=== PATIENT | male | born 1985 | race Caucasian/White ===

== ENCOUNTER → 2020-05-11 16:28 | Outpatient (BNVA) | payer OTHER, SELFPAY | PROVIDERS: PCP Internal Medicine; Referring Provider Internal Medicine; Visit Provider Internal Medicine | DX: I34.8 Other nonrheumatic mitral valve disorders (principal); Z51.81 Encounter for therapeutic drug level monitoring; Z79.01 Long term (current) use of anticoagulants | CPT/HCPCS: 85610; 99211 ==

== ENCOUNTER → 2020-05-24 14:25 | Outpatient (BNVA) | payer OTHER, SELFPAY | PROVIDERS: Visit Provider Internal Medicine | DX: Z95.2 Presence of prosthetic heart valve (principal); Z51.81 Encounter for therapeutic drug level monitoring; Z79.01 Long term (current) use of anticoagulants | CPT/HCPCS: 85610 ==

== ENCOUNTER → 2020-06-08 14:05 | Outpatient (BNVA) | payer OTHER, SELFPAY | PROVIDERS: PCP Internal Medicine; Visit Provider Internal Medicine | DX: Z95.2 Presence of prosthetic heart valve (principal); Z51.81 Encounter for therapeutic drug level monitoring; Z79.01 Long term (current) use of anticoagulants | CPT/HCPCS: 85610 ==

== ENCOUNTER → 2020-06-26 14:23 | Outpatient (BNVA) | payer OTHER, SELFPAY | PROVIDERS: PCP Internal Medicine; Visit Provider Internal Medicine | DX: Z95.2 Presence of prosthetic heart valve (principal); Z51.81 Encounter for therapeutic drug level monitoring; Z79.01 Long term (current) use of anticoagulants | CPT/HCPCS: 85610; 99211 ==

== ENCOUNTER → 2020-07-10 14:12 | Outpatient (BNVA) | payer OTHER, SELFPAY | PROVIDERS: PCP Internal Medicine; Visit Provider Internal Medicine | DX: I34.8 Other nonrheumatic mitral valve disorders (principal); Z51.81 Encounter for therapeutic drug level monitoring; Z79.01 Long term (current) use of anticoagulants | CPT/HCPCS: 85610; 99211 ==

== ENCOUNTER → 2020-08-01 09:30 | Outpatient (BNVA) | payer OTHER, SELFPAY | PROVIDERS: PCP Internal Medicine; Visit Provider Internal Medicine | DX: I34.8 Other nonrheumatic mitral valve disorders (principal); Z51.81 Encounter for therapeutic drug level monitoring; Z79.01 Long term (current) use of anticoagulants | CPT/HCPCS: 85610; 99211 ==

== ENCOUNTER → 2020-08-15 09:39 | Outpatient (BNVA) | payer OTHER, SELFPAY | PROVIDERS: PCP Internal Medicine; Visit Provider Internal Medicine | DX: I34.8 Other nonrheumatic mitral valve disorders (principal); Z51.81 Encounter for therapeutic drug level monitoring; Z79.01 Long term (current) use of anticoagulants | CPT/HCPCS: 85610; 99211 ==

== ENCOUNTER → 2020-08-21 09:39 | Outpatient (BNVA) | payer OTHER, SELFPAY | PROVIDERS: PCP Internal Medicine; Visit Provider Internal Medicine | DX: I34.8 Other nonrheumatic mitral valve disorders (principal); Z79.01 Long term (current) use of anticoagulants; Z51.81 Encounter for therapeutic drug level monitoring | CPT/HCPCS: 85610; 99211 ==

== ENCOUNTER → 2020-08-31 13:08 | Outpatient (BNVA) | payer OTHER, SELFPAY | PROVIDERS: PCP Internal Medicine; Visit Provider Internal Medicine | DX: I34.8 Other nonrheumatic mitral valve disorders (principal); Z51.81 Encounter for therapeutic drug level monitoring; Z79.01 Long term (current) use of anticoagulants | CPT/HCPCS: 85610; 99211 ==

== ENCOUNTER → 2020-09-07 13:07 | Outpatient (BNVA) | payer OTHER, SELFPAY | PROVIDERS: PCP Internal Medicine; Visit Provider Internal Medicine ==

== ENCOUNTER → 2020-09-08 13:36 | Outpatient (BNVA) | payer OTHER, SELFPAY | PROVIDERS: PCP Internal Medicine; Visit Provider Internal Medicine | DX: I34.8 Other nonrheumatic mitral valve disorders (principal); Z51.81 Encounter for therapeutic drug level monitoring; Z79.01 Long term (current) use of anticoagulants | CPT/HCPCS: 85610; 99211 ==

== ENCOUNTER → 2020-09-11 10:01 | Outpatient (BNVA) | payer MEDICAID, SELFPAY | PROVIDERS: PCP Internal Medicine; Visit Provider Internal Medicine | DX: I34.8 Other nonrheumatic mitral valve disorders (principal); Z51.81 Encounter for therapeutic drug level monitoring; Z79.01 Long term (current) use of anticoagulants | CPT/HCPCS: 85610; 99211 ==

== ENCOUNTER → 2020-09-13 15:31 | Outpatient (BNVA) | payer MEDICAID, SELFPAY | PROVIDERS: PCP Internal Medicine; Visit Provider Internal Medicine | DX: I34.8 Other nonrheumatic mitral valve disorders (principal); Z51.81 Encounter for therapeutic drug level monitoring; Z79.01 Long term (current) use of anticoagulants | CPT/HCPCS: 85610; 99211 ==

== ENCOUNTER → 2020-09-15 14:24 | Outpatient (BNVA) | payer MEDICAID, SELFPAY | PROVIDERS: PCP Internal Medicine; Visit Provider Internal Medicine | DX: I34.8 Other nonrheumatic mitral valve disorders (principal); Z51.81 Encounter for therapeutic drug level monitoring; Z79.01 Long term (current) use of anticoagulants | CPT/HCPCS: 85610; 99211 ==

== ENCOUNTER → 2020-09-29 10:29 | Outpatient (BNVA) | payer MEDICAID, SELFPAY | PROVIDERS: PCP Internal Medicine; Visit Provider Internal Medicine | DX: I34.8 Other nonrheumatic mitral valve disorders (principal); Z51.81 Encounter for therapeutic drug level monitoring; Z79.01 Long term (current) use of anticoagulants | CPT/HCPCS: 85610; 99211 ==

== ENCOUNTER → 2020-10-13 11:16 | Outpatient (BNVA) | payer MEDICAID, SELFPAY | PROVIDERS: PCP Internal Medicine; Visit Provider Internal Medicine | DX: I34.8 Other nonrheumatic mitral valve disorders (principal); Z51.81 Encounter for therapeutic drug level monitoring; Z79.01 Long term (current) use of anticoagulants | CPT/HCPCS: 85610; 99211 ==

== ENCOUNTER → 2020-10-26 15:30 | Outpatient (BNVA) | payer MEDICAID, SELFPAY | PROVIDERS: PCP Internal Medicine; Visit Provider Internal Medicine | DX: I34.8 Other nonrheumatic mitral valve disorders (principal); Z51.81 Encounter for therapeutic drug level monitoring; Z79.01 Long term (current) use of anticoagulants | CPT/HCPCS: 85610; 99211 ==

== ENCOUNTER → 2020-11-02 14:07 | Outpatient (BNVA) | payer MEDICAID, SELFPAY | PROVIDERS: PCP Internal Medicine; Visit Provider Internal Medicine | DX: I34.8 Other nonrheumatic mitral valve disorders (principal); Z51.81 Encounter for therapeutic drug level monitoring; Z79.01 Long term (current) use of anticoagulants | CPT/HCPCS: 85610; 99211 ==

== ENCOUNTER → 2020-11-10 08:49 | Outpatient (BNVA) | payer MEDICAID, SELFPAY | PROVIDERS: PCP Internal Medicine; Visit Provider Internal Medicine | DX: I34.8 Other nonrheumatic mitral valve disorders (principal); Z51.81 Encounter for therapeutic drug level monitoring; Z79.01 Long term (current) use of anticoagulants | CPT/HCPCS: 85610; 99211 ==

== ENCOUNTER → 2020-11-24 13:53 | Outpatient (BNVA) | payer MEDICAID, SELFPAY | PROVIDERS: PCP Internal Medicine; Visit Provider Internal Medicine | DX: I34.8 Other nonrheumatic mitral valve disorders (principal); Z79.01 Long term (current) use of anticoagulants; Z51.81 Encounter for therapeutic drug level monitoring | CPT/HCPCS: 85610; 99211 ==

== ENCOUNTER → 2020-12-18 09:49 | Outpatient (BNVA) | payer MEDICAID, SELFPAY | PROVIDERS: PCP Internal Medicine; Visit Provider Internal Medicine | DX: Z95.2 Presence of prosthetic heart valve (principal); Z79.01 Long term (current) use of anticoagulants; Z51.81 Encounter for therapeutic drug level monitoring | CPT/HCPCS: 85610; 99211 ==

== ENCOUNTER → 2021-01-10 13:21 | Outpatient (BNVA) | payer MEDICAID, SELFPAY | PROVIDERS: PCP Internal Medicine; Visit Provider Internal Medicine | DX: Z95.2 Presence of prosthetic heart valve (principal); Z51.81 Encounter for therapeutic drug level monitoring; Z79.01 Long term (current) use of anticoagulants | CPT/HCPCS: 85610; 99211 ==

== ENCOUNTER → 2021-01-12 13:26 | Outpatient (BNVA) | payer MEDICAID, SELFPAY | PROVIDERS: PCP Internal Medicine; Visit Provider Internal Medicine | DX: Z95.2 Presence of prosthetic heart valve (principal); Z51.81 Encounter for therapeutic drug level monitoring; Z79.01 Long term (current) use of anticoagulants | CPT/HCPCS: 85610; 99211 ==

== ENCOUNTER → 2021-01-19 11:42 | Outpatient (BNVA) | payer MEDICAID, SELFPAY | PROVIDERS: PCP Internal Medicine; Visit Provider Internal Medicine | DX: Z95.2 Presence of prosthetic heart valve (principal); Z51.81 Encounter for therapeutic drug level monitoring; Z79.01 Long term (current) use of anticoagulants | CPT/HCPCS: 85610; 99211 ==

== ENCOUNTER → 2021-01-30 07:28 | Outpatient (REF) | payer MEDICAID, SELFPAY ==
--- NOTE | 2021-01-30 07:30 | CA_ITS ---
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 The visually estimated ejection fraction is between 60-65%. - A mechanical prosthetic mitral valve is present. Mean gradient across the mitral valve 12 mm Hg at 76/Min. This is elevated but similar to prior. - Moderately increased right ventricular cavity size. Findings Left Ventricle Normal left ventricular cavity size. There is normal left ventricular wall thickness. The left ventricular systolic function is normal. The visually estimated ejection fraction is between 60-65%. There is no evidence of regional wall motion abnormalities. Diastolic function is indeterminate on the basis of available data. Right Ventricle Moderately increased right ventricular cavity size. There is normal right ventricular systolic function. Atria The left atrium is moderately dilated. The right atrium is normal in size. Aortic Valve There is a normal trileaflet aortic valve. There is no aortic valve stenosis. There is no aortic valve regurgitation. Mitral Valve A mechanical prosthetic mitral valve is present. Mean gradient across the mitral valve 12 mm Hg at 76/Min. Based on spectral Doppler, no significant regurgitation noted. Pulmonic Valve The pulmonic valve was not well visualized. Tricuspid Valve Normal tricuspid valve structure. There is trace tricuspid valve regurgitation. Tricuspid regurgitation envelope is inadequate for calculation of right ventricular systolic pressure. Great Vessels The asc aorta and aortic arch are normal in size. Venous The inferior vena cava is normal in size and collapses greater than 50% with inspiration. Pericardium/Pleural There is no evidence of pericardial effusion. Prior Study Comparison No significant change compared to prior study dated: 03/17/2019. Measurements 2D Linear Measurements IVSd: 0.93 0.6-0.9/0.6-1.0 cm LVIDd: 4.75 3.9-5.3/4.2-5.9 cm LVIDs: 3.18 2.0-3.6 cm LVPWd: 0.93 0.7-1.1 cm Ao Root: 3.55 2.1-3.5 cm LV Mass: 188.54 67-162/88-224 g LVOT Diam: 2.15 3.0+(-)1.3 cm Mitral Valve MV VTI: 0.55 MV Pk Jai: 2.20 MV Mn Jai: 1.68 MV Pk Grad: 19.34 MV Mn Grad: 12.32 MV Pk E: 1.61 MV PK A: 1.67 MV Decel Time: 255.59 E/A: 0.96 E'Lateral: 0.14 E'Medial: 0.07 Decel Geary: 6.30 Aortic Valve AoV Pk Jai: 1.27 AoV Mn Jai: 0.94 AoV VTI: 0.28 AoV Pk Grad: 6.45 Aov Mn Grad: 3.91 LVOT LVOT Pk Jai: 1.09 LVOT Mn Jai: 0.67 LVOT VTI: 0.21 LVOT Pk Grad: 4.77 LVOT Mn Grad: 2.18 LVOT Diam: 2.15 LVOT Area: 3.65 Diastolic Function MV Pk E: 1.61 MV Pk A: 1.67 E/A: 0.96 E'Medial: 0.07 E' Laterial: 0.14 Great Vessels Aorta Ao Root-2D: 3.55 2.0-3.7 cm Ao Asc: 3.35 2.1-3.4 cm Ao Arch: 2.70 Updated in Other Vendor System with Status of Final Jose Williamson MD electronically signed on 01/30/2021 12:44:39 PM with status of Final
== END ==
LOC: HO.CARD 07:28
PROVIDERS: Visit Provider Internal Medicine
DX: Z95.2 Presence of prosthetic heart valve (principal)
CPT/HCPCS: 93306

== ENCOUNTER → 2021-02-26 10:02 | Outpatient (BNVA) | payer MEDICAID, SELFPAY | PROVIDERS: PCP Internal Medicine; Visit Provider Internal Medicine | DX: Z95.2 Presence of prosthetic heart valve (principal); Z51.81 Encounter for therapeutic drug level monitoring; Z79.01 Long term (current) use of anticoagulants | CPT/HCPCS: 85610; 99211 ==

== ENCOUNTER → 2021-03-01 09:20 | Outpatient (BNVA) | payer MEDICAID, SELFPAY | PROVIDERS: PCP Internal Medicine; Visit Provider Internal Medicine | DX: Z95.2 Presence of prosthetic heart valve (principal); Z51.81 Encounter for therapeutic drug level monitoring; Z79.01 Long term (current) use of anticoagulants | CPT/HCPCS: 85610; 99211 ==

== ENCOUNTER → 2021-03-08 14:50 | Outpatient (BNVA) | payer MEDICAID, SELFPAY | PROVIDERS: PCP Internal Medicine; Referring Provider Internal Medicine; Visit Provider Internal Medicine | DX: I44.0 Atrioventricular block, first degree (principal); F17.210 Nicotine dependence, cigarettes, uncomplicated; Z95.2 Presence of prosthetic heart valve; Z86.79 Personal history of other diseases of the circulatory system; Z79.899 Other long term (current) drug therapy | CPT/HCPCS: 93005; 99212 ==

== ENCOUNTER → 2021-03-15 10:03 | Outpatient (BNVA) | payer MEDICAID, SELFPAY | PROVIDERS: PCP Internal Medicine; Visit Provider Internal Medicine | DX: Z95.2 Presence of prosthetic heart valve (principal); Z51.81 Encounter for therapeutic drug level monitoring; Z79.01 Long term (current) use of anticoagulants | CPT/HCPCS: 85610; 99211 ==

== ENCOUNTER → 2021-03-29 11:00 | Outpatient (BNVA) | payer MEDICAID, SELFPAY | PROVIDERS: PCP Internal Medicine; Visit Provider Internal Medicine | DX: Z95.2 Presence of prosthetic heart valve (principal); Z51.81 Encounter for therapeutic drug level monitoring; Z79.01 Long term (current) use of anticoagulants | CPT/HCPCS: 85610; 99211 ==

== ENCOUNTER → 2021-04-05 09:52 | Outpatient (BNVA) | payer MEDICAID, SELFPAY | PROVIDERS: PCP Internal Medicine; Visit Provider Internal Medicine | DX: Z95.2 Presence of prosthetic heart valve (principal); Z51.81 Encounter for therapeutic drug level monitoring; Z79.01 Long term (current) use of anticoagulants | CPT/HCPCS: 85610; 99211 ==

== ENCOUNTER → 2021-04-26 08:24 | Outpatient (BNVA) | payer MEDICAID, SELFPAY | PROVIDERS: PCP Internal Medicine; Visit Provider Internal Medicine | DX: Z95.2 Presence of prosthetic heart valve (principal); Z51.81 Encounter for therapeutic drug level monitoring; Z79.01 Long term (current) use of anticoagulants | CPT/HCPCS: 85610; 99211 ==

== ENCOUNTER → 2021-05-24 08:03 | Outpatient (BNVA) | payer MEDICAID, SELFPAY | PROVIDERS: PCP Internal Medicine; Visit Provider Internal Medicine | DX: Z95.2 Presence of prosthetic heart valve (principal); Z51.81 Encounter for therapeutic drug level monitoring; Z79.01 Long term (current) use of anticoagulants | CPT/HCPCS: 85610; 99211 ==

== ENCOUNTER → 2021-05-28 08:28 | Outpatient (BNVA) | payer MEDICAID, SELFPAY | PROVIDERS: PCP Internal Medicine; Visit Provider Internal Medicine | DX: Z95.2 Presence of prosthetic heart valve (principal); Z51.81 Encounter for therapeutic drug level monitoring; Z79.01 Long term (current) use of anticoagulants | CPT/HCPCS: 85610; 99211 ==

== ENCOUNTER → 2021-06-15 08:24 | Outpatient (BNVA) | payer MEDICAID, SELFPAY | PROVIDERS: PCP Internal Medicine; Visit Provider Internal Medicine | DX: Z95.2 Presence of prosthetic heart valve (principal); Z51.81 Encounter for therapeutic drug level monitoring; Z79.01 Long term (current) use of anticoagulants | CPT/HCPCS: 85610; 99211 ==

== ENCOUNTER → 2021-07-02 08:28 | Outpatient (BNVA) | payer MEDICAID, SELFPAY | PROVIDERS: PCP Internal Medicine; Visit Provider Internal Medicine | DX: Z95.2 Presence of prosthetic heart valve (principal); Z51.81 Encounter for therapeutic drug level monitoring; Z79.01 Long term (current) use of anticoagulants | CPT/HCPCS: 85610; 99211 ==

== ENCOUNTER → 2021-07-16 13:04 | Outpatient (BNVA) | payer MEDICAID, SELFPAY | PROVIDERS: PCP Internal Medicine; Visit Provider Internal Medicine | DX: Z95.2 Presence of prosthetic heart valve (principal); Z51.81 Encounter for therapeutic drug level monitoring; Z79.01 Long term (current) use of anticoagulants | CPT/HCPCS: 85610; 99211 ==

== ENCOUNTER → 2021-07-23 13:59 | Outpatient (BNVA) | payer MEDICAID, SELFPAY | PROVIDERS: PCP Internal Medicine; Visit Provider Internal Medicine ==

== ENCOUNTER → 2021-07-27 15:51 | Outpatient (BNVA) | payer MEDICAID, SELFPAY | PROVIDERS: PCP Internal Medicine; Visit Provider Internal Medicine | DX: Z95.2 Presence of prosthetic heart valve (principal); Z51.81 Encounter for therapeutic drug level monitoring; Z79.01 Long term (current) use of anticoagulants | CPT/HCPCS: 85610; 99211 ==

== ENCOUNTER → 2021-09-13 14:22 | Outpatient (BNVA) | payer MEDICAID, SELFPAY | PROVIDERS: PCP Internal Medicine; Visit Provider Internal Medicine | DX: Z95.2 Presence of prosthetic heart valve (principal); Z51.81 Encounter for therapeutic drug level monitoring; Z79.01 Long term (current) use of anticoagulants | CPT/HCPCS: 85610; 99211 ==

== ENCOUNTER → 2021-10-12 14:58 | Outpatient (BNVA) | payer MEDICAID, SELFPAY | PROVIDERS: PCP Internal Medicine; Visit Provider Internal Medicine | DX: Z95.2 Presence of prosthetic heart valve (principal); Z51.81 Encounter for therapeutic drug level monitoring; Z79.01 Long term (current) use of anticoagulants | CPT/HCPCS: 85610; 99211 ==

== ENCOUNTER → 2021-10-15 15:52 | Outpatient (BNVA) | payer MEDICAID, SELFPAY | PROVIDERS: PCP Internal Medicine; Visit Provider Internal Medicine | DX: Z95.2 Presence of prosthetic heart valve (principal); Z51.81 Encounter for therapeutic drug level monitoring; Z79.01 Long term (current) use of anticoagulants | CPT/HCPCS: 85610; 99211 ==

== ENCOUNTER → 2021-10-18 15:58 | Outpatient (BNVA) | payer MEDICAID, SELFPAY | PROVIDERS: PCP Internal Medicine; Visit Provider Internal Medicine | DX: Z95.2 Presence of prosthetic heart valve (principal); Z51.81 Encounter for therapeutic drug level monitoring; Z79.01 Long term (current) use of anticoagulants | CPT/HCPCS: 85610; 99211 ==

== ENCOUNTER → 2021-11-01 15:45 | Outpatient (BNVA) | payer MEDICAID, SELFPAY | PROVIDERS: PCP Internal Medicine; Visit Provider Internal Medicine | DX: Z95.2 Presence of prosthetic heart valve (principal); Z51.81 Encounter for therapeutic drug level monitoring; Z79.01 Long term (current) use of anticoagulants | CPT/HCPCS: 85610; 99211 ==

== ENCOUNTER → 2021-11-05 14:49 | Outpatient (BNVA) | payer MEDICAID, SELFPAY | PROVIDERS: PCP Internal Medicine; Visit Provider Internal Medicine | DX: Z95.2 Presence of prosthetic heart valve (principal); Z51.81 Encounter for therapeutic drug level monitoring; Z79.01 Long term (current) use of anticoagulants | CPT/HCPCS: 85610; 99211 ==

== ENCOUNTER → 2021-11-12 15:47 | Outpatient (BNVA) | payer MEDICAID, SELFPAY | PROVIDERS: PCP Internal Medicine; Visit Provider Internal Medicine | DX: Z95.2 Presence of prosthetic heart valve (principal); Z51.81 Encounter for therapeutic drug level monitoring; Z79.01 Long term (current) use of anticoagulants | CPT/HCPCS: 85610 ==

== ENCOUNTER → 2021-11-15 15:37 | Outpatient (BNVA) | payer MEDICAID, SELFPAY | PROVIDERS: PCP Internal Medicine; Visit Provider Internal Medicine | DX: Z95.2 Presence of prosthetic heart valve (principal); Z51.81 Encounter for therapeutic drug level monitoring; Z79.01 Long term (current) use of anticoagulants | CPT/HCPCS: 85610; 99211 ==

== ENCOUNTER → 2021-11-21 15:17 | Outpatient (BNVA) | payer MEDICAID, SELFPAY | PROVIDERS: PCP Internal Medicine; Visit Provider Internal Medicine | DX: Z95.2 Presence of prosthetic heart valve (principal); Z79.01 Long term (current) use of anticoagulants; Z51.81 Encounter for therapeutic drug level monitoring | CPT/HCPCS: 85610; 99211 ==

== ENCOUNTER → 2021-11-28 15:44 | Outpatient (BNVA) | payer MEDICAID, SELFPAY | PROVIDERS: PCP Internal Medicine; Visit Provider Internal Medicine | DX: Z95.2 Presence of prosthetic heart valve (principal); Z79.01 Long term (current) use of anticoagulants; Z51.81 Encounter for therapeutic drug level monitoring | CPT/HCPCS: 85610; 99211 ==

== ENCOUNTER → 2022-01-01 15:54 | Outpatient (BNVA) | payer MEDICAID, SELFPAY | PROVIDERS: PCP Internal Medicine; Visit Provider Internal Medicine | DX: Z95.2 Presence of prosthetic heart valve (principal); Z79.01 Long term (current) use of anticoagulants; Z51.81 Encounter for therapeutic drug level monitoring | CPT/HCPCS: 85610; 99211 ==

== ENCOUNTER → 2022-01-15 15:44 | Outpatient (BNVA) | payer MEDICAID, SELFPAY | PROVIDERS: PCP Internal Medicine; Visit Provider Internal Medicine | DX: Z95.2 Presence of prosthetic heart valve (principal); Z79.01 Long term (current) use of anticoagulants; Z51.81 Encounter for therapeutic drug level monitoring | CPT/HCPCS: 85610; 99211 ==

== ENCOUNTER → 2022-01-25 14:59 | Outpatient (BNVA) | payer MEDICAID, SELFPAY | PROVIDERS: PCP Internal Medicine; Visit Provider Internal Medicine | DX: Z95.2 Presence of prosthetic heart valve (principal); Z79.01 Long term (current) use of anticoagulants; Z51.81 Encounter for therapeutic drug level monitoring | CPT/HCPCS: 85610; 99211 ==

== ENCOUNTER → 2022-02-01 14:57 | Outpatient (BNVA) | payer MEDICAID, SELFPAY | PROVIDERS: PCP Internal Medicine; Visit Provider Internal Medicine | DX: Z95.2 Presence of prosthetic heart valve (principal); Z79.01 Long term (current) use of anticoagulants; Z51.81 Encounter for therapeutic drug level monitoring | CPT/HCPCS: 85610; 99211 ==

== ENCOUNTER → 2022-02-22 08:32 | Outpatient (BNVA) | payer MEDICAID, SELFPAY | PROVIDERS: PCP Internal Medicine; Visit Provider Internal Medicine | DX: Z95.2 Presence of prosthetic heart valve (principal); Z79.01 Long term (current) use of anticoagulants; Z51.81 Encounter for therapeutic drug level monitoring | CPT/HCPCS: 85610; 99211 ==

== ENCOUNTER → 2022-03-08 08:08 | Outpatient (BNVA) | payer MEDICAID, SELFPAY | PROVIDERS: PCP Internal Medicine; Visit Provider Internal Medicine | DX: Z95.2 Presence of prosthetic heart valve (principal); Z79.01 Long term (current) use of anticoagulants; Z51.81 Encounter for therapeutic drug level monitoring | CPT/HCPCS: 85610; 99211 ==

== ENCOUNTER → 2022-03-15 08:30 | Outpatient (BNVA) | payer MEDICAID, SELFPAY | PROVIDERS: PCP Internal Medicine; Visit Provider Internal Medicine | DX: Z95.2 Presence of prosthetic heart valve (principal); Z79.01 Long term (current) use of anticoagulants; Z51.81 Encounter for therapeutic drug level monitoring | CPT/HCPCS: 85610; 99211 ==

== ENCOUNTER → 2022-04-08 08:05 | Outpatient (BNVA) | payer MEDICAID, SELFPAY | PROVIDERS: PCP Internal Medicine; Visit Provider Internal Medicine | DX: Z95.2 Presence of prosthetic heart valve (principal); Z79.01 Long term (current) use of anticoagulants; Z51.81 Encounter for therapeutic drug level monitoring | CPT/HCPCS: 85610; 99211 ==

== ENCOUNTER → 2022-04-17 08:38 | Outpatient (BNVA) | payer MEDICAID, SELFPAY | PROVIDERS: PCP Internal Medicine; Visit Provider Internal Medicine | DX: Z95.2 Presence of prosthetic heart valve (principal); Z79.01 Long term (current) use of anticoagulants; Z51.81 Encounter for therapeutic drug level monitoring | CPT/HCPCS: 85610; 99211 ==

== ENCOUNTER → 2022-05-02 15:29 | Outpatient (BNVA) | payer MEDICAID, SELFPAY | PROVIDERS: PCP Internal Medicine; Visit Provider Internal Medicine | DX: Z95.2 Presence of prosthetic heart valve (principal); Z79.01 Long term (current) use of anticoagulants; Z51.81 Encounter for therapeutic drug level monitoring | CPT/HCPCS: 85610; 99211 ==

== ENCOUNTER → 2022-05-09 15:31 | Outpatient (BNVA) | payer MEDICAID, SELFPAY | PROVIDERS: PCP Internal Medicine; Visit Provider Internal Medicine | DX: Z95.2 Presence of prosthetic heart valve (principal); Z51.81 Encounter for therapeutic drug level monitoring; Z79.01 Long term (current) use of anticoagulants | CPT/HCPCS: 85610; 99211 ==

== ENCOUNTER → 2022-05-16 15:24 | Outpatient (BNVA) | payer MEDICAID, SELFPAY | PROVIDERS: PCP Internal Medicine; Visit Provider Internal Medicine | DX: Z95.2 Presence of prosthetic heart valve (principal); Z79.01 Long term (current) use of anticoagulants; Z51.81 Encounter for therapeutic drug level monitoring | CPT/HCPCS: 85610; 99211 ==

== ENCOUNTER → 2022-05-24 14:56 | Outpatient (BNVA) | payer MEDICAID, SELFPAY | PROVIDERS: PCP Internal Medicine; Visit Provider Internal Medicine | DX: Z95.2 Presence of prosthetic heart valve (principal); Z79.01 Long term (current) use of anticoagulants; Z51.81 Encounter for therapeutic drug level monitoring | CPT/HCPCS: 85610; 99211 ==

== ENCOUNTER → 2022-05-31 15:12 | Outpatient (BNVA) | payer MEDICAID, SELFPAY | PROVIDERS: PCP Internal Medicine; Visit Provider Internal Medicine | DX: Z95.2 Presence of prosthetic heart valve (principal); Z79.01 Long term (current) use of anticoagulants; Z51.81 Encounter for therapeutic drug level monitoring | CPT/HCPCS: 85610; 99211 ==

== ENCOUNTER → 2022-06-10 08:47 | Outpatient (BNVA) | payer MEDICAID, SELFPAY | PROVIDERS: PCP Internal Medicine; Visit Provider Internal Medicine | DX: Z95.2 Presence of prosthetic heart valve (principal); Z79.01 Long term (current) use of anticoagulants; Z51.81 Encounter for therapeutic drug level monitoring | CPT/HCPCS: 85610; 99211 ==

== ENCOUNTER → 2022-06-25 09:06 | Outpatient (BNVA) | payer MEDICAID, SELFPAY | PROVIDERS: PCP Internal Medicine; Visit Provider Internal Medicine | DX: Z95.2 Presence of prosthetic heart valve (principal); Z79.01 Long term (current) use of anticoagulants; Z51.81 Encounter for therapeutic drug level monitoring | CPT/HCPCS: 85610; 99211 ==

== ENCOUNTER → 2022-07-09 08:22 | Outpatient (BNVA) | payer MEDICAID, SELFPAY | PROVIDERS: PCP Internal Medicine; Visit Provider Internal Medicine | DX: Z95.2 Presence of prosthetic heart valve (principal); Z79.01 Long term (current) use of anticoagulants; Z51.81 Encounter for therapeutic drug level monitoring | CPT/HCPCS: 85610; 99211 ==

== ENCOUNTER → 2022-07-25 14:58 | Outpatient (BNVA) | payer MEDICAID, SELFPAY | PROVIDERS: PCP Internal Medicine; Visit Provider Internal Medicine | DX: Z95.2 Presence of prosthetic heart valve (principal); Z79.01 Long term (current) use of anticoagulants; Z51.81 Encounter for therapeutic drug level monitoring | CPT/HCPCS: 85610; 99211 ==

== ENCOUNTER → 2022-08-01 15:06 | Outpatient (BNVA) | payer MEDICAID, SELFPAY | PROVIDERS: PCP Internal Medicine; Visit Provider Internal Medicine | DX: Z95.2 Presence of prosthetic heart valve (principal); Z79.01 Long term (current) use of anticoagulants; Z51.81 Encounter for therapeutic drug level monitoring | CPT/HCPCS: 85610; 99211 ==

== ENCOUNTER → 2022-08-13 15:32 | Outpatient (BNVA) | payer MEDICAID, SELFPAY | PROVIDERS: PCP Internal Medicine; Visit Provider Internal Medicine | DX: Z95.2 Presence of prosthetic heart valve (principal); Z79.01 Long term (current) use of anticoagulants; Z51.81 Encounter for therapeutic drug level monitoring | CPT/HCPCS: 85610; 99211 ==

== ENCOUNTER → 2022-08-27 15:38 | Outpatient (BNVA) | payer MEDICAID, SELFPAY | PROVIDERS: PCP Internal Medicine; Visit Provider Internal Medicine | DX: Z95.2 Presence of prosthetic heart valve (principal); Z79.01 Long term (current) use of anticoagulants; Z51.81 Encounter for therapeutic drug level monitoring | CPT/HCPCS: 85610; 99211 ==

== ENCOUNTER → 2022-09-10 15:25 | Outpatient (BNVA) | payer MEDICAID, SELFPAY | PROVIDERS: PCP Internal Medicine; Visit Provider Internal Medicine | DX: Z95.2 Presence of prosthetic heart valve (principal); Z51.81 Encounter for therapeutic drug level monitoring; Z79.01 Long term (current) use of anticoagulants | CPT/HCPCS: 85610; 99211 ==

== ENCOUNTER 2022-09-23 11:05 | Emergency (ER) | payer MEDICAID, SELFPAY ==
--- NOTE | ~2022-09-23 | XR_ITS ---
EXAMINATION: XR CHEST CLINICAL INFORMATION: Productive cough COMPARISON: Previous chest x-ray July 2019 TECHNIQUE: 2 views of the chest were obtained. FINDINGS: The cardiac silhouette is upper normal in size. There is a heart valve ring and median sternotomy wires. There are increased central bronchovascular markings. The lungs are otherwise clear. There is no pleural effusion or pneumothorax. Bony structures are otherwise unremarkable. XR/XR chest 2V IMPRESSION: Increased central bronchovascular markings. Differential would include pulmonary venous redistribution and airways disease. No evidence of pneumonia.
[2022-09-23 11:22] VITALS: BP 121/71; PULSE 77; RESP 20; TEMP 36.6; O2SAT 93; BMI 36.6
--- NOTE | 2022-09-23 11:23 | ED_ITS ---
HPI - SOB/Dyspnea General Chief Complaint: Upper Respiratory Symptoms Stated Complaint: sob back pain Time Seen by Provider: 09/23/22 12:11 Related Data Home Medications Medication Instructions Recorded Confirmed albuterol sulfate 90 mcg/actuation 2 puff PO Q4-6H PRN 08/21/20 09/24/22 aerosol inhaler cetirizine 10 mg tablet 10 mg PO DAILY 08/21/20 09/24/22 gabapentin 300 mg capsule mg PO 08/21/20 09/24/22 lamotrigine 200 mg tablet 0 mg PO 08/21/20 09/24/22 lithium carbonate 300 mg tablet 0 mg PO 08/21/20 09/24/22 fluticasone propionate 230 inhalation 08/31/20 09/24/22 mcg-salmeterol 21 mcg/actuation HFA inhaler buprenorphine 4 mg-naloxone 1 mg 5 mg sublingual BID 03/29/21 09/24/22 sublingual film (Suboxone) fluoxetine 20 mg capsule 20 mg PO QAM 03/29/21 09/24/22 fluticasone propionate 50 1 spray intranasal DAILY 03/29/21 09/24/22 mcg/actuation nasal spray,suspension hydrocortisone 2.5 % lotion topical DAILY 03/29/21 09/24/22 hydroxyzine pamoate 25 mg capsule 25 mg PO BEDTIME PRN 03/29/21 09/24/22 ketoconazole 2 % topical cream appl topical 03/29/21 09/24/22 nicotine (polacrilex) 2 mg gum 2 mg PO Q2H PRN 03/29/21 09/24/22 Previous Rx's Medication Instructions Recorded warfarin 7.5 mg tablet 7.5 mg PO DAILY MVR #90 tabs 07/24/20 azithromycin 250 mg tablet See Rx Instructions PO .COMPLEX #6 09/23/22 tabs prednisone 20 mg tablet 40 mg PO DAILY #10 tabs 09/23/22 Allergies Allergy/AdvReac Type Severity Reaction Status Date / Time No Known Allergies Allergy Verified 09/24/22 15:28 [No Known Allergies*] [facility] Past Medical History Medical History History of endocarditis Smoking Surgical History (Updated 03/08/21 @ 14:59 by MADELEINE Lucio) S/P MVR (mitral valve replacement) (~2014) Family History Family History (Updated 03/08/21 @ 15:09 by MADELEINE Lucio) Father No problems noted. Mother No problems noted. Social History Social History (Updated 03/08/21 @ 15:08 by MADELEINE Lucio) Alcohol intake: never Patient Tobacco Use Status: Current everyday Tobacco user Cigarettes Per Day: 15 Physical Exam Vital Signs: Vital Signs: Last Vital Signs Temp 97.3 F 09/23/22 12:41 Pulse 75 09/23/22 12:43 Resp 20 09/23/22 12:43 BP 118/76 09/23/22 12:41 Pulse Ox 97 09/23/22 12:41 O2 Del Method 09/23/22 12:41 BMI result Body Mass Index 36.6 Course Course Course Narrative: RME - 37 y/o male with substance abuse on Suboxone, history of endocarditiis s/p MV replacement on Coumadin presenting with SOB, productive cough, sore throat, body aches for the last 4-5 days. VSS in triage, speaking in complete sentences but diffusely wheezy with scattered rhonchi. Will get CXR, viral and strep swabs. Medications Administered Discontinued Medications Generic Name Dose Route Start Last Admin Trade Name Freq PRN Reason Stop Dose Admin Albuterol/Ipratropium 3 ml 09/23/22 12:16 09/23/22 12:42 Albuterol/Iprat 2.5/0.5mg 3 Ml Ampul.Neb INHALE 09/23/22 12:17 3 ml ONCE ONE Administration Medical Decision Making Lab Data Labs: Lab Results 09/23/22 09/23/22 09/23/22 Range/Units 11:42 11:42 11:42 COVID-19 ([facility]) Negative (Negative) COVID-19 Clin Com See Note Influenza Type A (ERIK) Negative (Negative) Influenza Type B (ERIK) Negative (Negative) Influenza A & B Note See Note S. pyogenes GrpA ERIK Negative (Negative) Discharge Plan Discharge Clinical Impression: Acute asthma exacerbation, Upper respiratory infection, Smoking Patient Disposition: Home, Self-Care Instructions: Asthma (ED) Additional Instructions: Take prednisone 40 mg daily for the next 5 days. Take azithromycin as directed Continue your inhalers as prescribed Prescriptions: New prednisone 20 mg tablet 40 mg PO DAILY Qty: 10 0RF azithromycin 250 mg tablet See Rx Instructions .ROUTE .COMPLEX Qty: 6 0RF Rx Instructions: For 250 mg dose pack: take 500 mg today (day 1), then 250 mg for 4 days (days 2-5) No Action warfarin 7.5 mg tablet 7.5 mg PO DAILY Qty: 90 0RF Protocol: Dose Management Condition: Friday (Week One) Dose/Route: 7.5 mg Instruction: 1 x 7.5 mg tablet Condition: Friday Dose/Route: 11.25 mg Instruction: 1.5 x 7.5 mg tablets Condition: Friday Dose/Route: 3.75 mg Instruction: 0.5 x 7.5 mg tablets Condition: Friday Dose/Route: 7.5 mg Instruction: 1 x 7.5 mg tablet Condition: Dose/Route: 7.5 mg Instruction: 1 x 7.5 mg tablet Condition: Friday Dose/Route: 7.5 mg Instruction: 1 x 7.5 mg tablet Condition: Friday Dose/Route: 7.5 mg Instruction: 1 x 7.5 mg tablet Condition: Friday (Week Two) Dose/Route: 7.5 mg Instruction: 1 x 7.5 mg tablet Condition: Friday Dose/Route: 7.5 mg Instruction: 1 x 7.5 mg tablet Condition: Friday Dose/Route: 7.5 mg Instruction: 1 x 7.5 mg tablet Condition: Friday Dose/Route: 7.5 mg Instruction: 1 x 7.5 mg tablet Condition: Dose/Route: 7.5 mg Instruction: 1 x 7.5 mg tablet Condition: Friday Dose/Route: 7.5 mg Instruction: 1 x 7.5 mg tablet Condition: Friday Dose/Route: 7.5 mg Instruction: 1 x 7.5 mg tablet Protocol Text: Adjustment Start Date: Friday09/24/22 INR Value: 3.9 INR Date: 09/24/22 Recheck Date: 10/01/22 Additional Instructions: INR is elevated, you are on 2 new medications that can raise the INR decrease dose tonight to 3.75mg have green salads while on antibiotic and prednisone decrease dose next Friday to 7.5mg instead of 11.25mg Rx Instructions: 11.25MG X6DAYS/ 7.5MG X 1DAY HAS BEEN HIS DOSE gabapentin 300 mg capsule PO cetirizine 10 mg tablet 10 mg PO DAILY lithium carbonate 300 mg tablet 0 mg PO lamotrigine 200 mg tablet 0 mg PO albuterol sulfate 90 mcg/actuation HFA aerosol inhaler 2 puff PO Q4-6H PRN Advair HFA 230-21 mcg/actuation HFA aerosol inhaler inhalation buprenorphine-naloxone [Suboxone] 4-1 mg film 5 mg sublingual BID fluticasone propionate 50 mcg/actuation spray,suspension 1 spray intranasal DAILY nicotine (polacrilex) 2 mg gum 2 mg PO Q2H PRN hydrocortisone 2.5 % lotion topical DAILY ketoconazole 2 % cream topical hydroxyzine pamoate 25 mg capsule 25 mg PO BEDTIME PRN fluoxetine 20 mg capsule 20 mg PO QAM Stand Alone Forms: Work/School Release Interventions: ED Discharge Assessment Last Done: 09/23/22 13:29 Discharge Date/Time: 09/23/22 13:29
[2022-09-23 12:09] LABS: COVID-19 Test Negative (Negative); IDNOW Serial# 16C4AD1C; IDNOW Serial# 9DB6401D; Influenza A Negative (Negative); Influenza B2 Negative (Negative)
[2022-09-23 12:19] LABS: IDNOW Serial# 6674DD1D; Strep A Nucleic Acid Negative (Negative)
--- NOTE | 2022-09-23 12:19 | ED_ITS ---
HPI - General Adult General Chief complaint: Upper Respiratory Symptoms Stated complaint: sob back pain Time Seen by Provider: 09/23/22 12:11 Source: patient, family, RN notes reviewed and old records reviewed Mode of arrival: ambulatory Limitations: no limitations History of Present Illness HPI narrative: 37-year-old male past medical history significant for asthma, first-degree heart block, tobacco dependence, history of endocarditis presents for evaluation of cough, congestion, sore throat Patient pursue his symptoms started about 5 days ago and seemed to worsen about 3 days ago. He has used his home inhalers with minimal relief. He reports his congestion insulin is keeping him up at night His dosages routes of breath. He denies any fevers or chills. 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 He reports his Overall discomfort as 7 in 10 Related Data Home Medications Medication Instructions Recorded Confirmed albuterol sulfate 90 mcg/actuation 2 puff PO Q4-6H PRN 08/21/20 09/10/22 aerosol inhaler cetirizine 10 mg tablet 10 mg PO DAILY 08/21/20 09/10/22 gabapentin 300 mg capsule mg PO 08/21/20 09/10/22 lamotrigine 200 mg tablet 0 mg PO 08/21/20 09/10/22 lithium carbonate 300 mg tablet 0 mg PO 08/21/20 09/10/22 fluticasone propionate 230 inhalation 08/31/20 09/10/22 mcg-salmeterol 21 mcg/actuation HFA inhaler buprenorphine 4 mg-naloxone 1 mg 5 mg sublingual BID 03/29/21 09/10/22 sublingual film (Suboxone) fluoxetine 20 mg capsule 20 mg PO QAM 03/29/21 09/10/22 fluticasone propionate 50 1 spray intranasal DAILY 03/29/21 09/10/22 mcg/actuation nasal spray,suspension hydrocortisone 2.5 % lotion topical DAILY 03/29/21 09/10/22 hydroxyzine pamoate 25 mg capsule 25 mg PO BEDTIME PRN 03/29/21 09/10/22 ketoconazole 2 % topical cream appl topical 03/29/21 09/10/22 nicotine (polacrilex) 2 mg gum 2 mg PO Q2H PRN 03/29/21 09/10/22 Previous Rx's Medication Instructions Recorded warfarin 7.5 mg tablet 7.5 mg PO DAILY MVR #90 tabs 07/24/20 azithromycin 250 mg tablet See Rx Instructions PO .COMPLEX #6 09/23/22 tabs prednisone 20 mg tablet 40 mg PO DAILY #10 tabs 09/23/22 Allergies Allergy/AdvReac Type Severity Reaction Status Date / Time No Known Allergies Allergy Verified 09/23/22 11:25 [No Known Allergies*] Review of Systems Constitutional: Constitutional: Reports as per HPI, Denies chills, Denies fatigue and Denies headache(s) ENT: Denies headache(s), Reports hoarseness and Reports sore throat Cardiovascular: Cardiovascular: Denies chest pain and Reports dyspnea Respiratory: Respiratory: Reports chest congestion, Reports cough, Denies hemoptysis and Reports dyspnea Gastrointestinal: Gastrointestinal: Denies abdominal pain, Denies constipation and Denies vomiting Genitourinary: Genitourinary: Denies difficulty urinating and Denies dysuria Neurologic: Denies headache(s) Endocrine: Endocrine: Denies fatigue PMFSH Past Medical History Medical History History of endocarditis Smoking Surgical History (Updated 03/08/21 @ 14:59 by MADELEINE Lucio) S/P MVR (mitral valve replacement) (~2014) Family History Family History (Updated 03/08/21 @ 15:09 by MADELEINE Lucio) Father No problems noted. Mother No problems noted. Social History Social History (Updated 03/08/21 @ 15:08 by MADELEINE Lucio) Patient Tobacco Use Status: Current everyday Tobacco user Cigarettes Per Day: 15 Advance Directives: No Advance Directives Information Provided: No Physical Exam ED Vital Signs: Vital Signs - 24 hr 09/23/22 11:22 09/23/22 12:41 09/23/22 12:43 Temperature 97.9 F 97.3 F Pulse Rate 77 75 75 Respiratory Rate 20 16 20 Blood Pressure 121/71 118/76 Pulse Oximetry 93 97 Oxygen Delivery Method Room Air Room Air BMI result Body Mass Index 36.6 Const General: healthy appearing, comfortable, no acute distress, alert and awake Nutritional Appearance: well nourished Orientation/consciousness: patient oriented x3 HENMT Throat: Yes posterior oropharynx normal, Yes tonsils normal and No peritonsillar mass Eyes Other: Left lateral nystagmus Eyelids: Yes eyelids normal Conjunctivae: conjunctivae normal Sclerae: sclerae normal Corneas: corneas normal Pupils: Equal, round and reactive pupils present EOM: EOMs intact bilaterally Resp Effort & Inspection: normal respiratory effort, able to speak in complete sentences, audible wheezes, no grunting, not labored and no stridor Auscultation: wheezes expiratory wheezes, inspiratory wheezes and throughout Skin General skin exam: no rashes or lesions noted and elasticity normal Lesions: no lesions Rashes: no rashes Neuro General: patient oriented x3 Cranial nerves: Yes Equal, round and reactive pupils present Extrem General: Yes full ROM Course Reevaluation(s) Reevaluation #1: Patient re-evaluated after DuoNeb administration. The patient does have some mild wheezes but improved from arrival. Chest x-ray without pneumonia, strep and viral panels negative Phalen discharge the patient with prednisone and azithromycin. Time: 13:05 Medications Administered Discontinued Medications Generic Name Dose Route Start Last Admin Trade Name Freq PRN Reason Stop Dose Admin Albuterol/Ipratropium 3 ml 09/23/22 12:16 09/23/22 12:42 Albuterol/Iprat 2.5/0.5mg 3 Ml Ampul.Neb INHALE 09/23/22 12:17 3 ml ONCE ONE Administration Medical Decision Making Medical Decision Making [facility] Narrative: This is a 37-year-old male past medical history significant for asthma, tobacco dependence Cora evaluation of shortness of breath, cough, congestion. Final signs are within normal limits, the patient is afebrile with no increased respiratory effort parents does have wheezing sounds and a DuoNeb to be administered. We will re-evaluate after the DuoNeb. Viral panel was negative, strep throat swab pending. Chest x-ray pending at the time. Differential Diagnosis Differential Diagnoses: The differential diagnosis associated with the presentation includes (Upper respiratory infection, acute asthma exacerbation, viral syndrome, strep throat, pneumonia) Acute asthma exacerbation Lab Data Labs: Lab Results 09/23/22 09/23/22 09/23/22 Range/Units 11:42 11:42 11:42 COVID-19 ([facility]) Negative (Negative) COVID-19 Clin Com See Note Influenza Type A ([facility]) Negative (Negative) Influenza Type B (ERIK) Negative (Negative) Influenza A & B Note See Note S. pyogenes GrpA ERIK Negative (Negative) Independent Interpretation I performed an independent interpretation of an: Plain X-Ray Interpretation: agree with no evidence of pneumonia Radiology Impression Discussion of test interpretation with radiology: I have reviewed the radiologist's reading. Discharge Plan Discharge Clinical Impression: Acute asthma exacerbation, Upper respiratory infection, Smoking Patient Disposition: Home, Self-Care Instructions: Asthma (ED) Additional Instructions: Take prednisone 40 mg daily for the next 5 days. Take azithromycin as directed Continue your inhalers as prescribed Prescriptions: New prednisone 20 mg tablet 40 mg PO DAILY Qty: 10 0RF azithromycin 250 mg tablet See Rx Instructions .ROUTE .COMPLEX Qty: 6 0RF Rx Instructions: For 250 mg dose pack: take 500 mg today (day 1), then 250 mg for 4 days (days 2-5) No Action warfarin 7.5 mg tablet 7.5 mg PO DAILY Qty: 90 0RF Protocol: Dose Management Condition: Friday (Week One) Dose/Route: 7.5 mg Instruction: 1 x 7.5 mg tablet Condition: Friday Dose/Route: 11.25 mg Instruction: 1.5 x 7.5 mg tablets Condition: Friday Dose/Route: 7.5 mg Instruction: 1 x 7.5 mg tablet Condition: Friday Dose/Route: 7.5 mg Instruction: 1 x 7.5 mg tablet Condition: Dose/Route: 7.5 mg Instruction: 1 x 7.5 mg tablet Condition: Friday Dose/Route: 7.5 mg Instruction: 1 x 7.5 mg tablet Condition: Friday Dose/Route: 7.5 mg Instruction: 1 x 7.5 mg tablet Condition: Friday (Week Two) Dose/Route: 7.5 mg Instruction: 1 x 7.5 mg tablet Condition: Friday Dose/Route: 11.25 mg Instruction: 1.5 x 7.5 mg tablets Condition: Friday Dose/Route: 7.5 mg Instruction: 1 x 7.5 mg tablet Condition: Friday Dose/Route: 7.5 mg Instruction: 1 x 7.5 mg tablet Condition: Dose/Route: 7.5 mg Instruction: 1 x 7.5 mg tablet Condition: Friday Dose/Route: 7.5 mg Instruction: 1 x 7.5 mg tablet Condition: Friday Dose/Route: 7.5 mg Instruction: 1 x 7.5 mg tablet Protocol Text: Adjustment Start Date: Friday09/10/22 INR Value: 2.6 INR Date: 09/10/22 Recheck Date: 09/24/22 Additional Instructions: INR is in range continue same dosing balance greens and reds in diet but no green today watch out for Milk chocolate!!! Rx Instructions: 11.25MG X6DAYS/ 7.5MG X 1DAY HAS BEEN HIS DOSE gabapentin 300 mg capsule PO cetirizine 10 mg tablet 10 mg PO DAILY lithium carbonate 300 mg tablet 0 mg PO lamotrigine 200 mg tablet 0 mg PO albuterol sulfate 90 mcg/actuation HFA aerosol inhaler 2 puff PO Q4-6H PRN Advair HFA 230-21 mcg/actuation HFA aerosol inhaler inhalation buprenorphine-naloxone [Suboxone] 4-1 mg film 5 mg sublingual BID fluticasone propionate 50 mcg/actuation spray,suspension 1 spray intranasal DAILY nicotine (polacrilex) 2 mg gum 2 mg PO Q2H PRN hydrocortisone 2.5 % lotion topical DAILY ketoconazole 2 % cream topical hydroxyzine pamoate 25 mg capsule 25 mg PO BEDTIME PRN fluoxetine 20 mg capsule 20 mg PO QAM Stand Alone Forms: Work/School Release
[2022-09-23 12:41] VITALS: BP 118/76; PULSE 75; RESP 16; TEMP 36.3; O2SAT 97
[2022-09-23] MEDS: Albuterol/Iprat 2.5/0.5MG 3 ML AMPUL.NEB INHALE (12:42)
[2022-09-23 12:43] VITALS: PULSE 75; RESP 20; O2SAT 96
== END 2022-09-23 13:29 | disposition home or self-care (01) ==
PROVIDERS: Physician Assistant; Emergency Provider Emergency Medicine; PCP Internal Medicine
DX: J45.901 Unspecified asthma with (acute) exacerbation (principal); J06.9 Acute upper respiratory infection, unspecified; F17.210 Nicotine dependence, cigarettes, uncomplicated; Z20.822 Contact with and (suspected) exposure to COVID-19; J02.9 Acute pharyngitis, unspecified
CPT/HCPCS: 71046; 87502; 87635; 87651; 94640; 99284

== ENCOUNTER → 2022-09-24 15:26 | Outpatient (BNVA) | payer MEDICAID, SELFPAY | PROVIDERS: PCP Internal Medicine; Visit Provider Internal Medicine | DX: Z95.2 Presence of prosthetic heart valve (principal); Z51.81 Encounter for therapeutic drug level monitoring; Z79.01 Long term (current) use of anticoagulants | CPT/HCPCS: 85610; 99211 ==

== ENCOUNTER → 2022-10-02 15:17 | Outpatient (BNVA) | payer MEDICAID, SELFPAY | PROVIDERS: PCP Internal Medicine; Visit Provider Internal Medicine | DX: Z95.2 Presence of prosthetic heart valve (principal); Z79.01 Long term (current) use of anticoagulants; Z51.81 Encounter for therapeutic drug level monitoring | CPT/HCPCS: 85610; 99211 ==

== ENCOUNTER → 2022-10-16 14:46 | Outpatient (BNVA) | payer MEDICAID, SELFPAY | PROVIDERS: PCP Internal Medicine; Visit Provider Internal Medicine | DX: Z95.2 Presence of prosthetic heart valve (principal); Z79.01 Long term (current) use of anticoagulants; Z51.81 Encounter for therapeutic drug level monitoring | CPT/HCPCS: 85610; 99211 ==

== ENCOUNTER → 2022-10-31 15:48 | Outpatient (BNVA) | payer MEDICAID, SELFPAY | PROVIDERS: PCP Internal Medicine; Visit Provider Internal Medicine | DX: Z95.2 Presence of prosthetic heart valve (principal); Z79.01 Long term (current) use of anticoagulants; Z51.81 Encounter for therapeutic drug level monitoring | CPT/HCPCS: 85610; 99211 ==

== ENCOUNTER → 2022-11-07 15:05 | Outpatient (BNVA) | payer MEDICAID, SELFPAY | PROVIDERS: PCP Internal Medicine; Visit Provider Internal Medicine | DX: Z95.2 Presence of prosthetic heart valve (principal); Z79.01 Long term (current) use of anticoagulants; Z51.81 Encounter for therapeutic drug level monitoring | CPT/HCPCS: 85610; 99211 ==

== ENCOUNTER 2022-11-10 07:58 | Emergency (ER) | payer MEDICAID, SELFPAY ==
--- NOTE | ~2022-11-10 | XR_ITS ---
EXAMINATION: XR CHEST CLINICAL INFORMATION: Chest pain COMPARISON: Chest x-ray September 23, 2022 TECHNIQUE: 2 views of the chest were obtained. FINDINGS: Cardiac silhouette is normal in size. Patient is status post valve replacement. Central pulmonary vasculature is less prominent on today's imaging. There is no lobar consolidation. No pleural effusion or pneumothorax. No acute osseous abnormality. XR/XR chest 2V IMPRESSION: No acute pulmonary pathology.
[2022-11-10 08:01] VITALS: BP 145/88; PULSE 74; RESP 18; TEMP 36.8; O2SAT 99; BMI 33.9
[2022-11-10 08:16] VITALS: BP 136/73; PULSE 66; RESP 20; TEMP 36.6; O2SAT 94
--- NOTE | 2022-11-10 08:16 | ECG_ITS ---
Test Reason : chest pain Blood Pressure : / mmHG Vent. Rate : 067 BPM Atrial Rate : 067 BPM P-R Int : 268 ms QRS Dur : 100 ms QT Int : 402 ms P-R-T Axes : 002 074 061 degrees QTc Int : 424 ms Sinus rhythm with 1st degree A-V block Otherwise normal ECG When compared with ECG of 18-JUL-2019 08:13, Vent. rate has decreased BY 47 BPM Referred By: Aruna Miller Electronically Signed By:Andrew Rust
--- NOTE | 2022-11-10 08:20 | ED_ITS ---
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 Patient states that he was yelling and felt the pain immediately in the right side of his back. He describes the pain as sharp, and waxes and wanes in severity with movement and with coughing. He states that since he has noticed the pain, the pain has worsened. He denies any fevers, chills, headaches, sore throat, rhinorrhea, ear pain, weakness, headaches, dizziness, abdominal pain, nausea, or vomiting. He denies any shortness of breath, palpitations, swelling in his lower extremities. He reports that he has not used IV substances in over 2 years. He reports that he has not missed any doses of warfarin. Denies any other complaints or concerns at this time. MD complaint: Right sided back pain Onset (ago): day(s) Location: back, right and upper extremity Radiation: non-radiation Severity: moderate Quality: sharp Pain Consistency: constant Relieving factors: none Exacerbating factors: movement Associated symptoms: denies other symptoms Treatments prior to arrival: none Related Data Home Medications Medication Instructions Recorded Confirmed albuterol sulfate 90 mcg/actuation 2 puff PO Q4-6H PRN 08/21/20 11/07/22 aerosol inhaler cetirizine 10 mg tablet 10 mg PO DAILY 08/21/20 11/07/22 gabapentin 300 mg capsule mg PO 08/21/20 11/07/22 lamotrigine 200 mg tablet 0 mg PO 08/21/20 11/07/22 lithium carbonate 300 mg tablet 0 mg PO 08/21/20 11/07/22 buprenorphine 4 mg-naloxone 1 mg 5 mg sublingual BID 03/29/21 11/07/22 sublingual film (Suboxone) fluoxetine 20 mg capsule 20 mg PO QAM 03/29/21 11/07/22 fluticasone propionate 50 1 spray intranasal DAILY 03/29/21 11/07/22 mcg/actuation nasal spray,suspension hydrocortisone 2.5 % lotion topical DAILY 03/29/21 11/07/22 hydroxyzine pamoate 25 mg capsule 25 mg PO BEDTIME PRN 03/29/21 11/07/22 ketoconazole 2 % topical cream appl topical 03/29/21 11/07/22 nicotine (polacrilex) 2 mg gum 2 mg PO Q2H PRN 03/29/21 11/07/22 Previous Rx's Medication Instructions Recorded warfarin 7.5 mg tablet 7.5 mg PO DAILY MVR #90 tabs 07/24/20 acetaminophen 325 mg tablet 650 mg PO Q6H #30 tabs 11/10/22 (Tylenol) cyclobenzaprine 5 mg tablet 10 mg PO Q12H PRN muscle spasm #20 11/10/22 tabs lidocaine 4 % topical patch 1 patch topical Q8-12H PRN pain 11/10/22 (Aspercreme (lidocaine)) #10 ea Allergies Allergy/AdvReac Type Severity Reaction Status Date / Time No Known Allergies Allergy Verified 11/07/22 15:06 [No Known Allergies*] Review of Systems Review of Systems: Yes all other systems are reviewed and are negative [facility] Past Medical History Medical History History of endocarditis Smoking Surgical History (Updated 03/08/21 @ 14:59 by MADELEINE Lucio) S/P MVR (mitral valve replacement) (~2014) Family History Family History (Updated 03/08/21 @ 15:09 by MADELEINE Lucio) Father No problems noted. Mother No problems noted. Social History Social History (Updated 03/08/21 @ 15:08 by MADLEEINE Lucio) Alcohol intake: never Patient Tobacco Use Status: Current everyday Tobacco user Cigarettes Per Day: 15 Advance Directives: No Advance Directives Information Provided: No Physical Exam ED Vital Signs: Vital Signs - 24 hr 11/10/22 08:01 11/10/22 08:16 Temperature 98.3 F 97.9 F Pulse Rate 74 66 Respiratory Rate 18 20 Blood Pressure 145/88 H 136/73 Pulse Oximetry 99 94 Oxygen Delivery Method Room Air Room Air BMI result Body Mass Index 33.9 Appearance: Alert. Oriented X3. No acute distress. Eyes: Pupils equal, round and reactive to light. EOMI - Left lateral nystagmus ENT: Pharynx normal. Oral pharynx is nonerythematous, nonedematous, uvula is midline. Neck: Normal inspection. Neck supple. Full ROM. CVS: Normal heart rate and rhythm. Pulses normal. S1S2 regular, prosthetic valve sound best heard over the right sternal border. Respiratory: No respiratory distress. Breath sounds normal. Lungs clear to auscultation bilaterally, no wheezes, rhonchi or rales. Abdomen: Soft and nontender. +BS x4 Skin: Skin warm and dry. Normal skin color. Normal skin turgor. No rashes. Extremities: Tenderness to palpation the right posterior back, just medial to the right scapula. Full range of motion of the right shoulder. Empty can test on the right illicits pain in this area. No lower extremity edema. No calf tenderness. Neuro: Oriented X 3. No motor deficit. No sensory deficit. CN II-XII intact. Medical Decision Making Medical Decision Making MDM Narrative: 37 yo M, with a past medical history of endocarditis with mitral valve rep lacement on warfarin, who presents to the emergency department with complaints of right sided back pain x 3 days after yelling. Patient reports that the pain has been constant, waxes and wanes in severity with coughing. No shortness of breath, palpitations, syncope. On exam, patient has TTP to the right posterior back, just medial to the right scapula, pain also illicited during movements on exam. Patient is normotensive, afebrile, HR 74, with no hypoxia. Due to patient's risk factors, will get cardiac work-up to rule out cardiac etiology, although seems MSK in nature. Patient has no missed warfarin doses, has not used IV drugs in 2 years, and INR levels have been therapeutic. Work-up today with a negative troponin, therapeutic INR level at 2.8, negative chest x-ray, and no leukocytosis. Given current presentation with no fevers, SOB, syncope, symptoms most consistent with MSK etiology. Will treat with tylenol, flexeril, and lidocaine patches. Given strict precautions of when to return if symptoms worsen. Advised to f/u with PCP. Patient understands and agrees with plan. Differential Diagnosis Differential Diagnoses: The differential diagnosis associated with the presentation includes ACS, Costochondritis, Rib Fracture, pneumothorax, endocardititis - unlikely, PE - unlikely Lab Data 11/10/22 08:38 11/10/22 08:38 Labs: Lab Results 11/10/22 11/10/22 11/10/22 Range/Units 08:38 08:38 08:38 WBC 8.0 (4.8-10.8) X10*3/uL RBC 4.28 L (4.60-5.80) X10*6/uL Hgb 13.3 L (14.0-18.0) g/dl Hct 40.9 L (42.0-52.0) % MCV 95.6 (80.0-98.0) fL MCH 31.1 (27.0-33.0) pg MCHC 32.5 (31.0-36.0) g/dl RDW 13.9 (11.0-16.0) % Plt Count 272 (160-400) X10*3/uL MPV 9.3 L (9.4-12.4) fL Immature Gran % (Auto) 0.1 (0.0-0.4) % Neut % (Auto) 71.0 (45-73) % Lymph % (Auto) 18.7 L (20-40) % Marion % (Auto) 5.7 (2-11) % Eos % (Auto) 4.0 (0-4) % Baso % (Auto) 0.5 (0-2) % Lymph # (Auto) 1.5 (1.2-4.9) X10*3/uL Marion # (Auto) 0.5 (0.1-1.2) X10*3/uL Eos # (Auto) 0.3 (0.0-0.4) X10*3/uL Baso # (Auto) 0.0 (0.0-0.2) X10*3/uL Abs Immat Gran (auto) 0.01 (0.00-0.03) X10*3/uL Absolute Neuts (auto) 5.7 (2.0-8.3) x10*3/uL Absolute Nucleated RBC 0.000 (0.0-0.012) X10*3/uL Nucleated RBC % (auto) 0.0 (0.0-0.2) /100WBC PT 33.0 H (10.0-13.1) SEC INR 2.8 H (0.9-1.1) APTT 50.9 H (26.0-36.4) SEC Sodium 140 (135-145) mmol/L Potassium 4.4 (3.3-5.1) mmol/L Chloride 105 (96-108) mmol/L Carbon Dioxide 28 (22-29) mmol/L Anion Gap 11 L (12-20) BUN 13 (9-16) mg/dL Creatinine 1.35 (0.5-1.4) mg/dL Estim Creat Clear Calc 95.5 Estimated GFR 59 Random Glucose 106 (60-115) mg/dL Calcium 8.9 (8.4-10.2) mg/dL Magnesium 2.1 (1.6-2.6) mg/dL Troponin I High Sens (<3.5-35.0) ng/L 11/10/22 Range/Units 08:38 WBC (4.8-10.8) X10*3/uL RBC (4.60-5.80) X10*6/uL Hgb (14.0-18.0) g/dl Hct (42.0-52.0) % MCV (80.0-98.0) fL MCH (27.0-33.0) pg MCHC (31.0-36.0) g/dl RDW (11.0-16.0) % Plt Count (160-400) X10*3/uL MPV (9.4-12.4) fL Immature Gran % (Auto) (0.0-0.4) % Neut % (Auto) (45-73) % Lymph % (Auto) (20-40) % Marion % (Auto) (2-11) % Eos % (Auto) (0-4) % Baso % (Auto) (0-2) % Lymph # (Auto) (1.2-4.9) X10*3/uL Marion # (Auto) (0.1-1.2) X10*3/uL Eos # (Auto) (0.0-0.4) X10*3/uL Baso # (Auto) (0.0-0.2) X10*3/uL Abs Immat Gran (auto) (0.00-0.03) X10*3/uL Absolute Neuts (auto) (2.0-8.3) x10*3/uL Absolute Nucleated RBC (0.0-0.012) X10*3/uL Nucleated RBC % (auto) (0.0-0.2) /100WBC PT (10.0-13.1) SEC INR (0.9-1.1) APTT (26.0-36.4) SEC Sodium (135-145) mmol/L Potassium (3.3-5.1) mmol/L Chloride (96-108) mmol/L Carbon Dioxide (22-29) mmol/L Anion Gap (12-20) BUN (9-16) mg/dL Creatinine (0.5-1.4) mg/dL Estim Creat Clear Calc Estimated GFR Random Glucose (60-115) mg/dL Calcium (8.4-10.2) mg/dL Magnesium (1.6-2.6) mg/dL Troponin I High Sens < 3.5 (<3.5-35.0) ng/L Independent Interpretation I performed an independent interpretation of an: EKG and Plain X-Ray Interpretation: EKG - sinus rhythm with 1st degree AV block with a ventricular rate of 67BPM, W[place] interval 268, QTC 424. No ST elevation or depression. No acute ischemic changes. Similar to previous EKG from 2019 Chest x-ray reviewed and I agree with the radiologist's report. Radiology Impression Discussion of test interpretation with radiology: I have reviewed the radiologist's reading. Radiologist Impression: EXAMINATION: XR CHEST CLINICAL INFORMATION: Chest pain COMPARISON: Chest x-ray September 23, 2022 TECHNIQUE: 2 views of the chest were obtained. FINDINGS: Cardiac silhouette is normal in size. Patient is status post valve replacement. Central pulmonary vasculature is less prominent on today's imaging. There is no lobar consolidation. No pleural effusion or pneumothorax. No acute osseous abnormality. XR/XR chest 2V IMPRESSION: No acute pulmonary pathology. ? Dictated By: Jesse Singer MD Discharge Plan Discharge Clinical Impression: Strain of thoracic back region Patient Disposition: Home, Self-Care Instructions: Muscle Strain (ED), Thoracic Back Strain (ED) Additional Instructions: Your INR was 2.8 today. Your chest x-ray was normal. You likely strained a muscle in your back which is causing your pain. Take prescribed medications as directed. Please be aware that Flexeril may cause drowsiness, do not drink or drive while taking this medication. Gentle stretching, heat/ice packs and massage may help with your pain. If you develop any new or worsening symptoms including but not limited to fevers, shortness of breath, chest pain, please return. Follow up with your primary care physician regarding this visit. Prescriptions: New acetaminophen [Tylenol] 325 mg tablet 650 mg PO Q6H Qty: 30 0RF cyclobenzaprine 5 mg tablet 10 mg PO Q12H PRN (Reason: muscle spasm) Qty: 20 0RF lidocaine [Aspercreme (lidocaine)] 4 % adhesive patch,medicated 1 patch topical Q8-12H PRN (Reason: pain) Qty: 10 0RF No Action warfarin 7.5 mg tablet 7.5 mg PO DAILY Qty: 90 0RF Protocol: Dose Management Condition: Friday (Week One) Dose/Route: 7.5 mg Instruction: 1 x 7.5 mg tablet Condition: Friday Dose/Route: 11.25 mg Instruction: 1.5 x 7.5 mg tablets Condition: Friday Dose/Route: 7.5 mg Instruction: 1 x 7.5 mg tablet Condition: Friday Dose/Route: 7.5 mg Instruction: 1 x 7.5 mg tablet Condition: Dose/Route: 7.5 mg Instruction: 1 x 7.5 mg tablet Condition: Friday Dose/Route: 7.5 mg Instruction: 1 x 7.5 mg tablet Condition: Friday Dose/Route: 7.5 mg Instruction: 1 x 7.5 mg tablet Condition: Friday (Week Two) Dose/Route: 7.5 mg Instruction: 1 x 7.5 mg tablet Condition: Friday Dose/Route: 11.25 mg Instruction: 1.5 x 7.5 mg tablets Condition: Friday Dose/Route: 7.5 mg Instruction: 1 x 7.5 mg tablet Condition: Friday Dose/Route: 7.5 mg Instruction: 1 x 7.5 mg tablet Condition: Dose/Route: 7.5 mg Instruction: 1 x 7.5 mg tablet Condition: Friday Dose/Route: 7.5 mg Instruction: 1 x 7.5 mg tablet Condition: Friday Dose/Route: 7.5 mg Instruction: 1 x 7.5 mg tablet Protocol Text: Adjustment Start Date: 11/07/22 INR Value: 3.2 INR Date: 11/07/22 Recheck Date: 11/17/22 Additional Instructions: INR is in range continue same dosing balance greens and reds in diet Rx Instructions: 11.25MG X6DAYS/ 7.5MG X 1DAY HAS BEEN HIS DOSE gabapentin 300 mg capsule PO cetirizine 10 mg tablet 10 mg PO DAILY lithium carbonate 300 mg tablet 0 mg PO lamotrigine 200 mg tablet 0 mg PO albuterol sulfate 90 mcg/actuation HFA aerosol inhaler 2 puff PO Q4-6H PRN buprenorphine-naloxone [Suboxone] 4-1 mg film 5 mg sublingual BID fluticasone propionate 50 mcg/actuation spray,suspension 1 spray intranasal DAILY nicotine (polacrilex) 2 mg gum 2 mg PO Q2H PRN hydrocortisone 2.5 % lotion topical DAILY ketoconazole 2 % cream topical hydroxyzine pamoate 25 mg capsule 25 mg PO BEDTIME PRN fluoxetine 20 mg capsule 20 mg PO QAM Interventions: ED Discharge Assessment Last Done: 11/10/22 09:54 Discharge Date/Time: 11/10/22 09:54
--- NOTE | 2022-11-10 08:41 | PC.NURSE ---
Alert and oriented, resp even and unlabored. IV established, labs drawn and sent. Vss, call gomez within reach.
[2022-11-10 08:42] LABS: MANUAL DIFF FLAG NO
[2022-11-10 08:44] LABS: Basophils Percent Auto 0.5 % (0-2); Eosinophils Absolute Auto 0.3 X10*3/uL (0.0-0.4); Hematocrit 40.9 % (42.0-52.0); Hemoglobin 13.3 g/dl (14.0-18.0); Imm Gran Abs Auto 0.01 X10*3/uL (0.00-0.03); Imm Gran Pct Auto 0.1 % (0.0-0.4); Lymphocytes Absolute Auto 1.5 X10*3/uL (1.2-4.9); Lymphocytes Percent Auto 18.7 % (20-40); Mean Corpuscular HGB Conc 32.5 g/dl (31.0-36.0); Mean Corpuscular Hemoglobin 31.1 pg (27.0-33.0); Mean Corpuscular Volume 95.6 fL (80.0-98.0); Mean Platelet Volume 9.3 fL (9.4-12.4); Monocytes Absolute Auto 0.5 X10*3/uL (0.1-1.2); Monocytes Percent Auto 5.7 % (2-11); Neutrophils Absolute Auto 5.7 x10*3/uL (2.0-8.3); Platelet Count 272 X10*3/uL (160-400); Red Blood Count 4.28 X10*6/uL (4.60-5.80); Red Cell Distribution Width 13.9 % (11.0-16.0)
[2022-11-10 08:48] LABS: INTERNATIONAL NORM RATIO 2.8 (0.9-1.1)
[2022-11-10 08:51] LABS: Partial Thromboplastin Time 50.9 SEC (26.0-36.4)
[2022-11-10 09:01] LABS: Anion Gap 11 (12-20); Blood Urea Nitrogen 13 mg/dL (9-16); Calcium 8.9 mg/dL (8.4-10.2); Carbon Dioxide 28 mmol/L (22-29); Chloride 105 mmol/L (96-108); Creatinine Clr Calc Pharmacy 95.5; Estimated Glomerular Filt Rate 59; Glucose Random 106 mg/dL (60-115); Magnesium 2.1 mg/dL (1.6-2.6); Potassium 4.4 mmol/L (3.3-5.1); Sodium 140 mmol/L (135-145)
[2022-11-10 09:07] LABS: Troponin-I High Sensitivity < 3.5 ng/L (<3.5-35.0)
== END 2022-11-10 09:54 | disposition home or self-care (01) ==
PROVIDERS: Physician Assistant Medical; Emergency Provider Emergency Medicine; PCP Internal Medicine
DX: R07.89 Other chest pain (principal); M54.50 Low back pain, unspecified; M54.6 Pain in thoracic spine; F17.210 Nicotine dependence, cigarettes, uncomplicated; Z71.6 Tobacco abuse counseling; Z79.899 Other long term (current) drug therapy
CPT/HCPCS: 36415; 71046; 80048; 83735; 84484; 85025; 85610; 85730; 93005; 99284; 99285

== ENCOUNTER → 2022-11-19 15:00 | Outpatient (BNVA) | payer MEDICAID, SELFPAY | PROVIDERS: PCP Internal Medicine; Visit Provider Internal Medicine | DX: Z95.2 Presence of prosthetic heart valve (principal); Z51.81 Encounter for therapeutic drug level monitoring; Z79.01 Long term (current) use of anticoagulants | CPT/HCPCS: 85610; 99211 ==

== ENCOUNTER → 2022-11-26 07:59 | Outpatient (BNVA) | payer MEDICAID, SELFPAY | PROVIDERS: PCP Internal Medicine; Visit Provider Internal Medicine | DX: Z95.2 Presence of prosthetic heart valve (principal); Z79.01 Long term (current) use of anticoagulants; Z51.81 Encounter for therapeutic drug level monitoring | CPT/HCPCS: 85610; 99211 ==

== ENCOUNTER → 2022-12-05 13:57 | Outpatient (BNVA) | payer MEDICAID, SELFPAY | PROVIDERS: PCP Internal Medicine; Visit Provider Internal Medicine | DX: Z95.2 Presence of prosthetic heart valve (principal); Z79.01 Long term (current) use of anticoagulants; Z51.81 Encounter for therapeutic drug level monitoring | CPT/HCPCS: 85610; 99211 ==

== ENCOUNTER 2022-12-06 16:45 | Emergency (ER) | payer MEDICAID, SELFPAY | END 2022-12-06 20:29 | disposition left against medical advice (07) | PROVIDERS: Emergency Provider Emergency Medicine; PCP Internal Medicine | DX: K06.8 Other specified disorders of gingiva and edentulous alveolar ridge (principal) ==

== ENCOUNTER 2022-12-07 07:39 | Emergency (ER) | payer MEDICAID, SELFPAY ==
[2022-12-07 07:41] VITALS: BP 150/83; PULSE 80; RESP 18; TEMP 36.6; O2SAT 97; BMI 37.3
--- NOTE | 2022-12-07 08:11 | ED.DENTAL ---
HPI - Dental/Oral General Chief complaint: Dental/Oral Stated complaint: dental pain Time Seen by Provider: 12/07/22 07:59 Source: patient and family Mode of arrival: ambulatory Limitations: no limitations History of Present Illness HPI Narrative: 37-year-old male came for evaluation of dental infection. Patient status post mitral valve replacement (mechanical valve) patient is on Coumadin, patient presented to the ED with dental bleeding yesterday found to have high INR of 6, but was instructed to hold his Coumadin yesterday and today by the [facility], currently patient is not bleeding from his tooth, but concern of dental infection. Related Data Home Medications Medication Instructions Recorded Confirmed albuterol sulfate 90 mcg/actuation 2 puff PO Q4-6H PRN 08/21/20 12/05/22 aerosol inhaler cetirizine 10 mg tablet 10 mg PO DAILY 08/21/20 12/05/22 gabapentin 300 mg capsule mg PO 08/21/20 12/05/22 lamotrigine 200 mg tablet 0 mg PO 08/21/20 12/05/22 lithium carbonate 300 mg tablet 0 mg PO 08/21/20 12/05/22 buprenorphine 4 mg-naloxone 1 mg 5 mg sublingual BID 03/29/21 12/05/22 sublingual film (Suboxone) fluoxetine 20 mg capsule 20 mg PO QAM 03/29/21 12/05/22 fluticasone propionate 50 1 spray intranasal DAILY 03/29/21 12/05/22 mcg/actuation nasal spray,suspension hydrocortisone 2.5 % lotion topical DAILY 03/29/21 12/05/22 hydroxyzine pamoate 25 mg capsule 25 mg PO BEDTIME PRN 03/29/21 12/05/22 ketoconazole 2 % topical cream appl topical 03/29/21 12/05/22 nicotine (polacrilex) 2 mg gum 2 mg PO Q2H PRN 03/29/21 12/05/22 Previous Rx's Medication Instructions Recorded warfarin 7.5 mg tablet 7.5 mg PO DAILY MVR #90 tabs 07/24/20 acetaminophen 325 mg tablet 650 mg PO Q6H #30 tabs 11/10/22 (Tylenol) amoxicillin 500 mg tablet 500 mg PO Q8H #20 tabs 12/07/22 Allergies Allergy/AdvReac Type Severity Reaction Status Date / Time No Known Allergies Allergy Verified 12/05/22 14:02 [No Known Allergies*] Review of Systems Review of Systems: All other systems are reviewed and are negative Constitutional: Reports as per HPI and Reports no additional constitutional complaints Eyes: Reports as per HPI and Reports no additional eye complaints Reports system reviewed and no additional complaints, except as documented Cardiovascular: Reports as per HPI and Reports no additional cardiovascular complaints Respiratory: Reports as per HPI and Reports no additional respiratory complaints Gastrointestinal: Reports as per HPI and Reports no additional gastrointestinal complaints Genitourinary: Reports no additional female genitourinary complaints Musculoskeletal: Reports no additional musculoskeletal complaints Skin/Breast: Reports system reviewed and no additional complaints, except as docu Psychiatric: Reports no additional psychiatric complaints Endocrine: Reports no additional endocrine complaints Hematologic/Lymphatic: Reports no additional hematologic/lymphatic complaints Allergic/Immunologic: Reports no additional allergic/immunologic complaints Reports system reviewed and no additional complaints, except as documented and Reports Abnormal speech present [facility] Past Medical History Medical History History of endocarditis Smoking Surgical History S/P MVR (mitral valve replacement) (~2014) Family History Family History Father No problems noted. Mother No problems noted. Social History Social History Alcohol intake: current Alcohol intake frequency: a few times a week Patient Tobacco Use Status: Current everyday Tobacco user Cigarettes Per Day: 15 Smoked in Last 30 Days: No Use of substances other than those prescribed or required for medical reasons: No Advance Directives: No Advance Directives Information Provided: No Physical Exam Vital Signs: Vital Signs: Last Vital Signs Temp 97.8 F 12/07/22 07:41 Pulse 80 12/07/22 07:41 Resp 18 12/07/22 07:41 BP 150/83 H 12/07/22 07:41 Pulse Ox 97 12/07/22 07:41 O2 Del Method Room Air 12/07/22 07:41 BMI result Body Mass Index 37.3 Vital signs have been reviewed as appeared to be correct. Blood pressure normal. Heart rate normal. Respiration rate normal. Temperature normal. Oxygen saturation normal. Appearance: Alert. Oriented X3. No acute distress. Head: Normal external exam. Normocephalic. Atraumatic. No King signs noted. No raccoon eyes noted. Dental exam: Widespread dental decay, no dental abscess or fluctuation, no sign of gingivitis. Eyes: PERRLA. EOMI. Conjunctiva and sclera normal. Eyelids normal. ENT: TM's Normal. Pharynx normal. Uvula midline. Moist mucous membranes. No trismus noted. No drooling noted. No muffled voice noted. Neck: Normal inspection. Neck supple. FROM. No adenopathy. Thyroid Normal. No meningeal signs. No neck mass noted. CVS: Normal heart rate and rhythm. Heart sound normal. No murmurs noted. Pulses normal throughout. Respiratory: No respiratory distress. Painless inspiration. Breath sounds normal. No wheezes/rales/rhonchi noted. Chest nontender. No accessory muscle usage noted or decreased air movement noted. Abdomen: Soft and nontender. Bowel sounds normal in all 4 quadrants. No distention noted. No organomegaly noted. No visible injury noted. Back: No CVA tenderness. Full range of motion noted. Skin: Skin warm and dry. Normal skin color. Normal skin turgor. No rashes/lesions/lacerations noted. Extremities: No lower extremity edema. Extremities exhibit normal range of motion. Extremities nontender. Neuro: Oriented X 3. Cranial nerve exam: II-XII are grossly intact No motor deficit. No sensory deficit. Reflexes normal. Course Course Course Narrative: 37-year-old male on Coumadin for mechanical valve replacement. INR was 6 patient was instructed to hold his Coumadin yesterday and today, no active bleeding, no sign of life-threatening bleeding at this point. Vital signs unremarkable except for slight elevation of blood pressure. Patient will be started on amoxicillin and urgent dental follow-up that he will arrange with [facility]. Repeat INR today is 2.4 which is therapeutic range for the patient with patient was instructed to resume his Coumadin today and check with his Coumadin Clinic in 2 days. Medications Administered Discontinued Medications Generic Name Dose Route Start Last Admin Trade Name Freq PRN Reason Stop Dose Admin Amoxicillin 500 mg 12/07/22 08:10 12/07/22 08:24 Amoxicillin 500 Mg Capsule PO 12/07/22 08:11 500 mg ONCE ONE Administration Medical Decision Making Differential Diagnosis Differential Diagnoses: The differential diagnosis associated with the presentation includes (Dental infection, dental abscess, abnormal bleeding, prolonged INR) Lab Data MDM Lab Attestation statement: I reviewed the patient's lab results. Labs: Lab Results 12/07/22 Range/Units 08:27 PT 28.0 H (10.0-13.1) SEC INR 2.4 H (0.9-1.1) Discharge Plan Discharge Clinical Impression: Dental caries Patient Disposition: Home, Self-Care Instructions: Warfarin (By mouth) Prescriptions: New amoxicillin 500 mg tablet 500 mg PO Q8H Qty: 20 0RF No Action warfarin 7.5 mg tablet 7.5 mg PO DAILY Qty: 90 0RF Protocol: Dose Management Condition: Friday (Week One) Dose/Route: 7.5 mg Instruction: 1 x 7.5 mg tablet Condition: Friday Dose/Route: 11.25 mg Instruction: 1.5 x 7.5 mg tablets Condition: Friday Dose/Route: 7.5 mg Instruction: 1 x 7.5 mg tablet Condition: Friday Dose/Route: 7.5 mg Instruction: 1 x 7.5 mg tablet Condition: Dose/Route: 0 mg Instruction: 0 tablets Condition: Friday Dose/Route: 3.75 mg Instruction: 0.5 x 7.5 mg tablets Condition: Friday Dose/Route: 7.5 mg Instruction: 1 x 7.5 mg tablet Condition: Friday (Week Two) Dose/Route: 7.5 mg Instruction: 1 x 7.5 mg tablet Condition: Friday Dose/Route: 11.25 mg Instruction: 1.5 x 7.5 mg tablets Condition: Friday Dose/Route: 7.5 mg Instruction: 1 x 7.5 mg tablet Condition: Friday Dose/Route: 7.5 mg Instruction: 1 x 7.5 mg tablet Condition: Dose/Route: 7.5 mg Instruction: 1 x 7.5 mg tablet Condition: Friday Dose/Route: 7.5 mg Instruction: 1 x 7.5 mg tablet Condition: Friday Dose/Route: 7.5 mg Instruction: 1 x 7.5 mg tablet Protocol Text: Adjustment Start Date: 12/05/22 INR Value: 6.0 INR Date: 12/05/22 Recheck Date: 12/09/22 Rx Instructions: 11.25MG XDAYS/ 7.5MG X 1DAY HAS BEEN HIS DOSE acetaminophen [Tylenol] 325 mg tablet 650 mg PO Q6H Qty: 30 0RF gabapentin 300 mg capsule PO cetirizine 10 mg tablet 10 mg PO DAILY lithium carbonate 300 mg tablet 0 mg PO lamotrigine 200 mg tablet 0 mg PO albuterol sulfate 90 mcg/actuation HFA aerosol inhaler 2 puff PO Q4-6H PRN buprenorphine-naloxone [Suboxone] 4-1 mg film 5 mg sublingual BID fluticasone propionate 50 mcg/actuation spray,suspension 1 spray intranasal DAILY nicotine (polacrilex) 2 mg gum 2 mg PO Q2H PRN hydrocortisone 2.5 % lotion topical DAILY ketoconazole 2 % cream topical hydroxyzine pamoate 25 mg capsule 25 mg PO BEDTIME PRN fluoxetine 20 mg capsule 20 mg PO QAM Referrals: Maryam Bloom MD [Primary Care Provider] - Interventions: ED Discharge Assessment Last Done: 12/07/22 09:02
[2022-12-07] MEDS: Amoxicillin 500 MG CAPSULE PO (08:24)
--- NOTE | 2022-12-07 08:24 | PC.NURSE ---
pt was seen by obie, medicated as charted, labs drawn
[2022-12-07 08:37] LABS: INTERNATIONAL NORM RATIO 2.4 (0.9-1.1)
== END 2022-12-07 09:07 | disposition home or self-care (01) ==
PROVIDERS: Emergency Provider Emergency Medicine; PCP Internal Medicine
DX: K02.9 Dental caries, unspecified (principal); K08.89 Other specified disorders of teeth and supporting structures; I44.0 Atrioventricular block, first degree; F17.200 Nicotine dependence, unspecified, uncomplicated; F11.20 Opioid dependence, uncomplicated; Z95.2 Presence of prosthetic heart valve; Z79.01 Long term (current) use of anticoagulants; Z79.899 Other long term (current) drug therapy
CPT/HCPCS: 36415; 85610; 99283

== ENCOUNTER → 2022-12-09 11:45 | Outpatient (BNVA) | payer MEDICAID, SELFPAY | PROVIDERS: PCP Internal Medicine; Visit Provider Internal Medicine | DX: Z95.2 Presence of prosthetic heart valve (principal); Z79.01 Long term (current) use of anticoagulants; Z51.81 Encounter for therapeutic drug level monitoring | CPT/HCPCS: 85610; 99211 ==

== ENCOUNTER → 2022-12-13 14:38 | Outpatient (BNVA) | payer MEDICAID, SELFPAY | PROVIDERS: PCP Internal Medicine; Visit Provider Internal Medicine | DX: Z95.2 Presence of prosthetic heart valve (principal); Z79.01 Long term (current) use of anticoagulants; Z51.81 Encounter for therapeutic drug level monitoring | CPT/HCPCS: 85610; 99211 ==

== ENCOUNTER → 2022-12-17 14:53 | Outpatient (BNVA) | payer MEDICAID, SELFPAY | PROVIDERS: PCP Internal Medicine; Visit Provider Internal Medicine | DX: Z95.2 Presence of prosthetic heart valve (principal); Z79.01 Long term (current) use of anticoagulants; Z51.81 Encounter for therapeutic drug level monitoring | CPT/HCPCS: 85610; 99211 ==

== ENCOUNTER → 2022-12-26 15:21 | Outpatient (BNVA) | payer MEDICAID, SELFPAY | PROVIDERS: PCP Internal Medicine; Visit Provider Internal Medicine | DX: Z95.2 Presence of prosthetic heart valve (principal); Z79.01 Long term (current) use of anticoagulants; Z51.81 Encounter for therapeutic drug level monitoring | CPT/HCPCS: 85610; 99211 ==

== ENCOUNTER → 2023-01-07 15:42 | Outpatient (BNVA) | payer MEDICAID, SELFPAY | PROVIDERS: PCP Internal Medicine; Visit Provider Internal Medicine | DX: Z95.2 Presence of prosthetic heart valve (principal); Z79.01 Long term (current) use of anticoagulants; Z51.81 Encounter for therapeutic drug level monitoring | CPT/HCPCS: 85610; 99211 ==

== ENCOUNTER → 2023-01-13 08:17 | Outpatient (BNVA) | payer MEDICAID, SELFPAY | PROVIDERS: PCP Internal Medicine; Visit Provider Internal Medicine | DX: Z95.2 Presence of prosthetic heart valve (principal); Z79.01 Long term (current) use of anticoagulants; Z51.81 Encounter for therapeutic drug level monitoring | CPT/HCPCS: 85610; 99211 ==

== ENCOUNTER → 2023-01-16 08:04 | Outpatient (BNVA) | payer MEDICAID, SELFPAY | PROVIDERS: PCP Internal Medicine; Visit Provider Internal Medicine | DX: Z95.2 Presence of prosthetic heart valve (principal); Z51.81 Encounter for therapeutic drug level monitoring; Z79.01 Long term (current) use of anticoagulants | CPT/HCPCS: 85610; 99211 ==

== ENCOUNTER → 2023-01-23 09:03 | Outpatient (BNVA) | payer MEDICAID, SELFPAY | PROVIDERS: PCP Internal Medicine; Visit Provider Internal Medicine | DX: Z95.2 Presence of prosthetic heart valve (principal); Z79.01 Long term (current) use of anticoagulants; Z51.81 Encounter for therapeutic drug level monitoring | CPT/HCPCS: 85610; 99211 ==

== ENCOUNTER → 2023-01-30 14:58 | Outpatient (BNVA) | payer MEDICAID, SELFPAY | PROVIDERS: PCP Internal Medicine; Visit Provider Internal Medicine | DX: Z95.2 Presence of prosthetic heart valve (principal); Z79.01 Long term (current) use of anticoagulants; Z51.81 Encounter for therapeutic drug level monitoring | CPT/HCPCS: 85610; 99211 ==

== ENCOUNTER → 2023-02-13 14:19 | Outpatient (BNVA) | payer MEDICAID, SELFPAY | PROVIDERS: PCP Internal Medicine; Visit Provider Internal Medicine | DX: Z95.2 Presence of prosthetic heart valve (principal); Z79.01 Long term (current) use of anticoagulants; Z51.81 Encounter for therapeutic drug level monitoring | CPT/HCPCS: 85610; 99211 ==

== ENCOUNTER 2023-02-25 15:02 | Outpatient (AMB) | payer MEDICAID, SELFPAY ==
--- NOTE | 2023-02-25 15:05 | MHC.OFFVISCO ---
Intake Intake Visit Reasons: Anticoagulation Allergies No Known Allergies [No Known Allergies*] Allergy (Verified 02/13/23 14:22) Nursing Note INR: 2.9- in therapeutic range Medications and supplements reviewed No changes in health, diet, medications, or supplements, Denies any signs and symptoms of bleeding or bruising or clotting. Bleeding, bruising, clotting discussed Nutritional guidance given Dose: 7.5mg x 6, 11.25mg x 1 F/U INR:2 weeks Patient verbalizes understanding of instructions given Anti-Coag Initial Assessment Social Hx Patient Tobacco Use Status: Current everyday Tobacco user alcohol intake: current Alcohol intake frequency: a few times a week Coding Level of Care Code Est Patient Level 1 Diagnoses Current use of anticoagulant therapy Z79.01 Results AMB INR Fingerstick AMB INR Fingerstick 2.9 Last Edit by Brittaney Medina RN on 02/25/23 15:07 Assessment & Plan Assessment & Plan (1) Current use of anticoagulant therapy: Code(s): Z79.01 - director long term care (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
[2023-02-25 15:07] LABS: ~PT, ~INR - Anti Coag Clinic 2.9 (0.9-1.1)
== END 2023-02-25 15:17 | disposition home or self-care (01) ==
LOC: HO.ACS 15:02
PROVIDERS: PCP Internal Medicine; Visit Provider Internal Medicine
DX: Z79.01 Long term (current) use of anticoagulants (principal)

== ENCOUNTER → 2023-02-25 15:02 | Outpatient (BNVA) | payer MEDICAID, SELFPAY | PROVIDERS: PCP Internal Medicine; Visit Provider Internal Medicine | DX: Z95.2 Presence of prosthetic heart valve (principal); Z79.01 Long term (current) use of anticoagulants; Z51.81 Encounter for therapeutic drug level monitoring | CPT/HCPCS: 85610; 99211 ==

== ENCOUNTER 2023-03-12 09:23 | Outpatient (AMB) | payer MEDICAID, SELFPAY ==
[2023-03-12 09:28] LABS: Prothrombin Time Whole Bld POC 31.9 sec (11.1-13.5); ~PT, ~INR - Anti Coag Clinic 2.7 (0.9-1.1)
--- NOTE | 2023-03-12 09:31 | MHC.OFFVISCO ---
Intake Intake Visit Reasons: Anticoagulation Allergies No Known Allergies [No Known Allergies*] Allergy (Verified 03/12/23 09:24) Medication List - Last Reconciled 03/12/23 by Melissa John RN acetaminophen (Tylenol) 650 mg (2 x 325 mg) PO Q6H albuterol sulfate 90 mcg/actuation 2 puffs PO Q4-6H PRN buprenorphine-naloxone 4-1 mg (Suboxone) 5 mg sublingual BID cetirizine 10 mg PO DAILY fluoxetine 20 mg PO QAM fluticasone propionate 50 mcg/actuation 1 spray intranasal DAILY gabapentin mg PO hydrocortisone 2.5% topical DAILY hydroxyzine pamoate 25 mg PO BEDTIME PRN ketoconazole 2% appl topical lamotrigine 0 mg PO lithium carbonate 0 mg PO nicotine (polacrilex) 2 mg PO Q2H PRN warfarin 7.5 mg See Protocol PO DAILY Nursing Note NO CP,SOB,DIET/MED CHANGES,FALLS OR SX OF BLEEDING. CONTINUE PRESENT DOSING AND FOLLOW-UP IN 2 WEEKS. 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
== END 2023-03-12 09:33 | disposition home or self-care (01) ==
LOC: HO.ACS 09:23
PROVIDERS: PCP Internal Medicine; Visit Provider Internal Medicine
DX: Z79.01 Long term (current) use of anticoagulants (principal)

== ENCOUNTER → 2023-03-12 09:23 | Outpatient (BNVA) | payer MEDICAID, SELFPAY | PROVIDERS: PCP Internal Medicine; Visit Provider Internal Medicine | DX: Z95.2 Presence of prosthetic heart valve (principal); Z79.01 Long term (current) use of anticoagulants; Z51.81 Encounter for therapeutic drug level monitoring | CPT/HCPCS: 85610; 99211 ==

== ENCOUNTER 2023-03-25 14:59 | Outpatient (AMB) | payer MEDICAID, SELFPAY ==
--- NOTE | 2023-03-25 15:05 | MHC.OFFVISCO ---
Intake Intake Visit Reasons: Anticoagulation Allergies No Known Allergies [No Known Allergies*] Allergy (Verified 03/25/23 15:00) Medication List - Last Reconciled 03/25/23 by Brittaney Medina RN acetaminophen (Tylenol) 650 mg (2 x 325 mg) PO Q6H albuterol sulfate 90 mcg/actuation 2 puffs PO Q4-6H PRN buprenorphine-naloxone 4-1 mg (Suboxone) 5 mg sublingual BID cetirizine 10 mg PO DAILY fluoxetine 20 mg PO QAM fluticasone propionate 50 mcg/actuation 1 spray intranasal DAILY gabapentin mg PO hydrocortisone 2.5% topical DAILY hydroxyzine pamoate 25 mg PO BEDTIME PRN ketoconazole 2% appl topical lamotrigine 0 mg PO lithium carbonate 0 mg PO nicotine (polacrilex) 2 mg PO Q2H PRN warfarin 7.5 mg See Protocol PO DAILY Nursing Note INR: 3.5- in therapeutic range Medications and supplements reviewed- no changes No changes in health, diet, medications, or supplements, Denies any signs and symptoms of bleeding or bruising or clotting. Bleeding, bruising, clotting discussed Nutritional guidance given Dose: 11.25mg x 1, 7.5mg x 6 F/U INR: pt req 10 days Patient verbalizes understanding of instructions given Anti-Coag Initial Assessment Social Hx Patient Tobacco Use Status: Current everyday Tobacco user alcohol intake: current Alcohol intake frequency: a few times a week Coding Level of Care Code Est Patient Level 1 Diagnoses Current use of anticoagulant therapy Z79.01 Results AMB INR Fingerstick AMB INR Fingerstick 3.5 Last Edit by Brittaney Medina RN on 03/25/23 15:07 Assessment & Plan Assessment & Plan (1) Current use of anticoagulant therapy: Code(s): Z79.01 - 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
[2023-03-25 15:07] LABS: Prothrombin Time Whole Bld POC 41.5 sec (11.1-13.5); ~PT, ~INR - Anti Coag Clinic 3.5 (0.9-1.1)
== END 2023-03-25 15:10 | disposition home or self-care (01) ==
LOC: HO.ACS 14:59
PROVIDERS: PCP Internal Medicine; Visit Provider Internal Medicine
DX: Z79.01 Long term (current) use of anticoagulants (principal)

== ENCOUNTER → 2023-03-25 14:59 | Outpatient (BNVA) | payer MEDICAID, SELFPAY | PROVIDERS: PCP Internal Medicine; Visit Provider Internal Medicine | DX: Z95.2 Presence of prosthetic heart valve (principal); Z79.01 Long term (current) use of anticoagulants; Z51.81 Encounter for therapeutic drug level monitoring | CPT/HCPCS: 85610; 99211 ==

== ENCOUNTER 2023-04-08 09:52 | Outpatient (AMB) | payer MEDICAID, SELFPAY ==
[2023-04-08 10:03] LABS: Prothrombin Time Whole Bld POC 41.4 sec (11.1-13.5); ~PT, ~INR - Anti Coag Clinic 3.5 (0.9-1.1)
--- NOTE | 2023-04-08 10:05 | MHC.OFFVISCO ---
Intake Intake Visit Reasons: Anticoagulation Allergies No Known Allergies [No Known Allergies*] Allergy (Verified 04/08/23 09:58) Medication List - Last Reconciled 04/08/23 by Sophie Ellison RN acetaminophen (Tylenol) 650 mg (2 x 325 mg) PO Q6H albuterol sulfate 90 mcg/actuation 2 puffs PO Q4-6H PRN buprenorphine-naloxone 4-1 mg (Suboxone) 5 mg sublingual BID cetirizine 10 mg PO DAILY fluoxetine 20 mg PO QAM fluticasone propion-salmeterol 230-21 mcg/actuation (Advair HFA) 2 puffs inhalation fluticasone propionate 50 mcg/actuation 1 spray intranasal DAILY gabapentin mg PO hydrocortisone 2.5% topical DAILY hydroxyzine pamoate 25 mg PO BEDTIME PRN ketoconazole 2% appl topical lamotrigine 0 mg PO lithium carbonate 0 mg PO nicotine (polacrilex) 2 mg PO Q2H PRN warfarin 7.5 mg See Protocol PO DAILY Nursing Note INR: 3.5 in therapeutic range Medications and supplements reviewed No changes in health, diet, medications, or supplements, Denies any signs and symptoms of bleeding or bruising or clotting. 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
== END 2023-04-08 10:10 | disposition home or self-care (01) ==
LOC: HO.ACS 09:52
PROVIDERS: PCP Internal Medicine; Visit Provider Internal Medicine
DX: Z79.01 Long term (current) use of anticoagulants (principal)

== ENCOUNTER → 2023-04-08 09:52 | Outpatient (BNVA) | payer MEDICAID, SELFPAY | PROVIDERS: PCP Internal Medicine; Visit Provider Internal Medicine | DX: Z95.2 Presence of prosthetic heart valve (principal); Z79.01 Long term (current) use of anticoagulants; Z51.81 Encounter for therapeutic drug level monitoring | CPT/HCPCS: 85610; 99211 ==

== ENCOUNTER 2023-04-24 14:58 | Outpatient (AMB) | payer MEDICAID, SELFPAY ==
[2023-04-24 15:06] LABS: Prothrombin Time Whole Bld POC 40.8 sec (11.1-13.5); ~PT, ~INR - Anti Coag Clinic 3.4 (0.9-1.1)
--- NOTE | 2023-04-24 15:11 | MHC.OFFVISCO ---
Intake Intake Visit Reasons: Anticoagulation Allergies No Known Allergies [No Known Allergies*] Allergy (Verified 04/24/23 15:00) Medication List - Last Reconciled 04/24/23 by Sophie Ellison RN acetaminophen (Tylenol) 650 mg (2 x 325 mg) PO Q6H albuterol sulfate 90 mcg/actuation 2 puffs PO Q4-6H PRN buprenorphine-naloxone 4-1 mg (Suboxone) 5 mg sublingual BID cetirizine 10 mg PO DAILY fluoxetine 20 mg PO QAM fluticasone propion-salmeterol 230-21 mcg/actuation (Advair HFA) 2 puffs inhalation fluticasone propionate 50 mcg/actuation 1 spray intranasal DAILY gabapentin mg PO hydrocortisone 2.5% topical DAILY hydroxyzine pamoate 25 mg PO BEDTIME PRN ketoconazole 2% appl topical lamotrigine 0 mg PO lithium carbonate 0 mg PO nicotine (polacrilex) 2 mg PO Q2H PRN warfarin 7.5 mg See Protocol PO DAILY Nursing Note INR: 3.4 in therapeutic range Medications and supplements reviewed No changes in health, diet, medications, or supplements, Denies any signs and symptoms of bleeding or bruising or clotting. 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
== END 2023-04-24 15:12 | disposition home or self-care (01) ==
LOC: HO.ACS 14:58
PROVIDERS: PCP Internal Medicine; Visit Provider Internal Medicine
DX: Z79.01 Long term (current) use of anticoagulants (principal)

== ENCOUNTER → 2023-04-24 14:58 | Outpatient (BNVA) | payer MEDICAID, SELFPAY | PROVIDERS: PCP Internal Medicine; Visit Provider Internal Medicine | DX: Z95.2 Presence of prosthetic heart valve (principal); Z79.01 Long term (current) use of anticoagulants; Z51.81 Encounter for therapeutic drug level monitoring | CPT/HCPCS: 85610; 99211 ==

== ENCOUNTER 2023-05-14 17:18 | Outpatient (AMB) | payer MEDICAID, SELFPAY ==
[2023-05-14 17:24] LABS: Prothrombin Time Whole Bld POC 33.4 sec (11.1-13.5); ~PT, ~INR - Anti Coag Clinic 2.8 (0.9-1.1)
--- NOTE | 2023-05-14 17:28 | MHC.OFFVISCO ---
Intake Intake Visit Reasons: Anticoagulation Allergies No Known Allergies [No Known Allergies*] Allergy (Verified 05/14/23 17:19) Medication List - Last Reconciled 05/14/23 by Sophie Ellison RN acetaminophen (Tylenol) 650 mg (2 x 325 mg) PO Q6H albuterol sulfate 90 mcg/actuation 2 puffs PO Q4-6H PRN buprenorphine-naloxone 4-1 mg (Suboxone) 5 mg sublingual BID cetirizine 10 mg PO DAILY fluoxetine 20 mg PO QAM fluticasone propion-salmeterol 230-21 mcg/actuation (Advair HFA) 2 puffs inhalation fluticasone propionate 50 mcg/actuation 1 spray intranasal DAILY gabapentin mg PO hydrocortisone 2.5% topical DAILY hydroxyzine pamoate 25 mg PO BEDTIME PRN ketoconazole 2% appl topical lamotrigine 0 mg PO lithium carbonate 0 mg PO nicotine (polacrilex) 2 mg PO Q2H PRN warfarin 7.5 mg See Protocol PO DAILY Nursing Note pt started new job 830-5pm [employer] will try to work with his schedule due to his eagerness to improve his quality of life for his family and himself INR: 2.8 in therapeutic range Medications and supplements reviewed No changes in health, diet, medications, or supplements, Denies any signs and symptoms of bleeding or bruising or clotting. Bleeding, bruising, clotting discussed Nutritional guidance given - wait a few days to eat greens but keep them in your diet Dose: keep same dose 11.25mg x 1 day/ 7.5mg x 6 days F/U INR: 1 week pt will try 2 weeks when INR is stable - waiting to see how he adjusts to his new job Patient verbalizes understanding of instructions given Anti-Coag Initial Assessment Social Hx Patient Tobacco Use Status: Current everyday Tobacco user alcohol intake: current Alcohol intake frequency: a few times a week Coding Level of Care Code Est Patient Level 1 Diagnoses Current use of anticoagulant therapy Z79.01 Results AMB INR Fingerstick AMB INR Fingerstick 2.8 Last Edit by Sophie Ellison RN on 05/14/23 17:24 MANUAL ENTRY DELAYED INTERFACING Assessment & Plan Assessment & Plan (1) Current use of anticoagulant therapy: Code(s): Z79.01 - 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
== END 2023-05-14 17:31 | disposition home or self-care (01) ==
LOC: HO.ACS 17:18
PROVIDERS: PCP Internal Medicine; Visit Provider Internal Medicine
DX: Z79.01 Long term (current) use of anticoagulants (principal)

== ENCOUNTER → 2023-05-14 17:18 | Outpatient (BNVA) | payer MEDICAID, SELFPAY | PROVIDERS: PCP Internal Medicine; Visit Provider Internal Medicine | DX: Z95.2 Presence of prosthetic heart valve (principal); Z51.81 Encounter for therapeutic drug level monitoring; Z79.01 Long term (current) use of anticoagulants | CPT/HCPCS: 85610; 99211 ==

== ENCOUNTER 2023-05-28 17:18 | Outpatient (AMB) | payer MEDICAID, SELFPAY ==
[2023-05-28 17:23] LABS: Prothrombin Time Whole Bld POC 34.1 sec (11.1-13.5); ~PT, ~INR - Anti Coag Clinic 2.8 (0.9-1.1)
--- NOTE | 2023-05-28 17:32 | MHC.OFFVISCO ---
Intake Intake Visit Reasons: Anticoagulation Allergies No Known Allergies [No Known Allergies*] Allergy (Verified 05/28/23 17:19) Medication List - Last Reconciled 05/28/23 by Sophie Ellison RN acetaminophen (Tylenol) 650 mg (2 x 325 mg) PO Q6H albuterol sulfate 90 mcg/actuation 2 puffs PO Q4-6H PRN buprenorphine-naloxone 4-1 mg (Suboxone) 5 mg sublingual BID cetirizine 10 mg PO DAILY fluoxetine 20 mg PO QAM fluticasone propion-salmeterol 230-21 mcg/actuation (Advair HFA) 2 puffs inhalation fluticasone propionate 50 mcg/actuation 1 spray intranasal DAILY gabapentin mg PO hydrocortisone 2.5% topical DAILY hydroxyzine pamoate 25 mg PO BEDTIME PRN ketoconazole 2% appl topical lamotrigine 0 mg PO lithium carbonate 0 mg PO nicotine (polacrilex) 2 mg PO Q2H PRN warfarin 7.5 mg See Protocol PO DAILY Nursing Note INR: 2.8 in therapeutic range Medications and supplements reviewed No changes in health, diet, medications, or supplements, NEW JOB GOING [employer] 8-5 PM AT HOME FOR [employer] Denies any signs and symptoms of bleeding or bruising or clotting. Bleeding, bruising, clotting discussed Nutritional guidance given Dose: KEEP SAME DOSE 11.25MG X 1 DAY/ 7.5MG X 6 DYAS F/U INR: 2 WEEKS Patient verbalizes understanding of instructions given Anti-Coag Initial Assessment Social Hx Patient Tobacco Use Status: Current everyday Tobacco user alcohol intake: current Alcohol intake frequency: a few times a week Coding Level of Care Code Est Patient Level 1 Diagnoses Current use of anticoagulant therapy Z79.01 Assessment & Plan Assessment & Plan (1) Current use of anticoagulant therapy: Code(s): Z79.01 - FPC (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
== END 2023-05-28 17:33 | disposition home or self-care (01) ==
LOC: HO.ACS 17:18
PROVIDERS: PCP Internal Medicine; Visit Provider Internal Medicine
DX: Z79.01 Long term (current) use of anticoagulants (principal)

== ENCOUNTER → 2023-05-28 17:18 | Outpatient (BNVA) | payer MEDICAID, SELFPAY | PROVIDERS: PCP Internal Medicine; Visit Provider Internal Medicine | DX: Z95.2 Presence of prosthetic heart valve (principal); Z79.01 Long term (current) use of anticoagulants; Z51.81 Encounter for therapeutic drug level monitoring | CPT/HCPCS: 85610; 99211 ==

== ENCOUNTER 2023-06-09 08:59 | Emergency (ER) | payer MEDICAID, SELFPAY ==
--- NOTE | ~2023-06-09 | XR_ITS ---
EXAMINATION: XR RIBS, LEFT CLINICAL INFORMATION: Fall COMPARISON: Chest 11/10/2022 TECHNIQUE: 3 views of the left ribs were obtained. FINDINGS: Lungs are clear. No consolidation, pneumothorax, or pleural effusion. The cardiomediastinal silhouette and pulmonary vasculature are normal. The patient is status post median sternotomy. There is a break in the bladder and sternal cerclage wire. The patient is status post valve replacement. A radiopaque skin marker is placed lateral to the 11th rib corresponding to the area of pain indicated by the patient. The overlying soft tissues of the upper abdomen obscure the bony detail of the left lower ribs including the area of pain indicated by the patient. Osseous structures are unremarkable. Ribs are intact. No fractures are identified. XR/XR ribs LT min 3V w CXR1V IMPRESSION: No displaced left rib fracture demonstrated.
[2023-06-09 09:23] VITALS: BP 148/87; PULSE 75; RESP 20; TEMP 37.1; O2SAT 94; BMI 37.9
--- NOTE | 2023-06-09 10:27 | ED_ITS ---
HPI - General Adult General Chief complaint: Fall Stated complaint: Fall/Back pain on thinners Time Seen by Provider: 06/09/23 09:51 Source: patient Mode of arrival: ambulatory Limitations: no limitations History of Present Illness HPI narrative: 37 yold male presents to the ED for left lower rib pain since friday night. patient states while sleeping friday night he rolled off the bed and fell unto his night stand made of bark. patient states his chest ( left lower rib) hit the nightstand only. patient denies hitting head or loss of concsciousness. Patient states since hitting left lower rib area on the nightstand patient denied coughing up blood, vomiting blood, rectal bleeding, bloody urine, or any bluish black discoloration of abdomen flank or chest. Patient denies any headache, nausea, or vomitting. Related Data Home Medications Medication Instructions Recorded Confirmed albuterol sulfate 90 mcg/actuation 2 puff PO Q4-6H PRN 08/21/20 05/28/23 aerosol inhaler cetirizine 10 mg tablet 10 mg PO DAILY 08/21/20 05/28/23 gabapentin 300 mg capsule mg PO 08/21/20 05/28/23 lamotrigine 200 mg tablet 0 mg PO 08/21/20 05/28/23 lithium carbonate 300 mg tablet 0 mg PO 08/21/20 05/28/23 buprenorphine 4 mg-naloxone 1 mg 5 mg sublingual BID 03/29/21 05/28/23 sublingual film (Suboxone) fluoxetine 20 mg capsule 20 mg PO QAM 03/29/21 05/28/23 fluticasone propionate 50 1 spray intranasal DAILY 03/29/21 05/28/23 mcg/actuation nasal spray,suspension hydrocortisone 2.5 % lotion topical DAILY 03/29/21 05/28/23 hydroxyzine pamoate 25 mg capsule 25 mg PO BEDTIME PRN 03/29/21 05/28/23 ketoconazole 2 % topical cream appl topical 03/29/21 05/28/23 nicotine (polacrilex) 2 mg gum 2 mg PO Q2H PRN 03/29/21 05/28/23 fluticasone propionate 230 2 puff inhalation 04/08/23 05/28/23 mcg-salmeterol 21 mcg/actuation HFA inhaler (Advair HFA) Previous Rx's Medication Instructions Recorded warfarin 7.5 mg tablet 7.5 mg PO DAILY MVR #90 tabs 07/24/20 acetaminophen 325 mg tablet 650 mg (2 x 325 mg) PO Q6H #30 tabs 11/10/22 (Tylenol) Allergies Allergy/AdvReac Type Severity Reaction Status Date / Time No Known Allergies Allergy Verified 06/09/23 09:26 [No Known Allergies*] Review of Systems 2 Review of Systems: left lower rib pain after falling unto night stand bark Yes all other systems are reviewed and are negative [facility] Past Medical History Medical History History of endocarditis Smoking Surgical History S/P MVR (mitral valve replacement) (~2014) Family History Family History Father No problems noted. Mother No problems noted. Social History Social History Alcohol intake: current Alcohol intake frequency: a few times a week Patient Tobacco Use Status: Current everyday Tobacco user Cigarettes Per Day: 15 Advance Directives: No Physical Exam ED Vital Signs: Vital Signs - 24 hr 06/09/23 09:23 Temperature 98.7 F Pulse Rate 75 Respiratory Rate 20 Blood Pressure 148/87 H Pulse Oximetry 94 Oxygen Delivery Method Room Air BMI result Body Mass Index 37.9 Const General: cooperative, healthy appearing, comfortable, no acute distress, well developed, alert, awake and Physically active Orientation/consciousness: oriented to person, oriented to place, oriented to time and patient oriented x3 HENMT Head: Yes normal to inspection, Yes No palpable skull fracture present, Yes normocephalic, Yes atraumatic and No abrasion Ears: hearing grossly normal bilaterally, external ears normal, TM's normal bilaterally, TM normal on the right, TM normal on the left, EAC's normal, mastoids normal and no periauricular adenopathy Throat: Yes posterior oropharynx normal, Yes tonsils normal and Yes uvula midline Eyes General: appearance normal, both eyes and all related structures Neck Neck: Yes normal visual inspection, Yes full ROM, Yes no lymphadenopathy, Yes no meningeal signs, Yes trachea midline, Yes supple, No anterior neck swelling and No tender Chest Chest palpation & inspection: normal inspection of the chest and normal palpation of entire chest wall Chest/axillae images: 2 1. positive for tenderness on palpation. Negative for crepitus, ecchymosis, erythema, rash, or deformity. Resp Effort & Inspection: normal respiratory effort and able to speak in complete sentences Auscultation: clear to auscultation bilaterally Cardio Jugular venous distension: no JVD Heart sounds: S1 normal heart sound present and S2 normal heart sound present GI Inspection: Yes normal to inspection Palpation (GI): Soft to palpation, not firm, nontender, no guarding and not rigid General: No CVA tenderness and Yes no CVA tenderness Back/Spine/Pelvis Back: no CVA tenderness, No CVA tenderness and No back tenderness Skin General skin exam: no rashes or lesions noted, elasticity normal and turgor normal Neuro General: oriented to person, oriented to place, oriented to time, patient oriented x3, gait normal, tone normal, moves all extremities, Normal light touch and pain sensation, no meningeal signs, no focal motor deficits, CN's II-XI intact bilaterally and normal sensation to monofilament Extrem Other: Bilateral lower extremity negative for swelling, pitting edema, or calf tenderness General: Yes normal to inspection and Yes full ROM Medical Decision Making Medical Decision Making MDM Narrative: 37-year-old male presents to ED for left lower rib pain after falling onto nightstand made of bark Friday. Patient states since that fall has had pain in the area. Patient denies hitting head or loss of consciousness during incident. Patient states since hitting left lower rib on night stand he has denied any coughing up blood, vomiting blood, rectal bleeding, headchae. bloody urine, or any bruising on the body or extremities. Patient states no fever or chills. Patient on blood thinners. Whole-body evaluated and negative for signs of any ecchymosis or petechiae. Not suspecting any brain bleed, skull fracture, or any thoracic or abdominal pelvic organ injury or bleeding. Presently no indication for any CAT scan. Not suspecting pulmonary embolus. Not suspecting myocardial infarction. No need for EKG or labs. Patient has left lower rib tenderness due to trauma. Contusion diagnosis Differential Diagnosis Differential Diagnoses: The differential diagnosis associated with the presentation includes ( rib fracture, pneumonia, thoracic, pneumothorax) Independent Interpretation I performed an independent interpretation of an: Plain X-Ray Radiology Impression Discussion of test interpretation with radiology: I have reviewed the radiologist's reading. Independent Historian Clinical information obtained from an independent historian. History obtained from or confirmed by: Spouse External Record Review External record reviewed: Other ( prior ED visit) Prescription Management I considered prescription management with: Pain Medication Discharge Plan Discharge Clinical Impression: Contusion Patient Disposition: Home, Self-Care Instructions: Contusion in Adults (ED) Additional Instructions: please follow-up with the primary care provider. Return to ED immediately for any rectal bleeding, vomiting blood, coughing up blood, chest pain, shortness of breath, blood in urine, bluish/black dislcoration, swelling, headache, dizziness, bleeding from ears, fluid from ears, bleeding from nose, leg swelling, calf pain, chest pain inspiration, or any other concerning symptoms. due to you taking Coumadin you should only take Tylenol. Prescriptions: No Action warfarin 7.5 mg tablet 7.5 mg PO DAILY Qty: 90 0RF Protocol: Dose Management Condition: Friday (Week One) Dose/Route: 7.5 mg Instruction: 1 x 7.5 mg tablet Condition: Friday Dose/Route: 11.25 mg Instruction: 1.5 x 7.5 mg tablets Condition: Friday Dose/Route: 7.5 mg Instruction: 1 x 7.5 mg tablet Condition: Friday Dose/Route: 7.5 mg Instruction: 1 x 7.5 mg tablet Condition: Dose/Route: 7.5 mg Instruction: 1 x 7.5 mg tablet Condition: Friday Dose/Route: 7.5 mg Instruction: 1 x 7.5 mg tablet Condition: Friday Dose/Route: 7.5 mg Instruction: 1 x 7.5 mg tablet Condition: Friday (Week Two) Dose/Route: 7.5 mg Instruction: 1 x 7.5 mg tablet Condition: Friday Dose/Route: 11.25 mg Instruction: 1.5 x 7.5 mg tablets Condition: Friday Dose/Route: 7.5 mg Instruction: 1 x 7.5 mg tablet Condition: Friday Dose/Route: 7.5 mg Instruction: 1 x 7.5 mg tablet Condition: Dose/Route: 7.5 mg Instruction: 1 x 7.5 mg tablet Condition: Friday Dose/Route: 7.5 mg Instruction: 1 x 7.5 mg tablet Condition: Friday Dose/Route: 7.5 mg Instruction: 1 x 7.5 mg tablet Protocol Text: Adjustment Start Date: Friday05/28/23 INR Value: 2.8 INR Date: 05/28/23 Recheck Date: 06/11/23 Additional Instructions: EAT A MIX OF FRUITS AND VEGETABLES Rx Instructions: 11.25MG X6DAYS/ 7.5MG X 1DAY HAS BEEN HIS DOSE acetaminophen [Tylenol] 325 mg tablet 650 mg PO Q6H Qty: 30 0RF gabapentin 300 mg capsule PO cetirizine 10 mg tablet 10 mg PO DAILY lithium carbonate 300 mg tablet 0 mg PO lamotrigine 200 mg tablet 0 mg PO albuterol sulfate 90 mcg/actuation HFA aerosol inhaler 2 puff PO Q4-6H PRN buprenorphine-naloxone [Suboxone] 4-1 mg film 5 mg sublingual BID fluticasone propionate 50 mcg/actuation spray,suspension 1 spray intranasal DAILY nicotine (polacrilex) 2 mg gum 2 mg PO Q2H PRN hydrocortisone 2.5 % lotion topical DAILY ketoconazole 2 % cream topical hydroxyzine pamoate 25 mg capsule 25 mg PO BEDTIME PRN fluoxetine 20 mg capsule 20 mg PO QAM fluticasone propion-salmeterol [Advair HFA] 230-21 mcg/actuation HFA aerosol inhaler 2 puff inhalation Stand Alone Forms: Work/School Release Interventions: ED Discharge Assessment Last Done: 06/09/23 13:13 Discharge Date/Time: 06/09/23 13:13 Print Language: Sami
== END 2023-06-09 13:13 | disposition home or self-care (01) ==
PROVIDERS: Emergency Provider Student in an Organized Health Care Education/Training Program; PCP Internal Medicine
DX: R07.81 Pleurodynia (principal); F17.210 Nicotine dependence, cigarettes, uncomplicated; Z71.6 Tobacco abuse counseling; Z79.899 Other long term (current) drug therapy
CPT/HCPCS: 71101; 99282; 99283

== ENCOUNTER 2023-06-20 08:03 | Outpatient (AMB) | payer MEDICAID, SELFPAY ==
--- NOTE | 2023-06-20 08:16 | MHC.OFFVISCO ---
Intake Intake Visit Reasons: Anticoagulation Allergies No Known Allergies [No Known Allergies*] Allergy (Verified 06/09/23 09:26) Medication List - Last Reconciled 06/20/23 by Sophie Ellison RN acetaminophen (Tylenol) 650 mg (2 x 325 mg) PO Q6H albuterol sulfate 90 mcg/actuation 2 puffs PO Q4-6H PRN buprenorphine-naloxone 4-1 mg (Suboxone) 5 mg sublingual BID cetirizine 10 mg PO DAILY fluoxetine 20 mg PO QAM fluticasone propion-salmeterol 230-21 mcg/actuation (Advair HFA) 2 puffs inhalation fluticasone propionate 50 mcg/actuation 1 spray intranasal DAILY gabapentin mg PO hydrocortisone 2.5% topical DAILY hydroxyzine pamoate 25 mg PO BEDTIME PRN ketoconazole 2% appl topical lamotrigine 0 mg PO lithium carbonate 0 mg PO nicotine (polacrilex) 2 mg PO Q2H PRN warfarin 7.5 mg See Protocol PO DAILY Nursing Note INR: 3.5 in therapeutic range Medications and supplements reviewed No changes in health, diet, medications, or supplements, Denies any signs and symptoms of bleeding or bruising or clotting. Bleeding, bruising, clotting discussed Nutritional guidance given Dose: keep same11.25mg x 1 day/ 7.5mg x 6 days F/U INR: 07/10/23 Patient verbalizes understanding of instructions given Anti-Coag Initial Assessment Social Hx Patient Tobacco Use Status: Current everyday Tobacco user alcohol intake: current Alcohol intake frequency: a few times a week Coding Level of Care Code Est Patient Level 1 Diagnoses Current use of anticoagulant therapy Z79.01 Results AMB INR Fingerstick AMB INR Fingerstick 3.5 Last Edit by Sophie Ellison RN on 06/20/23 08:14 manual entry Assessment & Plan Assessment & Plan (1) Current use of anticoagulant therapy: Code(s): Z79.01 - long-term (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
[2023-06-20 09:36] LABS: Prothrombin Time Whole Bld POC 41.9 sec (11.1-13.5); ~PT, ~INR - Anti Coag Clinic 3.5 (0.9-1.1)
== END 2023-06-20 08:17 | disposition home or self-care (01) ==
LOC: HO.ACS 08:03
PROVIDERS: PCP Internal Medicine; Visit Provider Internal Medicine
DX: Z79.01 Long term (current) use of anticoagulants (principal)

== ENCOUNTER → 2023-06-20 08:03 | Outpatient (BNVA) | payer MEDICAID, SELFPAY | PROVIDERS: PCP Internal Medicine; Visit Provider Internal Medicine | DX: Z95.2 Presence of prosthetic heart valve (principal); Z79.01 Long term (current) use of anticoagulants; Z51.81 Encounter for therapeutic drug level monitoring | CPT/HCPCS: 85610; 99211 ==

== ENCOUNTER 2023-07-10 08:03 | Outpatient (AMB) | payer MEDICAID, SELFPAY ==
[2023-07-10 08:10] LABS: Prothrombin Time Whole Bld POC 37.3 sec (11.1-13.5); ~PT, ~INR - Anti Coag Clinic 3.1 (0.9-1.1)
--- NOTE | 2023-07-10 08:16 | MHC.OFFVISCO ---
Intake Intake Visit Reasons: Anticoagulation Allergies No Known Allergies [No Known Allergies*] Allergy (Verified 07/10/23 08:03) Medication List - Last Reconciled 07/10/23 by Melissa John RN acetaminophen (Tylenol) 650 mg (2 x 325 mg) PO Q6H albuterol sulfate 90 mcg/actuation 2 puffs PO Q4-6H PRN buprenorphine-naloxone 4-1 mg (Suboxone) 5 mg sublingual BID cetirizine 10 mg PO DAILY fluoxetine 20 mg PO QAM fluticasone propion-salmeterol 230-21 mcg/actuation (Advair HFA) 2 puffs inhalation fluticasone propionate 50 mcg/actuation 1 spray intranasal DAILY gabapentin mg PO hydrocortisone 2.5% topical DAILY hydroxyzine pamoate 25 mg PO BEDTIME PRN ketoconazole 2% appl topical lamotrigine 0 mg PO lithium carbonate 0 mg PO nicotine (polacrilex) 2 mg PO Q2H PRN warfarin 7.5 mg See Protocol PO DAILY Nursing Note NO CP,SOB,DIET/MED CHANGES,FALLS OR SX OF BLEEDING. CONTINUE SAAME DOSE AND FOLLOW-UP IN 4 WEEKS. GOOD UNDERSTANDING OF DOSAING INSTR. 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
== END 2023-07-10 08:17 | disposition home or self-care (01) ==
LOC: HO.ACS 08:03
PROVIDERS: PCP Internal Medicine; Visit Provider Internal Medicine
DX: Z79.01 Long term (current) use of anticoagulants (principal)

== ENCOUNTER → 2023-07-10 08:03 | Outpatient (BNVA) | payer MEDICAID, SELFPAY | PROVIDERS: PCP Internal Medicine; Visit Provider Internal Medicine | DX: Z95.2 Presence of prosthetic heart valve (principal); Z79.01 Long term (current) use of anticoagulants; Z51.81 Encounter for therapeutic drug level monitoring | CPT/HCPCS: 85610; 99211 ==

== ENCOUNTER 2023-08-12 08:20 | Outpatient (AMB) | payer MEDICAID, SELFPAY ==
[2023-08-12 08:33] LABS: Prothrombin Time Whole Bld POC 34.7 sec (11.1-13.5); ~PT, ~INR - Anti Coag Clinic 2.9 (0.9-1.1)
--- NOTE | 2023-08-12 08:37 | MHC.OFFVISCO ---
Intake Intake Visit Reasons: Anticoagulation Allergies No Known Allergies [No Known Allergies*] Allergy (Verified 08/12/23 08:27) Medication List - Last Reconciled 08/12/23 by Sophie Ellison RN acetaminophen (Tylenol) 650 mg (2 x 325 mg) PO Q6H albuterol sulfate 90 mcg/actuation 2 puffs PO Q4-6H PRN buprenorphine-naloxone 4-1 mg (Suboxone) 5 mg sublingual BID cetirizine 10 mg PO DAILY fluoxetine 20 mg PO QAM fluticasone propion-salmeterol 230-21 mcg/actuation (Advair HFA) 2 puffs inhalation fluticasone propionate 50 mcg/actuation 1 spray intranasal DAILY gabapentin mg PO hydrocortisone 2.5% topical DAILY hydroxyzine pamoate 25 mg PO BEDTIME PRN ketoconazole 2% appl topical lamotrigine 0 mg PO lithium carbonate 0 mg PO nicotine (polacrilex) 2 mg PO Q2H PRN warfarin 7.5 mg See Protocol PO DAILY Nursing Note INR: 2.9 in therapeutic range Medications and supplements reviewed No changes in health, diet, medications, or supplements, Denies any signs and symptoms of bleeding or bruising or clotting. Bleeding, bruising, clotting discussed Nutritional guidance given - CONT TO EAT A BALANCED DIET Dose: KEEP SAME 11.25MG X 1 DAY/ 7.5MG X 6 DAYS F/U INR:4 WEEKS - CALL WITH ANY HEALTH OR MED CHANGES, ANY S/SX BRUISING OR BLEEDING OR CONCERNS WITH INR TO HAVE INR CHECKED SOONER Patient verbalizes understanding of instructions given Anti-Coag Initial Assessment Social Hx Patient Tobacco Use Status: Current everyday Tobacco user alcohol intake: current Alcohol intake frequency: a few times a week Questionnaires HAS-BLED Does the patient had uncontrolled Hypertension?: No Does the patient have renal disease?: No Does the patient have liver disease?: No Does the patient have a history of stroke?: No Has the patient had major bleeding or predisposition to bleeding?: Yes (WITH DENTAL EXTRACTIONS) Does the patient have labile INRs?: No Is the patient over 65 years of age?: No Is the patient on medications that gives them a predisposition to bleeding?: Yes Does the patient use alcohol?: Yes (ALSO USES CBD ) HAS-BLED Score: 3 CHADSVASC Age: <65 Gender: Male Does the patient have a history of CHF?: No Does the patient have a history of Hypertension?: No Does the patient have a history of Stroke/TIA/Thromboembolism?: Yes Does the patient have a history of Vascular Disease (prior ND, PAD or aortic plaque)?: Yes (HX OF SMOKING AND R LEG DVT WITH EMBOLECTOMY ) Does the patient have a history of Diabetes?: No CHADS VACS Score: 3 [place] Prediction Score Rsk VTE Active Cancer: No Previous VTE, excluding superficial vein thrombosis: Yes Reduced mobility: No Already known Thrombophilic Condition: Yes With-in last month Trauma and/or Surgery: No Elderly 70 year or older: No Heart and/or Respiratory Failure: No Acute Myocardial infarction and/or Ischemic Stroke: No Acute Infection and/or Rheumatologic Disorder: No Obesity (BMI 30 or greater): Yes Ongoing Hormonal Treatment: No Score: 7 [place] Score less than 4; Low Risk of VTE [place] Score 4 or greater; High Risk of VTE Coding Level of Care Code Est Patient Level 1 Diagnoses Current use of anticoagulant therapy Z79.01 Assessment & Plan Assessment & Plan (1) Current use of anticoagulant therapy: Code(s): 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
== END 2023-08-12 08:45 | disposition home or self-care (01) ==
LOC: HO.ACS 08:20
PROVIDERS: PCP Internal Medicine; Visit Provider Internal Medicine
DX: Z79.01 Long term (current) use of anticoagulants (principal)

== ENCOUNTER → 2023-08-12 08:20 | Outpatient (BNVA) | payer MEDICAID, SELFPAY | PROVIDERS: PCP Internal Medicine; Visit Provider Internal Medicine | DX: Z95.2 Presence of prosthetic heart valve (principal); Z51.81 Encounter for therapeutic drug level monitoring; Z79.01 Long term (current) use of anticoagulants | CPT/HCPCS: 85610; 99211 ==

== ENCOUNTER 2023-09-09 08:01 | Outpatient (AMB) | payer MEDICAID, SELFPAY ==
[2023-09-09 08:18] LABS: Prothrombin Time Whole Bld POC 25.6 sec (11.1-13.5); ~PT, ~INR - Anti Coag Clinic 2.1 (0.9-1.1)
--- NOTE | 2023-09-09 08:19 | MHC.OFFVISCO ---
Intake Intake Visit Reasons: Anticoagulation Allergies No Known Allergies [No Known Allergies*] Allergy (Verified 09/09/23 08:05) Medication List - Last Reconciled 09/09/23 by Haritha Chicas RN acetaminophen (Tylenol) 650 mg (2 x 325 mg) PO Q6H albuterol sulfate 90 mcg/actuation 2 puffs PO Q4-6H PRN buprenorphine-naloxone 4-1 mg (Suboxone) 5 mg sublingual BID cetirizine 10 mg PO DAILY fluoxetine 20 mg PO QAM fluticasone propion-salmeterol 230-21 mcg/actuation (Advair HFA) 2 puffs inhalation fluticasone propionate 50 mcg/actuation 1 spray intranasal DAILY gabapentin mg PO hydrocortisone 2.5% topical DAILY hydroxyzine pamoate 25 mg PO BEDTIME PRN ketoconazole 2% appl topical lamotrigine 0 mg PO lithium carbonate 0 mg PO nicotine (polacrilex) 2 mg PO Q2H PRN warfarin 7.5 mg See Protocol PO DAILY Nursing Note INR 2.1?? out of therapeutic range Medications and supplements reviewed Patient status: pt states no changes in health Medications or supplements: no change Diet: states he has had more chocolate than typical for him Denies any signs and symptoms of bleeding or clotting or unusual bruising Bleeding, bruising, clotting discussed Nutritional guidance given: instructed to review food list, have some reds today and avoid greens today then to balance reds and greens Dose: 11.25mg x2 days this week then resume usual dosing F/U INR Date :2 wekks Patient verbalizing understanding of instructions given. 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
== END 2023-09-09 08:32 | disposition home or self-care (01) ==
LOC: HO.ACS 08:01
PROVIDERS: PCP Internal Medicine; Visit Provider Internal Medicine
DX: Z79.01 Long term (current) use of anticoagulants (principal)

== ENCOUNTER → 2023-09-09 08:01 | Outpatient (BNVA) | payer MEDICAID, SELFPAY | PROVIDERS: PCP Internal Medicine; Visit Provider Internal Medicine | DX: Z95.2 Presence of prosthetic heart valve (principal); Z79.01 Long term (current) use of anticoagulants; Z51.81 Encounter for therapeutic drug level monitoring | CPT/HCPCS: 85610; 99211 ==

== ENCOUNTER → 2023-09-24 08:02 | Outpatient (BNVA) | payer MEDICAID, SELFPAY | PROVIDERS: PCP Internal Medicine; Visit Provider Internal Medicine | DX: Z95.2 Presence of prosthetic heart valve (principal); Z79.01 Long term (current) use of anticoagulants; Z51.81 Encounter for therapeutic drug level monitoring | CPT/HCPCS: 85610; 99211 ==

== ENCOUNTER 2023-10-08 08:14 | Outpatient (AMB) | payer MEDICAID, SELFPAY ==
[2023-10-08 08:28] LABS: Prothrombin Time Whole Bld POC 40.4 sec (11.1-13.5); ~PT, ~INR - Anti Coag Clinic 3.4 (0.9-1.1)
--- NOTE | 2023-10-08 08:33 | MHC.OFFVISCO ---
Intake Intake Visit Reasons: Anticoagulation Allergies No Known Allergies [No Known Allergies*] Allergy (Verified 10/08/23 08:24) Medication List - Last Reconciled 10/08/23 by Haritha Chicas RN acetaminophen (Tylenol) 650 mg (2 x 325 mg) PO Q6H albuterol sulfate 90 mcg/actuation 2 puffs PO Q4-6H PRN buprenorphine-naloxone 4-1 mg (Suboxone) 5 mg sublingual BID cetirizine 10 mg PO DAILY fluoxetine 20 mg PO QAM fluticasone propion-salmeterol 230-21 mcg/actuation (Advair HFA) 2 puffs inhalation fluticasone propionate 50 mcg/actuation 1 spray intranasal DAILY gabapentin mg PO hydrocortisone 2.5% topical DAILY hydroxyzine pamoate 25 mg PO BEDTIME PRN ketoconazole 2% appl topical lamotrigine 0 mg PO lithium carbonate 0 mg PO nicotine (polacrilex) 2 mg PO Q2H PRN warfarin 7.5 mg See Protocol PO DAILY Nursing Note INR: 3.4 in therapeutic range of 2.5-3.5 Medications and supplements reviewed No changes in health, diet, medications, or supplements, Denies any signs and symptoms of bleeding or bruising or clotting. Bleeding, bruising, clotting discussed Nutritional guidance given: cont to balance greens and reds Dose: cont usual dose of 7.5mg X6 days and 11.25mg X1 day F/U INR: 2 weeks Patient verbalizes understanding of instructions given Anti-Coag Initial Assessment Social Hx Patient Tobacco Use Status: Current everyday Tobacco user alcohol intake: current Alcohol intake frequency: a few times a week Coding Level of Care Code Est Patient Level 1 Diagnoses Current use of anticoagulant therapy Z79.01 Assessment & Plan Assessment & Plan (1) Current use of anticoagulant therapy: Code(s): Z79.01 - [facility] (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
== END 2023-10-08 08:35 | disposition home or self-care (01) ==
LOC: HO.ACS 08:14
PROVIDERS: PCP Internal Medicine; Visit Provider Internal Medicine
DX: Z79.01 Long term (current) use of anticoagulants (principal)

== ENCOUNTER → 2023-10-08 08:14 | Outpatient (BNVA) | payer MEDICAID, SELFPAY | PROVIDERS: PCP Internal Medicine; Visit Provider Internal Medicine | DX: Z95.2 Presence of prosthetic heart valve (principal); Z79.01 Long term (current) use of anticoagulants; Z51.81 Encounter for therapeutic drug level monitoring | CPT/HCPCS: 85610; 99211 ==

== ENCOUNTER 2023-10-22 08:04 | Outpatient (AMB) | payer MEDICAID, SELFPAY ==
[2023-10-22 08:11] LABS: Prothrombin Time Whole Bld POC 28.7 sec (11.1-13.5); ~PT, ~INR - Anti Coag Clinic 2.4 (0.9-1.1)
--- NOTE | 2023-10-22 08:16 | MHC.OFFVISCO ---
Intake Intake Visit Reasons: Anticoagulation Allergies No Known Allergies [No Known Allergies*] Allergy (Verified 10/22/23 08:05) Medication List - Last Reconciled 10/22/23 by Sophie Ellison RN acetaminophen (Tylenol) 650 mg (2 x 325 mg) PO Q6H albuterol sulfate 90 mcg/actuation 2 puffs PO Q4-6H PRN buprenorphine-naloxone 4-1 mg (Suboxone) 5 mg sublingual BID cetirizine 10 mg PO DAILY fluoxetine 20 mg PO QAM fluticasone propion-salmeterol 230-21 mcg/actuation (Advair HFA) 2 puffs inhalation fluticasone propionate 50 mcg/actuation 1 spray intranasal DAILY gabapentin mg PO hydrocortisone 2.5% topical DAILY hydroxyzine pamoate 25 mg PO BEDTIME PRN ketoconazole 2% appl topical lamotrigine 0 mg PO lithium carbonate 0 mg PO nicotine (polacrilex) 2 mg PO Q2H PRN warfarin 7.5 mg See Protocol PO DAILY Nursing Note INR: 2.4 ALMOST in therapeutic range 2.5-3.5 Medications and supplements reviewed No changes in health, diet, medications, or supplements, Denies any signs and symptoms of bleeding or bruising or clotting. Bleeding, bruising, clotting discussed Nutritional guidance given -REVIEW FOOD LIST WEEKLY, AVOID GREENS X 3 DAYS, EAT FOODS TO HELP RAISE THE INR TODAY Dose: 11.25MG X 1 DAY/ 7.5MG X 6 DAYS F/U INR: 2 WEEKS Patient verbalizes understanding of instructions given Anti-Coag Initial Assessment Social Hx Patient Tobacco Use Status: Current everyday Tobacco user alcohol intake: current Alcohol intake frequency: a few times a week Coding Level of Care Code Est Patient Level 1 Diagnoses Current use of anticoagulant therapy Z79.01 Assessment & Plan Assessment & Plan (1) Current use of anticoagulant therapy: Code(s): Z79.01 - jail (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
== END 2023-10-22 08:17 | disposition home or self-care (01) ==
LOC: HO.ACS 08:04
PROVIDERS: PCP Internal Medicine; Visit Provider Internal Medicine
DX: Z79.01 Long term (current) use of anticoagulants (principal)

== ENCOUNTER → 2023-10-22 08:04 | Outpatient (BNVA) | payer MEDICAID, SELFPAY | PROVIDERS: PCP Internal Medicine; Visit Provider Internal Medicine | DX: Z95.2 Presence of prosthetic heart valve (principal); Z79.01 Long term (current) use of anticoagulants; Z51.81 Encounter for therapeutic drug level monitoring | CPT/HCPCS: 85610; 99211 ==

== ENCOUNTER 2023-11-06 08:01 | Outpatient (AMB) | payer MEDICAID, SELFPAY ==
--- NOTE | 2023-11-06 08:14 | MHC.OFFVISCO ---
Intake Intake Visit Reasons: Anticoagulation Allergies No Known Allergies [No Known Allergies*] Allergy (Verified 11/06/23 08:03) Medication List - Last Reconciled 11/06/23 by Sophie Ellison RN acetaminophen (Tylenol) 650 mg (2 x 325 mg) PO Q6H albuterol sulfate 90 mcg/actuation 2 puffs PO Q4-6H PRN buprenorphine-naloxone 4-1 mg (Suboxone) 5 mg sublingual BID cetirizine 10 mg PO DAILY fluoxetine 20 mg PO QAM fluticasone propion-salmeterol 230-21 mcg/actuation (Advair HFA) 2 puffs inhalation fluticasone propionate 50 mcg/actuation 1 spray intranasal DAILY gabapentin mg PO hydrocortisone 2.5% topical DAILY hydroxyzine pamoate 25 mg PO BEDTIME PRN ketoconazole 2% appl topical lamotrigine 0 mg PO lithium carbonate 0 mg PO nicotine (polacrilex) 2 mg PO Q2H PRN warfarin 7.5 mg See Protocol PO DAILY Nursing Note INR: 3.1 in therapeutic range- DID NOT HAVE MUCH CHOCOALTE Medications and supplements reviewed No changes in health, diet, medications, or supplements, Denies any signs and symptoms of bleeding or bruising or clotting. Bleeding, bruising, clotting discussed Nutritional guidance given Dose: 11.25MG X 1 DAY/ 7.5MG X 6 DAYS F/U INR: 2 WEEKS Patient verbalizes understanding of instructions given Anti-Coag Initial Assessment Social Hx Patient Tobacco Use Status: Current everyday Tobacco user alcohol intake: current Alcohol intake frequency: a few times a week Coding Level of Care Code Est Patient Level 1 Diagnoses Current use of anticoagulant therapy Z79.01 Results AMB INR Fingerstick AMB INR Fingerstick 3.1 Last Edit by Sophie Ellison RN on 11/06/23 08:11 MANUAL ENTRY DUE TO INTERFACE ONGOING FAILURE Assessment & Plan Assessment & Plan (1) Current use of anticoagulant therapy: Code(s): Z79.01 - penitentiary (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
[2023-11-06 08:19] LABS: Prothrombin Time Whole Bld POC 37.1 sec (11.1-13.5); ~PT, ~INR - Anti Coag Clinic 3.1 (0.9-1.1)
== END 2023-11-06 08:15 | disposition home or self-care (01) ==
LOC: HO.ACS 08:01
PROVIDERS: PCP Internal Medicine; Visit Provider Internal Medicine
DX: Z79.01 Long term (current) use of anticoagulants (principal)

== ENCOUNTER → 2023-11-06 08:01 | Outpatient (BNVA) | payer MEDICAID, SELFPAY | PROVIDERS: PCP Internal Medicine; Visit Provider Internal Medicine | DX: Z95.2 Presence of prosthetic heart valve (principal); Z79.01 Long term (current) use of anticoagulants; Z51.81 Encounter for therapeutic drug level monitoring | CPT/HCPCS: 85610; 99211 ==

== ENCOUNTER 2023-11-26 08:07 | Outpatient (AMB) | payer MEDICAID, SELFPAY ==
[2023-11-26 08:29] LABS: Prothrombin Time Whole Bld POC 36.1 sec (11.1-13.5)
--- NOTE | 2023-11-26 08:30 | MHC.OFFVISCO ---
Intake Intake Visit Reasons: Anticoagulation Allergies No Known Allergies [No Known Allergies*] Allergy (Verified 11/26/23 08:25) Medication List - Last Reconciled 11/26/23 by Melissa John RN acetaminophen (Tylenol) 650 mg (2 x 325 mg) PO Q6H albuterol sulfate 90 mcg/actuation 2 puffs PO Q4-6H PRN buprenorphine-naloxone 4-1 mg (Suboxone) 5 mg sublingual BID cetirizine 10 mg PO DAILY fluoxetine 20 mg PO QAM fluticasone propion-salmeterol 230-21 mcg/actuation (Advair HFA) 2 puffs inhalation fluticasone propionate 50 mcg/actuation 1 spray intranasal DAILY gabapentin mg PO hydrocortisone 2.5% topical DAILY hydroxyzine pamoate 25 mg PO BEDTIME PRN ketoconazole 2% appl topical lamotrigine 0 mg PO lithium carbonate 0 mg PO nicotine (polacrilex) 2 mg PO Q2H PRN warfarin 7.5 mg See Protocol PO DAILY Nursing Note NO CP,SOB,DIET/MED CHANGES,FALLS OR SX OF BLEEDING. CONTINUE XSAME DOSE AND FOLLOW-UP IN 3 WEEKS. 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
== END 2023-11-26 08:34 | disposition home or self-care (01) ==
LOC: HO.ACS 08:07
PROVIDERS: PCP Internal Medicine; Visit Provider Internal Medicine
DX: Z79.01 Long term (current) use of anticoagulants (principal)

== ENCOUNTER → 2023-11-26 08:07 | Outpatient (BNVA) | payer MEDICAID, SELFPAY | PROVIDERS: PCP Internal Medicine; Visit Provider Internal Medicine | DX: Z95.2 Presence of prosthetic heart valve (principal); Z79.01 Long term (current) use of anticoagulants; Z51.81 Encounter for therapeutic drug level monitoring | CPT/HCPCS: 85610; 99211 ==

== ENCOUNTER 2023-12-17 08:15 | Outpatient (AMB) | payer MEDICAID, SELFPAY ==
[2023-12-17 08:29] LABS: Prothrombin Time Whole Bld POC 35.4 sec (11.1-13.5)
--- NOTE | 2023-12-17 08:33 | MHC.OFFVISCO ---
Intake Intake Visit Reasons: Anticoagulation Allergies No Known Allergies [No Known Allergies*] Allergy (Verified 12/17/23 08:24) Medication List - Last Reconciled 12/17/23 by Melissa John RN acetaminophen (Tylenol) 650 mg (2 x 325 mg) PO Q6H albuterol sulfate 90 mcg/actuation 2 puffs PO Q4-6H PRN buprenorphine-naloxone 4-1 mg (Suboxone) 5 mg sublingual BID cetirizine 10 mg PO DAILY fluoxetine 20 mg PO QAM fluticasone propion-salmeterol 230-21 mcg/actuation (Advair HFA) 2 puffs inhalation fluticasone propionate 50 mcg/actuation 1 spray intranasal DAILY gabapentin mg PO hydrocortisone 2.5% topical DAILY hydroxyzine pamoate 25 mg PO BEDTIME PRN ketoconazole 2% appl topical lamotrigine 0 mg PO lithium carbonate 0 mg PO nicotine (polacrilex) 2 mg PO Q2H PRN warfarin 7.5 mg See Protocol PO DAILY Nursing Note NO CP,SOB,DIET/MED CHANGES,FALLS OR SX OF BLEEDING. CONTINUE PRESENT DOSE AND FOLLOW-UP IN 3 WEEKS.\ GOOD UNDERSTANDING OF DOSING INSTR. 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
== END 2023-12-17 08:35 | disposition home or self-care (01) ==
LOC: HO.ACS 08:15
PROVIDERS: PCP Internal Medicine; Visit Provider Internal Medicine
DX: Z79.01 Long term (current) use of anticoagulants (principal)

== ENCOUNTER → 2023-12-17 08:15 | Outpatient (BNVA) | payer MEDICAID, SELFPAY | PROVIDERS: PCP Internal Medicine; Visit Provider Internal Medicine | DX: Z95.2 Presence of prosthetic heart valve (principal); Z51.81 Encounter for therapeutic drug level monitoring; Z79.01 Long term (current) use of anticoagulants | CPT/HCPCS: 85610; 99211 ==

== ENCOUNTER 2024-01-09 08:04 | Outpatient (AMB) | payer MEDICAID, SELFPAY ==
[2024-01-09 08:11] LABS: Prothrombin Time Whole Bld POC 39.1 sec (11.1-13.5); ~PT, ~INR - Anti Coag Clinic 3.3 (0.9-1.1)
--- NOTE | 2024-01-09 08:14 | MHC.OFFVISCO ---
Intake Intake Visit Reasons: Anticoagulation Allergies No Known Allergies [No Known Allergies*] Allergy (Verified 01/09/24 08:06) Medication List - Last Reconciled 01/09/24 by Haritha Hankins RN acetaminophen (Tylenol) 650 mg (2 x 325 mg) PO Q6H albuterol sulfate 90 mcg/actuation 2 puffs PO Q4-6H PRN buprenorphine-naloxone 4-1 mg (Suboxone) 5 mg sublingual BID cetirizine 10 mg PO DAILY fluoxetine 20 mg PO QAM fluticasone propion-salmeterol 230-21 mcg/actuation (Advair HFA) 2 puffs inhalation fluticasone propionate 50 mcg/actuation 1 spray intranasal DAILY gabapentin mg PO hydrocortisone 2.5% topical DAILY hydroxyzine pamoate 25 mg PO BEDTIME PRN ketoconazole 2% appl topical lamotrigine 0 mg PO lithium carbonate 0 mg PO nicotine (polacrilex) 2 mg PO Q2H PRN warfarin 7.5 mg See Protocol PO DAILY Nursing Note Amb to [facility] feeling well no C/O Medications and supplements reviewed No changes in health, diet, medications, or supplements, Denies any signs and symptoms of bleeding, bruising, or clotting. INR 3.3 in therapeutic range (2.5-3.5) continue usual dosing 11.25mg x 1 day and 7.5mg x 6 days Nutritional guidance given, continue to balance greens and reds F/U INR: 3 weeks Patient verbalizes understanding of instructions given Anti-Coag Initial Assessment Social Hx Patient Tobacco Use Status: Current everyday Tobacco user alcohol intake: current Alcohol intake frequency: a few times a week Coding Level of Care Code Est Patient Level 1 Diagnoses Current use of anticoagulant therapy Z79.01 Time Spent (min) 15 Assessment & Plan Assessment & Plan (1) Current use of anticoagulant therapy: Code(s): Z79.01 - [facility] (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
== END 2024-01-09 08:19 | disposition home or self-care (01) ==
LOC: HO.ACS 08:04
PROVIDERS: PCP Internal Medicine; Visit Provider Internal Medicine
DX: Z79.01 Long term (current) use of anticoagulants (principal)

== ENCOUNTER → 2024-01-09 08:04 | Outpatient (BNVA) | payer MEDICAID, SELFPAY | PROVIDERS: PCP Internal Medicine; Visit Provider Internal Medicine | DX: Z95.2 Presence of prosthetic heart valve (principal); Z79.01 Long term (current) use of anticoagulants; Z51.81 Encounter for therapeutic drug level monitoring | CPT/HCPCS: 85610; 99211 ==

== ENCOUNTER 2024-02-04 07:58 | Outpatient (AMB) | payer MEDICAID, SELFPAY ==
[2024-02-04 08:09] LABS: Prothrombin Time Whole Bld POC 32.5 sec (11.1-13.5); ~PT, ~INR - Anti Coag Clinic 2.7 (0.9-1.1)
--- NOTE | 2024-02-04 08:14 | MHC.OFFVISCO ---
Intake Intake Visit Reasons: Anticoagulation Allergies No Known Allergies [No Known Allergies*] Allergy (Verified 02/04/24 08:03) Medication List - Last Reconciled 02/04/24 by Melissa John RN acetaminophen (Tylenol) 650 mg (2 x 325 mg) PO Q6H albuterol sulfate 90 mcg/actuation 2 puffs PO Q4-6H PRN buprenorphine-naloxone 4-1 mg (Suboxone) 5 mg sublingual BID cetirizine 10 mg PO DAILY fluoxetine 20 mg PO QAM fluticasone propion-salmeterol 230-21 mcg/actuation (Advair HFA) 2 puffs inhalation fluticasone propionate 50 mcg/actuation 1 spray intranasal DAILY gabapentin mg PO hydrocortisone 2.5% topical DAILY hydroxyzine pamoate 25 mg PO BEDTIME PRN ketoconazole 2% appl topical lamotrigine 0 mg PO lithium carbonate 0 mg PO nicotine (polacrilex) 2 mg PO Q2H PRN warfarin 7.5 mg See Protocol PO DAILY Nursing Note NO CP,SOB,DIET/MED CHANGES,FALLS OR SX OF BLEEDING. CONTINUE PRESENT DOSE AND FOLLOW-UP IN 4 WEEKS. 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 Anti-Coag Initial Assessment Social Hx Patient Tobacco Use Status: Current everyday Tobacco user alcohol intake: current Alcohol intake frequency: a few times a week Coding Level of Care Code Est Patient Level 1 Diagnoses Current use of anticoagulant therapy Z79.01 Assessment & Plan Assessment & Plan (1) Current use of anticoagulant therapy: Code(s): Z79.01 - intermediate (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
== END 2024-02-04 08:20 | disposition home or self-care (01) ==
LOC: HO.ACS 07:58
PROVIDERS: PCP Internal Medicine; Visit Provider Internal Medicine
DX: Z79.01 Long term (current) use of anticoagulants (principal)

== ENCOUNTER → 2024-02-04 07:58 | Outpatient (BNVA) | payer MEDICAID, SELFPAY | PROVIDERS: PCP Internal Medicine; Visit Provider Internal Medicine | DX: Z95.2 Presence of prosthetic heart valve (principal); Z79.01 Long term (current) use of anticoagulants; Z51.81 Encounter for therapeutic drug level monitoring | CPT/HCPCS: 85610; 99211 ==

== ENCOUNTER 2024-02-17 09:56 | Outpatient (REF) | payer MEDICAID, SELFPAY ==
[2024-02-17 11:53] LABS: Lithium 0.55 mmol/L (0.60-1.20)
[2024-02-17 13:24] LABS: Alanine Aminotransferase 19 U/L (0-40); Albumin Level 4.6 g/dL (3.5-5.0); Alkaline Phosphatase 102 U/L (39-117); Anion Gap 13 (12-20); Aspartate Amino Transferase 20 U/L (5-37); Bilirubin Total 0.3 mg/dL (0.0-1.0); Blood Urea Nitrogen 11 mg/dL (9-16); Calcium 9.7 mg/dL (8.4-10.2); Carbon Dioxide 26 mmol/L (22-29); Chloride 104 mmol/L (96-108); Estimated Glomerular Filt Rate > 60; Glucose Random 91 mg/dL (60-115); Potassium 4.1 mmol/L (3.3-5.1); Sodium 139 mmol/L (135-145); Total Protein 7.6 g/dL (6.5-8.0)
[2024-02-17 13:42] LABS: Thyroid Stimulating Hormone 2.39 uIU/mL (0.32-4.0)
== END 2024-02-17 09:57 | disposition home or self-care (01) ==
LOC: HO.HHCL 09:56
PROVIDERS: Nurse Practitioner Psychiatric/Mental Health; Visit Provider Internal Medicine
DX: F31.81 Bipolar II disorder (principal)
CPT/HCPCS: 36415; 80053; 80178; 84443

== ENCOUNTER 2024-03-18 08:16 | Outpatient (AMB) | payer MEDICAID, SELFPAY ==
[2024-03-18 08:30] LABS: Prothrombin Time Whole Bld POC 52.4 sec (11.1-13.5); ~PT, ~INR - Anti Coag Clinic 4.4 (0.9-1.1)
--- NOTE | 2024-03-18 08:40 | MHC.OFFVISCO ---
Intake Intake Visit Reasons: Anticoagulation Allergies No Known Allergies [No Known Allergies*] Allergy (Verified 03/18/24 08:24) Medication List - Last Reconciled 03/18/24 by Haritha Chicas RN acetaminophen (Tylenol) 650 mg (2 x 325 mg) PO Q6H albuterol sulfate 90 mcg/actuation 2 puffs PO Q4-6H PRN buprenorphine-naloxone 4-1 mg (Suboxone) 5 mg sublingual BID cetirizine 10 mg PO DAILY fluoxetine 20 mg PO QAM fluticasone propion-salmeterol 230-21 mcg/actuation (Advair HFA) 2 puffs inhalation fluticasone propionate 50 mcg/actuation 1 spray intranasal DAILY gabapentin mg PO hydrocortisone 2.5% topical DAILY hydroxyzine pamoate 25 mg PO BEDTIME PRN ketoconazole 2% appl topical lamotrigine 0 mg PO lithium carbonate 0 mg PO nicotine (polacrilex) 2 mg PO Q2H PRN warfarin 7.5 mg See Protocol PO DAILY Nursing Note INR 4.4?out of therapeutic range 2.5-3.5 Medications and supplements reviewed Pt is s/p Covid 2 weeks ago, said he took OTC meds but has not had anything in 5-6 days. Patient status: feels much better now Medications or supplements: no changes Diet: usual diet for pt Denies any signs and symptoms of bleeding or clotting or unusual bruising Bleeding, bruising, clotting discussed Nutritional guidance given: to have a serving of greens today Dose: 3.75mg today (7.5mg) then resume usual dose of 7.5mg X 6 days and 11.25mg F/U INR Date : 11 days?? Patient verbalizing understanding of instructions given. 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
== END 2024-03-18 08:45 | disposition home or self-care (01) ==
LOC: HO.ACS 08:16
PROVIDERS: PCP Internal Medicine; Visit Provider Internal Medicine
DX: Z79.01 Long term (current) use of anticoagulants (principal)

== ENCOUNTER → 2024-03-18 08:16 | Outpatient (BNVA) | payer MEDICAID, SELFPAY | PROVIDERS: PCP Internal Medicine; Visit Provider Internal Medicine | DX: Z95.2 Presence of prosthetic heart valve (principal); Z79.01 Long term (current) use of anticoagulants; Z51.81 Encounter for therapeutic drug level monitoring | CPT/HCPCS: 85610; 99211 ==

== ENCOUNTER 2024-03-31 09:59 | Outpatient (AMB) | payer MEDICAID, SELFPAY ==
[2024-03-31 10:26] LABS: Prothrombin Time Whole Bld POC 44.8 sec (11.1-13.5); ~PT, ~INR - Anti Coag Clinic 3.7 (0.9-1.1)
--- NOTE | 2024-03-31 10:29 | MHC.OFFVISCO ---
Intake Intake Visit Reasons: Anticoagulation Allergies No Known Allergies [No Known Allergies*] Allergy (Verified 03/31/24 10:21) Medication List - Last Reconciled 03/31/24 by Melissa John RN acetaminophen (Tylenol) 650 mg (2 x 325 mg) PO Q6H albuterol sulfate 90 mcg/actuation 2 puffs PO Q4-6H PRN buprenorphine-naloxone 4-1 mg (Suboxone) 5 mg sublingual BID cetirizine 10 mg PO DAILY fluoxetine 20 mg PO QAM fluticasone propion-salmeterol 230-21 mcg/actuation (Advair HFA) 2 puffs inhalation fluticasone propionate 50 mcg/actuation 1 spray intranasal DAILY gabapentin mg PO hydrocortisone 2.5% topical DAILY hydroxyzine pamoate 25 mg PO BEDTIME PRN ketoconazole 2% appl topical lamotrigine 0 mg PO lithium carbonate 0 mg PO nicotine (polacrilex) 2 mg PO Q2H PRN warfarin 7.5 mg See Protocol PO DAILY Nursing Note PT.STATES THAT HE IS FEELING MUCH BETTER POST COVID. DECREASE TODAY TO 3.75MGM THEN RESUME USUAL DOSE AND FOLLOW-UP IN 2 WEEKS. 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
== END 2024-03-31 10:31 | disposition home or self-care (01) ==
LOC: HO.ACS 09:59
PROVIDERS: PCP Internal Medicine; Visit Provider Internal Medicine
DX: Z79.01 Long term (current) use of anticoagulants (principal)

== ENCOUNTER → 2024-03-31 09:59 | Outpatient (BNVA) | payer MEDICAID, SELFPAY | PROVIDERS: PCP Internal Medicine; Visit Provider Internal Medicine | DX: Z95.2 Presence of prosthetic heart valve (principal); Z79.01 Long term (current) use of anticoagulants; Z51.81 Encounter for therapeutic drug level monitoring | CPT/HCPCS: 85610; 99211 ==

== ENCOUNTER 2024-04-14 09:28 | Outpatient (AMB) | payer MEDICAID, SELFPAY ==
--- NOTE | 2024-04-14 09:48 | MHC.OFFVISCO ---
Intake Intake Visit Reasons: Anticoagulation Allergies No Known Allergies [No Known Allergies*] Allergy (Verified 04/14/24 09:44) Medication List - Last Reconciled 04/14/24 by Brittaney Medina RN acetaminophen (Tylenol) 650 mg (2 x 325 mg) PO Q6H albuterol sulfate 90 mcg/actuation 2 puffs PO Q4-6H PRN buprenorphine-naloxone 4-1 mg (Suboxone) 5 mg sublingual BID cetirizine 10 mg PO DAILY fluoxetine 20 mg PO QAM fluticasone propion-salmeterol 230-21 mcg/actuation (Advair HFA) 2 puffs inhalation fluticasone propionate 50 mcg/actuation 1 spray intranasal DAILY gabapentin mg PO hydrocortisone 2.5% topical DAILY hydroxyzine pamoate 25 mg PO BEDTIME PRN ketoconazole 2% appl topical lamotrigine 0 mg PO lithium carbonate 0 mg PO nicotine (polacrilex) 2 mg PO Q2H PRN warfarin 7.5 mg See Protocol PO DAILY Nursing Note INR: 3.4- in therapeutic range 2.5-3.5 Medications and supplements reviewed- no changes No changes in health, diet, medications, or supplements, Denies any signs and symptoms of bleeding or bruising or clotting. Bleeding, bruising, clotting discussed Nutritional guidance given Dose: 7.5mg x 6, 11.25mg F/U INR: 2 weeks Patient verbalizes understanding of instructions given Anti-Coag Initial Assessment Social Hx Patient Tobacco Use Status: Current everyday Tobacco user alcohol intake: current Alcohol intake frequency: a few times a week Coding Level of Care Code Est Patient Level 1 Diagnoses Current use of anticoagulant therapy Z79.01 Results AMB INR Fingerstick AMB INR Fingerstick 3.4 Last Edit by Brittaney Medina RN on 04/14/24 09:49 interface delay Assessment & Plan Assessment & Plan (1) Current use of anticoagulant therapy: Code(s): 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
[2024-04-14 09:49] LABS: Prothrombin Time Whole Bld POC 40.7 sec (11.1-13.5); ~PT, ~INR - Anti Coag Clinic 3.4 (0.9-1.1)
== END 2024-04-14 09:52 | disposition home or self-care (01) ==
LOC: HO.ACS 09:28
PROVIDERS: PCP Internal Medicine; Visit Provider Internal Medicine
DX: Z79.01 Long term (current) use of anticoagulants (principal)

== ENCOUNTER → 2024-04-14 09:28 | Outpatient (BNVA) | payer MEDICAID, SELFPAY | PROVIDERS: PCP Internal Medicine; Visit Provider Internal Medicine | DX: Z95.2 Presence of prosthetic heart valve (principal); Z79.01 Long term (current) use of anticoagulants; Z51.81 Encounter for therapeutic drug level monitoring | CPT/HCPCS: 85610; 99211 ==

== ENCOUNTER 2024-05-04 09:10 | Outpatient (AMB) | payer MEDICAID, SELFPAY ==
[2024-05-04 09:36] LABS: Prothrombin Time Whole Bld POC 38.6 sec (11.1-13.5); ~PT, ~INR - Anti Coag Clinic 3.2 (0.9-1.1)
--- NOTE | 2024-05-04 09:38 | MHC.OFFVISCO ---
Intake Intake Visit Reasons: Anticoagulation Allergies No Known Allergies [No Known Allergies*] Allergy (Verified 05/04/24 09:31) Medication List - Last Reconciled 05/04/24 by Haritha Chicas RN acetaminophen (Tylenol) 650 mg (2 x 325 mg) PO Q6H albuterol sulfate 90 mcg/actuation 2 puffs PO Q4-6H PRN buprenorphine-naloxone 4-1 mg (Suboxone) 5 mg sublingual BID cetirizine 10 mg PO DAILY fluoxetine 20 mg PO QAM fluticasone propion-salmeterol 230-21 mcg/actuation (Advair HFA) 2 puffs inhalation fluticasone propionate 50 mcg/actuation 1 spray intranasal DAILY gabapentin mg PO hydrocortisone 2.5% topical DAILY hydroxyzine pamoate 25 mg PO BEDTIME PRN ketoconazole 2% appl topical lamotrigine 0 mg PO lithium carbonate 0 mg PO nicotine (polacrilex) 2 mg PO Q2H PRN warfarin 7.5 mg See Protocol PO DAILY Nursing Note INR: 3.2 in therapeutic range of 2.5-3.5 Medications and supplements reviewed No changes in health, diet, medications, or supplements, Denies any signs and symptoms of bleeding or bruising or clotting. 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
== END 2024-05-04 09:42 | disposition home or self-care (01) ==
LOC: HO.ACS 09:10
PROVIDERS: PCP Internal Medicine; Visit Provider Internal Medicine
DX: Z79.01 Long term (current) use of anticoagulants (principal)

== ENCOUNTER → 2024-05-04 09:10 | Outpatient (BNVA) | payer MEDICAID, SELFPAY | PROVIDERS: PCP Internal Medicine; Visit Provider Internal Medicine | DX: Z95.2 Presence of prosthetic heart valve (principal); Z79.01 Long term (current) use of anticoagulants; Z51.81 Encounter for therapeutic drug level monitoring | CPT/HCPCS: 85610; 99211 ==

== ENCOUNTER 2024-06-03 08:45 | Outpatient (AMB) | payer MEDICAID, SELFPAY ==
[2024-06-03 08:55] LABS: Prothrombin Time Whole Bld POC 35.8 sec (11.1-13.5)
--- NOTE | 2024-06-03 09:00 | MHC.OFFVISCO ---
Intake Intake Visit Reasons: Anticoagulation Allergies No Known Allergies [No Known Allergies*] Allergy (Verified 06/03/24 08:47) Medication List - Last Reconciled 06/03/24 by Sophie Ellison RN acetaminophen (Tylenol) 650 mg (2 x 325 mg) PO Q6H albuterol sulfate 90 mcg/actuation 2 puffs PO Q4-6H PRN buprenorphine-naloxone 4-1 mg (Suboxone) 5 mg sublingual BID cetirizine 10 mg PO DAILY chlorhexidine gluconate 0.12% PO fluoxetine 20 mg PO QAM fluticasone propion-salmeterol 230-21 mcg/actuation (Advair HFA) 2 puffs inhalation fluticasone propionate 50 mcg/actuation 1 spray intranasal DAILY gabapentin mg PO hydrocortisone 2.5% topical DAILY hydroxyzine pamoate 25 mg PO BEDTIME PRN ketoconazole 2% appl topical lamotrigine 0 mg PO lithium carbonate 0 mg PO nicotine (polacrilex) 2 mg PO Q2H PRN warfarin 7.5 mg See Protocol PO DAILY Nursing Note INR: 3.0 in therapeutic range Medications and supplements reviewed No changes in health, diet, medications, or supplements, Denies any signs and symptoms of bleeding or bruising or clotting. Bleeding, bruising, clotting discussed Nutritional guidance given Dose: 11.25MG X 1 DAY/ 7.5MG X 6 DAYS F/U INR: 3 WEEKS Patient verbalizes understanding of instructions given Anti-Coag Initial Assessment Social Hx Patient Tobacco Use Status: Current everyday Tobacco user alcohol intake: current Alcohol intake frequency: a few times a week Coding Level of Care Code Est Patient Level 1 Diagnoses Current use of anticoagulant therapy Z79.01 Results AMB INR Fingerstick AMB INR Fingerstick 3.0 Last Edit by Sophie Ellison RN on 06/03/24 08:55 MANUAL ENTRY Assessment & Plan Assessment & Plan (1) Current use of anticoagulant therapy: Code(s): Z79.01 - penitentiary (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
== END 2024-06-03 09:02 | disposition home or self-care (01) ==
LOC: HO.ACS 08:45
PROVIDERS: PCP Internal Medicine; Visit Provider Internal Medicine
DX: Z79.01 Long term (current) use of anticoagulants (principal)

== ENCOUNTER → 2024-06-03 08:45 | Outpatient (BNVA) | payer MEDICAID, SELFPAY | PROVIDERS: PCP Internal Medicine; Visit Provider Internal Medicine | DX: Z95.2 Presence of prosthetic heart valve (principal); Z79.01 Long term (current) use of anticoagulants; Z51.81 Encounter for therapeutic drug level monitoring | CPT/HCPCS: 85610; 99211 ==

== ENCOUNTER → 2024-06-20 19:30 | Outpatient (REF) | payer MEDICAID, SELFPAY | LOC: HO.SL 19:30 | PROVIDERS: PCP Internal Medicine; Visit Provider Internal Medicine | DX: R06.81 Apnea, not elsewhere classified (principal) | CPT/HCPCS: 95810 ==

== ENCOUNTER → 2024-06-20 19:30 | Outpatient (BNV) | payer MEDICAID, SELFPAY | PROVIDERS: PCP Internal Medicine; Visit Provider Psychiatry & Neurology Neurology | DX: R06.83 Snoring (principal); G47.36 Sleep related hypoventilation in conditions classified elsewhere | CPT/HCPCS: 95810 ==

== ENCOUNTER 2024-07-01 08:03 | Outpatient (AMB) | payer MEDICAID, SELFPAY ==
--- NOTE | 2024-07-01 08:42 | MHC.OFFVISCO ---
Intake Intake Visit Reasons: Anticoagulation Allergies No Known Allergies [No Known Allergies*] Allergy (Verified 07/01/24 08:34) Medication List - Last Reconciled 07/01/24 by Haritha Chicas RN acetaminophen (Tylenol) 650 mg (2 x 325 mg) PO Q6H albuterol sulfate 90 mcg/actuation 2 puffs PO Q4-6H PRN buprenorphine-naloxone 4-1 mg (Suboxone) 5 mg sublingual BID cetirizine 10 mg PO DAILY chlorhexidine gluconate 0.12% PO fluoxetine 20 mg PO QAM fluticasone propion-salmeterol 230-21 mcg/actuation (Advair HFA) 2 puffs inhalation fluticasone propionate 50 mcg/actuation 1 spray intranasal DAILY gabapentin mg PO hydrocortisone 2.5% topical DAILY hydroxyzine pamoate 25 mg PO BEDTIME PRN ketoconazole 2% appl topical lamotrigine 0 mg PO lithium carbonate 0 mg PO nicotine (polacrilex) 2 mg PO Q2H PRN warfarin 7.5 mg See Protocol PO DAILY Nursing Note INR: 3.3 in therapeutic range of 2.5-3.5 Medications and supplements reviewed No changes in health, diet, medications, or supplements, Denies any signs and symptoms of bleeding or bruising or clotting. Bleeding, bruising, clotting discussed Nutritional guidance given Dose: 7.5mg X 6 days and 11.25mg X 1 day F/U INR: 3 weeks Patient verbalizes understanding of instructions given Anti-Coag Initial Assessment Social Hx Patient Tobacco Use Status: Current everyday Tobacco user alcohol intake: current Alcohol intake frequency: a few times a week Coding Level of Care Code Est Patient Level 1 Diagnoses Current use of anticoagulant therapy Z79.01 Results AMB INR Fingerstick AMB INR Fingerstick 3.3 Last Edit by Haritha Chicas RN on 07/01/24 08:39 interface delay Assessment & Plan Assessment & Plan (1) Current use of anticoagulant therapy: Code(s): 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
[2024-07-01 08:47] LABS: Prothrombin Time Whole Bld POC 39.2 sec (11.1-13.5); ~PT, ~INR - Anti Coag Clinic 3.3 (0.9-1.1)
== END 2024-07-01 08:42 | disposition home or self-care (01) ==
LOC: HO.ACS 08:03
PROVIDERS: PCP Internal Medicine; Visit Provider Internal Medicine
DX: Z79.01 Long term (current) use of anticoagulants (principal)

== ENCOUNTER → 2024-07-01 08:03 | Outpatient (BNVA) | payer MEDICAID, SELFPAY | PROVIDERS: PCP Internal Medicine; Visit Provider Internal Medicine | DX: Z95.2 Presence of prosthetic heart valve (principal); Z79.01 Long term (current) use of anticoagulants; Z51.81 Encounter for therapeutic drug level monitoring | CPT/HCPCS: 85610; 99211 ==

== ENCOUNTER 2024-07-29 10:27 | Outpatient (AMB) | payer MEDICAID, SELFPAY ==
[2024-07-29 10:37] LABS: Prothrombin Time Whole Bld POC 23.9 sec (11.1-13.5)
--- NOTE | 2024-07-29 10:49 | MHC.OFFVISCO ---
Intake Intake Visit Reasons: Anticoagulation Allergies No Known Allergies [No Known Allergies*] Allergy (Verified 07/29/24 10:24) Medication List - Last Reconciled 07/29/24 by Haritha Hankins RN acetaminophen (Tylenol) 650 mg (2 x 325 mg) PO Q6H albuterol sulfate 90 mcg/actuation 2 puffs PO Q4-6H PRN buprenorphine-naloxone 4-1 mg (Suboxone) 5 mg sublingual BID cetirizine 10 mg PO DAILY chlorhexidine gluconate 0.12% PO fexofenadine 180 mg PO DAILY fluoxetine 20 mg PO QAM fluticasone propion-salmeterol 230-21 mcg/actuation (Advair HFA) 2 puffs inhalation fluticasone propionate 50 mcg/actuation 1 spray intranasal DAILY gabapentin mg PO hydrocortisone 2.5% topical DAILY hydroxyzine pamoate 25 mg PO BEDTIME PRN ketoconazole 2% appl topical lamotrigine 0 mg PO lithium carbonate 0 mg PO nicotine (polacrilex) 2 mg PO Q2H PRN warfarin 7.5 mg See Protocol PO DAILY Nursing Note Amb to [facility] accomp by girlfrienconchis Brandon pt last visit here was 07/01/24, NS 07/22 Medications and supplements reviewed started on additional allergy medicine Kaur (no warfarin interaction) No other changes in health, diet, medications, or supplements, Denies any signs and symptoms of bleeding, bruising, or clotting. Bleeding, bruising, clotting discussed INR 2.0 below therapeutic range 2.5-3.5 denies any missed dose sts he did take only 7.5mg on Friday and then took 11.25mg on Friday (switched days) pt is not a big green eater sts he does like chocolate milk chocolate Dose: increase dose today and tomorrow to 11.25mg vs 7.5mg then resume usual dosing- will call pt if Lovenox is ordered by PCP pt sts he has lovenox at home instructed no greens (or chocolate) until seen F/U INR:Thursday 08/02 Patient and girlfriend verbalizes understanding of instructions given and phone numbers verified for call back [facility] to [facility], critical care line, INR 2.o reported to Brandy ORDAZ with dosing plan and follow up, negative clot assessment, and question lovenox order, await call back after review by PCP Anti-Coag Initial Assessment Social Hx Patient Tobacco Use Status: Current everyday Tobacco user alcohol intake: current Alcohol intake frequency: a few times a week Coding Level of Care Code Est Patient Level 2 Diagnoses Current use of anticoagulant therapy Z79.01 Time Spent (min) 30 Assessment & Plan Assessment & Plan (1) Current use of anticoagulant therapy: Code(s): Z79.01 - penitentiary (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
== END 2024-07-29 11:09 | disposition home or self-care (01) ==
LOC: HO.ACS 10:27
PROVIDERS: PCP Internal Medicine; Visit Provider Internal Medicine
DX: Z79.01 Long term (current) use of anticoagulants (principal)

== ENCOUNTER → 2024-07-29 10:27 | Outpatient (BNVA) | payer MEDICAID, SELFPAY | PROVIDERS: PCP Internal Medicine; Visit Provider Internal Medicine | DX: Z95.2 Presence of prosthetic heart valve (principal); Z79.01 Long term (current) use of anticoagulants; Z51.81 Encounter for therapeutic drug level monitoring | CPT/HCPCS: 85610; 99212 ==

== ENCOUNTER 2024-08-02 10:28 | Outpatient (AMB) | payer MEDICAID, SELFPAY ==
[2024-08-02 10:49] LABS: Prothrombin Time Whole Bld POC 33.9 sec (11.1-13.5); ~PT, ~INR - Anti Coag Clinic 2.8 (0.9-1.1)
--- NOTE | 2024-08-02 10:49 | MHC.OFFVISCO ---
Intake Intake Visit Reasons: Anticoagulation Allergies No Known Allergies [No Known Allergies*] Allergy (Verified 08/02/24 10:37) Medication List - Last Reconciled 08/02/24 by Haritha Chicas RN acetaminophen (Tylenol) 650 mg (2 x 325 mg) PO Q6H albuterol sulfate 90 mcg/actuation 2 puffs PO Q4-6H PRN buprenorphine-naloxone 4-1 mg (Suboxone) 5 mg sublingual BID cetirizine 10 mg PO DAILY chlorhexidine gluconate 0.12% PO fexofenadine 180 mg PO DAILY fluoxetine 20 mg PO QAM fluticasone propion-salmeterol 230-21 mcg/actuation (Advair HFA) 2 puffs inhalation fluticasone propionate 50 mcg/actuation 1 spray intranasal DAILY gabapentin mg PO hydrocortisone 2.5% topical DAILY hydroxyzine pamoate 25 mg PO BEDTIME PRN ketoconazole 2% appl topical lamotrigine 0 mg PO lithium carbonate 0 mg PO nicotine (polacrilex) 2 mg PO Q2H PRN warfarin 7.5 mg See Protocol PO DAILY Nursing Note INR: 2.8 in therapeutic range of 2.5-3.5 Last INR was 2.0 and dose increased X 2 days Medications and supplements reviewed No changes in health, diet, medications, or supplements, Denies any signs and symptoms of bleeding or bruising or clotting. Bleeding, bruising, clotting discussed Nutritional guidance given Dose: resume usual dose of 7.5mg X 6 days and 11.25mg X 1 day (Mon) F/U INR: 2 weeks Patient verbalizes understanding of instructions given Anti-Coag Initial Assessment Social Hx Patient Tobacco Use Status: Current everyday Tobacco user alcohol intake: current Alcohol intake frequency: a few times a week Coding Level of Care Code Est Patient Level 1 Diagnoses Current use of anticoagulant therapy Z79.01 Results AMB INR Fingerstick AMB INR Fingerstick 2.8 Last Edit by Haritha Chicas RN on 08/02/24 10:44 interface delay Assessment & Plan Assessment & Plan (1) Current use of anticoagulant therapy: Code(s): Z79.01 - [facility] (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
== END 2024-08-02 11:14 | disposition home or self-care (01) ==
LOC: HO.ACS 10:28
PROVIDERS: PCP Internal Medicine; Visit Provider Internal Medicine
DX: Z79.01 Long term (current) use of anticoagulants (principal)

== ENCOUNTER → 2024-08-02 10:28 | Outpatient (BNVA) | payer MEDICAID, SELFPAY | PROVIDERS: PCP Internal Medicine; Visit Provider Internal Medicine | DX: Z95.2 Presence of prosthetic heart valve (principal); Z79.01 Long term (current) use of anticoagulants; Z51.81 Encounter for therapeutic drug level monitoring | CPT/HCPCS: 85610; 99211 ==

== ENCOUNTER 2024-08-03 10:33 | Outpatient (REF) | payer MEDICAID, SELFPAY ==
[2024-08-03 13:43] LABS: Alanine Aminotransferase 27 U/L (0-40); Albumin Level 4.4 g/dL (3.5-5.0); Alkaline Phosphatase 92 U/L (39-117); Anion Gap 11 (12-20); Aspartate Amino Transferase 30 U/L (5-37); Bilirubin Total 0.4 mg/dL (0.0-1.0); Blood Urea Nitrogen 15 mg/dL (9-16); Calcium 8.8 mg/dL (8.4-10.2); Carbon Dioxide 27 mmol/L (22-29); Chloride 107 mmol/L (96-108); Cholesterol 185 mg/dL (<200); Estimated Average Glucose 103 mg/dL; Estimated Glomerular Filt Rate 56; Glucose Random 110 mg/dL (60-115); HDL Cholesterol 45 mg/dL (>40); Hemoglobin A1C 123.1445 umol/L; Hemoglobin A1c % 5.2 % (<6.0); LDL Cholesterol Calculated 119 mg/dL (<100); Potassium 4.5 mmol/L (3.3-5.1); Sodium 140 mmol/L (135-145); Total Hemoglobin (HGBA1C) 3646.6335 umol/L; Total Protein 7.5 g/dL (6.5-8.0); Triglycerides 106 mg/dL (<150)
[2024-08-03 13:54] LABS: Reflex LDLD? No
[2024-08-03 14:24] LABS: TSH reflex Free T4 1.46 uIU/mL (0.32-4.0)
== END 2024-08-03 10:34 | disposition home or self-care (01) ==
LOC: HO.HHCL 10:33
PROVIDERS: Visit Provider Internal Medicine
DX: Z95.2 Presence of prosthetic heart valve (principal)
CPT/HCPCS: 36415; 80053; 80061; 83036; 84443

== ENCOUNTER 2024-08-18 08:59 | Outpatient (AMB) | payer MEDICAID, SELFPAY ==
[2024-08-18 09:13] LABS: Prothrombin Time Whole Bld POC 37.8 sec (11.1-13.5); ~PT, ~INR - Anti Coag Clinic 3.1 (0.9-1.1)
--- NOTE | 2024-08-18 09:19 | MHC.OFFVISCO ---
Intake Intake Visit Reasons: Anticoagulation Allergies No Known Allergies [No Known Allergies*] Allergy (Verified 08/18/24 09:08) Medication List - Last Reconciled 08/18/24 by Melissa John RN acetaminophen (Tylenol) 650 mg (2 x 325 mg) PO Q6H albuterol sulfate 90 mcg/actuation 2 puffs PO Q4-6H PRN buprenorphine-naloxone 4-1 mg (Suboxone) 5 mg sublingual BID cetirizine 10 mg PO DAILY chlorhexidine gluconate 0.12% PO enoxaparin 120 mg subcut Q12H fexofenadine 180 mg PO DAILY fluoxetine 20 mg PO QAM fluticasone propion-salmeterol 230-21 mcg/actuation (Advair HFA) 2 puffs inhalation fluticasone propionate 50 mcg/actuation 1 spray intranasal DAILY gabapentin mg PO hydrocortisone 2.5% topical DAILY hydroxyzine pamoate 25 mg PO BEDTIME PRN ketoconazole 2% appl topical lamotrigine 0 mg PO lithium carbonate 0 mg PO nicotine (polacrilex) 2 mg PO Q2H PRN warfarin 7.5 mg See Protocol PO DAILY Nursing Note PT.NOW HAS STANDING LOVENOX ORDER IF NEEDED. NO CP,SOB,DIET/MED CHANGES,FALLS OR SX OF BLEEDING. CONTINUE PRESENT DOSE AND FOLLOW-UP IN 2 WEEKS. 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
== END 2024-08-18 09:21 | disposition home or self-care (01) ==
LOC: HO.ACS 08:59
PROVIDERS: PCP Internal Medicine; Visit Provider Internal Medicine
DX: Z79.01 Long term (current) use of anticoagulants (principal)

== ENCOUNTER → 2024-08-18 08:59 | Outpatient (BNVA) | payer MEDICAID, SELFPAY | PROVIDERS: PCP Internal Medicine; Visit Provider Internal Medicine | DX: Z95.2 Presence of prosthetic heart valve (principal); Z79.01 Long term (current) use of anticoagulants; Z51.81 Encounter for therapeutic drug level monitoring | CPT/HCPCS: 85610; 99211 ==

== ENCOUNTER 2024-08-25 09:43 | Outpatient (AMB) | payer MEDICAID, SELFPAY ==
[2024-08-25 09:47] VITALS: BP 122/78; PULSE 82; O2SAT 96; BMI 37.8
--- NOTE | 2024-08-25 09:47 | A.OFFVIS_ITS ---
Vital Signs 08/25/24 09:47 Height 6 ft Weight 279 lb BMI 37.8 BP 122/78 Blood Pressure Location Rt brachial Position Sitting Pulse 82 Pulse Source Doppler Pulse Oximetry (%) 96 Oxygen Delivery Method Room Air Intake Visit Reasons: hypoxemia Allergies No Known Allergies [No Known Allergies*] Allergy (Verified 08/25/24 09:52) HPI HPI hypoxemia: Details: 39-year-old gentleman, active 10-15 pack-year smoker, with underlying history of mitral valve replacement with mechanical valve in 2014 for endocarditis, noted to have nocturnal hypoxemia, but no evidence of sleep apnea on his most recent sleep study and thus referred for pulmonary follow-up. Patient does complain of significant environmental allergies. He does have a cat as a pet. Patient also has family history of COPD and lung cancer in his parents. He has been using Advair to 13 albuterol MDI with suboptimal control of his asthma symptoms. In his to use his albuterol several times a day. Patient is also complain of a cough productive of yellowish sputum. [facility] Medical History History of endocarditis Smoking Surgical History S/P MVR (mitral valve replacement) (~2014) Family History Father No problems noted. Mother No problems noted. Social History (Updated 08/25/24 @ 09:54 by Cora Lynn Jennyfer) Alcohol intake: current Alcohol intake frequency: a few times a week Patient Tobacco Use Status: Current everyday Tobacco user Tobacco use type: Cigarette Cigarettes Per Day: 15 Years Smoked: started age 19, 12 cig a day, Review of Systems Const Denies daytime sleepiness, Denies excessive sweating, Denies fatigue, Denies fever(s), Denies lethargy, Denies malaise, Denies night sweats, Denies snoring and Denies weight loss Eyes Denies blurry vision and Denies itchy eyes ENT Denies nasal congestion, Denies post nasal drip, Denies sinus pain, Denies sinus pressure and Denies other ( Thrush) Card Denies chest pain, Denies pedal edema, Denies dyspnea, Denies orthopnea and Denies paroxysmal nocturnal dyspnea Resp Reports cough, Denies hemoptysis, Reports excessive phlegm production, Denies dyspnea, Denies snoring and Denies wheezing GI Denies abdominal pain and Denies heartburn Musc Denies myalgias, Denies arthralgias and Denies joint swelling Skin/Breast Denies rash Neuro Denies memory loss and Denies seizure-like activity Psych Denies abnormal sleep pattern, Denies anxiety and Denies memory loss Endo Denies excessive sweating, Denies fatigue and Denies heat intolerance Santosh/Lymph Denies easy bruising Aller/Immun Denies itchy eyes, Denies seasonal rhinorrhea and Denies wheezing Physical Exam Vital Signs: Last Vital Signs Pulse 82 08/25/24 09:47 BP 122/78 08/25/24 09:47 Pulse Ox 96 08/25/24 09:47 Oxygen Delivery Method Room Air 08/25/24 09:47 BMI result Body Mass Index 37.8 Const General: no acute distress and alert Nutritional Appearance: obese Orientation/consciousness: Other orientation findings ( oriented) HEENT Head: Yes atraumatic Eyes General: appearance normal, both eyes and all related structures Sclerae: sclerae normal EOM: EOMs intact bilaterally Neck Neck: Yes supple Lymphatic: no lymphadenopathy noted Resp Effort & Inspection: normal respiratory effort and no use of accessory muscles Auscultation: clear to auscultation bilaterally Cardio Rate: regular rate Rhythm: regular rhythm Heart sounds: no gallops, no murmurs and no rubs Skin General skin exam: other ( warm) Extrem General: No clubbing, No cyanosis and No edema Assessment & Plan Assessment & Plan (1) Asthma: Code(s): J45.909 - Unspecified asthma, uncomplicated Category: Medical Plan: Suboptimal control on Advair and albuterol MDI. Will obtain full PFT will await for immunologic therapy. (2) Nocturnal hypoxemia: Code(s): G47.34 - Idiopathic sleep related nonobstructive alveolar hypoventilation Category: Medical Plan: Will start on nocturnal supplemental oxygen at 2 L. (3) Environmental allergies: Code(s): Z91.09 - Other allergy status, other than to drugs and biological substances Category: Medical Plan: Will obtain IgE level, CBC with differential, and RAST panel for further evaluation. Orders: Orders Complete Blood Count Auto Diff Today Z91.09 - Other allergy status, other than to drugs and biological substances Resp Allergy Profile Region I Today Z91.09 - Other allergy status, other than to drugs and biological substances PFT pulmonary function test Today J45.909 - Unspecified asthma, uncomplicated Medications: New azithromycin For 250 mg dose pack: take 500 mg today (day 1), then 250 mg for 4 days (days 2-5) PO 6 tabs 0RF J45.909 - Unspecified asthma, uncomplicated Coding Level of Care Code New Pt Level 4 (22105) Diagnoses Asthma J45.909 Nocturnal hypoxemia G47.34 Environmental allergies Z91.09
== END 2024-08-25 10:09 | disposition home or self-care (01) ==
PROVIDERS: PCP Internal Medicine; Visit Provider Internal Medicine Pulmonary Disease
DX: J45.909 Unspecified asthma, uncomplicated (principal); G47.34 Idiopathic sleep related nonobstructive alveolar hypoventilation; Z91.09 Other allergy status, other than to drugs and biological substances
CPT/HCPCS: 99204

== ENCOUNTER 2024-08-25 09:43 | Outpatient (REF) | payer MEDICAID, SELFPAY ==
[2024-08-25 10:31] LABS: MANUAL DIFF FLAG NO
[2024-08-25 10:43] LABS: Basophils Percent Auto 0.5 % (0-2); Eosinophils Absolute Auto 0.6 X10*3/uL (0.0-0.4); Hematocrit 43.5 % (42.0-52.0); Hemoglobin 14.4 g/dl (14.0-18.0); Imm Gran Abs Auto 0.02 X10*3/uL (0.00-0.03); Imm Gran Pct Auto 0.2 % (0.0-0.4); Lymphocytes Absolute Auto 1.7 X10*3/uL (1.2-4.9); Lymphocytes Percent Auto 21.7 % (20-40); Mean Corpuscular HGB Conc 33.1 g/dl (31.0-36.0); Mean Corpuscular Hemoglobin 31.4 pg (27.0-33.0); Mean Platelet Volume 9.4 fL (9.4-12.4); Monocytes Absolute Auto 0.4 X10*3/uL (0.1-1.2); Monocytes Percent Auto 5.4 % (2-11); Neutrophils Absolute Auto 5.1 x10*3/uL (2.0-8.3); Neutrophils Percent Auto 64.2 % (45-73); Platelet Count 309 X10*3/uL (160-400); Red Blood Count 4.58 X10*6/uL (4.60-5.80); Red Cell Distribution Width 13.5 % (11.0-16.0)
[2024-08-26 22:18] LABS: Class Alternaria alternata 0; Class Aspergillus fumigatus 0; Class Bermuda Grass 0; Class Birch 3; Class Cat Dander 4; Class Cladosporium herbarum 0; Class Cockroach 0/1; Class Common Ragweed 2; Class Cottonwood 0; Class Derm. pterony 2; Class Dermatophagoides farinae 3; Class Dog Dander 3; Class Elm 0; Class Maple Box Elder 0; Class Mountain Cedar 0; Class Mouse Urine Protein 0/1; Class Mugwort 0; Class Oak 1; Class Penicillium crysogenum 0; Class Rough Pigweed 0; Class Sheep Sorrel 0; Class Sycamore 0; Class Timothy Grass 0/1; Class Walnut Tree 0; Class White Ash 0; Class White Mulberry 0; D001 IgE D pteronyssinus 3.41 kU/L; D002 - IgE D farinae 3.74 kU/L; E072-IgE Mouse Urine 0.23 kU/L; G002 IgE Bermuda Grass <0.10 kU/L; G006 - IgE Timothy Grass 0.33 kU/L; I006-IgE Cockroach, German 0.27 kU/L; Immunoglobulin E 100 kU/L (<OR=114); M001 IgE Penicillium chrysogen <0.10 kU/L; M002 - IgE Cladosporium herbar <0.10 kU/L; M003 - IgE Aspergillus fumigat <0.10 kU/L; M006 - IgE Alternaria alternat <0.10 kU/L; T001 IgE Maple/Box Elder <0.10 kU/L; T003 IgE Common Silver Birch 3.53 kU/L; T006 - IgE Cedar, Mountain <0.10 kU/L; T007 - IgE Oak, White 0.43 kU/L; T008 IgE Elm, American <0.10 kU/L; T010 - IgE Walnut <0.10 kU/L; T011 - IgE Maple Leaf Sycamore <0.10 kU/L; T014 - IgE Cottonwood <0.10 kU/L; T015 - IgE Ash, White <0.10 kU/L; T070 - IgE White Mulberry <0.10 kU/L; W006 - IgE Mugwort <0.10 kU/L; W014 IgE Pigweed, Common <0.10 kU/L; W018 IgE Sheep Sorrel <0.10 kU/L
== END 2024-08-25 09:44 | disposition home or self-care (01) ==
LOC: HO.LAB 09:43
PROVIDERS: PCP Internal Medicine; Visit Provider Internal Medicine Pulmonary Disease
DX: Z91.09 Other allergy status, other than to drugs and biological substances (principal)
CPT/HCPCS: 36415; 82785; 85025; 86003; 99202

== ENCOUNTER 2024-09-01 09:28 | Outpatient (AMB) | payer MEDICAID, SELFPAY ==
--- NOTE | 2024-09-01 09:29 | A.OFFVIS_ITS ---
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19)/ Merle/deniz mvr with Massage Therapy Instructor Required: No Accompanied by: Self / Same As Patient Allergies No Known Allergies [No Known Allergies*] Allergy (Verified 08/25/24 09:52) Medication List - Last Reconciled 09/01/24 by Jose Williamson MD acetaminophen (Tylenol) 650 mg (2 x 325 mg) PO Q6H albuterol sulfate 90 mcg/actuation 2 puffs PO Q4-6H PRN buprenorphine-naloxone 4-1 mg (Suboxone) 5 mg sublingual BID cetirizine 10 mg PO DAILY chlorhexidine gluconate 0.12% PO desloratadine (Clarinex) 5 mg PO DAILY fexofenadine 180 mg PO DAILY fluoxetine 20 mg PO QAM fluticasone propion-salmeterol 230-21 mcg/actuation (Advair HFA) 2 puffs inhalation fluticasone propionate 50 mcg/actuation 1 spray intranasal DAILY gabapentin 300 mg PO BID hydrocortisone 2.5% topical DAILY hydroxyzine pamoate 25 mg PO BEDTIME PRN ketoconazole 2% appl topical lamotrigine 200 mg PO lithium carbonate 0 mg PO warfarin 7.5 mg See Protocol PO DAILY HPI Comments Details: Samuel is here for follow-up regarding mitral valve replacement. Last seen in 2020 and has not been to the clinic since. He has a history of IV drugs many years ago. He developed infective endocarditis of the mitral valve in 2014. He also had embolic phenomenon into the right leg. This led to mitral valve replacement. Following this, he stopped using drugs. He still smokes but no drug use. For the most part he is doing fine. He does get shortness of breath/wheezing that could be related to asthma vs COPD. Also goes to Pulmonary Medicine. [facility] Medical History History of endocarditis Smoking Surgical History S/P MVR (mitral valve replacement) (~2014) Family History Father No problems noted. Mother No problems noted. Social History (Updated 09/01/24 @ 09:37 by Maribel Beckford CMA) Alcohol intake: former Patient Tobacco Use Status: Current everyday Tobacco user Tobacco use type: Cigarette Cigarettes Per Day: 15 Years Smoked: started age 19, 12 cig a day, Review of Systems Const Denies chills, Denies daytime sleepiness, Denies fatigue, Denies fever(s), Denies poor appetite, Denies snoring, Denies stops breathing during sleep, Denies weakness, Denies weight gain and Denies weight loss Eyes Denies loss of vision ENT Denies dizziness and Denies hearing loss Card Denies chest pain, Denies irregular heart rhythm, Denies claudication, Reports leg edema, Denies lightheadedness, Denies palpitations, Denies dyspnea on exertion and Denies orthopnea Resp Denies cough, Denies excessive phlegm production, Denies dyspnea on exertion, Denies snoring and Denies wheezing GI Denies abdominal pain, Denies hematochezia, Denies change in bowel habits, Denies nausea and Denies vomiting Denies dysuria and Denies urinary frequency Musc Denies arthralgias, Denies muscle weakness, Denies numbness and Denies other Skin/Breast Denies nail changes and Denies rash Neuro Denies Abnormal speech present, Denies dizziness, Denies loss of vision, Denies memory loss, Denies numbness and Denies weakness Psych Denies depression and Denies memory loss Endo Denies fatigue and Denies palpitations Santosh/Lymph Denies easy bruising Aller/Immun Denies wheezing Physical Exam Vital Signs: Last Vital Signs Pulse 80 09/01/24 09:30 BP 142/88 H 09/01/24 09:30 BMI result Body Mass Index 37.6 Const General: comfortable and no acute distress Orientation/consciousness: patient oriented x3 HEENT Other: Unremarkable Head: Yes normal to inspection Neck Neck: Yes normal visual inspection Chest Chest palpation & inspection: normal inspection of the chest Resp Auscultation: clear to auscultation bilaterally, wheezes and diminished lung sounds Cardio Other: Unable to clearly hear the prosthetic heart sounds. Palpation: normal PMI GI Palpation (GI): Soft to palpation Back/Spine/Pelvis Other: unremarkable Skin General skin exam: no rashes or lesions noted Neuro General: patient oriented x3 Speech: No Abnormal speech present Extrem General: Yes normal to inspection Psych Mental Status: mental status grossly normal Office Procedures EKG Details: EKG with underlying sinus rhythm at 80/Min; VT prolongation to 224 millisecond; rightward axis; [place]. [id number], Complete Assessment & Plan Assessment & Plan (1) S/P MVR (mitral valve replacement): Onset Date: ~2014 Comment: [facility] Code(s): Z95.2 - Presence of prosthetic heart valve Category: Surgical (2) History of endocarditis: Code(s): Z86.79 - Personal history of other diseases of the circulatory system Category: Medical (3) Smoking: Code(s): F17.200 - Nicotine dependence, unspecified, uncomplicated Category: Social Hx (4) First degree heart block: Code(s): I44.0 - Atrioventricular block, first degree Category: Medical Plan In the last echocardiogram from 2020, prosthetic mitral valve noted with mean gradient of 12 mm Hg at 76/Min. Based on Doppler, no significant regurgitation. Gradient is elevated but this has been seen before. He has also had a transesophageal echocardiogram in the past, that did not show any valvular dysfunction. Continue Coumadin without changes. In the past, he was on aspirin but seems not taking it anymore. Infective endocarditis prophylaxis per protocol. Otherwise, strongly advised to stop smoking. Prolonged VT can be monitored by EKGs. He wants to go for dental work and appropriate form was filled. If only cleaning, no need to interrupt anticoagulation but if he is undergoing extractions, then we need to bridge with Lovenox. Apparently he bled for several days during prior dental work. Prophylactic antibiotic sent. Total time in encounter including counselling, review of data, documentation - 34min. Orders: Orders CA echo transthoracic complete Today Z95.2 - Presence of prosthetic heart valve Medications: New amoxicillin Take 30-60 minutes before dental procedure. 2,000 mg (4 x 500 mg) PO ONCE 20 tabs 3RF 1 day Coding Level of Care Code Est Pt Level 4 (14169) Diagnoses S/P MVR (mitral valve replacement) Z95.2 History of endocarditis Z86.79 Smoking F17.200 First degree heart block I44.0 CPT Codes EKG - CPT: 50349-[id number], Complete ([id number])
[2024-09-01 09:30] VITALS: BP 142/88; PULSE 80; BMI 37.6
== END 2024-09-01 10:18 | disposition home or self-care (01) ==
PROVIDERS: PCP Internal Medicine; Visit Provider Internal Medicine
DX: Z95.2 Presence of prosthetic heart valve (principal); Z86.79 Personal history of other diseases of the circulatory system; F17.200 Nicotine dependence, unspecified, uncomplicated; I44.0 Atrioventricular block, first degree
CPT/HCPCS: 93010; 99214

== ENCOUNTER → 2024-09-01 09:28 | Outpatient (BNVA) | payer MEDICAID, SELFPAY | PROVIDERS: PCP Internal Medicine; Visit Provider Internal Medicine | DX: I44.0 Atrioventricular block, first degree (principal); F17.210 Nicotine dependence, cigarettes, uncomplicated; Z86.79 Personal history of other diseases of the circulatory system; Z95.2 Presence of prosthetic heart valve | CPT/HCPCS: 93005; 99212 ==

== ENCOUNTER 2024-09-22 09:20 | Outpatient (AMB) | payer MEDICAID, SELFPAY ==
--- NOTE | 2024-09-22 09:25 | MHC.OFFVISCO ---
Intake Intake Visit Reasons: Anticoagulation Allergies No Known Allergies [No Known Allergies*] Allergy (Verified 09/22/24 09:20) Medication List - Last Reconciled 09/22/24 by Brittaney Medina RN acetaminophen (Tylenol) 650 mg (2 x 325 mg) PO Q6H albuterol sulfate 90 mcg/actuation 2 puffs PO Q4-6H PRN amoxicillin 2,000 mg (4 x 500 mg) PO ONCE 1 day buprenorphine-naloxone 4-1 mg (Suboxone) 5 mg sublingual BID cetirizine 10 mg PO DAILY chlorhexidine gluconate 0.12% PO desloratadine (Clarinex) 5 mg PO DAILY fexofenadine 180 mg PO DAILY fluoxetine 20 mg PO QAM fluticasone propion-salmeterol 230-21 mcg/actuation (Advair HFA) 2 puffs inhalation fluticasone propionate 50 mcg/actuation 1 spray intranasal DAILY gabapentin 300 mg PO BID hydrocortisone 2.5% topical DAILY hydroxyzine pamoate 25 mg PO BEDTIME PRN ketoconazole 2% appl topical lamotrigine 200 mg PO lithium carbonate 0 mg PO warfarin 7.5 mg See Protocol PO DAILY Nursing Note INR: 3.2- in therapeutic range of 2.5-3.5 Medications and supplements reviewed- clarinex- no interaction with warfarin per micromedex No changes in health, diet, medications, or supplements, Denies any signs and symptoms of bleeding or bruising or clotting. Bleeding, bruising, clotting discussed Nutritional guidance given Dose: 11.25mg x 1. 7.5mg x 6 F/U INR: 2 weeks Patient verbalizes understanding of instructions given Anti-Coag Initial Assessment Social Hx Patient Tobacco Use Status: Current everyday Tobacco user Tobacco use type: Cigarette alcohol intake: former Coding Level of Care Code Est Patient Level 1 Diagnoses Current use of anticoagulant therapy Z79.01 Results AMB INR Fingerstick AMB INR Fingerstick 3.2 Last Edit by Brittaney Medina RN on 09/22/24 09:27 interface delay Assessment & Plan Assessment & Plan (1) Current use of anticoagulant therapy: Code(s): Z79.01 - shelter (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
[2024-09-22 09:26] LABS: Prothrombin Time Whole Bld POC 38.3 sec (11.1-13.5); ~PT, ~INR - Anti Coag Clinic 3.2 (0.9-1.1)
--- OUTSIDE RECORDS SUMMARY | 2024-09-22 10:27 | XMS_ITS | Clinical Summary ---
Author Organization [employer] Address [address] [facility] [address] [place] [address] Care Team Providers Care Manager Of Training Name Role Phone Maryam Bloom MD Primary Care Provider + Allergies No known active allergies Medications Peak Flow Meter-Inh Assist Dev kitIndications:M ild intermittent asthma, unspecified whether complicated Use daily 1 kit 3 Active amoxicillin (Amoxil) 500 MG capsule Take 4 capsules of amoxicillin 500 mg 1 hour prior dental procedure 12 capsule 3 Active Advair HFA 230-21 MCG/ACT inhaler TAKE 2 PUFFS BY MOUTH TWICE A DAY MORNING AND EVENING WITH SPACER 12 g 11 4 Active warfarin (Coumadin) 7.5 MG tabletIndication s:Hx of mitral valve replacement with mechanical valve TAKE 1 - 1 + 1/2 TABLETS BY MOUTH EVERY DAY DIRECTED 50 tablet 5 4 Active Ventolin HFA 108 (90 Base) MCG/ACT inhalerIndicatio ns:Mild intermittent asthma without complication TAKE 2 PUFFS BY MOUTH EVERY 4 TO 6 HOURS NEEDED 18 g 3 4 Active desloratadine (Clarinex) 5 MG tablet Take 1 tablet (5 mg) by mouth Once per day. 30 tablet 2 4 11/02/19 25 Active Active Problems Problem Noted Date Diagnosed Date Hypoxemia associated with sleep 08/03/2024 Assessment & Plan (08/03/2024 10:15 AM EST): Will refer to Pulmonology to rule out other ILD. He did not have the blood work today. Witnessed episode of apnea 06/03/2024 Assessment & Plan (06/03/2024 1:12 PM EDT): Will order sleep study. Class 2 obesity due to exces s calories without serious comorbidity with body mass index (BMI) of 35.0 to 35.9 in adult 06/03/2024 Assessment & Plan (06/03/2024 1:38 PM EDT): Discussed re weight reduction options including exercise, life style modifications, diet and referral to casework specialist. Recommended to decrease soda and sugary beverage consumption, increase protein intake with meals (at least 1 portion of protein with each meal) to assist with satiety, increase dietary fiber Recommended at least 150 min/week of moderate intensity exercise. High liver transaminase level 12/30/2022 Assessment & Plan (12/30/2022 1:25 PM EDT): repeat LFTs prior to next appointment Ingrowing toenail 11/15/2022 Assessment & Plan (06/03/2024 12:39 PM EDT): Refer to Podiatry. Low vision, both eyes 11/15/2022 Mild intermittent asthma 11/15/2022 Assessment & Plan (11/18/2022 3:57 PM EDT): Pt has acute asthma exacerbation/bronchospasm recommended use albuterol inhaler with aerochamber every 6 hours x2 days then PRN Continue Advair 230 BID Use Medrol pack with food and FU closely with coumadin clinic Counseled regarding abdominal pain, melena. Counseled to quit smoking He has nicotine gum at home. Sleep dysfunction with arousal disturbance 11/15 Weight loss 11/15/2022 Asthmatic bronchitis 09/16/2018 Lightheadedness 09/16/2018 Hx of mitral valve replacement with mechanical v alve 12/18/2016 Assessment & Plan (08/03/2024 10:06 AM EST): Pt has been stable with no CHF, [place] [facility] [place]. Keep INR between 2.5 and 3.5, will order Lovenox if INR is below 2.2. Assessment & Plan (06/03/2024 1:19 PM EDT): No evidence of CHF, refer to [facility]iology due for follow up. Assessment & Plan (12/30/2022 1:26 PM EDT): pt to continue coumadin goal 2.5-3.5. For upcoming dental procedure he will have INR checked within the week of the procedure and his INR to be 2.5-3, otherwise he will need to be bridged to Lovenox. amoxicillin 2 g 1 hour prior to dental procedure or any interventional procedure. Moderate persistent asthma 11/27/2016 Assessment & Plan (06/03/2024 1:15 PM EDT): Seems to be controlled, continue Albuterol 30 BID + prn. He agreed to have flu shot today, advised to have Covid booster at earliest convenience. Assessment & Plan (12/30/2022 1:27 PM EDT): doing well on Advair 250 continue Advair 250 BID and proair PRN only counseled to cut down smoking FU with me in 3 months televisit. Obesity (BMI 30-39.9) 11/27/2016 Opioid dependence on agonist therapy 11/27/2016 Assessment & Plan (06/03/2024 1:18 PM EDT): He is doing well on Suboxone. Allergic rhinitis 11/27/2016 Assessment & Plan (08/03/2024 10:23 AM EST): Pt still has symptoms on Kaur and Zyrtec. Will prescribe Desloratadine. Advised to stay away from the cat as much as he can. Assessment & Plan (06/03/2024 12:42 PM EDT): DC Cetirizine and start Kaur, follow up with me in 2 months. He has failed Desloratadine. Assessment & Plan (12/30/2022 1:25 PM EDT): use cetirizine PRN Encounters Date Type Department Care Team Description 09/22/2024 Orders Only GENERIC EXTERNAL DATA DEPARTMENT Provider, Generic External Data 09/10/[address] [address] Maryam Bloom MD Gina recall 09/03/2024 Orders Only GENERIC EXTERNAL DATA DEPARTMENT Provider, Generic External Data 08/25/2024 Orders Only GENERIC EXTERNAL DATA DEPARTMENT Provider, Generic External Data 08/18/2024 Orders Only GENERIC EXTERNAL DATA DEPARTMENT Provider, Generic External Data 08/03/2024 10:00 AM EST Office Visit [address] [address] Maryam Bloom MD Hypoxemia associated with sleep (Primary Dx); Hx of mitral valve replacement with mechanical valve; Allergic rhinitis due to animal hair and dander; Encounter for immunization 08/03/2024 Travel 08/02/[address] [address] Maryam Bloom MD Anticoagulation 08/02/2024 Orders Only GENERIC EXTERNAL DATA DEPARTMENT Provider, Generic External Data 07/30/[address] [address] Ninfa Mukherjee MA Chart prep 07/29/[address] [address] Maryam Bloom MD Anticoagulation 07/29/2024 Orders Only GENERIC EXTERNAL DATA DEPARTMENT Provider, Generic External Data 07/05/[address] [address] Maryam Bloom MD 07/01/2024 Orders Only GENERIC EXTERNAL DATA DEPARTMENT Provider, Generic External Data 06/30/[address] [address] Maryam Bloom MD from Last 3 Months Immunizations Name Administration Dates Next Due Influenza, seasonal, injectable, preservative fr ee 08/03/2024,06/03/2024 Pneumococcal Conjugate PCV 20 08/03/2024 Tdap 03/19/2018 Social History Tobacco Use Types Packs/Day Years Used Date Smoking Tobacco: Every Day Cigarettes Smokeless Tobacco: Never Tobacco Cessation:Ready to Q uit: Not Asked; Counseling Given: Not Answered Alcohol Use Standard Drinks/Week Comments Never 0 (1 standard drink = 0.6 oz pur e alcohol) Depression Answer Date Recorded Patient Health Questionnaire-9 Score 0 08/03/2024 Patient Health Questionnaire-9 Score 0 08/03/2024 Last PHQ-9: Questionnaire Data Not on file 1 10/04/2023 Housing Stability Answer Date Recorded What is your housing situation today? I have shane velazquez 06/03/[address] you li ve. Do you have problems with any of the following? None of the above 06/03/2024 Food Insecurity Answer Date Recorded Within the past 12 months, y ou worried that your food would run out before you got money to buy more: Never True 06/03/2024 Within the past 12 months,th e food you bought just didn't last and you didn't have enough money to get more: Never True Transportation Answer Date Recorded In the past 12 months, has l ack of transportation kept you from medical appts, meetings, work or from getting things needed for daily living? No 06/03/2024 Utilities Answer Date Recorded In the past 12 months, has t he electric, gas, oil or water company threatened to shut off services in your home? No 06/03/2024 Depression Answer Date Recorded Patient Health Questionnaire-2 Score 0 08/03/2024 Internet Access Answer Date Recorded Internet Access Q1 No 06/03/2024 Internet Access Q2 I do not want or need it 05/12 Sex and Gender Information Value Date Recorded Sex Assigned at Male 06/10/2022 10:18 AM EDT Legal Sex Male 10:18 AM EDT Gender Identity Male 06/10/2022 10:18 AM EDT Sexual Orientation Straight 06/10/2022 10 :18 AM EDT Last Filed Vital Signs Vital Sign Reading Time Taken Comments Blood Pressure 149/96 08/03/2024 9:52 AM EST Pulse 82 08/03/2024 9:52 AM EST Temperature 36.7 ??C (98.1 ??F) 08/03/2024 9:52 AM ES T Respiratory Rate 20 08/03/2024 9:52 AM EST Oxygen Saturation 96% 08/03/2024 9:52 AM EST Inhaled Oxygen Concentration - - Weight 127 kg (280 lb 3.2 oz) 08/03/2024 9:52 AM EST Height 185.4 cm (6' 1 ) 08/03/2024 9:52 AM EST Body Mass Index 36.97 08/03/2024 9:52 AM EST Plan of Treatment Upcoming Encounters Date Type Department Care Team (Late st Contact Info) Description 09/30/2024 9:45 AM EST Office Visit [facility] [address], [place] [phone] Marlin Rizvi, OD [address] [place] [address] 12/03/2024 10:30 AM EDT Office Visit [facility] [address] [place] [address] Maryam Bloom MD [address] [place] [address] Health Maintenance Due Date Last Done Comments Dental Oral Exam 1983 Dental Prophylaxis 1983 Dental X-Ray: Full Mouth 1983 Family Planning (PISQ) 1998 Hepatitis B Vaccines (1 of 3 - 19+ 3-dose series) 2002 Dental X-Ray: Bitewings 12/12/2023 12/10/2022 COVID-19 Vaccine (2023-2 5 season) 2024 07/07/2021, 11/13/2020, 10/23/2020 SDOH Screening 06/03/2025 06/03/2024 Alcohol/Substance Use Screening 08/03/2025 08/03/2024 Depression Screening 08/03/2025 08/03/2024, 08/03/2024 Tobacco Screening 08/03/2025 08/03/2024 DTaP/Tdap/Td Vaccines (2 - T d or Tdap) 03/19/2028 03/19/2018 Lipid Panel 08/03/2029 08/03/2024, 03/05/2021 Zoster Vaccines (1 of 2) 2033 RSV Patients and Patients Aged 60 years or older (1 - 1-dose 75+ series) 2058 HIV Screening Completed 03/05/2021, 10/01/2019 Hepatitis C Screening Completed 03/05/2021 , 10/01/2019 Influenza Vaccine Completed 08/03/2024, 06/03/2024 Pneumococcal Vaccine: Pediatrics (0 to 5 Years) and At-Risk Patients (6 to 49) Years) Completed 08/03/2024 HIB Vaccines Aged Out No longer eligi ble based on patient's age to complete this topic HPV Vaccines Aged Out No longer eligi ble based on patient's age to complete this topic Hepatitis A Vaccines Aged Out No long er eligible based on patient's age to complete this topic IPV Vaccines Aged Out No longer eligi ble based on patient's age to complete this topic Meningococcal Vaccine Aged Out No kendrick heather eligible based on patient's age to complete this topic RSV under 20 months Aged Out No longe r eligible based on patient's age to complete this topic Rotavirus Vaccines Aged Out No longer eligible based on patient's age to complete this topic Procedures Procedure Name Priority Date/Time Associated Diagnosis Comments PROTHROMBIN TIME WHOLE BLD POC Routine 09/22/2024 9:24 AM EST ~PT, ~INR - ANTI COAG CLINIC Routine 09/22/2024 9:24 AM EST PROTHROMBIN TIME WHOLE BLD POC Routine 09/03/2024 8:36 AM EST ~PT, ~INR - ANTI COAG CLINIC Routine 09/03/2024 8:36 AM EST RESPIRATORY ALLERGY PROFILE REGION I Routine 08/25/2024 10:30 AM EST CBC WITH AUTO DIFFERENTIAL Routine 08/25/2024 10:30 AM EST PROTHROMBIN TIME WHOLE BLD POC Routine 08/18/2024 9:10 AM EST ~PT, ~INR - ANTI COAG CLINIC Routine 08/18/2024 9:10 AM EST TSH W/REFLEX TO FT4 Routine 08/03/2024 1 0:36 AM EST Hx of mitral valve replacement with mechanical valve HEMOGLOBIN A1C Routine 08/03/2024 10:36 AM EST Hx of mitral valve replacement with mechanical valve LIPID PANEL WITH REFLEX TO DIRECT LDL Routine 08/03/2024 10:36 AM EST Hx of mitral valve replacement with mechanical valve COMPREHENSIVE METABOLIC PANEL Routine 08/03/2024 10:36 AM EST Hx of mitral valve replacement with mechanical valve PROTHROMBIN TIME WHOLE BLD POC Routine 08/02/2024 10:39 AM EST ~PT, ~INR - ANTI COAG CLINIC Routine 08/02/2024 10:39 AM EST PROTHROMBIN TIME WHOLE BLD POC Routine 07/29/2024 10:35 AM EST ~PT, ~INR - ANTI COAG CLINIC Routine 07/29/2024 10:35 AM EST PROTHROMBIN TIME WHOLE BLD POC Routine 07/01/2024 8:37 AM EST ~PT, ~INR - ANTI COAG CLINIC Routine 07/01/2024 8:37 AM EST BITEWING - SINGLE RADIOGRAPHIC IMAGE Routine 12/10/2022 11:30 AM EDT Dental caries Symptomatic irreversible pulpitis Dental abscess ZZZ HISTORICAL HEPATITIS C AB W/REFL TO HCV RNA, QN, PCR Routine 03/05/2021 9:50 AM EDT HIV 1/2 ANTIGEN/ANTIBODY, FOURTH GENERATION W/RFL Routine 03/05/2021 9:50 AM EDT from Last 3 Months or Most Recently Relevant to Health Maintenance Results * (ABNORMAL) PROTHROMBIN TIME WHOLE BLD POC (09/22/2024 9:24 AM EST) Only the most recent of6 resultswithin the time period is included. Pathologist [facility] Protime 38.3(H) 11.1 - 13.5 sec [facility] 09/22/2024 9:24 AM EST 09/22/2024 9:26 AM EST Generic External Data Provider LAB BLOOD ORDERAB LES Final Result Performing Organization Address [facility] Co de Phone Number [facility] [address] [place] [phone] * (ABNORMAL) ~PT, ~INR - ANTI COAG CLINIC (09/22/2024 9:24 AM EST) Only the most recent of6 resultswithin the time period is included. Pathologist [facility] Prothrombin Time INR 3.2(H) 0.9 - 1.1 [facility] Comment:METER #: [id number] TERNATIONAL NORMALIZED RATIO (INR) REFERENCE RANGES Reference RangeFor patients not on anticoagulant therapy: 0.9 - 1.1INR ranges for oral anticoagulanttherapy:For prevention and treatment of venous thrombosis and pulmonary embolism: 2.0 - 3.0For acute myocardial infarction with aspirin therapy: 2.0 - 3.0For acute myocardial infarction without aspirin therapy: 3.0 - 4.0For patients with mechanical prosthetic heart valves: 2.5 - 3.5 09/22/2024 9:24 AM EST 09/22/2024 9:26 AM EST us Generic External Data Provider LAB BLOOD ORDERAB LES Final Result Performing Organization Address [facility] Co de Phone Number [facility] [address] [place] [phone] * (ABNORMAL) Respiratory Allergy Profile Region I (08/25/2024 10:30 AM EST) Pathologist [facility] Immunoglobulin E 100 <MX=582 kU/L [facility] Mouse Urine Proteins (E72) IgE 0.23(A) kU/L [facility] Class 0/1 [facility] Cockroach (I6) IgE 0.27(A) kU/L H [facility] Class 0/1 [facility] Dermatophagoides farinae (D2) IgE 3.74(A) kU/L [facility] Class 3 [facility] Cat Dander (E1) IgE 19.00(A) kU/L [facility] Class 4 [facility] Comment:THIS TEST WAS PERFOR MED AT:[employer] [address] [phone] SALEH MD Dog Dander (E5) IgE 3.70(A) kU/L [facility] Class 3 [facility] Comment:THIS TEST WAS PERFOR MED AT:[employer] [address] [phone] SALEH MD Nickolas Grass (G6) IgE 0.33(A) kU/L [facility] Class 0/1 [facility] Cladosporium herbarum (M2) IgE <0.10 kU/L [facility] Class 0 [facility] Aspergillus Fumigatis (M3) IgE <0.10 kU/L [facility] Class 0 [facility] Alternaria alternata (M6) IgE <0.10 kU/L [facility] Class 0 [facility] Comment:THIS TEST WAS PERFOR MED AT:[employer] [address] [phone] SALEH MD [place] (t6) IgE <0.10 kU/L [facility] Class 0 [facility] [place] (T7) IgE 0.43(A) kU/L [facility] Class 1 [facility] Mont[place]in Tree (T10) IgE <0.10 kU/L [facility] Class 0 [facility] [place] (T11) IgE <0.10 kU/L [facility] Class 0 [facility] Forest (T14) IgE <0.10 kU/L [facility] Class 0 [facility] White Eleuterio (t15) IgE <0.10 kU/L [facility] Class 0 [facility] [place] (T70) IgE <0.10 kU/L [facility] Class 0 [facility] Common Ragweed (Short) (W1) IgE 1.40(A) kU/L [facility] Class 2 [facility] Mugwort (w6) IgE <0.10 kU/L [facility] Class 0 [facility] Dermatophagoides pteronyssinus (D1) IgE 3.41(A) kU/L [facility] Class 2 [facility] [place] Grass (g2) IgE <0.10 kU/L [facility] Class 0 [facility] Penicillium Notatum (M1) IgE <0.10 kU/L [facility] Class 0 [facility] Birch (T3) IgE 3.53(A) kU/L [facility] Class 3 [facility] Elm (t8) IgE <0.10 kU/L [facility] Class 0 [facility] Maple ([place]) (T1) IgE <0.10 kU/L [facility] Class 0 [facility] Rough Pigweed (W14) IgE <0.10 kU/L [facility] Class 0 [facility] Sheep [place] (W18) IgE <0.10 kU/L [facility] Class 0 [facility] Allergen Comment See Below [facility] Comment: Specific ?Level of AllergenIGE Class ?kU/L ? Specific IGE Antibody ----- ? --------- ?0 ?<0.10 ? Absent/Undetectable ??0/1 ?0.10-0.34 ? Very Low Level ??1 ?0.35-0.69 ? Low Level ??2 ?0.70-3.49 ? Moderate Level ??3 ?3.50-17.4 ? High Level ??4 ?17.5-49.9 ? Very High Level ??5 ?50-100 ?Very High Level ??6 ?>100 ?Very High LevelThe clinical relevance of allergen results of0.10-0.34 kU/L are undetermined and intended forspecialist use.Allergens denoted with a include results usingone or more analyte specific reagents. In thosecases, the test was developed and its analyticalperformance characteristics have been determined by[employer]. It has not been cleared or approvedby the U.S. Food and Drug Administration. This assayhas been validated pursuant to the CLIA regulationsand is used for clinical purposes.THIS TEST WAS PERFORMED AT:[employer] [address] ??[phone] SALEH MD 08/25/2024 10:3 0 AM EST 08/25/2024 10:30 AM EST us Generic External Data Provider LAB BLOOD ORDERAB LES Final Result [facility] [address] [place] [phone] * (ABNORMAL) CBC auto differential (08/25/2024 10:30 AM EST) White Blood Count 8.0 4.8 - 10.8 X10*3/uL [facility] Red Blood Count 4.58(L) 4.60 - 5.80 X10*6/uL [facility] Hemoglobin 14.4 14.0 - 18.0 g/dl [facility] Hematocrit 43.5 42.0 - 52.0 % [facility] Mean Corpuscular Volume 95.0 80.0 - 98.0 fL [facility] Mean Corpuscular Hemoglobin 31.4 27.0 - 33.0 pg [facility] Mean Corpuscular HGB Conc 33.1 31.0 - 36.0 g/dl [facility] Red Cell Distribution Width 13.5 11.0 - 16.0 % [facility] Platelet Count 309 160 - 400 X10*3/uL [facility] Mean Platelet Volume 9.4 9.4 - 12.4 fL [facility] Neutrophils Percent Auto 64.2 45 - 73 % [facility] Imm Gran Pct Auto 0.2 0.0 - 0.4 % [facility] Lymphocytes Percent Auto 21.7 20 - 40 % [facility] Monocytes Percent Auto 5.4 2 - 11 % [facility] Eosinophils Percent Auto 8.0(H) 0 - 4 % [facility] Basophils Percent Auto 0.5 0 - 2 % [facility] NRBC Pct Auto 0.0 0.0 - 0.2 /100WBC [facility] Neutrophils Absolute Auto 5.1 2.0 - 8.3 x10*3/uL [facility] Imm Gran Abs Auto 0.02 0.00 - 0.03 X10*3/uL [facility] Lymphocytes Absolute Auto 1.7 1.2 - 4.9 X10*3/uL [facility] Monocytes Absolute Auto 0.4 0.1 - 1.2 X10*3/uL [facility] Eosinophils Absolute Auto 0.6(H) 0.0 - 0.4 X10*3/uL [facility] Basophils Absolute Auto 0.0 0.0 - 0.2 X10*3/uL [facility] NRBC Abs Auto 0.000 0.0 - 0.012 X10*3/uL [facility] 08/25/2024 10:3 0 AM EST 08/25/2024 10:30 AM EST us Generic External Data Provider LAB BLOOD ORDERAB LES Final Result Performing Organization Address City/[facility]/ZIP Co de Phone Number [facility] [address] [place] [phone] * TSH with Reflex to Free T4 (08/03/2024 10:36 AM EST) TSH reflex Free T4 1.46 0.32 - 4.0 uIU/mL [facility] Blood 08/03/2024 10:3 6 AM EST 08/03/2024 1:12 PM EST us Maryam Bloom MD LAB BLOOD ORDERABLES Fin al Result Performing Organization Address City/[facility]/ZIP Co de Phone Number [facility] [address] [place] [phone] * (ABNORMAL) Lipid Panel with Reflex to Direct LDL (08/03/2024 10:36 AM EST) Triglycerides 106 <150 mg/dL [facility] Comment:Desirable Triglyceri de: less than 150 mg/dLBorderline High Triglyceride 150-199 mg/dLHigh Triglyceride: 200-499 mg/dLVery High Triglyceride: greater than or equal to 5OO mg/dL Cholesterol 185 <200 mg/dL [facility] Comment:Desirable Cholestero l: less than 200 mg/dLBorderline High Cholesterol: 200-239 mg/dLHigh Cholesterol: greater than 239 mg/dL LDL Cholesterol Calculated 119(H) <100 mg/dL [facility] Comment:Desirable LDL: less than 100 mg/dLNear Optimal/Above Optimal LDL: 110- 129 mg/dLBorderline High LDL: 130-159 mg/dLHigh LDL: 160-189 mg/dLVery High LDL: greater than or equal to 190 mg/dL HDL Cholesterol 45 >40 mg/dL [facility] Comment:Desirable HDL: great er than 40 mg/dL Note: This HDL assay may give artificially low results in patients with liver disease. Blood 08/03/2024 10:3 6 AM EST 08/03/2024 1:12 PM EST Maryam Bloom MD LAB BLOOD ORDERABLES Fin al Result Performing Organization Address [facility] Co de Phone Number [facility] [address] [place] [phone] * Hemoglobin A1c (08/03/2024 10:36 AM EST) Hemoglobin A1c 5.2 <6.0 % [facility] Comment:Hemoglobin A1C Refer ence Range Adults: 4.8 - 6.0 % Non diabetic: < 6.0 % Goal: < 7.0 %Additional Action Suggested: > 8.0 %Note: Hemoglobin A1c results are invalid for patients with abnormal amounts of HbF. Blood transfusions may impact the HbA1c concentration in the patient sample. Estimated Average Glucose 103 mg/dL [facility] Comment:eAG = Estimated ave rage glucose which is %A1C expressed asaverage glucose, using the formula of the V6S-HrugdplPgeoreg Glucose study (ADAG), Diabetes Care, Vol.31,#8,Mar. 2007 Blood Venous blood specimen / Unknown 08/03/2024 10:36 AM EST 08/03/2024 1:12 PM EST Maryam Bloom MD LAB BLOOD ORDERABLES Fin al Result Performing Organization Address [facility] Co de Phone Number [facility] [address] [place] [phone] * (ABNORMAL) Comprehensive Metabolic Panel (08/03/2024 10:36 AM EST) Sodium 140 135 - 145 mmol/L [facility] Potassium 4.5 3.3 - 5.1 mmol/L [facility] Comment:Slight Hemolysis.Int erpret result with caution. Chloride 107 96 - 108 mmol/L [facility] Carbon Dioxide 27 22 - 29 mmol/L [facility] Anion Gap 11(L) 12 - 20 [facility] Urea Nitrogen (BUN) 15 9 - 16 mg/dL [facility] Creatinine, Serum 1.40 0.5 - 1.4 mg/dL [facility] Estimated Glomerular Filt Rate 56 [facility] Comment:Chronic Kidney Disea se: Estimated GFR < 60 mL/min/[id number] Kidney Disease: Estimated GFR < 15 mL/min/1.73m2 Glucose 110 60 - 115 mg/dL [facility] Calcium 8.8 8.4 - 10.2 mg/dL [facility] Bilirubin, Total 0.4 0.0 - 1.0 mg/dL [facility] Aspartate Amino Transferase 30 5 - 37 U/L [facility] Comment:Slight Hemolysis.Int erpret result with caution. Alanine Aminotransferase 27 0 - 40 U/L [facility] Total Protein 7.5 6.5 - 8.0 g/dL [facility] Albumin Level 4.4 3.5 - 5.0 g/dL [facility] Alkaline Phosphatase 92 39 - 117 U/L [facility] Blood Venous blood specimen / Unknown 08/03/2024 10:36 AM EST 08/03/2024 1:12 PM EST us Maryam Bloom MD LAB BLOOD ORDERABLES Fin al Result [facility] [address] [place] [address] [phone] * HEPATITIS C AB W/REFL TO HCV RNA, QN, PCR (03/05/2021 9:50 AM EDT) HEPATITIS C ANTIBODY NON-REACT ST[place]ISLAW NON-REACT STANISLAW [facility] INDEX 0.01 <1.00 [facility] Comment: ?? HCV antibody was non-reactive. There is no laboratory ?? evidence of HCV infection. ?? In most cases, no further action is required. However, if recent HCV exposure is suspected, a test for HCV RNA (test code 32624) is suggested. ?? For additional information please refer to http://[employer]/faq/BCA46f8 (This link is being provided for informational/ educational purposes only.) ?? 03/05/2021 9:50 AM EDT us Maryam Bloom MD HISTORICAL/NON ORDERABLE LABS Final Result Performing Organization Address [facility] Co de Phone Number [facility] [address] * HIV 1/2 ANTIGEN/ANTIBODY,FOURTH GENERATION W/RFL (03/05/2021 9:50 AM EDT) [facility] HIV-1/2 ANTIGEN AND ANTIBODIES, 4TH GENERATION W/ REFLEX NON-REACT STANISLAW NON-REACT STANISLAW [facility] Comment: HIV-1 antigen and HIV-1/HIV-2 antibodies were not detected. There is no laboratory evidence of HIV infection. ?? PLEASE NOTE: This information has been disclosed to you from records whose confidentiality may be protected by state law. ??If your state requires such protection, then the state law prohibits you from making any further disclosure of the information without the specific written consent of the person to whom it pertains, or as otherwise permitted by law. A general authorization for the release of medical or other information is NOT sufficient for this purpose. ? For additional information please refer to http://[employer]/faq/HYY083 (This link is being provided for informational/ educational purposes only.) ? The performance of this assay has not been clinically validated in patients less than 2 years old. ?? 03/05/2021 9:50 AM EDT us Maryam Bloom MD LAB BLOOD ORDERABLES Fin al Result Performing Organization Address [facility] Co de Phone Number [facility] [address] from Last 3 Months or Most Recently Relevant to Health Maintenance Insurance [place] [facility] STANDARD [place] [facility] MEDICAID STAND [place] Care Teams Manager Of Training Relationship Specialty Start Date End Date Maryam Bloom MD [address] [place] [address] PCP - General Family Medicine 05/12/19
--- OUTSIDE RECORDS SUMMARY | 2024-09-22 10:27 | XMS_ITS | Encounter Summary ---
Author Organization [employer] Address [address] [place] [address] Care Team Providers Care Gun Striper Name Role Phone Maryam Bloom MD Primary Care Provider + Reason for Visit * Reason Onset Date Comments November09/10/2024 Encounter Details Date Type Department Care Team (Late st Contact Info) Description 09/10/2024 Telephone [facility] MEDICINE [address] [place] [address] Maryam Bloom MD [address] [place], [place] [phone] November Social History Tobacco Use Types Packs/Day Years Used Date Smoking Tobacco: Every Day Cigarettes Smokeless Tobacco: Never Alcohol Use Standard Drinks/Week Comments Never 0 [...] Orientation Straight 06/10/2022 10 :18 AM EDT documented as of this encounter Miscellaneous Notes * Telephone Encounter - Ninfa Mukherjee [place] - 09/10/2024 11:02 AM EST Tc to pt to schedule fu asthma/labs recall appt. Appt has been scheduled for 12/03/24 at 10:30 am. documented in this encounter Plan of Treatment Upcoming Encounters Date Type Department Care Team (Late st Contact Info) Description 09/30/2024 9:45 AM EST Office Visit [facility] OPTOMETRY [address] [place] [address] Marlin Rizvi, OD [address] [place] [address] 12/03/2024 10:30 AM EDT Office Visit [facility] MEDICINE [address] [place] [address] Maryam Bloom MD [address] [place] [address] documented as of this encounter Visit Diagnoses Not on filedocumented in this encounter Additional Health Concerns Assessment Noted Time PHQ-9 Depression Total Score: 0 08/03/20 24 9:59 AM EST documented as of this encounter Care Teams Gun Striper Relationship Specialty Start Date End Date Maryam Bloom MD [address] [place] [phone] PCP - General Family Medicine 05/12/19 documented as of this encounter
--- OUTSIDE RECORDS SUMMARY | 2024-09-22 10:27 | XMS_ITS | Encounter Summary ---
Author Organization [employer] Address [address] [place] [address] Care Team Providers Care Document Control Specialist Name Role Phone Maryam Bloom MD Primary Care Provider + Reason for Visit * Reason Comments Med Refill Encounter Details Date Type Department Care Team (Late st Contact Info) Description 12/25/2023 Refill [facility] MEDICINE [address] [place], [place] [phone] Maryam Bloom MD [address] [place], [place] [phone] Allergic rhinitis, unspecified seasonality, unspecified trigger Social History Tobacco Use Types Packs/Day Years Used Date Smoking Tobacco: Every Day Cigarettes Smokeless Tobacco: Never Alcohol Use Standard Drinks/Week Comments Never 0 (1 standard drink = 0.6 oz pur e alcohol) PHQ-2 Answer Date Recorded Patient Health Questionnaire-2 Score 0 11/18/2022 Housing Stability Answer Date Recorded What is your housing situation today? I have shane velazquez 05/28/[address] you li ve. Do you have problems with any of the following? None of the above 05/28/2023 Food Insecurity Answer Date Recorded Within the past 12 months, y ou worried that your food would run out before you got money to buy more: Never True 05/28/2023 Within the past 12 months,th e food you bought just didn't last and you didn't have enough money to get more: Never True Transportation Answer Date Recorded In the past 12 months, has l ack of transportation kept you from medical appts, meetings, work or from getting things needed for daily living? No 05/28/2023 Utilities Answer Date Recorded In the past 12 months, has t he electric, gas, oil or water company threatened to shut off services in your home? No 05/28/2023 Depression Answer Date Recorded Patient Health Questionnaire-2 Score 0 11/18/2022 Sex and Gender Information Value Date Recorded Sex Assigned at Male 06/10/2022 10:18 AM EDT Legal Sex Male 10:18 AM EDT Gender Identity Male 06/10/2022 10:18 AM EDT Sexual Orientation Straight 06/10/2022 10 :18 AM EDT documented as of this encounter Plan of Treatment Upcoming Encounters Date Type Department Care Team (Late st Contact Info) Description 09/30/2024 9:45 AM EST Office Visit [facility] OPTOMETRY [address] [place] [address] TarkaMarlin, OD [address] [place] [address] 12/03/2024 10:30 AM EDT Office Visit [facility] MEDICINE [address] [place] [address] Maryam Bloom MD [address] [place] [phone] documented as of this encounter Visit Diagnoses Diagnosis Allergic rhinitis, unspecified seasonality, unspecified trigger documented in this encounter Care Teams Document Control Specialist Relationship Specialty Start Date End Date Maryam Bloom MD [address] [place] [phone] PCP - General Family Medicine 05/12/19 documented as of this encounter
--- OUTSIDE RECORDS SUMMARY | 2024-09-22 10:27 | XMS_ITS | Clinical Summary ---
Author Organization [address] [facility] Address [address] [place] [address] Phone Care Team Providers Care Forest Fire Fighter Name Role Phone Maryam Bloom MD Primary Care Provider Social History Tobacco Use Types Packs/Day Years Used Date Smoking Tobacco: Never Assessed Sex and Gender Information Value Date Recorded Sex Assigned at Not on file Legal Sex Male 2:05 PM EST Gender Identity Not on file Sexual Orientation Not on file Plan of Treatment Upcoming Encounters Date Type Department Care Team ([facility] Contact Info) Description 11/04/2024 9:15 AM EDT Consult Orthopedic Surgery - [place] [address] [phone] Lorenzo Weiner, DPM [address] [address] Health Maintenance Due Date Last Done Comments DTaP,Tdap,and Td Vaccines (1 - Tdap) 2002 Hepatitis B Vaccines (1 of 3 - 19+ 3-dose series) 2002 Cholesterol Screening (Lipid Panel) 07/10/2022 Depression Screening 07/10/2022 HIV Screening 07/10/2022 Hepatitis C Screening 07/10/2022 Social Influencers of Health Screening 07/10/2022 COVID-19 Vaccine ( - 2023-2 5 season) 2024 Influenza Vaccine (#1) 2024 HIB Vaccines Aged Out No longer eligi [...] on patient's age to complete this topic MMR Vaccines Aged Out No longer eligi ble based on patient's age to complete this topic Meningococcal ACWY Vaccine Aged Out N o longer eligible based on patient's age to complete this topic Meningococcal B Vacine Aged Out No lo nger eligible based on patient's age to complete this topic Pneumococcal Vaccine: Pediat rics (0 to 5 Years) and At-Risk Patients (6 to 64 Years) Aged Out No longer eligible b ased on patient's age to complete this topic RSV Immunization Patients Un uche 20 months Aged Out No longer eligible b ased on patient's age to complete this topic Varicella Vaccines Aged Out No longer eligible based on patient's age to complete this topic Insurance MEDICAID - [place] Care Teams Forest Fire Fighter Relationship Specialty Start Date End Date Maryam Bloom MD [address] [place] [phone] PCP - General Internal Medicine 07/14/24
--- OUTSIDE RECORDS SUMMARY | 2024-09-22 10:27 | XMS_ITS | Encounter Summary ---
Author Organization [employer] Address [address] 7[address] [place] [address] Care Team Providers Care Batterboard Setter Name Role Phone Maryam Bloom MD Primary Care Provider + Encounter Details Date Type Department Care Team (Late st Contact Info) Description 09/22/2024 Orders Only GENERIC EXTERNAL DATA DEPARTMENT Provider, Generic External Data Social History Tobacco Use Types Packs/Day Years [...] Description 09/30/2024 9:45 AM EST Office Visit [facility] OPTOMETRY [address] [place] [address] Marlin Rizvi, OD [address] [place] [address] 12/03/2024 10:30 AM EDT Office Visit [facility] MEDICINE [address] [place] [address] Maryam Bloom MD [address] [place] [address] documented as of this encounter Procedures Procedure Name Priority Date/Time Associated Diagnosis Comments PROTHROMBIN TIME WHOLE BLD POC Routine 09/22/2024 9:24 AM EST ~PT, ~INR - ANTI COAG CLINIC Routine 09/22/2024 9:24 AM EST documented in this encounter Results * (ABNORMAL) PROTHROMBIN TIME WHOLE BLD POC (09/22/2024 9:24 AM EST) Protime 38.3(H) 11.1 - 13.5 sec [facility] 09/22/2024 9:24 AM EST 09/22/2024 9:26 AM EST us Generic External Data Provider LAB BLOOD ORDERAB LES Final Result Performing Organization Address [facility] Co de Phone Number [facility] [address] [place] [address] [phone] * (ABNORMAL) ~PT, ~INR - ANTI COAG CLINIC (09/22/2024 9:24 AM EST) Prothrombin Time INR 3.2(H) 0.9 - 1.1 [facility] Comment:METER #: [id number] TERNATIONAL NORMALIZED RATIO (INR) REFERENCE RANGES Reference [...] 9:24 AM EST 09/22/2024 9:26 AM EST [employer] External Data Provider LAB BLOOD ORDERAB LES Final Result Performing Organization Address [facility] de Phone Number [facility] [address] [place] [phone] documented in this encounter Visit Diagnoses Not on filedocumented in this encounter Additional Health Concerns Assessment Noted Time PHQ-9 Depression Total Score: 0 08/03/20 9:59 AM EST documented as of this encounter Care Teams Batterboard Setter Relationship Specialty Start Date End Date Maryam Bloom MD [address] [place] [address] PCP - General Family Medicine 05/12/19 documented as of this encounter
--- OUTSIDE RECORDS SUMMARY | 2024-09-22 10:27 | XMS_ITS | Encounter Summary ---
Author Organization [employer] Address [address] 7[address] [place] [address] Care Team Providers Care Scourer Name Role Phone Maryam Bloom MD Primary Care Provider + Encounter Details Date Type Department Care Team (Late st Contact Info) Description 12/09/2022 Telephone [facility] MEDICINE [address] [place], [place] [phone] Maryam Bloom MD [address] [place] [address] Social History Tobacco Use Types Packs/Day Years Used Date Smoking Tobacco: Every Day Cigarettes Smokeless Tobacco: Never Alcohol Use Standard Drinks/Week Comments Never 0 (1 standard drink = 0.6 oz pur e alcohol) PHQ-2 Answer Date Recorded Patient Health Questionnaire-2 Score 0 11/18/2022 Depression Answer Date Recorded Patient Health Questionnaire-2 Score 0 11/18/2022 Sex and Gender Information Value Date Recorded Sex Assigned at Male 06/10/2022 10:18 AM EDT Legal Sex Male 10:18 AM EDT Gender Identity Male 06/10/2022 10:18 AM EDT Sexual Orientation Straight 06/10/2022 10 :18 AM EDT COVID-19 Exposure Response Date Recorded In the last 10 days, have yo u been in contact with someone who was confirmed or suspected to have Coronavirus/COVID-19? No / Unsure 12/10/2022 11:22 AM EDT documented as of this encounter Miscellaneous Notes * Telephone Encounter - Zeina Schmid RN - 12/09/2022 2:02 PM EDT [facility] * Telephone Encounter - Tri Roman LPN - 12/09/2022 1:35 PM EDT Critical Result line call received now. INR 1.9 Normal range ( 2.5-3.5 ) On 12/05/22 INR was 6.0 Was seen in ED last week for infected tooth with bleeding. INR 12/07/22 = 2.4 Warfarin dose normally 7.5 mg daily and 11.25 mg on Friday. On Amoxicillin at present till this Friday. Will see DDS tomorrow in [facility]. Advised to take Lovenox that he has at home by RN ,dose not known at time of call. Will recheck INR on Friday12/13/22. Please update PCP with above and follow with Brittaney ORDAZ if indicated. documented in this encounter Plan of Treatment Upcoming Encounters Date Type Department Care Team (Late st Contact Info) Description 09/30/2024 9:45 AM EST Office Visit [facility] OPTOMETRY [address] [place] [address] Belkys Marlin, OD [address] [place] [address] 12/03/2024 10:30 AM EDT Office Visit [facility] MEDICINE [address] [place] [address] Maryam Bloom MD [address] [place] [address] documented as of this encounter Visit Diagnoses Not on filedocumented in this encounter Care Teams Scourer Relationship Specialty Start Date End Date Maryam Bloom MD [address] [place] [address] PCP - General Family Medicine 10/2/19 documented as of this encounter
--- OUTSIDE RECORDS SUMMARY | 2024-09-22 10:27 | XMS_ITS | Encounter Summary ---
Author Organization [employer] Address [address] [facility] 7t [place] [address] Care Team Providers Care Hand Funnel Coater Name Role Phone Maryam Bloom MD Primary Care Provider + Encounter Details Date Type Department Care Team (Late st Contact Info) Description 09/12/2022 Orders Only [facility] [address] [place] [address] Cora Hamilton LPN Social History Tobacco Use Types Packs/Day Years [...] Description 09/30/2024 9:45 AM EST Office Visit [facility] OPTOMETRY [address] [place], [place] [phone] Marlin Rizvi, OD [address] [place] [address] 12/03/2024 10:30 AM EDT Office Visit [facility] MEDICINE [address] [place] [address] Maryam Bloom MD [address] [place], [place] [phone] documented as of this encounter Visit Diagnoses Not on filedocumented in this encounter Care Teams Hand Funnel Coater Relationship Specialty Start Date End Date Maryam Bloom MD [address] [place] [phone] PCP - General Family Medicine 05/12/19 documented as of this encounter
--- OUTSIDE RECORDS SUMMARY | 2024-09-22 10:27 | XMS_ITS | Encounter Summary ---
Author Organization [employer] Address [address] [place] [address] Care Team Providers Care Safety Council Director Name Role Phone Maryam Bloom MD Primary Care Provider + Encounter Details Date Type Department Care Team (Late st Contact Info) Description 09/03/2024 Orders Only GENERIC EXTERNAL DATA DEPARTMENT [...] 9:45 AM EST Office Visit [facility] OPTOMETRY [address] [place] [address] Marlin Rizvi, OD [address] [place] [address] 12/03/2024 10:30 AM EDT Office Visit [facility] MEDICINE [address] [place] [address] Maryam Bloom MD [address] [place] [address] documented as of this encounter Procedures Procedure Name Priority Date/Time Associated Diagnosis Comments PROTHROMBIN TIME WHOLE BLD POC Routine 09/03/2024 8:36 AM EST ~PT, ~INR - ANTI COAG CLINIC Routine 09/03/2024 8:36 AM EST documented in this encounter Results * (ABNORMAL) PROTHROMBIN TIME WHOLE BLD POC (09/03/2024 8:36 AM EST) Protime 29.6(H) 11.1 - 13.5 sec [facility] 09/03/2024 8:36 AM EST 09/03/2024 8:37 AM EST us Generic External Data Provider LAB BLOOD ORDERAB LES Final Result Performing Organization Address [facility] Co de Phone Number [facility] [address] [place] [address] [phone] * (ABNORMAL) ~PT, ~INR - ANTI COAG CLINIC (09/03/2024 8:36 AM EST) Prothrombin Time INR 2.5(H) 0.9 - 1.1 [facility] Comment:METER #: [id number] TERNATIONAL NORMALIZED RATIO (INR) REFERENCE RANGES Reference RangeFor patients not on anticoagulant therapy: 0.9 - 1.1INR ranges for oral anticoagulanttherapy:For prevention and treatment of venous thrombosis and pulmonary embolism: 2.0 - 3.0For acute myocardial infarction with aspirin therapy: 2.0 - 3.0For acute myocardial infarction without aspirin therapy: 3.0 - 4.0For patients with mechanical prosthetic heart valves: 2.5 - 3.5 09/03/2024 8:36 AM EST 09/03/2024 8:37 AM EST [employer] External Data Provider LAB BLOOD ORDERAB LES Final Result Performing Organization Address [facility] de Phone Number [facility] [address] [place] [address] [phone] documented in this encounter Visit Diagnoses Not on filedocumented in this encounter Additional Health Concerns Assessment Noted Time PHQ-9 Depression Total Score: 0 08/03/20 9:59 AM EST documented as of this encounter Care Teams Safety Council Director Relationship Specialty Start Date End Date Maryam Bloom MD [address] [place] [address] PCP - General Family Medicine 05/12/19 documented as of this encounter
--- OUTSIDE RECORDS SUMMARY | 2024-09-22 10:27 | XMS_ITS | Encounter Summary ---
Author Organization [employer] Address [address] 7t [place] [address] Care Team Providers Care Program Mgr Name Role Phone Maryam Bloom MD Primary Care Provider + Encounter Details Date Type Department Care Team (Late st Contact Info) Description 08/25/2024 Orders Only GENERIC EXTERNAL DATA DEPARTMENT [...] t he electric, gas, oil or water [employer] ([employer]) threatened to shut off services in your [...] Description 09/30/2024 9:45 AM EST Office Visit [facility] OPTOMETRY [address] [place] [address] Marlin Rizvi, OD [address] [place] [address] 12/03/2024 10:30 AM EDT Office Visit [facility] MEDICINE [address] [place] [address] Maryam Bloom MD [address] [place] [address] documented as of this encounter Procedures Procedure Name Priority Date/Time Associated Diagnosis Comments RESPIRATORY ALLERGY PROFILE REGION I Routine 08/25/2024 10:30 AM EST CBC WITH AUTO DIFFERENTIAL Routine 08/25/2024 10:30 AM EST documented in this encounter Results * (ABNORMAL) Respiratory Allergy Profile Region I (08/25/2024 10:30 AM EST) Immunoglobulin E 100 <NE=595 kU/L [facility] Mouse Urine Proteins (E72) IgE 0.23(A) kU/L [facility] Class 0/1 [facility] Cockroach (I6) IgE 0.27(A) kU/L [facility] Class 0/1 [facility] Dermatophagoides farinae (D2) IgE 3.74(A) kU/L [facility] Class 3 [facility] Cat Dander (E1) IgE 19.00(A) kU/L [facility] Class 4 [facility] Comment:THIS TEST WAS PERFOR MED AT:[facility]) [address] [id number] SALEH MD Dog Dander (E5) IgE 3.70(A) kU/L [facility] Class 3 [facility] Comment:THIS TEST WAS PERFOR MED AT:[facility]) [address] [phone] SALEH MD Nickolas Grass (G6) IgE 0.33(A) kU/L [facility] Class 0/1 [facility] Cladosporium herbarum (M2) IgE <0.10 kU/L [facility] Class 0 [facility] Aspergillus Fumigatis (M3) IgE <0.10 kU/L [facility] Class 0 [facility] Alternaria alternata (M6) IgE <0.10 kU/L [facility] Class 0 [facility] Comment:THIS TEST WAS PERFOR MED AT:[facility]) [address] [phone] SALEH MD [place] (t6) IgE <0.10 kU/L [facility] Class 0 [facility] [place] (T7) IgE 0.43(A) kU/L [facility] Class 1 [facility] [place] Tree (T10) IgE <0.10 kU/L [facility] Class 0 [facility] Aspen (T11) IgE <0.10 kU/L [facility] Class 0 [facility] Brule (T14) IgE <0.10 kU/L [facility] Class 0 [facility] White Eleuterio (t15) IgE <0.10 kU/L [facility] Class 0 [facility] White [place] (T70) IgE <0.10 kU/L [facility] Class 0 [facility] Common Ragweed (Short) (W1) IgE 1.40(A) kU/L [facility] Class 2 [facility] Mugwort (w6) IgE <0.10 kU/L [facility] Class 0 [facility] Dermatophagoides pteronyssinus (D1) IgE 3.41(A) kU/L [facility] Class 2 [facility] Bermuda Grass (g2) IgE <0.10 kU/L [facility] Class 0 [facility] Penicillium Notatum (M1) IgE <0.10 kU/L [facility] Class 0 [facility] Birch (T3) IgE 3.53(A) kU/L [facility] Class 3 [facility] Elm (t8) IgE <0.10 kU/L [facility] Class 0 [facility] Maple ([place]ac[place]) (T1) IgE <0.10 kU/L [facility] Class 0 [facility] Rough Pigweed (W14) IgE <0.10 kU/L [facility] Class 0 [facility] Sheep [place] (W18) IgE <0.10 kU/L [facility] Class 0 [facility] Allergen Comment See Below [facility] Comment: Specific ?Level of AllergenIGE [...] and its analyticalperformance characteristics have been determined by[employer]. It has not been cleared or approvedby the U.S. Food and Drug Administration. This assayhas been validated pursuant to the CLIA regulationsand is used for clinical purposes.THIS TEST WAS PERFORMED AT:[facility]) [address] ??[phone] SALEH MD 08/25/2024 10:3 0 AM EST 08/25/2024 10:30 AM EST us Generic External Data Provider LAB BLOOD ORDERAB LES Final Result [facility] [address] [place], [place] [phone] * (ABNORMAL) CBC auto differential (08/25/2024 10:30 AM EST) White Blood Count 8.0 4.8 - 10.8 X10*3/uL [facility] Red Blood Count 4.58(L) 4.60 - 5.80 X10*6/uL [facility] Hemoglobin 14.4 14.0 - 18.0 g/dl [facility] Hematocrit 43.5 42.0 - 52.0 % [facility] Mean Corpuscular Volume 95.0 80.0 - 98.0 fL [facility] Mean Corpuscular Hemoglobin 31.4 27.0 - 33.0 pg [facility] Mean Corpuscular HGB Conc 33.1 31.0 - 36.0 g/dl [facility] Red Cell Distribution Width 13.5 11.0 - 16.0 % [facility] Platelet Count 309 160 - 400 X10*3/uL [facility] Mean Platelet Volume 9.4 9.4 - 12.4 fL [facility] Neutrophils Percent Auto 64.2 45 - 73 % [facility] Imm Gran Pct Auto 0.2 0.0 - 0.4 % [facility] Lymphocytes Percent Auto 21.7 20 - 40 % [facility] Monocytes Percent Auto 5.4 2 - 11 % [facility] Eosinophils Percent Auto 8.0(H) 0 - 4 % [facility] Basophils Percent Auto 0.5 0 - 2 % [facility] NRBC Pct Auto 0.0 0.0 - 0.2 /100WBC [facility] Neutrophils Absolute Auto 5.1 2.0 - 8.3 x10*3/uL [facility] Imm Gran Abs Auto 0.02 0.00 - 0.03 X10*3/uL [facility] Lymphocytes Absolute Auto 1.7 1.2 - 4.9 X10*3/uL [facility] Monocytes Absolute Auto 0.4 0.1 - 1.2 X10*3/uL [facility] Eosinophils Absolute Auto 0.6(H) 0.0 - 0.4 X10*3/uL [facility] Basophils Absolute Auto 0.0 0.0 - 0.2 X10*3/uL [facility] NRBC Abs Auto 0.000 0.0 - 0.012 X10*3/uL [facility] 08/25/2024 10:3 0 AM EST 08/25/2024 10:30 AM EST us Generic External Data Provider LAB BLOOD ORDERAB LES Final Result [facility] [address] [place] [address] [phone] documented in this encounter Visit Diagnoses Not on filedocumented in this encounter Additional Health Concerns Assessment Noted Time PHQ-9 Depression Total Score: 0 08/03/20 24 9:59 AM EST documented as of this encounter Care Teams Program Mgr Relationship Specialty Start Date End Date Maryam Bloom MD [address] [place] [phone] PCP - General Family Medicine 05/12/19 documented as of this encounter
--- OUTSIDE RECORDS SUMMARY | 2024-09-22 10:27 | XMS_ITS | Encounter Summary ---
Author Organization [employer] Address [address] [facility] 7t [place] [address] Care Team Providers Care Cartridge Assembling Machine Adjuster Name Role Phone Maryam Bloom MD Primary Care Provider + Reason for Visit * Reason Onset Date Comments premed tx 01/08/2023 Encounter Details Date Type Department Care Team (Late st Contact Info) Description 01/08/2023 Telephone [facility] D[facility] [address] [place] [address] Xavi Melara, LIEN [address] [place] [address] premed tx Social History Tobacco Use Types Packs/Day Years [...] encounter Miscellaneous Notes * Telephone Encounter - Ladonna Keith - 01/08/2023 12:40 PM EDT Patient has a mechanical valve and 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 Can script be sent?DR documented in this encounter Plan of Treatment Upcoming Encounters Date Type Department Care Team (Late st Contact Info) Description 09/30/2024 9:45 AM EST Office Visit [facility] OPTOMETRY [address] [place] [address] Marlin Rizvi, OD [address] [place] [address] 12/03/2024 10:30 AM EDT Office Visit [facility] MEDIC[facility] [address] [place] [address] Maryam Bloom MD [address] [place] [address] documented as of this encounter Visit Diagnoses Not on filedocumented in this encounter Care Teams Cartridge Assembling Machine Adjuster Relationship Specialty Start Date End Date Maryam Bloom MD [address] [place] [address] PCP - General Family Medicine 05/12/19 documented as of this encounter
--- OUTSIDE RECORDS SUMMARY | 2024-09-22 10:27 | XMS_ITS | Encounter Summary ---
Author Organization [employer] Address [address] [facility] 7t [place] [address] Care Team Providers Care Hard Candy Batch Mixer Name Role Phone Maryam Bloom MD Primary Care Provider + Reason for Visit * Reason Onset Date Comments Coagulation Disorder 12/05/2022 Encounter Details Date Type Department Care Team (Late st Contact Info) Description 12/05/2022 Telephone [facility] MEDICINE [address] [place] [address] Maryam Bloom MD [address] [place], [place] [phone] Coagulation Disorder Social History Tobacco Use Types Packs/Day Years [...] suspected to have Coronavirus/COVID-19? No / Unsure 11/18/2022 2:46 PM EDT documented as of this encounter Miscellaneous Notes * Telephone Encounter - Alejandra Adler RN - 12/05/2022 2:58 PM EDT RN called pt [phone] in regards to below message however no answer, RN left VM requesting CB to red team nurses. TC returned to [phone] however no answer, RN left VM requesting CB to red team nurses. Pt to F/U PRN. * Telephone Encounter - Darlin Zavala - 12/05/2022 2:38 PM EDT Tc from pt Spouse requesting a call regarding message below. Please contact pt spouse at [phone] * Telephone Encounter - Tri Roman LPN - 12/05/2022 2:30 PM EDT Critical Result Line call received at this time. INR 6.0 Patient reports increase Tylenol, was on Prednisone last week. Now with Dental pain. Advised to contact DDS. PLAN: Hold Warfarin today. Warfarin 3.75 tomorrow and 7.5 mg on Friday and Friday. Recheck Friday. Please update PCP with findings. documented in this encounter Plan of Treatment Upcoming Encounters Date Type Department Care Team (Late st Contact Info) Description 09/30/2024 9:45 AM EST Office Visit [facility] OPTOMETRY [address] [place] [address] Marlin Rizvi, TIO [address] [place] [address] 12/03/2024 10:30 AM EDT Office Visit [facility] MEDICINE [address] [place] [address] Maryam Bloom MD [address] [place], [place] [phone] documented as of this encounter Visit Diagnoses Not on filedocumented in this encounter Care Teams Hard Candy Batch Mixer Relationship Specialty Start Date End Date Maryam Bloom MD [address] [place] [phone] PCP - General Family Medicine 05/12/19 documented as of this encounter
--- OUTSIDE RECORDS SUMMARY | 2024-09-22 10:27 | XMS_ITS | Encounter Summary ---
Author Organization [employer] Address [address] [facility] 7t [place] [address] Care Team Providers Care Nursing Informatics Clinical Analyst Name Role Phone Maryam Bloom MD Primary Care Provider + Reason for Visit * Reason Comments Med Refill Encounter Details Date Type Department Care Team (Late st Contact Info) Description 07/19/2023 Refill [facility] MED[facility]INE [address] [place] [address] Maryam Bloom MD [address] [place], [place] [phone] Mild intermittent asthma without complication Social History Tobacco Use Types Packs/Day Years Used Date Smoking Tobacco: Every Day Cigarettes Smokeless Tobacco: Never Alcohol Use Standard Drinks/Week Comments Never 0 (1 standard drink = 0.6 oz pur e alcohol) PHQ-2 Answer Date Recorded Patient Health Questionnaire-2 Score 0 11/18/2022 Housing Stability Answer Date Recorded What is your housing situation today? I have shanekavon velazquez 05/28/[address] you [...] Description 09/30/2024 9:45 AM EST Office Visit [facility] OPTOMETRY [address] [place] [address] TarMarlin maguire, OD [address] [place] [address] 12/03/2024 10:30 AM EDT Office Visit [facility] MEDICINE [address] [place] [address] Maryam Bloom MD [address] [place] [phone] documented as of this encounter Visit Diagnoses Diagnosis Mild intermittent asthma without complication documented in this encounter Care Teams Nursing Informatics Clinical Analyst Relationship Specialty Start Date End Date Maryam Bloom MD [address] [place] [phone] PCP - General Family Medicine 05/12/19 documented as of this encounter
== END 2024-09-22 09:31 | disposition home or self-care (01) ==
LOC: HO.ACS 09:20
PROVIDERS: PCP Internal Medicine; Visit Provider Internal Medicine
DX: Z79.01 Long term (current) use of anticoagulants (principal)

== ENCOUNTER → 2024-09-22 09:20 | Outpatient (BNVA) | payer MEDICAID, SELFPAY | PROVIDERS: PCP Internal Medicine; Visit Provider Internal Medicine | DX: Z95.2 Presence of prosthetic heart valve (principal); Z79.01 Long term (current) use of anticoagulants; Z51.81 Encounter for therapeutic drug level monitoring | CPT/HCPCS: 85610; 99211 ==

== ENCOUNTER 2024-09-24 07:59 | Outpatient (AMB) | payer MEDICAID, SELFPAY ==
--- OUTSIDE RECORDS SUMMARY | 2024-09-24 08:02 | XMS_ITS | Encounter Summary ---
Author Organization [employer] Address [address] [facility] [facility] [address] 7[address] [place] [address] Care Team Providers Care Chemic Mangler Name Role Phone Maryam Bloom MD Primary Care Provider + Reason for Visit * Reason Onset Date Comments November09/10/2024 Encounter Details Date Type Department Care Team (Late st Contact Info) Description 09/10/2024 Telephone [facility] MEDICINE [address] [place] [address] Maryam Bloom MD [address] [place], [place] [phone] November Social History Tobacco Use Types Packs/Day [...] Description 09/30/2024 9:45 AM EST Office Visit [facility] OPTOMETRY [address] [place] [address] Marlin Rizvi, OD [address] [place] [address] 12/03/2024 10:30 AM EDT Office Visit [facility] MEDICINE [address] [place] [address] Maryam Bloom MD [address] [place] [address] documented as of this encounter Visit Diagnoses Not on filedocumented in this encounter Additional Health Concerns Assessment Noted Time PHQ-9 Depression Total Score: 0 08/03/20 24 9:59 AM EST documented as of this encounter Care Teams Chemic Mangler Relationship Specialty Start Date End Date Maryam Bloom MD [address] [place] [phone] PCP - General Family Medicine 05/12/19 documented as of this encounter
--- OUTSIDE RECORDS SUMMARY | 2024-09-24 08:03 | XMS_ITS | Encounter Summary ---
Author Organization [employer] Address [address] [facility] [address] [place] [address] Care Team Providers Care Aging Box Hand Name Role Phone Maryam Bloom MD Primary [...] Description 09/30/2024 9:45 AM EST Office Visit [facility] OPTOMETRY [address] [place] [address] Marlin Rizvi, OD [address] [place] [address] 12/03/2024 10:30 AM EDT Office Visit [facility] MEDICINE [address] [place] [address] Maryam Bloom MD [address] [place] [address] documented as of this encounter Procedures Procedure Name Priority Date/Time Associated Diagnosis Comments PROTHROMBIN TIME WHOLE BLD POC Routine 09/22/2024 9:24 AM EST ~PT, ~INR - ANTI COAG CLINIC Routine 09/22/2024 9:24 AM EST documented in this encounter Results * (ABNORMAL) PROTHROMBIN TIME WHOLE BLD POC (09/22/2024 9:24 AM EST) Protime 38.3(H) 11.1 - 13.5 sec [facility] 09/22/2024 9:24 AM EST 09/22/2024 9:26 AM EST us Generic External Data Provider LAB BLOOD ORDERAB LES Final Result Performing Organization Address [facility] Co de Phone Number [facility] [address] [place] [address] [phone] * (ABNORMAL) ~PT, ~INR - ANTI COAG CLINIC (09/22/2024 9:24 AM EST) Prothrombin Time INR 3.2(H) 0.9 - 1.1 [facility] Comment:METER #: [id number] TERNATIONAL NORMALIZED RATIO (INR) REFERENCE RANGES Reference [...] 9:24 AM EST 09/22/2024 9:26 AM EST [employer] External Data Provider LAB BLOOD ORDERAB LES Final Result Performing Organization Address [facility] de Phone Number [facility] [address] [place] [phone] documented in this encounter Visit Diagnoses Not on filedocumented in this encounter Additional Health Concerns Assessment Noted Time PHQ-9 Depression Total Score: 0 08/03/20 9:59 AM EST documented as of this encounter Care Teams Aging Box Hand Relationship Specialty Start Date End Date Maryam Bloom MD [address] [place] [address] PCP - General Family Medicine 05/12/19 documented as of this encounter
--- OUTSIDE RECORDS SUMMARY | 2024-09-24 08:03 | XMS_ITS | Encounter Summary ---
Author Organization [employer] Address [address] [facility] 7t [place] [address] Care Team Providers Care Telephone Operator Name Role Phone Maryam Bloom MD Primary Care Provider + Reason for Visit * Reason Onset Date Comments premed tx 01/08/2023 Encounter Details Date Type Department Care Team (Late st Contact Info) Description 01/08/2023 Telephone [facility]ULT D[facility] [address] [place] [address] Xavi Melara, LIEN [address] [place] [address] premed tx Social History Tobacco Use Types [...] Description 09/30/2024 9:45 AM EST Office Visit [facility] OPTOMETRY [address] [place] [address] Marlin Rizvi, OD [address] [place] [address] 12/03/2024 10:30 AM EDT Office Visit [facility] [address] [place] [address] Maryam Bloom MD [address] [place] [address] documented as of this encounter Visit Diagnoses Not on filedocumented in this encounter Care Teams Telephone Operator Relationship Specialty Start Date End Date Maryam Bloom MD [address] [place] [address] PCP - General Family Medicine 05/12/19 documented as of this encounter
--- OUTSIDE RECORDS SUMMARY | 2024-09-24 08:03 | XMS_ITS | Encounter Summary ---
Author Organization [employer] Address [address] [facility] 7t [place] [address] Care Team Providers Care Head Of Global Strategic Partnerships Name Role Phone Maryam Bloom MD Primary Care Provider + Reason for Visit * Reason Comments Med Refill Encounter Details Date Type Department Care Team (Late st Contact Info) Description 07/19/2023 Refill [facility] MEDICINE [address] [place] [address] Maryam Bloom MD [address] [place], [place] [phone] Mild intermittent asthma without complication Social History [...] Description 09/30/2024 9:45 AM EST Office Visit [facility] OPTOMETRY [address] [place] [address] TarMarlin maguire, OD [address] [place] [address] 12/03/2024 10:30 AM EDT Office Visit [facility] MEDICINE [address] [place] [address] Maryam Bloom MD [address] [place] [phone] documented as of this encounter Visit Diagnoses Diagnosis Mild intermittent asthma without complication documented in this encounter Care Teams Head Of Global Strategic Partnerships Relationship Specialty Start Date End Date Maryam Bloom MD [address] [place] [phone] PCP - General Family Medicine 05/12/19 documented as of this encounter
--- OUTSIDE RECORDS SUMMARY | 2024-09-24 08:03 | XMS_ITS | Clinical Summary ---
Author Organization [employer] Address 75 [facility] 7t [place] [address] Care Team Providers Care Distributed Energy Systems Consultant Name Role Phone Maryam Bloom MD Primary [...] life style modifications, diet and referral to engineer specialist. Recommended to decrease soda and sugary [...] been stable with no CHF, followed by [facility] cardiology. Keep INR between 2.5 and 3.5, will order Lovenox if INR is below 2.2. Assessment & Plan (06/03/2024 1:19 PM EDT): No evidence of CHF, refer to [facility] Cardiology due for follow up. Assessment [...] DEPARTMENT Provider, Generic External Data 09/10/[address] [address] Maryam Bloom MD Gina recall 09/03/2024 Orders Only GENERIC EXTERNAL DATA DEPARTMENT Provider, Generic External Data 08/25/2024 Orders Only GENERIC EXTERNAL DATA DEPARTMENT Provider, Generic External Data 08/18/2024 Orders Only GENERIC EXTERNAL DATA DEPARTMENT Provider, Generic External Data 08/03/2024 10:00 AM EST Office Visit [address] [address] Maryam Bloom MD Hypoxemia associated with sleep (Primary Dx); Hx of mitral valve replacement with mechanical valve; Allergic rhinitis due to animal hair and dander; Encounter for immunization 08/03/2024 Travel 08/02/[address] [address] Maryam Bloom MD Anticoagulation 08/02/2024 Orders Only GENERIC EXTERNAL DATA DEPARTMENT Provider, Generic External Data 07/30/[address] [address] Ninfa Mukherjee MA Chart prep 07/29/[address] [address] Maryam Bloom MD Anticoagulation 07/29/2024 Orders Only GENERIC EXTERNAL DATA DEPARTMENT Provider, Generic External Data 07/05/[address] [address] Maryam Bloom MD 07/01/2024 Orders Only GENERIC EXTERNAL DATA DEPARTMENT Provider, Generic External Data 06/30/[address] [address] Maryam Bloom MD from Last 3 Months [...] Description 09/30/2024 9:45 AM EST Office Visit [facility] OPTOMETRY [address] [place], [place] [phone] Marlin Rizvi, OD [address] [place] [address] 12/03/2024 10:30 AM EDT Office Visit [facility] MEDICINE [address] [place] [address] Maryam Bloom MD [address] [place] [address] Health Maintenance Due Date Last Done Comments [...] resultswithin the time period is included. Pathologist [facility] Protime 38.3(H) 11.1 - 13.5 sec [facility] 09/22/2024 9:24 AM EST 09/22/2024 9:26 AM EST Generic External Data Provider LAB BLOOD ORDERAB LES Final Result Performing Organization Address [facility] Co de Phone Number [facility] [address] [place] [phone] * (ABNORMAL) ~PT, ~INR - ANTI COAG CLINIC (09/22/2024 9:24 AM EST) Only the most recent of6 resultswithin the time period is included. Pathologist [facility] Prothrombin Time INR 3.2(H) 0.9 - 1.1 [facility] Comment:METER #: [id number] TERNATIONAL NORMALIZED RATIO (INR) REFERENCE RANGES Reference [...] ORDERAB LES Final Result Performing Organization Address [facility] Co de Phone Number [facility] [address] [place] [phone] * (ABNORMAL) Respiratory Allergy Profile Region I (08/25/2024 10:30 AM EST) Pathologist [facility] Immunoglobulin E 100 <BB=779 kU/L [facility] Mouse Urine Proteins (E72) IgE 0.23(A) kU/L [facility] Class 0/1 [facility] Cockroach (I6) IgE 0.27(A) kU/L H [facility] Class 0/1 [facility] Dermatophagoides farinae (D2) IgE 3.74(A) kU/L [facility] Class 3 [facility] Cat Dander (E1) IgE 19.00(A) kU/L [facility] Class 4 [facility] Comment:THIS TEST WAS PERFOR MED AT:[email or web address] [address] [phone] SALEH MD Dog Dander (E5) IgE 3.70(A) kU/L [facility] Class 3 [facility] Comment:THIS TEST WAS PERFOR MED AT:[email or web address] [address] [phone] SALEH MD Nickolas Grass (G6) IgE 0.33(A) kU/L [facility] Class 0/1 [facility] Cladosporium herbarum (M2) IgE <0.10 kU/L [facility] Class 0 [facility] Aspergillus Fumigatis (M3) IgE <0.10 kU/L [facility] Class 0 [facility] Alternaria alternata (M6) IgE <0.10 kU/L [facility] Class 0 [facility] Comment:THIS TEST WAS PERFOR MED AT:[email or web address] [address] [phone] SALEH MD Mountain Yellow Pine (t6) IgE <0.10 kU/L [facility] Class 0 [facility] [place] (T7) IgE 0.43(A) kU/L [facility] Class 1 [facility] [place] Tree (T10) IgE <0.10 kU/L [facility] Class 0 [facility] Valier (T11) IgE <0.10 kU/L [facility] Class 0 [facility] Lea (T14) IgE <0.10 kU/L [facility] Class 0 [facility] White Eleuterio (t15) IgE <0.10 kU/L [facility] Class 0 [facility] [place] (T70) IgE <0.10 kU/L [facility] Class 0 [facility] Common Ragweed (Short) (W1) IgE 1.40(A) kU/L [facility] Class 2 [facility] Mugwort (w6) IgE <0.10 kU/L [facility] Class 0 [facility] Dermatophagoides pteronyssinus (D1) IgE 3.41(A) kU/L [facility] Class 2 [facility] Bermuda Grass (g2) IgE <0.10 kU/L [facility] Class 0 [facility] Penicillium Notatum (M1) IgE <0.10 kU/L [facility] Class 0 [facility] Birch (T3) IgE 3.53(A) kU/L [facility] Class 3 [facility] Elm (t8) IgE <0.10 kU/L [facility] Class 0 [facility] Maple (Frederick) (T1) IgE <0.10 kU/L [facility] Class 0 [facility] Rough Pigweed (W14) IgE <0.10 kU/L [facility] Class 0 [facility] Sheep [place] (W18) IgE <0.10 kU/L [facility] Class 0 [facility] Allergen Comment See Below [facility] Comment: Specific ?Level of AllergenIGE [...] and its analyticalperformance characteristics have been determined by[employer]. It has not been cleared or approvedby the U.S. Food and Drug Administration. This assayhas been validated pursuant to the CLIA regulationsand is used for clinical purposes.THIS TEST WAS PERFORMED AT:[email or web address] [address] ??[phone] SALEH MD 08/25/2024 10:3 0 AM EST 08/25/2024 10:30 AM EST us Generic External Data Provider LAB BLOOD ORDERAB LES Final Result [facility] [address] [place] [phone] * (ABNORMAL) CBC auto differential (08/25/2024 10:30 AM EST) White Blood Count 8.0 4.8 - 10.8 X10*3/uL [facility] Red Blood Count 4.58(L) 4.60 - 5.80 X10*6/uL [facility] Hemoglobin 14.4 14.0 - 18.0 g/dl [facility] Hematocrit 43.5 42.0 - 52.0 % [facility] Mean Corpuscular Volume 95.0 80.0 - 98.0 fL [facility] Mean Corpuscular Hemoglobin 31.4 27.0 - 33.0 pg [facility] Mean Corpuscular HGB Conc 33.1 31.0 - 36.0 g/dl [facility] Red Cell Distribution Width 13.5 11.0 - 16.0 % [facility] Platelet Count 309 160 - 400 X10*3/uL [facility] Mean Platelet Volume 9.4 9.4 - 12.4 fL [facility] Neutrophils Percent Auto 64.2 45 - 73 % [facility] Imm Gran Pct Auto 0.2 0.0 - 0.4 % [facility] Lymphocytes Percent Auto 21.7 20 - 40 % [facility] Monocytes Percent Auto 5.4 2 - 11 % [facility] Eosinophils Percent Auto 8.0(H) 0 - 4 % [facility] Basophils Percent Auto 0.5 0 - 2 % [facility] NRBC Pct Auto 0.0 0.0 - 0.2 /100WBC [facility] Neutrophils Absolute Auto 5.1 2.0 - 8.3 x10*3/uL [facility] Imm Gran Abs Auto 0.02 0.00 - 0.03 X10*3/uL [facility] Lymphocytes Absolute Auto 1.7 1.2 - 4.9 X10*3/uL [facility] Monocytes Absolute Auto 0.4 0.1 - 1.2 X10*3/uL [facility] Eosinophils Absolute Auto 0.6(H) 0.0 - 0.4 X10*3/uL [facility] Basophils Absolute Auto 0.0 0.0 - 0.2 X10*3/uL [facility] NRBC Abs Auto 0.000 0.0 - 0.012 X10*3/uL [facility] 08/25/2024 10:3 0 AM EST 08/25/2024 10:30 AM EST us Generic External Data Provider LAB BLOOD ORDERAB LES Final Result Performing Organization Address City/[facility]/ZIP Co de Phone Number [facility] [address] [place] [phone] * TSH with Reflex to Free T4 (08/03/2024 10:36 AM EST) TSH reflex Free T4 1.46 0.32 - 4.0 uIU/mL [facility] Blood 08/03/2024 10:3 6 AM EST 08/03/2024 1:12 PM EST us Maryam Bloom MD LAB BLOOD ORDERABLES Fin al Result Performing Organization Address City/[facility]/ZIP Co de Phone Number [facility] [address] [place] [phone] * (ABNORMAL) Lipid Panel with Reflex to Direct LDL (08/03/2024 10:36 AM EST) Triglycerides 106 <150 mg/dL [facility] Comment:Desirable Triglyceri de: less than 150 mg/dLBorderline High Triglyceride 150-199 mg/dLHigh Triglyceride: 200-499 mg/dLVery High Triglyceride: greater than or equal to 5OO mg/dL Cholesterol 185 <200 mg/dL [facility] Comment:Desirable Cholestero l: less than 200 mg/dLBorderline High Cholesterol: 200-239 mg/dLHigh Cholesterol: greater than 239 mg/dL LDL Cholesterol Calculated 119(H) <100 mg/dL [facility] Comment:Desirable LDL: less than 100 mg/dLNear Optimal/Above Optimal LDL: 110- 129 mg/dLBorderline High LDL: 130-159 mg/dLHigh LDL: 160-189 mg/dLVery High LDL: greater than or equal to 190 mg/dL HDL Cholesterol 45 >40 mg/dL [facility] Comment:Desirable HDL: great er than 40 mg/dL Note: This HDL assay may give artificially low results in patients with liver disease. Blood 08/03/2024 10:3 6 AM EST 08/03/2024 1:12 PM EST Maryam Bloom MD LAB BLOOD ORDERABLES Fin al Result Performing Organization Address [facility] Co de Phone Number [facility] [address] [place] [phone] * Hemoglobin A1c (08/03/2024 10:36 AM EST) Hemoglobin A1c 5.2 <6.0 % [facility] Comment:Hemoglobin A1C Refer ence Range Adults: 4.8 - 6.0 % Non diabetic: < 6.0 % Goal: < 7.0 %Additional Action Suggested: > 8.0 %Note: Hemoglobin A1c results are invalid for patients with abnormal amounts of HbF. Blood transfusions may impact the HbA1c concentration in the patient sample. Estimated Average Glucose 103 mg/dL [facility] Comment:eAG = Estimated ave rage glucose which is %A1C expressed asaverage glucose, using the formula of the U2C-NhwvqliViwxrfz Glucose study (ADAG), Diabetes Care, Vol.31,#8,Mar. 2007 Blood Venous blood specimen / Unknown 08/03/2024 10:36 AM EST 08/03/2024 1:12 PM EST Maryam Bloom MD LAB BLOOD ORDERABLES Fin al Result Performing Organization Address [facility] Co de Phone Number [facility] [address] [place] [phone] * (ABNORMAL) Comprehensive Metabolic Panel (08/03/2024 10:36 AM EST) Sodium 140 135 - 145 mmol/L [facility] Potassium 4.5 3.3 - 5.1 mmol/L [facility] Comment:Slight Hemolysis.Int erpret result with caution. Chloride 107 96 - 108 mmol/L [facility] Carbon Dioxide 27 22 - 29 mmol/L [facility] Anion Gap 11(L) 12 - 20 [facility] Urea Nitrogen (BUN) 15 9 - 16 mg/dL [facility] Creatinine, Serum 1.40 0.5 - 1.4 mg/dL [facility] Estimated Glomerular Filt Rate 56 [facility] Comment:Chronic Kidney Disea se: Estimated GFR < 60 mL/min/1.27z8Lodxvh Kidney Disease: Estimated GFR < 15 mL/min/1.73m2 Glucose 110 60 - 115 mg/dL [facility] Calcium 8.8 8.4 - 10.2 mg/dL [facility] Bilirubin, Total 0.4 0.0 - 1.0 mg/dL [facility] Aspartate Amino Transferase 30 5 - 37 U/L [facility] Comment:Slight Hemolysis.Int erpret result with caution. Alanine Aminotransferase 27 0 - 40 U/L [facility] Total Protein 7.5 6.5 - 8.0 g/dL [facility] Albumin Level 4.4 3.5 - 5.0 g/dL [facility] Alkaline Phosphatase 92 39 - 117 U/L [facility] Blood Venous blood specimen / Unknown 08/03/2024 10:36 AM EST 08/03/2024 1:12 PM EST us Maryam Bloom MD LAB BLOOD ORDERABLES Fin al Result [facility] [address] [place] [phone] * HEPATITIS C AB W/REFL TO [...] a test for HCV RNA (test code 07766) is suggested. ?? For additional information please refer to http://[employer]/faq/HMD79i7 (This link is being provided for informational/ educational purposes only.) ?? 03/05/2021 9:50 AM EDT us Maryam Bloom MD HISTORICAL/NON ORDERABLE LABS Final Result Performing Organization Address [facility] Co de Phone Number [facility] [address] * HIV 1/2 ANTIGEN/ANTIBODY,FOURTH GENERATION W/RFL (03/05/2021 9:50 AM EDT) [facility] HIV-1/2 ANTIGEN AND ANTIBODIES, 4TH GENERATION W/ [...] ? For additional information please refer to http://[employer]/faq/BOV275 (This link is being provided for informational/ educational purposes only.) ? The performance of this assay has not been clinically validated in patients less than 2 years old. ?? 03/05/2021 9:50 AM EDT us Maryam Bloom MD LAB BLOOD ORDERABLES Fin al Result Performing Organization Address [facility] Co de Phone Number [facility] [address] from Last 3 Months or Most Recently Relevant to Health Maintenance Insurance [place] [facility] STANDARD [place] [facility] MEDICAID STAND [place] Care Teams Distributed Energy Systems Consultant Relationship Specialty Start Date End Date Maryam Bloom MD [address] [place] [address] PCP - General Family Medicine 05/12/19
--- OUTSIDE RECORDS SUMMARY | 2024-09-24 08:03 | XMS_ITS | Encounter Summary ---
Author Organization [employer] Address [address] [facility] 7t [place] [address] Care Team Providers Care Biometrics Analyst Name Role Phone Maryam Bloom MD Primary Care Provider + Reason for Visit * Reason Onset Date Comments Coagulation Disorder 12/05/2022 Encounter Details Date Type Department Care Team (Late st Contact Info) Description 12/05/2022 Telephone [facility] MEDICINE [address] [place] [address] Maryam Bloom MD [address] [place], [place] [phone] Coagulation Disorder Social History Tobacco Use Types [...] 12/05/2022 2:58 PM EDT RN called pt [phone] in regards to below message however no answer, RN left VM requesting CB to red team nurses. TC returned to [phone] however no answer, RN left VM requesting CB to red team nurses. Pt to F/U PRN. * Telephone Encounter - Darlin Zavala - 12/05/2022 2:38 PM EDT Tc from pt Spouse requesting a call regarding message below. Please contact pt spouse at [phone] * Telephone Encounter - Tri Roman LPN [...] Description 09/30/2024 9:45 AM EST Office Visit [facility] OPTOMETRY [address] [place] [address] Marlin Rizvi, TIO [address] [place] [address] 12/03/2024 10:30 AM EDT Office Visit [facility] MEDICINE [address] [place] [address] Maryam Bloom MD [address] [place], [place] [phone] documented as of this encounter Visit Diagnoses Not on filedocumented in this encounter Care Teams Biometrics Analyst Relationship Specialty Start Date End Date Maryam Bloom MD [address] [place] [phone] PCP - General Family Medicine 05/12/19 documented as of this encounter
--- OUTSIDE RECORDS SUMMARY | 2024-09-24 08:03 | XMS_ITS | Clinical Summary ---
Author Organization [address] [facility] Address [address] [place] [phone] Phone Care Team Providers Care Ramp Lead Name Role Phone Maryam Bloom MD Primary Care Provider Social History Tobacco Use Types Packs/Day Years Used Date Smoking Tobacco: Never Assessed Sex and Gender Information Value Date Recorded Sex Assigned at Not on file Legal Sex Male 2:05 PM EST Gender Identity Not on file Sexual Orientation Not on file Plan of Treatment Upcoming Encounters Date Type Department Care Team ([facility] Contact Info) Description 11/04/2024 9:15 AM EDT Consult Orthopedic Surgery - [place] [address] [phone] Lorenzo Weiner, DPM [address] [address] Health Maintenance Due Date Last Done Comments [...] topic Insurance MEDICAID - [place] Care Teams Ramp Lead Relationship Specialty Start Date End Date Maryam Bloom MD [address] [place] [phone] PCP - General Internal Medicine 07/14/24
--- OUTSIDE RECORDS SUMMARY | 2024-09-24 08:03 | XMS_ITS | Encounter Summary ---
Author Organization [employer] Address [address] [facility] [address] [place] [address] Care Team Providers Care Classification Officer Name Role Phone Maryam Blomo MD Primary Care Provider + Encounter Details Date Type Department Care Team (Late st Contact Info) Description 12/09/[address] [facility] MEDICINE [address] [place], [place] [phone] Maryam Bloom MD [address] [place] [address] Social History Tobacco Use Types Packs/Day Years [...] this Friday. Will see DDS tomorrow in [facility]. Advised to take Lovenox that he has at home by RN ,dose not known at time of call. Will recheck INR on Friday12/13/22. Please update PCP with above and follow with Brittaney ORDAZ if indicated. documented in this encounter Plan of Treatment Upcoming Encounters Date Type Department Care Team (Late st Contact Info) Description 09/30/2024 9:45 AM EST Office Visit [facility] OPTOMETRY [address] [place] [address] Belkys Marlin, OD [address] [place] [address] 12/03/2024 10:30 AM EDT Office Visit [facility] MEDICINE [address] [place] [address] Maryam Bloom MD [address] [place] [address] documented as of this encounter Visit Diagnoses Not on filedocumented in this encounter Care Teams Classification Officer Relationship Specialty Start Date End Date Maryam Bloom MD [address] [place] [address] PCP - General Family Medicine 10/2/19 documented as of this encounter
--- OUTSIDE RECORDS SUMMARY | 2024-09-24 08:03 | XMS_ITS | Encounter Summary ---
Author Organization [employer] Address 75 [facility] 7t [place] [address] Care Team Providers Care Pmo Manager Name Role Phone Maryam Bloom MD Primary Care Provider + Encounter Details Date Type Department Care Team (Late st Contact Info) Description 09/12/2022 Orders Only [facility] [address] [place] [address] Cora Hamilton LPN Social History Tobacco Use [...] Description 09/30/2024 9:45 AM EST Office Visit [facility] OPTOMETRY [address] [place], [place] [phone] Marlin Rizvi, OD [address] [place] [address] 12/03/2024 10:30 AM EDT Office Visit [facility] MEDICINE [address] [place] [address] Maryam Bloom MD [address] [place], [place] [phone] documented as of this encounter Visit Diagnoses Not on filedocumented in this encounter Care Teams Pmo Manager Relationship Specialty Start Date End Date Maryam Bloom MD [address] [place] [phone] PCP - General Family Medicine 05/12/19 documented as of this encounter
--- OUTSIDE RECORDS SUMMARY | 2024-09-24 08:03 | XMS_ITS | Encounter Summary ---
Author Organization [employer] Address [address] [place] [address] Care Team Providers Care Payer Specialist Name Role Phone Maryam Bloom MD [...] t he electric, gas, oil or water [employer] threatened to shut off services in your [...] Description 09/30/2024 9:45 AM EST Office Visit [facility] OPTOMETRY [address] [place] [address] Marlin Rizvi, OD [address] [place] [address] 12/03/2024 10:30 AM EDT Office Visit [facility] MEDICINE [address] [place] [address] Maryam Bloom MD [address] [place] [address] documented as of this encounter Procedures Procedure Name Priority Date/Time Associated Diagnosis Comments RESPIRATORY ALLERGY PROFILE REGION I Routine 08/25/2024 10:30 AM EST CBC WITH AUTO DIFFERENTIAL Routine 08/25/2024 10:30 AM EST documented in this encounter Results * (ABNORMAL) Respiratory Allergy Profile Region I (08/25/2024 10:30 AM EST) Immunoglobulin E 100 <GX=575 kU/L [facility] Mouse Urine Proteins (E72) IgE 0.23(A) kU/L [facility] Class 0/1 [facility] Cockroach (I6) IgE 0.27(A) kU/L [facility] Class 0/1 [facility] Dermatophagoides farinae (D2) IgE 3.74(A) kU/L [facility] Class 3 [facility] Cat Dander (E1) IgE 19.00(A) kU/L [facility] Class 4 [facility] Comment:THIS TEST WAS PERFOR MED AT:[facility] [address] [phone] SALEH MD Dog Dander (E5) IgE 3.70(A) kU/L [facility] Class 3 [facility] Comment:THIS TEST WAS PERFOR MED AT:[facility] [address] [phone] SALEH MD Nickolas Grass (G6) IgE 0.33(A) kU/L [facility] Class 0/1 [facility] Cladosporium herbarum (M2) IgE <0.10 kU/L [facility] Class 0 [facility] Aspergillus Fumigatis (M3) IgE <0.10 kU/L [facility] Class 0 [facility] Alternaria alternata (M6) IgE <0.10 kU/L [facility] Class 0 [facility] Comment:THIS TEST WAS PERFOR MED AT:[facility] [address] [phone] SALEH MD Mountain Ceiba (t6) IgE <0.10 kU/L [facility] Class 0 [facility] Ros[place] (T7) IgE 0.43(A) kU/L [facility] Class 1 [facility] Cl[place] Tree (T10) IgE <0.10 kU/L [facility] Class 0 [facility] [place] (T11) IgE <0.10 kU/L [facility] Class 0 [facility] Navarre (T14) IgE <0.10 kU/L [facility] Class 0 [facility] White Eleuterio (t15) IgE <0.10 kU/L [facility] Class 0 [facility] White [place] (T70) IgE <0.10 kU/L [facility] Class 0 [facility] Common Ragweed (Short) (W1) IgE 1.40(A) kU/L [facility] Class 2 [facility] Mugwort (w6) IgE <0.10 kU/L [facility] Class 0 [facility] Dermatophagoides pteronyssinus (D1) IgE 3.41(A) kU/L [facility] Class 2 [facility] Bermuda Grass (g2) IgE <0.10 kU/L [facility] Class 0 [facility] Penicillium Notatum (M1) IgE <0.10 kU/L [facility] Class 0 [facility] Birch (T3) IgE 3.53(A) kU/L [facility] Class 3 [facility] Elm (t8) IgE <0.10 kU/L [facility] Class 0 [facility] Maple ([place]) (T1) IgE <0.10 kU/L [facility] Class 0 [facility] Rough Pigweed (W14) IgE <0.10 kU/L [facility] Class 0 [facility] Sheep [place] (W18) IgE <0.10 kU/L [facility] Class 0 [facility] Allergen Comment See Below [facility] Comment: Specific ?Level of AllergenIGE [...] and its analyticalperformance characteristics have been determined by[employer]. It has not been cleared or approvedby the U.S. Food and Drug Administration. This assayhas been validated pursuant to the CLIA regulationsand is used for clinical purposes.THIS TEST WAS PERFORMED AT:[facility] [address] ??[phone] SALEH MD 08/25/2024 10:3 0 AM EST 08/25/2024 10:30 AM EST us Generic External Data Provider LAB BLOOD ORDERAB LES Final Result [facility] [address] [place], [place] [phone] * (ABNORMAL) CBC auto differential (08/25/2024 10:30 AM EST) White Blood Count 8.0 4.8 - 10.8 X10*3/uL [facility] Red Blood Count 4.58(L) 4.60 - 5.80 X10*6/uL [facility] Hemoglobin 14.4 14.0 - 18.0 g/dl [facility] Hematocrit 43.5 42.0 - 52.0 % [facility] Mean Corpuscular Volume 95.0 80.0 - 98.0 fL [facility] Mean Corpuscular Hemoglobin 31.4 27.0 - 33.0 pg [facility] Mean Corpuscular HGB Conc 33.1 31.0 - 36.0 g/dl [facility] Red Cell Distribution Width 13.5 11.0 - 16.0 % [facility] Platelet Count 309 160 - 400 X10*3/uL [facility] Mean Platelet Volume 9.4 9.4 - 12.4 fL [facility] Neutrophils Percent Auto 64.2 45 - 73 % [facility] Imm Gran Pct Auto 0.2 0.0 - 0.4 % [facility] Lymphocytes Percent Auto 21.7 20 - 40 % [facility] Monocytes Percent Auto 5.4 2 - 11 % [facility] Eosinophils Percent Auto 8.0(H) 0 - 4 % [facility] Basophils Percent Auto 0.5 0 - 2 % [facility] NRBC Pct Auto 0.0 0.0 - 0.2 /100WBC [facility] Neutrophils Absolute Auto 5.1 2.0 - 8.3 x10*3/uL [facility] Imm Gran Abs Auto 0.02 0.00 - 0.03 X10*3/uL [facility] Lymphocytes Absolute Auto 1.7 1.2 - 4.9 X10*3/uL [facility] Monocytes Absolute Auto 0.4 0.1 - 1.2 X10*3/uL [facility] Eosinophils Absolute Auto 0.6(H) 0.0 - 0.4 X10*3/uL [facility] Basophils Absolute Auto 0.0 0.0 - 0.2 X10*3/uL [facility] NRBC Abs Auto 0.000 0.0 - 0.012 X10*3/uL [facility] 08/25/2024 10:3 0 AM EST 08/25/2024 10:30 AM EST us Generic External Data Provider LAB BLOOD ORDERAB LES Final Result [facility] [address] [place] [address] [phone] documented in this encounter Visit Diagnoses Not on filedocumented in this encounter Additional Health Concerns Assessment Noted Time PHQ-9 Depression Total Score: 0 08/03/20 24 9:59 AM EST documented as of this encounter Care Teams Payer Specialist Relationship Specialty Start Date End Date Maryam Bloom MD [address] [place] [phone] PCP - General Family Medicine 05/12/19 documented as of this encounter
--- OUTSIDE RECORDS SUMMARY | 2024-09-24 08:03 | XMS_ITS | Encounter Summary ---
Author Organization [employer] Address [address] [place] [address] Care Team Providers Care Spa Manager Name Role Phone Maryam Bloom MD Primary Care Provider + Reason for Visit * Reason Comments Med Refill Encounter Details Date Type Department Care Team (Late st Contact Info) Description 12/25/2023 Refill [facility] MEDICINE [address] [place], [place] [phone] Maryam Bloom MD [address] [place], [place] [phone] Allergic rhinitis, unspecified seasonality, unspecified trigger Social [...] Description 09/30/2024 9:45 AM EST Office Visit [facility] OPTOMETRY [address] [place] [address] TarkaMarlin, OD [address] [place] [address] 12/03/2024 10:30 AM EDT Office Visit [facility] MEDICINE [address] [place] [address] Maryam Bloom MD [address] [place] [address] documented as of this encounter Visit Diagnoses Diagnosis Allergic rhinitis, unspecified seasonality, unspecified trigger documented in this encounter Care Teams Spa Manager Relationship Specialty Start Date End Date Maryam Bloom MD [address] [place] [phone] PCP - General Family Medicine 05/12/19 documented as of this encounter
--- OUTSIDE RECORDS SUMMARY | 2024-09-24 08:03 | XMS_ITS | Encounter Summary ---
Author Organization [employer] Address [address] [place] [address] Care Team Providers Care Dispatch Specialist Name Role Phone Mrayam Bloom MD Primary Care Provider + Encounter [...] Office Visit [facility] OPTOMETRY [address] [place] [address] Marlin Rizvi, OD [address] [place] [address] 12/03/2024 10:30 AM EDT Office Visit [facility] MEDICINE [address] [place] [address] Maryam Bloom MD [address] [place] [address] documented as of this encounter Procedures Procedure Name Priority Date/Time Associated Diagnosis Comments PROTHROMBIN TIME WHOLE BLD POC Routine 09/03/2024 8:36 AM EST ~PT, ~INR - ANTI COAG CLINIC Routine 09/03/2024 8:36 AM EST documented in this encounter Results * (ABNORMAL) PROTHROMBIN TIME WHOLE BLD POC (09/03/2024 8:36 AM EST) Protime 29.6(H) 11.1 - 13.5 sec [facility] 09/03/2024 8:36 AM EST 09/03/2024 8:37 AM EST us Generic External Data Provider LAB BLOOD ORDERAB LES Final Result Performing Organization Address [facility] Co de Phone Number [facility] [address] [place] [address] [phone] * (ABNORMAL) ~PT, ~INR - ANTI COAG CLINIC (09/03/2024 8:36 AM EST) Prothrombin Time INR 2.5(H) 0.9 - 1.1 [facility] Comment:METER #: [id number] TERNATIONAL NORMALIZED RATIO (INR) REFERENCE RANGES Reference [...] 8:36 AM EST 09/03/2024 8:37 AM EST [employer] External Data Provider LAB BLOOD ORDERAB LES Final Result Performing Organization Address [facility] de Phone Number [facility] [address] [place] [address] [phone] documented in this encounter Visit Diagnoses Not on filedocumented in this encounter Additional Health Concerns Assessment Noted Time PHQ-9 Depression Total Score: 0 08/03/20 9:59 AM EST documented as of this encounter Care Teams Dispatch Specialist Relationship Specialty Start Date End Date Maryam Bloom MD [address] [place] [address] PCP - General Family Medicine 05/12/19 documented as of this encounter
[2024-09-24 08:43] VITALS: BP 142/87; PULSE 85; O2SAT 95; BMI 17.2
--- NOTE | 2024-09-24 08:43 | A.OFFVIS_ITS ---
Vital Signs 09/24/24 08:43 Height 6 ft Weight 127 lb BMI 17.2 BP 142/87 H Blood Pressure Location Rt brachial Position Sitting Pulse 85 Pulse Source Doppler Pulse Oximetry (%) 95 Oxygen Delivery Method Room Air Intake Visit Reasons: Asthma/Same Day PFT Allergies No Known Allergies [No Known Allergies*] Allergy (Verified 09/22/24 09:20) HPI HPI Asthma/Same Day PFT: Details: 39-year-old gentleman, active 10-15 pack-year smoker, with underlying history of mitral valve replacement with mechanical valve in 2014 for endocarditis, now followed for nocturnal hypoxemia, severe persistent asthma, and environmental allergies. After the last visit patient has been started on nocturnal oxygen continues to use it. He has completed his pulmonary function test that shows underlying moderate to severe obstructive ventilatory defect, and his immunologic studies showing significant allergic component to his symptoms. He was approved for Facile System, however he has not started that yet. [facility] Medical History History of endocarditis Smoking Surgical History S/P MVR (mitral valve replacement) (~2014) Family History Father No problems noted. Mother No problems noted. Social History (Updated 09/24/24 @ 08:47 by Cora Lynn Jennyfer) Alcohol intake: former Patient Tobacco Use Status: Current everyday Tobacco user Tobacco use type: Cigarette Cigarettes Per Day: 10 Years Smoked: started age 19, 12 cig a day, Review of Systems Const Denies daytime sleepiness, Denies excessive sweating, Denies fatigue, Denies fever(s), Denies lethargy, Denies malaise, Denies night sweats, Denies snoring and Denies weight loss Eyes Denies blurry vision and Denies itchy eyes ENT Denies nasal congestion, Denies post nasal drip, Denies sinus pain, Denies sinus pressure and Denies other ( Thrush) Card Denies chest pain, Denies pedal edema, Denies dyspnea, Denies orthopnea and Denies paroxysmal nocturnal dyspnea Resp Denies cough, Denies hemoptysis, Denies excessive phlegm production, Denies dyspnea, Denies snoring and Denies wheezing GI Denies abdominal pain and Denies heartburn Musc Denies myalgias, Denies arthralgias and Denies joint swelling Skin/Breast Denies rash Neuro Denies memory loss and Denies seizure-like activity Psych Denies abnormal sleep pattern, Denies anxiety and Denies memory loss Endo Denies excessive sweating, Denies fatigue and Denies heat intolerance Santosh/Lymph Denies easy bruising Aller/Immun Denies itchy eyes, Denies seasonal rhinorrhea and Denies wheezing Physical Exam Vital Signs: Last Vital Signs Pulse 85 09/24/24 08:43 BP 142/87 H 09/24/24 08:43 Pulse Ox 95 09/24/24 08:43 Oxygen Delivery Method Room Air 09/24/24 08:43 BMI result Body Mass Index 17.2 Const General: no acute distress and alert Nutritional Appearance: obese Orientation/consciousness: Other orientation findings ( oriented) HEENT Head: Yes atraumatic Eyes General: appearance normal, both eyes and all related structures Sclerae: sclerae normal EOM: EOMs intact bilaterally Neck Neck: Yes supple Lymphatic: no lymphadenopathy noted Resp Effort & Inspection: normal respiratory effort and no use of accessory muscles Auscultation: clear to auscultation bilaterally Cardio Rate: regular rate Rhythm: regular rhythm Heart sounds: no gallops, no murmurs and no rubs Skin General skin exam: other ( warm) Extrem General: No clubbing, No cyanosis and No edema Assessment & Plan Assessment & Plan (1) Nocturnal hypoxemia: Code(s): G47.34 - Idiopathic sleep related nonobstructive alveolar hypoventilation Category: Medical Plan: Continue nocturnal supplemental oxygen. (2) Severe persistent asthma: Code(s): J45.50 - Severe persistent asthma, uncomplicated Category: Medical Plan: Suboptimally controlled on Advair and albuterol MDI, expect to improve on Fasenra. Results of pulmonary function test reviewed. (3) Environmental allergies: Code(s): Z91.09 - Other allergy status, other than to drugs and biological substances Category: Medical Plan: Results of immunologic workup reviewed, significant allergic component to underlying symptoms. Expect to improve with Fasenra. Coding Level of Care Code Est Pt Level 4 (18787) Complex EM visit Add On G2211 Diagnoses Nocturnal hypoxemia G47.34 Severe persistent asthma J45.50 Environmental allergies Z91.09
== END 2024-09-24 09:04 | disposition home or self-care (01) ==
PROVIDERS: PCP Internal Medicine; Visit Provider Internal Medicine Pulmonary Disease
DX: G47.34 Idiopathic sleep related nonobstructive alveolar hypoventilation (principal); J45.50 Severe persistent asthma, uncomplicated; Z91.09 Other allergy status, other than to drugs and biological substances
CPT/HCPCS: 94060; 94727; 94729; 99214

== ENCOUNTER 2024-09-24 08:06 | Outpatient (REF) | payer MEDICAID, SELFPAY ==
--- NOTE | 2024-09-24 08:11 | PFT_ITS ---
Indication: Asthma Spirometry [FEV1 to FVC 61%; FEV1 2.6 L; FVC 4.26 L. There is a significant response to bronchodilators noted. Lung Volumes [Total lung capacity 85% predicted; residual volume 133% predicted] Diffusion Capacity [DLCO 103% predicted] Comparisons [none] Interpretation [The patient is an obstructive ventilatory defect consistent with moderate to severe COPD. In his case likely asthma COPD overlap syndrome. Significant response to bronchodilators noted. The patient has significant air trapping due to the COPD. Diffusing capacity is within normal limits.] MTDD
== END 2024-09-24 08:07 | disposition home or self-care (01) ==
LOC: HO.RESP 08:06
PROVIDERS: PCP Internal Medicine; Visit Provider Internal Medicine Pulmonary Disease
DX: J45.909 Unspecified asthma, uncomplicated (principal)
CPT/HCPCS: 94010; 94640; 94727; 94729; 99212

== ENCOUNTER 2024-10-06 09:43 | Outpatient (AMB) | payer MEDICAID, SELFPAY ==
[2024-10-06 09:56] LABS: Prothrombin Time Whole Bld POC 29.3 sec (11.1-13.5); ~PT, ~INR - Anti Coag Clinic 2.4 (0.9-1.1)
--- NOTE | 2024-10-06 10:03 | MHC.OFFVISCO ---
Intake Intake Visit Reasons: Anticoagulation Allergies No Known Allergies [No Known Allergies*] Allergy (Verified 10/06/24 09:52) Medication List - Last Reconciled 10/06/24 by Melissa John RN acetaminophen (Tylenol) 650 mg (2 x 325 mg) PO Q6H albuterol sulfate 90 mcg/actuation 2 puffs PO Q4-6H PRN amoxicillin 2,000 mg (4 x 500 mg) PO ONCE 1 day buprenorphine-naloxone 4-1 mg (Suboxone) 5 mg sublingual BID cetirizine 10 mg PO DAILY chlorhexidine gluconate 0.12% PO desloratadine (Clarinex) 5 mg PO DAILY fexofenadine 180 mg PO DAILY fluoxetine 20 mg PO QAM fluticasone propion-salmeterol 230-21 mcg/actuation (Advair HFA) 2 puffs inhalation fluticasone propionate 50 mcg/actuation 1 spray intranasal DAILY gabapentin 300 mg PO BID hydrocortisone 2.5% topical DAILY hydroxyzine pamoate 25 mg PO BEDTIME PRN ketoconazole 2% appl topical lamotrigine 200 mg PO lithium carbonate 0 mg PO warfarin 7.5 mg See Protocol PO DAILY Nursing Note NO CFP,SOB,DIET/MED CHANGES,FALLS OR SX OF BLEEDING. CONTINUE PRESENT DOSE AND FOLLOW UP IN 2 WEEKS. 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 Anti-Coag Initial Assessment Social Hx Patient Tobacco Use Status: Current everyday Tobacco user Tobacco use type: Cigarette alcohol intake: former Coding Level of Care Code Est Patient Level 1 Diagnoses Current use of anticoagulant therapy Z79.01 Assessment & Plan Assessment & Plan (1) Current use of anticoagulant therapy: Code(s): Z79.01 - MCC (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
--- OUTSIDE RECORDS SUMMARY | 2024-10-06 11:15 | XMS_ITS | Encounter Summary ---
Author Organization [employer] Address [address] [place] [address] Care Team Providers Care Tower Hoist Operator Name Role Phone Maryam Bloom MD [...] Care Team (Late st Contact Info) Description 12/03/2024 10:30 AM EDT Office Visit [facility] MEDICINE [address] [place] [address] Maryam Bloom MD [address] [place] [address] documented as of this encounter Procedures Procedure Name Priority Date/Time Associated Diagnosis Comments PROTHROMBIN TIME WHOLE BLD POC Routine 09/22/2024 9:24 AM EST ~PT, ~INR - ANTI COAG CLINIC Routine 09/22/2024 9:24 AM EST documented in this encounter Results * (ABNORMAL) PROTHROMBIN TIME WHOLE BLD POC (09/22/2024 9:24 AM EST) Protime 38.3(H) 11.1 - 13.5 sec [facility] 09/22/2024 9:24 AM EST 09/22/2024 9:26 AM EST us Generic External Data Provider LAB BLOOD ORDERAB LES Final Result [facility] [address] [place] [address] [phone] * (ABNORMAL) ~PT, ~INR - ANTI COAG CLINIC (09/22/2024 9:24 AM EST) Prothrombin Time INR 3.2(H) 0.9 - 1.1 [facility] Comment:METER #: [id number] TERNATIONAL NORMALIZED RATIO (INR) REFERENCE RANGES Reference [...] ORDERAB LES Final Result Performing Organization Address City/State/[facility] Co de Phone Number [facility] [address] [place] [phone] documented in this encounter Visit Diagnoses Not on filedocumented in this encounter Additional Health Concerns Assessment Noted Time PHQ-9 Depression Total Score: 0 08/03/20 24 9:59 AM EST documented as of this encounter Care Teams Tower Hoist Operator Relationship Specialty Start Date End Date Maryam Bloom MD [address] [place] [phone] PCP - General Family Medicine 05/12/19 documented as of this encounter
--- OUTSIDE RECORDS SUMMARY | 2024-10-06 11:15 | XMS_ITS | Encounter Summary ---
Author Organization [employer] Address [address] [place] [address] Care Team Providers Care Bank Teller Machine Mechanic Name Role Phone Maryam Bloom MD Primary Care Provider + Reason for Visit * Reason Onset Date Comments November09/10/2024 Encounter Details Date Type Department Care Team (Late st Contact Info) Description 09/10/2024 Telephone [facility] MEDICINE [address] [place] [address] Maryam Bloom MD [address] [place], [place] [phone] November Social History Tobacco Use Types Packs/Day [...] Description 12/03/2024 10:30 AM EDT Office Visit [facility] MEDICINE [address] [place] [address] Maryam Bloom MD [address] [place] [address] documented as of this encounter Visit Diagnoses Not on filedocumented in this encounter Additional Health Concerns Assessment Noted Time PHQ-9 Depression Total Score: 0 08/03/20 9:59 AM EST documented as of this encounter Care Teams Bank Teller Machine Mechanic Relationship Specialty Start Date End Date Maryam Bloom MD [address] [place] [address] PCP - General Family Medicine 05/12/19 documented as of this encounter
--- OUTSIDE RECORDS SUMMARY | 2024-10-06 11:16 | XMS_ITS | Encounter Summary ---
Author Organization [employer] Address [address] [place] [address] Care Team Providers Care Heel Wheeler Name Role Phone Maryam Bloom MD Primary Care Provider + Encounter Details Date Type Department Care Team (Late st Contact Info) Description 10/04/2024 Orders Only [facility] MEDICINE [address] [place], [place] [phone] Maryam Bloom MD [address] [place], [place] [phone] Social History Tobacco Use Types Packs/Day Years [...] AM EDT documented as of this encounter Progress Notes * Maryam Bloom MD - 10/04/2024 4:28 PM EST Re allergy, have him reach out to social service liaison to adjust meds as needed prn allergy testing or prescribe both if appropriate, it is not a standard practice and I don't see a recent social service liaison note with that POC. I can send either or, he can get OTC meds as well. documented in this encounter Plan of Treatment Upcoming Encounters Date Type Department Care Team (Late st Contact Info) Description 12/03/2024 10:30 AM EDT Office Visit [facility] MEDICINE [address] [place] [address] Maryam Bloom MD [address] [place] [address] documented as of this encounter Visit Diagnoses Not on filedocumented in this encounter Additional Health Concerns Assessment Noted Time PHQ-9 Depression Total Score: 0 08/03/20 9:59 AM EST documented as of this encounter Care Teams Heel Wheeler Relationship Specialty Start Date End Date Maryam Bloom MD [address] [place] [address] PCP - General Family Medicine 05/12/19 documented as of this encounter
--- OUTSIDE RECORDS SUMMARY | 2024-10-06 11:16 | XMS_ITS | Encounter Summary ---
Author Organization [employer] Address [address] [place] [address] Care Team Providers Care Forming Process Worker Name Role Phone Maryam Bloom MD Primary Care Provider + Reason for Visit * Reason Comments Med Refill Encounter Details Date Type Department Care Team (Late st Contact Info) Description 10/02/2024 Refill [facility] [address] [place] [address] Maryam Bloom MD [address] [place], [place] [phone] Allergic rhinitis, unspecified seasonality, unspecified trigger Social [...] Description 12/03/2024 10:30 AM EDT Office Visit [facility] [address] [place] [address] Maryam Bloom MD [address] [place] [address] documented as of this encounter Visit Diagnoses Diagnosis Allergic rhinitis, unspecified seasonality, unspecified trigger documented in this encounter Additional Health Concerns Assessment Noted Time PHQ-9 Depression Total Score: 0 08/03/20 24 9:59 AM EST documented as of this encounter Care Teams Forming Process Worker Relationship Specialty Start Date End Date Maryam Bloom MD [address] [place] [address] PCP - General Family Medicine 05/12/19 documented as of this encounter
--- OUTSIDE RECORDS SUMMARY | 2024-10-06 11:16 | XMS_ITS | Encounter Summary ---
Author Organization [employer] Address [address] [facility] 7t [place] [address] Care Team Providers Care Finished Carpet Inspector Name Role Phone Maryam Bloom MD Primary Care Provider + Reason for Visit * Reason Comments Med Refill Encounter Details Date Type Department Care Team (Late st Contact Info) Description 07/19/2023 Refill [facility] MEDICINE [address] [place] [address] Maryam Bloom MD [address] [place], [place] [phone] Mild intermittent asthma without complication Social History [...] Description 12/03/2024 10:30 AM EDT Office Visit [facility] MEDICINE [address] [place] [phone] Maryam Bloom MD [address] [place] [phone] documented as of this encounter Visit Diagnoses Diagnosis Mild intermittent asthma without complication documented in this encounter Care Teams Finished Carpet Inspector Relationship Specialty Start Date End Date Maryam Bloom MD [address] [place] [phone] PCP - General Family Medicine 05/12/19 documented as of this encounter
--- OUTSIDE RECORDS SUMMARY | 2024-10-06 11:16 | XMS_ITS | Clinical Summary ---
Author Organization 175 [facility] Address 175 [place] [address] Phone Care Team Providers Care Wired Music Operator Name Role Phone Maryam Bloom MD Primary Care Provider [phone] Social History Tobacco Use Types Packs/Day Years Used Date Smoking Tobacco: Never Assessed Sex and Gender Information Value Date Recorded Sex Assigned at Not on file Legal Sex Male 2:05 PM EST Gender Identity Not on file Sexual Orientation Not on file Plan of Treatment Upcoming Encounters Date Type Department Care Team ([facility] Contact Info) Description 11/04/2024 9:15 AM EDT Consult Orthopedic Surgery - [place] [address] [phone] Lorenzo Weiner, DPM [address] [address] Health Maintenance Due Date Last Done Comments [...] topic Insurance MEDICAID - [place] Care Teams Wired Music Operator Relationship Specialty Start Date End Date Maryam Bloom MD [address] [place] [phone] PCP - General Internal Medicine 07/14/24
--- OUTSIDE RECORDS SUMMARY | 2024-10-06 11:16 | XMS_ITS | Encounter Summary ---
Author Organization [employer] Address [address] 7[address] [place] [address] Care Team Providers Care Communications Administrator Name Role Phone Maryam Bloom MD Primary Care Provider + Encounter Details Date Type Department Care Team (Late st Contact Info) Description 09/30/2024 Telephone C OPTOMETRY [address] [place] [address] Marlin Rizvi, OD [address] [place] [address] Social History Tobacco Use Types Packs/Day Years [...] Description 12/03/2024 10:30 AM EDT Office Visit [facility] MEDICINE [address] [place] [address] Maryam Bloom MD [address] [place] [address] documented as of this encounter Visit Diagnoses Not on filedocumented in this encounter Additional Health Concerns Assessment Noted Time PHQ-9 Depression Total Score: 0 08/03/20 24 9:59 AM EST documented as of this encounter Care Teams Communications Administrator Relationship Specialty Start Date End Date Maryam Bloom MD [address] [place] [address] PCP - General Family Medicine 05/12/19 documented as of this encounter
--- OUTSIDE RECORDS SUMMARY | 2024-10-06 11:16 | XMS_ITS | Encounter Summary ---
Author Organization [employer] Address [address] 7t [place] [address] Care Team Providers Care Press Operator Heavy Duty Name Role Phone Maryam Bloom MD Primary Care Provider + Reason for Visit * Reason Comments Med Refill Encounter Details Date Type Department Care Team (Late st Contact Info) Description 12/25/2023 Refill [facility] MEDICINE [address] [place], [place] [phone] Maryam Bloom MD [address] [place], [place] [phone] Allergic rhinitis, unspecified seasonality, unspecified trigger Social [...] Description 12/03/2024 10:30 AM EDT Office Visit [facility] MEDICINE [address] [place] [phone] Maryam Bloom MD [address] [place] [phone] documented as of this encounter Visit Diagnoses Diagnosis Allergic rhinitis, unspecified seasonality, unspecified trigger documented in this encounter Care Teams Press Operator Heavy Duty Relationship Specialty Start Date End Date Maryam Bloom MD [address] [place] [phone] PCP - General Family Medicine 05/12/19 documented as of this encounter
--- OUTSIDE RECORDS SUMMARY | 2024-10-06 11:16 | XMS_ITS | Clinical Summary ---
Author Organization [employer] Address [address] 7[address] [place] [address] Care Team Providers Care Community Support Specialist Name Role Phone Maryam Bloom MD Primary Care Provider + Allergies No known active allergies Medications Peak Flow Meter-Inh Assist Dev kitIndications: Mild intermittent asthma, unspecified whether complicated Use daily 1 kit 11/19/19 23 Active amoxicillin (Amoxil) 500 MG capsule Take 4 capsules of amoxicillin 500 mg 1 hour prior dental procedure 12 capsule 01/09/20 23 Active Advair HFA 230-21 MCG/ACT inhaler TAKE 2 PUFFS BY MOUTH TWICE A DAY MORNING AND EVENING WITH SPACER 12 g 11 09/22/19 24 Active warfarin (Coumadin) 7.5 MG tabletIndicatio ns:Hx of mitral valve replacement with mechanical valve TAKE 1 - 1 + 1/2 TABLETS BY MOUTH EVERY DAY DIRECTED 50 tablet 5 02/11/20 24 Active Ventolin HFA 108 (90 Base) MCG/ACT inhalerIndicati ons:Mild intermittent asthma without complication TAKE 2 PUFFS BY MOUTH EVERY 4 TO 6 HOURS NEEDED 18 g 3 03/05/20 24 Active desloratadine (Clarinex) 5 MG tablet TAKE 1 TABLET (5 MG) BY MOUTH ONCE PER DAY. 90 tablet 1 10/04/19 25 025 Active desloratadine (Clarinex) 5 MG tablet Take 1 tablet (5 mg) by mouth Once per day. 30 tablet 2 08/03/20 24 025 Discontinued Active Problems Problem Noted Date Diagnosed Date [...] life style modifications, diet and referral to clinical trial specialist. Recommended to decrease soda and sugary [...] been stable with no CHF, followed by [facility] cardi[facility]. Keep INR between 2.5 and 3.5, will order Lovenox if INR is below 2.2. Assessment & Plan (06/03/2024 1:19 PM EDT): No evidence of CHF, refer to [facility] due for follow up. Assessment & [...] Encounters Date Type Department Care Team Description 10/06/2024 Orders Only GENERIC EXTERNAL DATA DEPARTMENT Provider, Generic External Data 10/04/2024 Orders Only [facility] MEDICINE [address] [place] [phone] Maryam Bloom MD 10/04/2024 Telephone [facility] MEDICINE [address] [place] [address] Maryam Bloom MD Med Refill; Call Back Request 10/02/2024 Refill [facility] [address] [place] [address] Maryam Bloom MD Allergic rhinitis, unspecified seasonality, unspecified trigger 09/30/2024 Telephone [facility] OPTOMETRY [address] [place] [address] Marlin Rizvi, OD 09/22/2024 Orders Only GENERIC EXTERNAL DATA DEPARTMENT Provider, Generic External Data 09/10/2024 Telephone [facility] [address] [place] [address] Maryam Bloom MD Gina recall 09/03/2024 Orders Only GENERIC EXTERNAL DATA DEPARTMENT Provider, Generic External Data 08/25/2024 Orders Only GENERIC EXTERNAL DATA DEPARTMENT Provider, Generic External Data 08/18/2024 Orders Only GENERIC EXTERNAL DATA DEPARTMENT Provider, Generic External Data 08/03/2024 10:00 AM EST Office Visit [address] [address] Maryam Bloom MD Hypoxemia associated with sleep (Primary Dx); Hx of mitral valve replacement with mechanical valve; Allergic rhinitis due to animal hair and dander; Encounter for immunization 08/03/2024 Travel 08/02/2024 Telephone [facility] MEDICINE [address] [place] [address] Maryam Bloom MD Anticoagulation 08/02/2024 Orders Only GENERIC EXTERNAL DATA DEPARTMENT Provider, Generic External Data 07/30/2024 Telephone [facility] MEDICINE [address] [place] [address] Ninfa Mukherjee MA Chart prep 07/29/2024 Telephone [facility] MEDICINE [address] [place] [address] Maryam Bloom MD Anticoagulation 07/29/2024 Orders Only GENERIC EXTERNAL DATA DEPARTMENT Provider, Generic External Data from Last 3 Months Immunizations Name Administration [...] housing situation today? I have shanekavon velazquez 06/03/[address] you [...] I do not want or need it 10/2 11/2023 Sex and Gender Information Value Date Recorded [...] 12/03/2024 10:30 AM EDT Office Visit [facility] MEDICINE [address] [place] [address] Maryam Bloom MD [address] [place] [address] Health Maintenance Due Date Last Done Comments [...] Comments PROTHROMBIN TIME WHOLE BLD POC Routine 10/06/2024 9:54 AM EST ~PT, ~INR - ANTI COAG CLINIC Routine 10/06/2024 9:54 AM EST PROTHROMBIN TIME WHOLE BLD POC Routine 09/22/2024 [...] COAG CLINIC Routine 07/29/2024 10:35 AM EST BITEWING - SINGLE RADIOGRAPHIC IMAGE [...] * (ABNORMAL) PROTHROMBIN TIME WHOLE BLD POC (10/06/2024 9:54 AM EST) Only the most recent of6 resultswithin the time period is included. Protime 29.3(H) 11.1 - 13.5 sec [facility] 10/06/2024 9:54 AM EST 10/06/2024 9:55 AM EST Generic External Data Provider LAB BLOOD ORDERAB LES Final Result Performing Organization Address City/[facility]/ZIP Co de Phone Number [facility] [address] [place] [phone] * (ABNORMAL) ~PT, ~INR - ANTI COAG CLINIC (10/06/2024 9:54 AM EST) Only the most recent of6 resultswithin the time period is included. Prothrombin Time INR 2.4(H) 0.9 - 1.1 [facility] Comment:METER #: [id number] TERNATIONAL NORMALIZED RATIO (INR) REFERENCE RANGES Reference RangeFor patients not on anticoagulant therapy: 0.9 - 1.1INR ranges for oral anticoagulanttherapy:For prevention and treatment of venous thrombosis and pulmonary embolism: 2.0 - 3.0For acute myocardial infarction with aspirin therapy: 2.0 - 3.0For acute myocardial infarction without aspirin therapy: 3.0 - 4.0For patients with mechanical prosthetic heart valves: 2.5 - 3.5 10/06/2024 9:54 AM EST 10/06/2024 9:55 AM EST [email or web address] External Data Provider LAB BLOOD ORDERAB LES Final Result Performing Organization Address City/[facility]/ZIP Co de Phone Number [facility] [address] [place] [phone] * (ABNORMAL) Respiratory Allergy Profile Region I (08/25/2024 10:30 AM EST) Immunoglobulin E 100 <PT=745 kU/L [facility] Mouse Urine Proteins (E72) IgE 0.23(A) kU/L [facility] Class 0/1 [facility] Cockroach (I6) IgE 0.27(A) kU/L [facility] Class 0/1 [facility] Dermatophagoides farinae (D2) IgE 3.74(A) kU/L [facility] Class 3 [facility] Cat Dander (E1) IgE 19.00(A) kU/L [facility] Class 4 [facility] Comment:THIS TEST WAS PERFOR MED AT:[employer] [address] [phone] SALEH MD Dog Dander (E5) IgE 3.70(A) kU/L [facility] Class 3 [facility] Comment:THIS TEST WAS PERFOR MED AT:[employer] [address] [phone] SALEH MD Nickolas Grass (G6) IgE 0.33(A) kU/L [facility] Class 0/1 [facility] Cladosporium herbarum (M2) IgE <0.10 kU/L [facility] Class 0 [facility] Aspergillus Fumigatis (M3) IgE <0.10 kU/L [facility] Class 0 [facility] Alternaria alternata (M6) IgE <0.10 kU/L [facility] Class 0 [facility] Comment:THIS TEST WAS PERFOR MED AT:[employer] [address] [phone] SALEH MD [place] (t6) IgE <0.10 kU/L [facility] Class 0 [facility] [place] (T7) IgE 0.43(A) kU/L [facility] Class 1 [facility] [place] (T10) IgE <0.10 kU/L [facility] Class 0 [facility] [place] (T11) IgE <0.10 kU/L [facility] Class 0 [facility] [place] (T14) IgE <0.10 kU/L [facility] Class 0 [facility] White Eleuterio (t15) IgE <0.10 kU/L [facility] Class 0 [facility] [place] (T70) IgE <0.10 kU/L [facility] Class 0 [facility] Common Ragweed (Short) (W1) IgE 1.40(A) kU/L [facility] Class 2 [facility] Mugwort (w6) IgE <0.10 kU/L [facility] Class 0 [facility] Dermatophagoides pteronyssinus (D1) IgE 3.41(A) kU/L [facility] Class 2 [facility] Berm[place] Grass (g2) IgE <0.10 kU/L [facility] Class 0 [facility] Penicillium Notatum (M1) IgE <0.10 kU/L [facility] Class 0 [facility] Birch (T3) IgE 3.53(A) kU/L [facility] Class 3 [facility] Elm (t8) IgE <0.10 kU/L [facility] Class 0 [facility] Maple (Lebo) (T1) IgE <0.10 kU/L [facility] Class 0 [facility] Rough Pigweed (W14) IgE <0.10 kU/L [facility] Class 0 [facility] Sheep [place] (W18) IgE <0.10 kU/L [facility] Class 0 [facility] Allergen Comment See Below [facility] Comment: Specific ?Level of AllergenIGE Class [...] and its analyticalperformance characteristics have been determined by[employer]. It has not been cleared or approvedby the U.S. Food and Drug Administration. This assayhas been validated pursuant to the CLIA regulationsand is used for clinical purposes.THIS TEST WAS PERFORMED AT:[employer] [address] ??[phone] SALEH MD 08/25/2024 10:3 0 AM EST 08/25/2024 10:30 AM EST us Generic External Data Provider LAB BLOOD ORDERAB LES Final Result [facility] [address] [place] [address] [phone] * (ABNORMAL) CBC auto differential (08/25/2024 10:30 AM EST) White Blood Count 8.0 4.8 - 10.8 X10*3/uL [facility] Red Blood Count 4.58(L) 4.60 - 5.80 X10*6/uL [facility] Hemoglobin 14.4 14.0 - 18.0 g/dl [facility] Hematocrit 43.5 42.0 - 52.0 % [facility] Mean Corpuscular Volume 95.0 80.0 - 98.0 fL [facility] Mean Corpuscular Hemoglobin 31.4 27.0 - 33.0 pg [facility] Mean Corpuscular HGB Conc 33.1 31.0 - 36.0 g/dl [facility] Red Cell Distribution Width 13.5 11.0 - 16.0 % [facility] Platelet Count 309 160 - 400 X10*3/uL [facility] Mean Platelet Volume 9.4 9.4 - 12.4 fL [facility] Neutrophils Percent Auto 64.2 45 - 73 % [facility] Imm Gran Pct Auto 0.2 0.0 - 0.4 % [facility] Lymphocytes Percent Auto 21.7 20 - 40 % [facility] Monocytes Percent Auto 5.4 2 - 11 % [facility] Eosinophils Percent Auto 8.0(H) 0 - 4 % [facility] Basophils Percent Auto 0.5 0 - 2 % [facility] NRBC Pct Auto 0.0 0.0 - 0.2 /100WBC [facility] Neutrophils Absolute Auto 5.1 2.0 - 8.3 x10*3/uL [facility] Imm Gran Abs Auto 0.02 0.00 - 0.03 X10*3/uL [facility] Lymphocytes Absolute Auto 1.7 1.2 - 4.9 X10*3/uL [facility] Monocytes Absolute Auto 0.4 0.1 - 1.2 X10*3/uL [facility] Eosinophils Absolute Auto 0.6(H) 0.0 - 0.4 X10*3/uL [facility] Basophils Absolute Auto 0.0 0.0 - 0.2 X10*3/uL [facility] NRBC Abs Auto 0.000 0.0 - 0.012 X10*3/uL [facility] 08/25/2024 10:3 0 AM EST 08/25/2024 10:30 AM EST us Generic External Data Provider LAB BLOOD ORDERAB LES Final Result Performing Organization Address [facility]/ZIP Co de Phone Number [facility] [address] [place] [phone] * TSH with Reflex to Free T4 (08/03/2024 10:36 AM EST) TSH reflex Free T4 1.46 0.32 - 4.0 uIU/mL [facility] Blood 08/03/2024 10:3 6 AM EST 08/03/2024 1:12 PM EST us Maryam Bloom MD LAB BLOOD ORDERABLES Fin al Result Performing Organization Address [facility] Co de Phone Number [facility] [address] [place] [phone] * (ABNORMAL) Lipid Panel with Reflex to Direct LDL (08/03/2024 10:36 AM EST) Triglycerides 106 <150 mg/dL [facility] Comment:Desirable Triglyceri de: less than 150 mg/dLBorderline High Triglyceride 150-199 mg/dLHigh Triglyceride: 200-499 mg/dLVery High Triglyceride: greater than or equal to 5OO mg/dL Cholesterol 185 <200 mg/dL [facility] Comment:Desirable Cholestero l: less than 200 mg/dLBorderline High Cholesterol: 200-239 mg/dLHigh Cholesterol: greater than 239 mg/dL LDL Cholesterol Calculated 119(H) <100 mg/dL [facility] Comment:Desirable LDL: less than 100 mg/dLNear Optimal/Above Optimal LDL: 110- 129 mg/dLBorderline High LDL: 130-159 mg/dLHigh LDL: 160-189 mg/dLVery High LDL: greater than or equal to 190 mg/dL HDL Cholesterol 45 >40 mg/dL [facility] Comment:Desirable HDL: great er than 40 mg/dL Note: This HDL assay may give artificially low results in patients with liver disease. Blood 08/03/2024 10:3 6 AM EST 08/03/2024 1:12 PM EST Maryam Bloom MD LAB BLOOD ORDERABLES Fin al Result Performing Organization Address [facility]/ZIP Co de Phone Number [facility] [address] [place] [phone] * Hemoglobin A1c (08/03/2024 10:36 AM EST) Hemoglobin A1c 5.2 <6.0 % [facility] Comment:Hemoglobin A1C Refer ence Range Adults: 4.8 - 6.0 % Non diabetic: < 6.0 % Goal: < 7.0 %Additional Action Suggested: > 8.0 %Note: Hemoglobin A1c results are invalid for patients with abnormal amounts of HbF. Blood transfusions may impact the HbA1c concentration in the patient sample. Estimated Average Glucose 103 mg/dL [facility] Comment:eAG = Estimated ave rage glucose which is %A1C expressed asaverage glucose, using the formula of the [id number] Glucose study (ADAG), Diabetes Care, Vol.31,#8,Mar. 2007 Blood Venous blood specimen / Unknown 08/03/2024 10:36 AM EST 08/03/2024 1:12 PM EST us Maryam Bloom MD LAB BLOOD ORDERABLES Fin al Result Performing Organization Address [facility]/ZIP Co de Phone Number [facility] [address] [place] [phone] * (ABNORMAL) Comprehensive Metabolic Panel (08/03/2024 10:36 AM EST) Sodium 140 135 - 145 mmol/L [facility] Potassium 4.5 3.3 - 5.1 mmol/L [facility] Comment:Slight Hemolysis.Int erpret result with caution. Chloride 107 96 - 108 mmol/L [facility] Carbon Dioxide 27 22 - 29 mmol/L [facility] Anion Gap 11(L) 12 - 20 [facility] Urea Nitrogen (BUN) 15 9 - 16 mg/dL [facility] Creatinine, Serum 1.40 0.5 - 1.4 mg/dL [facility] Estimated Glomerular Filt Rate 56 [facility] Comment:Chronic Kidney Disea se: Estimated GFR < 60 mL/min/1.73u2Wngayi Kidney Disease: Estimated GFR < 15 mL/min/1.73m2 Glucose 110 60 - 115 mg/dL [facility] Calcium 8.8 8.4 - 10.2 mg/dL [facility] Bilirubin, Total 0.4 0.0 - 1.0 mg/dL [facility] Aspartate Amino Transferase 30 5 - 37 U/L [facility] Comment:Slight Hemolysis.Int erpret result with caution. Alanine Aminotransferase 27 0 - 40 U/L [facility] Total Protein 7.5 6.5 - 8.0 g/dL [facility] Albumin Level 4.4 3.5 - 5.0 g/dL [facility] Alkaline Phosphatase 92 39 - 117 U/L [facility] Blood Venous blood specimen / Unknown 08/03/2024 10:36 AM EST 08/03/2024 1:12 PM EST us Maryam Bloom MD LAB BLOOD ORDERABLES Fin al Result [facility] [address] [place] [phone] * HEPATITIS C AB W/REFL TO HCV RNA, QN, PCR (03/05/2021 9:50 AM EDT) HEPATITIS C ANTIBODY NON-REACT STANISLAW NON-REACT STANISLAW [facility] INDEX 0.01 <1.00 [facility] Comment: ?? HCV antibody was non-reactive. There is no laboratory ?? evidence of HCV infection. ?? In most cases, no further action is required. However, if recent HCV exposure is suspected, a test for HCV RNA (test code 65549) is suggested. ?? For additional information please refer to http://[employer]/faq/UBI85i8 (This link is being provided for informational/ educational purposes only.) ?? 03/05/2021 9:50 AM EDT Maryam Bloom MD HISTORICAL/NON ORDERABLE LABS Final Result [facility] [address] * HIV 1/2 ANTIGEN/ANTIBODY,FOURTH GENERATION W/RFL (03/05/2021 9:50 AM EDT) HIV-1/2 ANTIGEN AND ANTIBODIES, 4TH GENERATION W/ REFLEX NON-REACT STANISLAW NON-REACT STANISLAW [facility] Comment: HIV-1 antigen and [...] ? For additional information please refer to http://[employer]/faq/RUG643 (This link is being provided for informational/ educational purposes only.) ? The performance of this assay has not been clinically validated in patients less than 2 years old. ?? 03/05/2021 9:50 AM EDT Maryam Bloom MD LAB BLOOD ORDERABLES Fin al Result [facility] [address] from Last 3 Months or Most Recently Relevant to Health Maintenance Insurance [facility] STANDARD DENTAL-[facility] MEDICAID STAND ADULT Care Teams Community Support Specialist Relationship Specialty Start Date End Date Maryam Bloom MD [address] [place] [phone] PCP - General Family Medicine 05/12/19
--- OUTSIDE RECORDS SUMMARY | 2024-10-06 11:16 | XMS_ITS | Encounter Summary ---
Author Organization [employer] Address [address] [place] [address] Care Team Providers Care Materials And Corrosion Engineer Name Role Phone Maryam Bloom MD Primary Care Provider + Encounter Details Date Type Department Care Team (Late st Contact Info) Description 12/09/2022 Telephone [facility] [address] [place], [place] [phone] Maryam Bloom MD [address] [place] [address] Social History Tobacco Use Types Packs/Day Years [...] this Friday. Will see DDS tomorrow in [facility]. Advised to take Lovenox that he has at home by RN ,dose not known at time of call. Will recheck INR on Friday12/13/22. Please update PCP with above and follow with Brittaney ORDAZ if indicated. documented in this encounter Plan of Treatment Upcoming Encounters Date Type Department Care Team (Late st Contact Info) Description 12/03/2024 10:30 AM EDT Office Visit [facility] [address] [place] [address] Maryam Bloom MD [address] [place] [address] documented as of this encounter Visit Diagnoses Not on filedocumented in this encounter Care Teams Materials And Corrosion Engineer Relationship Specialty Start Date End Date Maryam Bloom MD [address] [place] [address] PCP - General Family Medicine 05/12/19 documented as of this encounter
--- OUTSIDE RECORDS SUMMARY | 2024-10-06 11:16 | XMS_ITS | Encounter Summary ---
Author Organization [employer] Address 75 [facility] 7t [place] [address] Care Team Providers Care Weekend Receptionist Name Role Phone Maryam Bloom MD Primary Care Provider + Reason for Visit * Reason Onset Date Comments premed tx 01/08/2023 Encounter Details Date Type Department Care Team (Late st Contact Info) Description 01/08/2023 Telephone [facility] ADULT DENTAL [address] [place] [address] Xavi Melara, LIEN [address] [place] [address] premed tx Social History Tobacco Use Types [...] Miscellaneous Notes * Telephone Encounter - Ladonna Garcias - 01/08/2023 12:40 PM EDT Patient has a mechanical valve and 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 Can script be sent?DR documented in this encounter Plan of Treatment Upcoming Encounters Date Type Department Care Team (Late st Contact Info) Description 12/03/2024 10:30 AM EDT Office Visit [facility] MEDICINE [address], [place] [phone] Maryam Bloom MD [address] [place], [place] [phone] documented as of this encounter Visit Diagnoses Not on filedocumented in this encounter Care Teams Weekend Receptionist Relationship Specialty Start Date End Date Maryam Bloom MD [address] [place], [place] [phone] PCP - General Family Medicine 05/12/19 documented as of this encounter
--- OUTSIDE RECORDS SUMMARY | 2024-10-06 11:16 | XMS_ITS | Encounter Summary ---
Author Organization [employer] Address 75 [facility] 7t [place] [address] Care Team Providers Care Ticket Seller Name Role Phone Maryam Bloom MD Primary Care Provider + Reason for Visit * Reason Onset Date Comments Med Refill 10/04/2024 Call Back Request 10/04/2024 Encounter Details Date Type Department Care Team (Late st Contact Info) Description 10/04/2024 Telephone [facility] MEDICINE [address] [place] [address] Maryam Bloom MD [address] [place], [place] [phone] Med Refill; Call Back Request Social History Tobacco Use Types Packs/Day Years [...] Telephone Encounter - Alejandra Adler RN - 10/04/2024 4:47 PM EST Maryam Bloom MD at 10/04/2024 4:28 PM Status: Signed Re allergy, have him reach out to recharger to adjust meds as needed prn allergy testing or prescribe both if appropriate, it is not a standard practice and I don't see a recent recharger note with that POC. I can send either or, he can get OTC meds as well. TC placed to patient [phone] in regards to above message. Patient did not answer, RN left requesting CB to red team nurses. TC placed to significant other [phone] however patient was notpresent and he does not have anyone on his HIPAA. Significant other advised to return call to [facility] when patient is present for verbal permission. Significant other verbalized understanding. Patient tof/u PRN. * Telephone Encounter - Alejandra Adler RN - 10/04/2024 4:03 PM EST Patients significant other returned call to [facility], patient provided verbal consent for RN to speak Hola. Pamela informed of below message regarding patient reporting s/s continued with claritin and zyrtec and provider changed medication to Clarinex. Significant other reports at the last appointment she notified PCP that the patients streets and buildings decorator stated he should be on BOTH zyrtec AND clarinex at the same time. Significant other also reports the patient has started the allergy injections (Fasenra) and his first dose was 09/30/24 and his second dose will be on 10/28/24. Please review regarding patient being on Zyrtec AND clarinex at the same time. Thank you! * Telephone Encounter - Alejandra Adler RN - 10/04/2024 1:05 PM EST TC placed to patient [phone] in regards to below message. Patient did not answer, RN left VM requesting CB to red team nurses. TC placed to [phone] however also no answer, RN left requesting CB to red team nurses. Patient to f/u PRN. Per chart notes on 08/03/24: Allergic rhinitis Pt still has symptoms on Kaur and Zyrtec. Will prescribe Desloratadine. * Telephone Encounter - Kamila Travis - 10/04/2024 11:22 AM EST Tc from pt fiance requesting a call back regarding below. States wants to explain why pt needs medication. * Telephone Encounter - Kjaal Peck LPN - 10/04/2024 9:38 AM EST Medication requested was discontinued * Telephone Encounter - Don Norris - 10/04/2024 9:15 AM EST TC from pt requesting medication refill. Medications needing refill : cetirizine (ZyrTEC) 10 MG tablet To be sent to: [facility]/pharmacy #[id number] - [place], [place] - [address] [place] [address] documented in this encounter Plan of Treatment Upcoming Encounters Date Type Department Care Team ([facility] st Contact Info) Description 12/03/2024 10:30 AM EDT Office Visit [facility] MEDICINE [address] [place] [address] Maryam Bloom MD [address] [place] [phone] documented as of this encounter Visit Diagnoses Not on filedocumented in this encounter Additional Health Concerns Assessment Noted Time PHQ-9 Depression Total Score: 0 08/03/20 9:59 AM EST documented as of this encounter Care Teams Ticket Seller Relationship Specialty Start Date End Date Maryam Bloom MD [address] [place] [phone] PCP - General Family Medicine 05/12/19 documented as of this encounter
--- OUTSIDE RECORDS SUMMARY | 2024-10-06 11:16 | XMS_ITS | Encounter Summary ---
Author Organization [employer] Address 75 [facility] 7t [place] [address] Care Team Providers Care Network Support Technician Name Role Phone Maryam Bloom MD Primary Care Provider + Encounter Details Date Type Department Care Team (Late st Contact Info) Description 09/12/2022 Orders Only [facility] MED & PEDS [address] [place], [place] [phone] Cora Hamilton LPN Social History Tobacco Use [...] Description 12/03/2024 10:30 AM EDT Office Visit [facility] MEDICINE [address] [place] [address] Maryam Bloom MD [address] [place], [place] [phone] documented as of this encounter Visit Diagnoses Not on filedocumented in this encounter Care Teams Network Support Technician Relationship Specialty Start Date End Date Maryam Bloom MD [address] [place], [place] [phone] PCP - General Family Medicine 05/12/19 documented as of this encounter
--- OUTSIDE RECORDS SUMMARY | 2024-10-06 11:16 | XMS_ITS | Encounter Summary ---
Author Organization [employer] Address 75 [facility] 7t [place] [address] Care Team Providers Care Delivery Supervisor Name Role Phone Maryam Bloom MD Primary Care Provider + Reason for Visit * Reason Onset Date Comments Coagulation Disorder 12/05/2022 Encounter Details Date Type Department Care Team (Late st Contact Info) Description 12/05/2022 Telephone [facility] MEDICINE [address] [place] [address] Maryam Bloom MD [address] [place], [place] [phone] Coagulation Disorder Social History Tobacco Use Types [...] 12/05/2022 2:58 PM EDT RN called pt [phone] in regards to below message however no answer, RN left VM requesting CB to red team nurses. TC returned to [phone] however no answer, RN left VM requesting CB to red team nurses. Pt to F/U PRN. * Telephone Encounter - Darlin Zavala - 12/05/2022 2:38 PM EDT Tc from pt Spouse requesting a call regarding message below. Please contact pt spouse at [phone] * Telephone Encounter - Tri Roman LPN [...] Description 12/03/2024 10:30 AM EDT Office Visit [facility] MEDICINE [address] [place] [address] Maryam Bloom MD [address] [place] [address] documented as of this encounter Visit Diagnoses Not on filedocumented in this encounter Care Teams Delivery Supervisor Relationship Specialty Start Date End Date Maryam Bloom MD [address] [place] [address] PCP - General Family Medicine 05/12/19 documented as of this encounter
--- OUTSIDE RECORDS SUMMARY | 2024-10-06 11:16 | XMS_ITS | Encounter Summary ---
Author Organization [employer] Address [address] [facility] [address] 7t [place] [address] Care Team Providers Care Flat Sorter Processor Name Role Phone Maryam Bloom MD Primary Care Provider + Encounter Details Date Type Department Care Team (Late st Contact Info) Description 10/06/2024 Orders Only GENERIC EXTERNAL DATA [...] Description 12/03/2024 10:30 AM EDT Office Visit [facility] MEDICINE [address] [place] [address] Maryam Bloom MD [address] [place] [address] documented as of this encounter Procedures Procedure Name Priority Date/Time Associated Diagnosis Comments PROTHROMBIN TIME WHOLE BLD POC Routine 10/06/2024 9:54 AM EST ~PT, ~INR - ANTI COAG CLINIC Routine 10/06/2024 9:54 AM EST documented in this encounter Results * (ABNORMAL) PROTHROMBIN TIME WHOLE BLD POC (10/06/2024 9:54 AM EST) Protime 29.3(H) 11.1 - 13.5 sec [facility] 10/06/2024 9:54 AM EST 10/06/2024 9:55 AM EST us Generic External Data Provider LAB BLOOD ORDERAB LES Final Result [facility] [address] [place] [phone] * (ABNORMAL) ~PT, ~INR - ANTI COAG CLINIC (10/06/2024 9:54 AM EST) Prothrombin Time INR 2.4(H) 0.9 - 1.1 [facility] Comment:METER #: [id number] TERNATIONAL NORMALIZED RATIO (INR) REFERENCE RANGES Reference [...] 9:54 AM EST 10/06/2024 9:55 AM EST us Generic External Data Provider LAB BLOOD ORDERAB LES Final Result Performing Organization Address City/State/[facility] Co de Phone Number [facility] [address] [place] [phone] documented in this encounter Visit Diagnoses Not on filedocumented in this encounter Additional Health Concerns Assessment Noted Time PHQ-9 Depression Total Score: 0 08/03/20 24 9:59 AM EST documented as of this encounter Care Teams Flat Sorter Processor Relationship Specialty Start Date End Date Maryam Bloom MD [address] [place] [phone] PCP - General Family Medicine 05/12/19 documented as of this encounter
== END 2024-10-06 10:06 | disposition home or self-care (01) ==
LOC: HO.ACS 09:43
PROVIDERS: PCP Internal Medicine; Visit Provider Internal Medicine
DX: Z79.01 Long term (current) use of anticoagulants (principal)

== ENCOUNTER → 2024-10-06 09:43 | Outpatient (BNVA) | payer MEDICAID, SELFPAY | PROVIDERS: PCP Internal Medicine; Visit Provider Internal Medicine | DX: Z95.2 Presence of prosthetic heart valve (principal); Z79.01 Long term (current) use of anticoagulants; Z51.81 Encounter for therapeutic drug level monitoring | CPT/HCPCS: 85610; 99211 ==

== ENCOUNTER 2024-10-20 09:32 | Outpatient (AMB) | payer MEDICAID, SELFPAY ==
[2024-10-20 09:50] LABS: Prothrombin Time Whole Bld POC 26.2 sec (11.1-13.5); ~PT, ~INR - Anti Coag Clinic 2.2 (0.9-1.1)
--- NOTE | 2024-10-20 09:56 | MHC.OFFVISCO ---
Intake Intake Visit Reasons: Anticoagulation Allergies No Known Allergies [No Known Allergies*] Allergy (Verified 10/20/24 09:45) Medication List - Last Reconciled 10/20/24 by Melissa John RN acetaminophen (Tylenol) 650 mg (2 x 325 mg) PO Q6H albuterol sulfate 90 mcg/actuation 2 puffs PO Q4-6H PRN amoxicillin 2,000 mg (4 x 500 mg) PO ONCE 1 day buprenorphine-naloxone 4-1 mg (Suboxone) 5 mg sublingual BID cetirizine 10 mg PO DAILY chlorhexidine gluconate 0.12% PO desloratadine (Clarinex) 5 mg PO DAILY fexofenadine 180 mg PO DAILY fluoxetine 20 mg PO QAM fluticasone propion-salmeterol 230-21 mcg/actuation (Advair HFA) 2 puffs inhalation fluticasone propionate 50 mcg/actuation 1 spray intranasal DAILY gabapentin 300 mg PO BID hydrocortisone 2.5% topical DAILY hydroxyzine pamoate 25 mg PO BEDTIME PRN ketoconazole 2% appl topical lamotrigine 200 mg PO lithium carbonate 0 mg PO warfarin 7.5 mg See Protocol PO DAILY Nursing Note NO CP,SOB,DIET/MED CHANGES,FALLS OR SX OF BLEEDING. BOOST WARFARIN TODAY THEN INCREASE WEEKLY DOSE AND FOLLOW-UP IN 2 WEEKS. NO GREENS 2 DAYS WILL INCREASE REDS GOOD UNDERSTANDING OF DOSING INSTR. Anti-Coag Initial Assessment Social Hx Patient Tobacco Use Status: Current everyday Tobacco user Tobacco use type: Cigarette alcohol intake: former Coding Level of Care Code Est Patient Level 1 Diagnoses Current use of anticoagulant therapy Z79.01 Assessment & Plan Assessment & Plan (1) Current use of anticoagulant therapy: Code(s): Z79.01 - snf (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
--- OUTSIDE RECORDS SUMMARY | 2024-10-20 10:25 | XMS_ITS | Clinical Summary ---
Author Organization 175 [facility] Address [address] [place] [phone] Phone Care Team Providers Care Satellite Installation Technician Name Role Phone Maryam Bloom MD Primary Care Provider Social History Tobacco Use Types Packs/Day Years Used Date Smoking Tobacco: Never Assessed Sex and Gender Information Value Date Recorded Sex Assigned at Not on file Legal Sex Male 2:05 PM EST Gender Identity Not on file Sexual Orientation Not on file Plan of Treatment Upcoming Encounters Date Type Department Care Team ([facility] Contact Info) Description 11/04/2024 9:15 AM EDT Consult Orthopedic Surgery - [place] [address] [phone] Lorenzo Weiner, DPM [address] [address] Health Maintenance Due Date Last Done Comments [...] topic Insurance MEDICAID - [place] Care Teams Satellite Installation Technician Relationship Specialty Start Date End Date Maryam Bloom MD [address] [place] [phone] PCP - General Internal Medicine 07/14/24
--- OUTSIDE RECORDS SUMMARY | 2024-10-20 10:25 | XMS_ITS | Encounter Summary ---
Author Organization [employer] Address [address] [facility] [address] 7t [place] [address] Care Team Providers Care Engraver Copperplate Name Role Phone Maryam Bloom MD Primary Care Provider + Reason for Visit * Reason Comments Med Refill Encounter Details Date Type Department Care Team (Late st Contact Info) Description 12/25/2023 Refill [facility] MEDICINE [address] [place], [place] [phone] Maryam Bloom MD [address] [place], [place] [phone] Allergic rhinitis, unspecified seasonality, unspecified trigger Social [...] Description 12/03/2024 10:30 AM EDT Office Visit [facility] MEDICINE [address] [place] [phone] Maryam Bloom MD [address] [place] [address] documented as of this encounter Visit Diagnoses Diagnosis Allergic rhinitis, unspecified seasonality, unspecified trigger documented in this encounter Care Teams Engraver Copperplate Relationship Specialty Start Date End Date Maryam Bloom MD [address] [place] [phone] PCP - General Family Medicine 05/12/19 documented as of this encounter
--- OUTSIDE RECORDS SUMMARY | 2024-10-20 10:25 | XMS_ITS | Encounter Summary ---
Author Organization [employer] Address 75 [facility] 7t [place] [address] Care Team Providers Care Financial Coach Name Role Phone Maryam Bloom MD Primary Care Provider + Reason for Visit * Reason Onset Date Comments Med Refill 10/04/2024 Call Back Request 10/04/2024 Encounter Details Date Type Department Care Team (Late st Contact Info) Description 10/04/2024 Telephone [facility] MEDICINE [address] [place] [address] Maryam Bloom MD [address] [place], [place] [phone] Med Refill; Call Back Request Social History [...] Re allergy, have him reach out to stem maker to adjust meds as needed prn allergy testing or prescribe both if appropriate, it is not a standard practice and I don't see a recent stem maker note with that POC. I can send either or, he can get OTC meds as well. TC placed to patient [phone] in regards to above message. Patient did not answer, RN left requesting CB to red team nurses. TC placed to significant other [phone] however patient was notpresent and he does not have anyone on his HIPAA. Significant other advised to return call to [facility] when patient is present for verbal permission. Significant other verbalized understanding. Patient tof/u PRN. * Telephone Encounter - Alejandra Adler RN - 10/04/2024 4:03 PM EST Patients significant other returned call to [facility], patient provided verbal consent for RN to speak Hola. Pamela informed of below message regarding patient reporting s/s continued with claritin and zyrtec and provider changed medication to Clarinex. Significant other reports at the last appointment she notified PCP that the patients architecture technician stated he should be on BOTH zyrtec [...] 1:05 PM EST TC placed to patient [phone] in regards to below message. Patient did not answer, RN left VM requesting CB to red team nurses. TC placed to [phone] however also no answer, RN left requesting [...] pt needs medication. * Telephone Encounter - Kajal Peck LPN - 10/04/2024 9:38 AM EST Medication requested was discontinued * Telephone Encounter - Don Norris - 10/04/2024 9:15 AM EST TC from pt requesting medication refill. Medications needing refill : cetirizine (ZyrTEC) 10 MG tablet To be sent to: [facility]/pharmacy #[id number] - [place], [place] - [address] [place] [address] documented in this encounter Plan of Treatment Upcoming Encounters Date Type Department Care Team ([facility] st Contact Info) Description 12/03/2024 10:30 AM EDT Office Visit [facility] MEDICINE [address] [place] [address] Maryam Bloom MD [address] [place] [address] documented as of this encounter Visit Diagnoses Not on filedocumented in this encounter Additional Health Concerns Assessment Noted Time PHQ-9 Depression Total Score: 0 08/03/20 9:59 AM EST documented as of this encounter Care Teams Financial Coach Relationship Specialty Start Date End Date Maryam Bloom MD [address] [place] [address] PCP - General Family Medicine 05/12/19 documented as of this encounter
--- OUTSIDE RECORDS SUMMARY | 2024-10-20 10:25 | XMS_ITS | Encounter Summary ---
Author Organization [employer] Address [address] [facility] [address] 7t [place] [address] Care Team Providers Care Tanning Wheel Filler Name Role Phone Maryam Bloom MD Primary Care Provider + Reason for Visit * Reason Comments Med Refill Encounter Details Date Type Department Care Team (Late st Contact Info) Description 10/02/[address] [facility] MEDICINE [address] [place] [address] Maryam Bloom MD [address] [place], [place] [phone] Allergic rhinitis, unspecified seasonality, unspecified trigger Social [...] Description 12/03/2024 10:30 AM EDT Office Visit [facility] MEDICINE [address] [place] [address] Maryam Bloom MD [address] [place] [address] documented as of this encounter Visit Diagnoses Diagnosis Allergic rhinitis, unspecified seasonality, unspecified trigger documented in this encounter Additional Health Concerns Assessment Noted Time PHQ-9 Depression Total Score: 0 08/03/20 24 9:59 AM EST documented as of this encounter Care Teams Tanning Wheel Filler Relationship Specialty Start Date End Date Maryam Bloom MD [address] [place] [address] PCP - General Family Medicine 05/12/19 documented as of this encounter
--- OUTSIDE RECORDS SUMMARY | 2024-10-20 10:25 | XMS_ITS | Encounter Summary ---
Author Organization [employer] Address [address] [facility] [address] 7t [place] [address] Care Team Providers Care Oakes Machine Operator Name Role Phone Maryam Bloom MD [...] Description 12/03/2024 10:30 AM EDT Office Visit [facility] MEDICINE [address] [place] [address] Maryam Bloom MD [address] [place] [address] documented as of this encounter Procedures Procedure Name Priority Date/Time Associated Diagnosis Comments PROTHROMBIN TIME WHOLE BLD POC Routine 09/22/2024 9:24 AM EST ~PT, ~INR - ANTI COAG CLINIC Routine 09/22/2024 9:24 AM EST documented in this encounter Results * (ABNORMAL) PROTHROMBIN TIME WHOLE BLD POC (09/22/2024 9:24 AM EST) Protime 38.3(H) 11.1 - 13.5 sec [facility] 09/22/2024 9:24 AM EST 09/22/2024 9:26 AM EST us Generic External Data Provider LAB BLOOD ORDERAB LES Final Result [facility] [address] [place] [phone] * (ABNORMAL) ~PT, ~INR - ANTI COAG CLINIC (09/22/2024 9:24 AM EST) Prothrombin Time INR 3.2(H) 0.9 - 1.1 [facility] Comment:METER #: [id number] TERNATIONAL NORMALIZED RATIO (INR) REFERENCE RANGES Reference [...] ORDERAB LES Final Result Performing Organization Address City/State/[facility] Co de Phone Number [facility] [address] [place] [phone] documented in this encounter Visit Diagnoses Not on filedocumented in this encounter Additional Health Concerns Assessment Noted Time PHQ-9 Depression Total Score: 0 08/03/20 24 9:59 AM EST documented as of this encounter Care Teams Oakes Machine Operator Relationship Specialty Start Date End Date Maryam Bloom MD [address] [place] [address] PCP - General Family Medicine 05/12/19 documented as of this encounter
--- OUTSIDE RECORDS SUMMARY | 2024-10-20 10:25 | XMS_ITS | Encounter Summary ---
Author Organization [employer] Address 75 [facility] [address] 7t [place] [address] Care Team Providers Care Tool And Cutter Grinder Name Role Phone Maryam Bloom MD Primary Care Provider + Encounter Details Date Type Department Care Team (Late st Contact Info) Description 09/30/2024 Telephone [facility] [address] [place] [address] Marlin Rizvi, OD [address] [place] [address] Social History Tobacco Use Types Packs/Day Years [...] Office Visit [facility] MEDICINE [address] [place] [address] Maryam Bloom MD 230 [place] [address] documented as of this encounter Visit Diagnoses Not on filedocumented in this encounter Additional Health Concerns Assessment Noted Time PHQ-9 Depression Total Score: 0 08/03/20 24 9:59 AM EST documented as of this encounter Care Teams Tool And Cutter Grinder Relationship Specialty Start Date End Date Maryam Bloom MD 230 [place] [address] PCP - General Family Medicine 05/12/19 documented as of this encounter
--- OUTSIDE RECORDS SUMMARY | 2024-10-20 10:26 | XMS_ITS | Encounter Summary ---
Author Organization [employer] Address [address] [facility] [address] 7t [place] [address] Care Team Providers Care Game Tester Name Role Phone Maryam Bloom MD Primary Care Provider + Encounter Details Date Type Department Care Team (Late st Contact Info) Description 10/04/2024 Orders Only [facility] MEDICINE [address] [place], [place] [phone] Maryam Bloom MD [address] [place], [place] [phone] Social History Tobacco Use Types Packs/Day Years [...] Re allergy, have him reach out to litigation claim representative to adjust meds as needed prn allergy testing or prescribe both if appropriate, it is not a standard practice and I don't see a recent litigation claim representative note with that POC. I can send either or, he can get OTC meds as well. documented in this encounter Plan of Treatment Upcoming Encounters Date Type Department Care Team (Late st Contact Info) Description 12/03/2024 10:30 AM EDT Office Visit [facility] MEDICINE [address] [place] [address] Maryam Bloom MD [address] [place] [address] documented as of this encounter Visit Diagnoses Not on filedocumented in this encounter Additional Health Concerns Assessment Noted Time PHQ-9 Depression Total Score: 0 08/03/20 9:59 AM EST documented as of this encounter Care Teams Game Tester Relationship Specialty Start Date End Date Maryam Bloom MD [address] [place] [address] PCP - General Family Medicine 05/12/19 documented as of this encounter
--- OUTSIDE RECORDS SUMMARY | 2024-10-20 10:26 | XMS_ITS | Encounter Summary ---
Author Organization [employer] Address [address] [facility] [address] 7t [place] [address] Care Team Providers Care Health Underwriter Name Role Phone Maryam Bloom MD Primary Care Provider + Reason for Visit * Reason Onset Date Comments Coagulation Disorder 12/05/2022 Encounter Details Date Type Department Care Team (Late st Contact Info) Description 12/05/2022 Telephone [facility] [address] [place] [address] Maryam Bloom MD [address] [place], [place] [phone] Coagulation Disorder Social History Tobacco Use Types [...] 12/05/2022 2:58 PM EDT RN called pt [phone] in regards to below message however no answer, RN left VM requesting CB to red team nurses. TC returned to [phone] however no answer, RN left VM requesting CB to red team nurses. Pt to F/U PRN. * Telephone Encounter - Darlin Zavala - 12/05/2022 2:38 PM EDT Tc from pt Spouse requesting a call regarding message below. Please contact pt spouse at [phone] * Telephone Encounter - Tri Roman LPN [...] Description 12/03/2024 10:30 AM EDT Office Visit [facility] [address] [place] [address] Maryam Bloom MD [address] [place] [address] documented as of this encounter Visit Diagnoses Not on filedocumented in this encounter Care Teams Health Underwriter Relationship Specialty Start Date End Date Maryam Bloom MD [address] [place] [phone] PCP - General Family Medicine 05/12/19 documented as of this encounter
--- OUTSIDE RECORDS SUMMARY | 2024-10-20 10:26 | XMS_ITS | Encounter Summary ---
Author Organization [employer] Address [address] [facility] [address] [place] [address] Care Team Providers Care Knifeman Name Role Phone Maryam Bloom MD Primary Care Provider + Encounter Details Date Type Department Care Team (Late st Contact Info) Description 10/20/2024 Orders Only GENERIC EXTERNAL DATA DEPARTMENT Provider, [...] Description 12/03/2024 10:30 AM EDT Office Visit [facility] [address] [place] [address] Maryam Bloom MD [address] [place], [place] [phone] documented as of this encounter Procedures Procedure Name Priority Date/Time Associated Diagnosis Comments PROTHROMBIN TIME WHOLE BLD POC Routine 10/20/2024 9:47 AM EDT ~PT, ~INR - ANTI COAG CLINIC Routine 10/20/2024 9:47 AM EDT documented in this encounter Results * (ABNORMAL) PROTHROMBIN TIME WHOLE BLD POC (10/20/2024 9:47 AM EDT) Protime 26.2(H) 11.1 - 13.5 sec [facility] 10/20/2024 9:47 AM EDT 10/20/2024 9:50 AM EDT us Generic External Data Provider LAB BLOOD ORDERAB LES Final Result [facility] [address] [place] [address] [phone] * (ABNORMAL) ~PT, ~INR - ANTI COAG CLINIC (10/20/2024 9:47 AM EDT) Prothrombin Time INR 2.2(H) 0.9 - 1.1 [facility] Comment:METER #: [id number] TERNATIONAL NORMALIZED RATIO (INR) REFERENCE RANGES Reference RangeFor patients not on anticoagulant therapy: 0.9 - 1.1INR ranges for oral anticoagulanttherapy:For prevention and treatment of venous thrombosis and pulmonary embolism: 2.0 - 3.0For acute myocardial infarction with aspirin therapy: 2.0 - 3.0For acute myocardial infarction without aspirin therapy: 3.0 - 4.0For patients with mechanical prosthetic heart valves: 2.5 - 3.5 10/20/2024 9:47 AM EDT 10/20/2024 9:50 AM EDT us Generic External Data Provider LAB BLOOD ORDERAB LES Final Result Performing Organization Address City/State/[facility] Co de Phone Number [facility] [address] [place] [phone] documented in this encounter Visit Diagnoses Not on filedocumented in this encounter Additional Health Concerns Assessment Noted Time PHQ-9 Depression Total Score: 0 08/03/20 24 9:59 AM EST documented as of this encounter Care Teams Knifeman Relationship Specialty Start Date End Date Maryam Bloom MD [address] [place] [phone] PCP - General Family Medicine 05/12/19 documented as of this encounter
--- OUTSIDE RECORDS SUMMARY | 2024-10-20 10:26 | XMS_ITS | Encounter Summary ---
Author Organization [employer] Address [address] [facility] [address] [address] 7[address] [place] [address] Care Team Providers Care Supply Chain Coordinator Name Role Phone Maryam Bloom MD Primary [...] Description 12/03/2024 10:30 AM EDT Office Visit [facility]INE [address] [place] [address] Maryam Bloom MD [address] [place] [address] documented as of this encounter Procedures Procedure [...] [facility] [address] [place] [address] [phone] * (ABNORMAL) ~PT, ~INR - ANTI COAG CLINIC (10/06/2024 9:54 AM EST) Prothrombin Time INR 2.4(H) 0.9 - 1.1 [facility] Comment:METER #: [id number] TERNATIONAL NORMALIZED RATIO (INR) REFERENCE RANGES Reference [...] ORDERAB LES Final Result Performing Organization Address City/State/[facility] Co de Phone Number [facility] [address] [place] [phone] documented in this encounter Visit Diagnoses Not on filedocumented in this encounter Additional Health Concerns Assessment Noted Time PHQ-9 Depression Total Score: 0 08/03/20 24 9:59 AM EST documented as of this encounter Care Teams Supply Chain Coordinator Relationship Specialty Start Date End Date Maryam Bloom MD [address] [place] [phone] PCP - General Family Medicine 05/12/19 documented as of this encounter
--- OUTSIDE RECORDS SUMMARY | 2024-10-20 10:26 | XMS_ITS | Encounter Summary ---
Author Organization [employer] Address [address] [facility] [address] [facility] [address] 7t [place] [address] Care Team Providers Care Aircraft Maintenance Supervisor Name Role Phone Maryam Bloom MD Primary Care Provider + Encounter Details Date Type Department Care Team (Late st Contact Info) Description 12/09/[address] [facility] [address] [place], [place] [phone] Maryam Bloom MD [address] [place] [address] Social History Tobacco Use Types Packs/Day Years [...] this Friday. Will see DDS tomorrow in [facility]. Advised to take Lovenox that he has at home by RN ,dose not known at time of call. Will recheck INR on Friday12/13/22. Please update PCP with above and follow with Brittaney ORDAZ if indicated. documented in this encounter Plan of Treatment Upcoming Encounters Date Type Department Care Team (Late st Contact Info) Description 12/03/2024 10:30 AM EDT Office Visit [facility] [address] [place] [address] Maryam Bloom MD [address] [place] [address] documented as of this encounter Visit Diagnoses Not on filedocumented in this encounter Care Teams Aircraft Maintenance Supervisor Relationship Specialty Start Date End Date Maryam Bloom MD [address] [place] [address] PCP - General Family Medicine 05/12/19 documented as of this encounter
--- OUTSIDE RECORDS SUMMARY | 2024-10-20 10:26 | XMS_ITS | Clinical Summary ---
Author Organization [employer] Address [address] [facility] [address] 7t [place] [address] Care Team Providers Care Web Press Operator Apprentice Name Role Phone Maryam Bloom MD Primary [...] life style modifications, diet and referral to authorization specialist. Recommended to decrease soda and sugary [...] been stable with no CHF, followed by [facility] cardiology. Keep INR between 2.5 and 3.5, will order Lovenox if INR is below 2.2. Assessment & Plan (06/03/2024 1:19 PM EDT): No evidence of CHF, refer to [facility] Cardiology due for follow up. Assessment [...] Encounters Date Type Department Care Team Description 10/20/2024 Orders Only GENERIC EXTERNAL DATA DEPARTMENT Provider, Generic External Data 10/06/2024 Orders Only GENERIC EXTERNAL DATA DEPARTMENT Provider, Generic External Data 10/04/2024 Orders Only [facility] [address] [place] [address] Maryam Bloom MD 10/04/2024 Telephone [facility] [address] [place] [address] Maryam Bloom MD Med Refill; Call Back Request 10/02/2024 Refill [facility] [address] [place] [address] Maryam Bloom MD Allergic rhinitis, unspecified seasonality, unspecified trigger 09/30/2024 Telephone [facility] [address] [place] [address] Marlin Rizvi, OD 09/22/2024 Orders Only GENERIC EXTERNAL DATA DEPARTMENT Provider, Generic External Data 09/10/2024 Telephone [facility] [address] [place] [address] Maryam Bloom MD Gina recall 09/03/2024 Orders Only GENERIC EXTERNAL DATA DEPARTMENT Provider, Generic External Data 08/25/2024 Orders Only GENERIC EXTERNAL DATA DEPARTMENT Provider, Generic External Data 08/18/2024 Orders Only GENERIC EXTERNAL DATA DEPARTMENT Provider, Generic External Data 08/03/2024 10:00 AM EST Office Visit [facility] [address] [place] [address] Maryam Bloom MD Hypoxemia associated with sleep (Primary Dx); Hx of mitral valve replacement with mechanical valve; Allergic rhinitis due to animal hair and dander; Encounter for immunization 08/03/2024 Travel 08/02/2024 Telephone [facility] [address] [place] [address] Maryam Bloom MD Anticoagulation 08/02/2024 Orders Only GENERIC EXTERNAL DATA DEPARTMENT Provider, Generic External Data 07/30/2024 Telephone [facility] [address] [place] [address] Ninfa Mukherjee MA Chart prep 07/29/2024 Telephone [facility] [address] [place] [address] Maryam Bloom MD Anticoagulation 07/29/2024 Orders Only [...] Description 12/03/2024 10:30 AM EDT Office Visit [facility] [address] [place], [place] [phone] Maryam Bloom MD [address] [place] [address] Health Maintenance Due Date Last Done Comments [...] COAG CLINIC Routine 10/20/2024 9:47 AM EDT PROTHROMBIN TIME WHOLE BLD POC Routine 10/06/2024 [...] WHOLE BLD POC (10/20/2024 9:47 AM EDT) Only the most recent of7 resultswithin the time period is included. Protime 26.2(H) 11.1 - 13.5 sec [facility] 10/20/2024 9:47 AM EDT 10/20/2024 9:50 AM EDT us Generic External Data Provider LAB BLOOD ORDERAB LES Final Result [facility] [address] [place] [address] [phone] * (ABNORMAL) ~PT, ~INR - ANTI COAG CLINIC (10/20/2024 9:47 AM EDT) Only the most recent of7 resultswithin the time period is included. Prothrombin Time INR 2.2(H) 0.9 - 1.1 [facility] Comment:METER #: [id number] TERNATIONAL NORMALIZED RATIO (INR) REFERENCE RANGES Reference [...] Provider LAB BLOOD ORDERAB LES Final Result [facility] [address] [place] [address] [phone] * (ABNORMAL) Respiratory Allergy Profile Region I (08/25/2024 10:30 AM EST) Immunoglobulin E 100 <QM=602 kU/L [facility] Mouse Urine Proteins (E72) IgE 0.23(A) kU/L [facility] Class 0/1 [facility] Cockroach (I6) IgE 0.27(A) kU/L [facility] Class 0/1 [facility] Dermatophagoides farinae (D2) IgE 3.74(A) kU/L [facility] Class 3 [facility] Cat Dander (E1) IgE 19.00(A) kU/L [facility] Class 4 [facility] Comment:THIS TEST WAS PERFOR MED AT:[facility] [address] [id number] SALEH MD Dog Dander (E5) IgE 3.70(A) kU/L [facility] Class 3 [facility] Comment:THIS TEST WAS PERFOR MED AT:[facility] [address] [phone] SALEH MD Nickolas Grass (G6) IgE 0.33(A) kU/L [facility] Class 0/1 [facility] Cladosporium herbarum (M2) IgE <0.10 kU/L [facility] Class 0 [facility] Aspergillus Fumigatis (M3) IgE <0.10 kU/L [facility] Class 0 [facility] Alternaria alternata (M6) IgE <0.10 kU/L [facility] Class 0 [facility] Comment:THIS TEST WAS PERFOR MED AT:[facility] [address] [phone] SALEH MD Mountain Hood (t6) IgE <0.10 kU/L [facility] Class 0 [facility] Kenvil (T7) IgE 0.43(A) kU/L [facility] Class 1 [facility] D[place] Tree (T10) IgE <0.10 kU/L [facility] Class 0 [facility] Walston (T11) IgE <0.10 kU/L [facility] Class 0 [facility] Many (T14) IgE <0.10 kU/L [facility] Class 0 [facility] White Eleuterio (t15) IgE <0.10 kU/L [facility] Class 0 [facility] White [place] (T70) IgE <0.10 kU/L [facility] Class 0 [facility] Common Ragweed (Short) (W1) IgE 1.40(A) kU/L [facility] Class 2 [facility] Mugwort (w6) IgE <0.10 kU/L [facility] Class 0 [facility] Dermatophagoides pteronyssinus (D1) IgE 3.41(A) kU/L [facility] Class 2 [facility] Bermuda Grass (g2) IgE <0.10 kU/L [facility] Class 0 [facility] Penicillium Notatum (M1) IgE <0.10 kU/L [facility] Class 0 [facility] Birch (T3) IgE 3.53(A) kU/L [facility] Class 3 [facility] Elm (t8) IgE <0.10 kU/L [facility] Class 0 [facility] Maple (Kleberg) (T1) IgE <0.10 kU/L [facility] Class 0 [facility] Rough Pigweed (W14) IgE <0.10 kU/L [facility] Class 0 [facility] Sheep Dooms (W18) IgE <0.10 kU/L [facility] Class 0 [facility] Allergen Comment See Below [facility] Comment: Specific ?Level of AllergenIGE [...] and its analyticalperformance characteristics have been determined by[employer]. It has not been cleared or approvedby the U.S. Food and Drug Administration. This assayhas been validated pursuant to the CLIA regulationsand is used for clinical purposes.THIS TEST WAS PERFORMED AT:[facility] [address] ??[phone] SALEH MD 08/25/2024 10:3 0 AM EST 08/25/2024 10:30 AM EST us Generic External Data Provider LAB BLOOD ORDERAB LES Final Result [facility] [address] [place] [address] [phone] * (ABNORMAL) CBC auto differential (08/25/2024 10:30 AM EST) White Blood Count 8.0 4.8 - 10.8 X10*3/uL [facility] Red Blood Count 4.58(L) 4.60 - 5.80 X10*6/uL [facility] Hemoglobin 14.4 14.0 - 18.0 g/dl [facility] Hematocrit 43.5 42.0 - 52.0 % [facility] Mean Corpuscular Volume 95.0 80.0 - 98.0 fL [facility] Mean Corpuscular Hemoglobin 31.4 27.0 - 33.0 pg [facility] Mean Corpuscular HGB Conc 33.1 31.0 - 36.0 g/dl [facility] Red Cell Distribution Width 13.5 11.0 - 16.0 % [facility] Platelet Count 309 160 - 400 X10*3/uL [facility] Mean Platelet Volume 9.4 9.4 - 12.4 fL [facility] Neutrophils Percent Auto 64.2 45 - 73 % [facility] Imm Gran Pct Auto 0.2 0.0 - 0.4 % [facility] Lymphocytes Percent Auto 21.7 20 - 40 % [facility] Monocytes Percent Auto 5.4 2 - 11 % [facility] Eosinophils Percent Auto 8.0(H) 0 - 4 % [facility] Basophils Percent Auto 0.5 0 - 2 % [facility] NRBC Pct Auto 0.0 0.0 - 0.2 /100WBC [facility] Neutrophils Absolute Auto 5.1 2.0 - 8.3 x10*3/uL [facility] Imm Gran Abs Auto 0.02 0.00 - 0.03 X10*3/uL [facility] Lymphocytes Absolute Auto 1.7 1.2 - 4.9 X10*3/uL [facility] Monocytes Absolute Auto 0.4 0.1 - 1.2 X10*3/uL [facility] Eosinophils Absolute Auto 0.6(H) 0.0 - 0.4 X10*3/uL [facility] Basophils Absolute Auto 0.0 0.0 - 0.2 X10*3/uL [facility] NRBC Abs Auto 0.000 0.0 - 0.012 X10*3/uL [facility] 08/25/2024 10:3 0 AM EST 08/25/2024 10:30 AM EST us Generic External Data Provider LAB BLOOD ORDERAB LES Final Result Performing Organization Address City/[facility]/ZIP Co de Phone Number [facility] [address] [place] [phone] * TSH with Reflex to Free T4 (08/03/2024 10:36 AM EST) TSH reflex Free T4 1.46 0.32 - 4.0 uIU/mL [facility] Blood 08/03/2024 10:3 6 AM EST 08/03/2024 1:12 PM EST us Maryam Bloom MD LAB BLOOD ORDERABLES Fin al Result Performing Organization Address City/[facility]/ZIP Co de Phone Number [facility] [address] [place] [phone] * (ABNORMAL) Lipid Panel with Reflex to Direct LDL (08/03/2024 10:36 AM EST) Triglycerides 106 <150 mg/dL [facility] Comment:Desirable Triglyceri de: less than 150 mg/dLBorderline High Triglyceride 150-199 mg/dLHigh Triglyceride: 200-499 mg/dLVery High Triglyceride: greater than or equal to 5OO mg/dL Cholesterol 185 <200 mg/dL [facility] Comment:Desirable Cholestero l: less than 200 mg/dLBorderline High Cholesterol: 200-239 mg/dLHigh Cholesterol: greater than 239 mg/dL LDL Cholesterol Calculated 119(H) <100 mg/dL [facility] Comment:Desirable LDL: less than 100 mg/dLNear Optimal/Above Optimal LDL: 110- 129 mg/dLBorderline High LDL: 130-159 mg/dLHigh LDL: 160-189 mg/dLVery High LDL: greater than or equal to 190 mg/dL HDL Cholesterol 45 >40 mg/dL [facility] Comment:Desirable HDL: great er than 40 mg/dL Note: This HDL assay may give artificially low results in patients with liver disease. Blood 08/03/2024 10:3 6 AM EST 08/03/2024 1:12 PM EST Maryam Bloom MD LAB BLOOD ORDERABLES Fin al Result [facility] [address] [place] [phone] * Hemoglobin A1c (08/03/2024 10:36 AM EST) Hemoglobin A1c 5.2 <6.0 % [facility] Comment:Hemoglobin A1C Refer ence Range Adults: 4.8 - 6.0 % Non diabetic: < 6.0 % Goal: < 7.0 %Additional Action Suggested: > 8.0 %Note: Hemoglobin A1c results are invalid for patients with abnormal amounts of HbF. Blood transfusions may impact the HbA1c concentration in the patient sample. Estimated Average Glucose 103 mg/dL [facility] Comment:eAG = Estimated ave rage glucose which is %A1C expressed asaverage glucose, using the formula of the H2C-ZbvpklsUvzprvv Glucose study (ADAG), Diabetes Care, Vol.31,#8,Mar. 2007 Blood Venous blood specimen / Unknown 08/03/2024 10:36 AM EST 08/03/2024 1:12 PM EST us Maryam Bloom MD LAB BLOOD ORDERABLES Fin al Result [facility] [address] [place] [address] [phone] * (ABNORMAL) Comprehensive Metabolic Panel (08/03/2024 10:36 AM EST) Sodium 140 135 - 145 mmol/L [facility] Potassium 4.5 3.3 - 5.1 mmol/L [facility] Comment:Slight Hemolysis.Int erpret result with caution. Chloride 107 96 - 108 mmol/L [facility] Carbon Dioxide 27 22 - 29 mmol/L [facility] Anion Gap 11(L) 12 - 20 [facility] Urea Nitrogen (BUN) 15 9 - 16 mg/dL [facility] Creatinine, Serum 1.40 0.5 - 1.4 mg/dL [facility] Estimated Glomerular Filt Rate 56 [facility] Comment:Chronic Kidney Disea se: Estimated GFR < 60 mL/min/1.47k0Wkocvi Kidney Disease: Estimated GFR < 15 mL/min/1.73m2 Glucose 110 60 - 115 mg/dL [facility] Calcium 8.8 8.4 - 10.2 mg/dL [facility] Bilirubin, Total 0.4 0.0 - 1.0 mg/dL [facility] Aspartate Amino Transferase 30 5 - 37 U/L [facility] Comment:Slight Hemolysis.Int erpret result with caution. Alanine Aminotransferase 27 0 - 40 U/L [facility] Total Protein 7.5 6.5 - 8.0 g/dL [facility] Albumin Level 4.4 3.5 - 5.0 g/dL [facility] Alkaline Phosphatase 92 39 - 117 U/L [facility] Blood Venous blood specimen / Unknown 08/03/2024 10:36 AM EST 08/03/2024 1:12 PM EST us Maryam Bloom MD LAB BLOOD ORDERABLES Fin al Result [facility] [address] [place] [phone] * HEPATITIS C AB W/REFL TO HCV RNA, QN, PCR (03/05/2021 9:50 AM EDT) HEPATITIS C ANTIBODY NON-REACT STANISLAW NON-REACT STANISLAW [facility] INDEX 0.01 <1.00 [facility] Comment: ?? HCV antibody was non-reactive. There is no laboratory ?? evidence of HCV infection. ?? In most cases, no further action is required. However, if recent HCV exposure is suspected, a test for HCV RNA (test code 88487) is suggested. ?? For additional information please refer to http://[employer].NotaryAct/faq/VQP71d2 (This link is being provided for informational/ educational purposes only.) ?? 03/05/2021 9:50 AM EDT Maryam Bloom MD HISTORICAL/NON ORDERABLE LABS Final Result Performing Organization Address City/[facility]/ZIP Co de Phone Number [facility] [address] * HIV 1/2 ANTIGEN/ANTIBODY,FOURTH GENERATION W/RFL (03/05/2021 9:50 AM EDT) HIV-1/2 ANTIGEN AND ANTIBODIES, 4TH GENERATION W/ REFLEX NON-REACT STANISLAW NON-REACT STANISLAW [facility] Comment: HIV-1 antigen and HIV-1/HIV-2 [...] ? For additional information please refer to http://[employer].NotaryAct/faq/ENS172 (This link is being provided for informational/ educational purposes only.) ? The performance of this assay has not been clinically validated in patients less than 2 years old. ?? 03/05/2021 9:50 AM EDT Maryam Bloom MD LAB BLOOD ORDERABLES Fin al Result [facility] [address] from Last 3 Months or Most Recently Relevant to Health Maintenance Insurance [facility] STANDARD DENTAL-[facility] MEDICAID STAND ADULT Care Teams Web Press Operator Apprentice Relationship Specialty Start Date End Date Maryam Bloom MD [address] [place] [phone] PCP - General Family Medicine 05/12/19
--- OUTSIDE RECORDS SUMMARY | 2024-10-20 10:26 | XMS_ITS | Encounter Summary ---
Author Organization [employer] Address [address] [facility] 7t [place] [address] Care Team Providers Care Digital Pre Press Operator Name Role Phone Maryam Bloom MD Primary Care Provider + Reason for Visit * Reason Comments Med Refill Encounter Details Date Type Department Care Team (Late st Contact Info) Description 07/19/2023 Refill [facility] [address] [place] [address] Maryam Bloom MD [address] [place], [place] [phone] Mild intermittent asthma without complication Social History [...] Description 12/03/2024 10:30 AM EDT Office Visit [facility] [address] [place] [phone] Maryam Bloom MD [address] [place] [phone] documented as of this encounter Visit Diagnoses Diagnosis Mild intermittent asthma without complication documented in this encounter Care Teams Digital Pre Press Operator Relationship Specialty Start Date End Date Maryam Bloom MD [address] [place] [phone] PCP - General Family Medicine 05/12/19 documented as of this encounter
--- OUTSIDE RECORDS SUMMARY | 2024-10-20 10:26 | XMS_ITS | Encounter Summary ---
Author Organization [employer] Address 75 [facility] 7t [place] [address] Care Team Providers Care Hybrid Tester Name Role Phone Maryam Bloom MD Primary Care Provider + Encounter Details Date Type Department Care Team (Late st Contact Info) Description 09/12/2022 Orders Only [facility] CH[facility] MED & PEDS [address] [place], [place] [phone] Cora Hamilton LPN Social History Tobacco Use [...] Description 12/03/2024 10:30 AM EDT Office Visit [facility] MEDICINE [address] [place] [address] Maryam Bloom MD [address] [place], [place] [phone] documented as of this encounter Visit Diagnoses Not on filedocumented in this encounter Care Teams Hybrid Tester Relationship Specialty Start Date End Date Maryam Bloom MD [address] [place], [place] [phone] PCP - General Family Medicine 05/12/19 documented as of this encounter
--- OUTSIDE RECORDS SUMMARY | 2024-10-20 10:26 | XMS_ITS | Encounter Summary ---
Author Organization [employer] Address 75 [facility] 7t [place] [address] Care Team Providers Care Mess Attendant Crew Name Role Phone Maryam Bloom MD Primary Care Provider + Reason for Visit * Reason Onset Date Comments premed tx 01/08/2023 Encounter Details Date Type Department Care Team (Late st Contact Info) Description 01/08/2023 Telephone [facility] [address] [place] [address] Xavi Melara, LIEN [address] [place] [address] premed tx Social History Tobacco Use Types [...] Description 12/03/2024 10:30 AM EDT Office Visit [facility] MEDICINE [address] [place], [place] [phone] Maryam Bloom MD [address] [place], [place] [phone] documented as of this encounter Visit Diagnoses Not on filedocumented in this encounter Care Teams Mess Attendant Crew Relationship Specialty Start Date End Date Maryam Bloom MD [address] [place], [place] [phone] PCP - General Family Medicine 05/12/19 documented as of this encounter
== END 2024-10-20 09:58 | disposition home or self-care (01) ==
LOC: HO.ACS 09:32
PROVIDERS: PCP Internal Medicine; Visit Provider Internal Medicine
DX: Z79.01 Long term (current) use of anticoagulants (principal)

== ENCOUNTER → 2024-10-20 09:32 | Outpatient (BNVA) | payer MEDICAID, SELFPAY | PROVIDERS: PCP Internal Medicine; Visit Provider Internal Medicine | DX: Z95.2 Presence of prosthetic heart valve (principal); Z79.01 Long term (current) use of anticoagulants; Z51.81 Encounter for therapeutic drug level monitoring | CPT/HCPCS: 85610; 99211 ==

== ENCOUNTER 2024-11-08 09:15 | Outpatient (AMB) | payer MEDICAID, SELFPAY ==
[2024-11-08 09:34] LABS: Prothrombin Time Whole Bld POC 35.1 sec (11.1-13.5); ~PT, ~INR - Anti Coag Clinic 2.9 (0.9-1.1)
--- NOTE | 2024-11-08 09:40 | MHC.OFFVISCO ---
Intake Intake Visit Reasons: Anticoagulation Allergies No Known Allergies [No Known Allergies*] Allergy (Verified 11/08/24 09:30) Medication List - Last Reconciled 11/08/24 by Haritha Chicas RN acetaminophen (Tylenol) 650 mg (2 x 325 mg) PO Q6H albuterol sulfate 90 mcg/actuation 2 puffs PO Q4-6H PRN amoxicillin 2,000 mg (4 x 500 mg) PO ONCE 1 day buprenorphine-naloxone 4-1 mg (Suboxone) 5 mg sublingual BID cetirizine 10 mg PO DAILY chlorhexidine gluconate 0.12% PO desloratadine (Clarinex) 5 mg PO DAILY fexofenadine 180 mg PO DAILY fluoxetine 20 mg PO QAM fluticasone propion-salmeterol 230-21 mcg/actuation (Advair HFA) 2 puffs inhalation fluticasone propionate 50 mcg/actuation 1 spray intranasal DAILY gabapentin 300 mg PO BID hydrocortisone 2.5% topical DAILY hydroxyzine pamoate 25 mg PO BEDTIME PRN ketoconazole 2% appl topical lamotrigine 200 mg PO lithium carbonate 0 mg PO warfarin 7.5 mg See Protocol PO DAILY Nursing Note INR: 2.9 in therapeutic range of 2.5-3.5 Medications and supplements reviewed No changes in health, diet, medications, or supplements, Denies any signs and symptoms of bleeding or bruising or clotting. Bleeding, bruising, clotting discussed Nutritional guidance given Dose: 7.5mg X 5 days and 11.25mg X 2 days (Mon & Thurs) F/U INR: 2 weeks Patient verbalizes understanding of instructions given Anti-Coag Initial Assessment Social Hx Patient Tobacco Use Status: Current everyday Tobacco user Tobacco use type: Cigarette alcohol intake: former Coding Level of Care Code Est Patient Level 1 Diagnoses Current use of anticoagulant therapy Z79.01 Assessment & Plan Assessment & Plan (1) Current use of anticoagulant therapy: Code(s): Z79.01 - [facility] (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
== END 2024-11-08 09:43 | disposition home or self-care (01) ==
LOC: HO.ACS 09:15
PROVIDERS: PCP Internal Medicine; Visit Provider Internal Medicine Medical Oncology
DX: Z79.01 Long term (current) use of anticoagulants (principal)

== ENCOUNTER → 2024-11-08 09:15 | Outpatient (BNVA) | payer MEDICAID, SELFPAY | PROVIDERS: PCP Internal Medicine; Visit Provider Internal Medicine Medical Oncology | DX: Z95.2 Presence of prosthetic heart valve (principal); Z79.01 Long term (current) use of anticoagulants; Z51.81 Encounter for therapeutic drug level monitoring | CPT/HCPCS: 85610; 99211 ==

== ENCOUNTER 2024-11-24 09:27 | Outpatient (AMB) | payer MEDICAID, SELFPAY ==
[2024-11-24 09:38] LABS: ~PT, ~INR - Anti Coag Clinic 2.7 (0.9-1.1)
--- NOTE | 2024-11-24 09:41 | MHC.OFFVISCO ---
Intake Intake Visit Reasons: Anticoagulation Allergies No Known Allergies [No Known Allergies*] Allergy (Verified 11/24/24 09:38) Medication List - Last Reconciled 11/24/24 by Melissa John RN acetaminophen (Tylenol) 650 mg (2 x 325 mg) PO Q6H albuterol sulfate 90 mcg/actuation 2 puffs PO Q4-6H PRN amoxicillin 2,000 mg (4 x 500 mg) PO ONCE 1 day buprenorphine-naloxone 4-1 mg (Suboxone) 5 mg sublingual BID cetirizine 10 mg PO DAILY chlorhexidine gluconate 0.12% PO desloratadine (Clarinex) 5 mg PO DAILY fexofenadine 180 mg PO DAILY fluoxetine 20 mg PO QAM fluticasone propion-salmeterol 230-21 mcg/actuation (Advair HFA) 2 puffs inhalation fluticasone propionate 50 mcg/actuation 1 spray intranasal DAILY gabapentin 300 mg PO BID hydrocortisone 2.5% topical DAILY hydroxyzine pamoate 25 mg PO BEDTIME PRN ketoconazole 2% appl topical lamotrigine 200 mg PO lithium carbonate 0 mg PO warfarin 7.5 mg See Protocol PO DAILY Nursing Note NO CP,SOB,DIET/MED CHANGES,FALLS OR SX OF BLEEDING. CONTINUE PRESENT DOSE AND FOLLOW-UP IN 3 WEEKS. 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 Anti-Coag Initial Assessment Social Hx Patient Tobacco Use Status: Current everyday Tobacco user Tobacco use type: Cigarette alcohol intake: former Coding Level of Care Code Est Patient Level 1 Diagnoses Current use of anticoagulant therapy Z79.01 Assessment & Plan Assessment & Plan (1) Current use of anticoagulant therapy: Code(s): Z79.01 - care home (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
--- OUTSIDE RECORDS SUMMARY | 2024-11-24 10:24 | XMS_ITS | Encounter Summary ---
Author Organization [employer] Address [address] [facility] [address] 7[address] [place] [address] Care Team Providers Care Log Chain Feeder Name Role Phone Maryam Bloom MD Primary Care Provider + Encounter Details Date Type Department Care Team (Late st Contact Info) Description 11/24/2024 Orders Only GENERIC EXTERNAL DATA DEPARTMENT Provider, [...] Description 12/03/2024 10:30 AM EDT Office Visit [facility] MEDICINE [address] [place] [address] Maryam Bloom MD [address] [place], [place] [phone] documented as of this encounter Procedures Procedure Name Priority Date/Time Associated Diagnosis Comments PROTHROMBIN TIME WHOLE BLD POC Routine 11/24/2024 9:36 AM EDT ~PT, ~INR - ANTI COAG CLINIC Routine 11/24/2024 9:36 AM EDT documented in this encounter Results * (ABNORMAL) PROTHROMBIN TIME WHOLE BLD POC (11/24/2024 9:36 AM EDT) Protime 33.0(H) 11.1 - 13.5 sec [facility] 11/24/2024 9:36 AM EDT 11/24/2024 9:37 AM EDT us Generic External Data Provider LAB BLOOD ORDERAB LES Final Result [facility] [address] [place] [phone] * (ABNORMAL) ~PT, ~INR - ANTI COAG CLINIC (11/24/2024 9:36 AM EDT) Prothrombin Time INR 2.7(H) 0.9 - 1.1 [facility] Comment:METER #: [id number] TERNATIONAL NORMALIZED RATIO (INR) REFERENCE RANGES Reference RangeFor patients not on anticoagulant therapy: 0.9 - 1.1INR ranges for oral anticoagulanttherapy:For prevention and treatment of venous thrombosis and pulmonary embolism: 2.0 - 3.0For acute myocardial infarction with aspirin therapy: 2.0 - 3.0For acute myocardial infarction without aspirin therapy: 3.0 - 4.0For patients with mechanical prosthetic heart valves: 2.5 - 3.5 11/24/2024 9:36 AM EDT 11/24/2024 9:37 AM EDT us Generic External Data Provider LAB BLOOD ORDERAB LES Final Result Performing Organization Address City/State/[facility] Co de Phone Number [facility] [address] [place] [phone] documented in this encounter Visit Diagnoses Not on filedocumented in this encounter Additional Health Concerns Assessment Noted Time PHQ-9 Depression Total Score: 0 08/03/20 24 9:59 AM EST documented as of this encounter Care Teams Log Chain Feeder Relationship Specialty Start Date End Date Maryam Bloom MD [address] [place] [phone] PCP - General Family Medicine 05/12/19 documented as of this encounter
--- OUTSIDE RECORDS SUMMARY | 2024-11-24 10:24 | XMS_ITS | Encounter Summary ---
Author Organization [employer] Address [address] [facility] [address] 7t [place] [address] Care Team Providers Care Assembler Billiard Table Name Role Phone Maryam Bloom MD Primary Care Provider + Reason for Visit * Reason Comments Med Refill Encounter Details Date Type Department Care Team (Late st Contact Info) Description 07/19/[address] [facility] MEDICINE [address] [place] [address] Maryam Bloom MD 230 [place], [place] [phone] Mild intermittent asthma without complication Social History [...] Description 12/03/2024 10:30 AM EDT Office Visit [facility] MEDICINE [address] [place] [phone] Maryam Bloom MD [address] [place] [phone] documented as of this encounter Visit Diagnoses Diagnosis Mild intermittent asthma without complication documented in this encounter Care Teams Assembler Billiard Table Relationship Specialty Start Date End Date Maryam Bloom MD [address] [place] [phone] PCP - General Family Medicine 05/12/19 documented as of this encounter
--- OUTSIDE RECORDS SUMMARY | 2024-11-24 10:24 | XMS_ITS | Encounter Summary ---
Author Organization [employer] Address 75 [facility] 7t [place] [address] Care Team Providers Care Customer Experience Associate Name Role Phone Maryam Bloom MD Primary Care Provider + Reason for Visit * Reason Onset Date Comments Coagulation Disorder 12/05/2022 Encounter Details Date Type Department Care Team (Late st Contact Info) Description 12/05/2022 Telephone [facility] MEDICINE [address] [place] [address] Maryam Bloom MD [address] [place], [place] [phone] Coagulation Disorder Social History Tobacco Use Types [...] 12/05/2022 2:58 PM EDT RN called pt [phone] in regards to below message however no answer, RN left VM requesting CB to red team nurses. TC returned to [phone] however no answer, RN left VM requesting CB to red team nurses. Pt to F/U PRN. * Telephone Encounter - Darlin Zavala - 12/05/2022 2:38 PM EDT Tc from pt Spouse requesting a call regarding message below. Please contact pt spouse at [phone] * Telephone Encounter - Tri Roman LPN [...] Description 12/03/2024 10:30 AM EDT Office Visit [facility] MEDICINE [address] [place] [address] Maryam Bloom MD [address] [place] [address] documented as of this encounter Visit Diagnoses Not on filedocumented in this encounter Care Teams Customer Experience Associate Relationship Specialty Start Date End Date Maryam Bloom MD [address] [place] [address] PCP - General Family Medicine 05/12/19 documented as of this encounter
--- OUTSIDE RECORDS SUMMARY | 2024-11-24 10:24 | XMS_ITS | Encounter Summary ---
Author Organization [employer] Address 75 [facility] 7t [place] [address] Care Team Providers Care Fire Fighter [employer] Name Role Phone Maryam Bloom MD Primary Care Provider + Reason for Visit * Reason Onset Date Comments premed tx 01/08/2023 Encounter Details Date Type Department Care Team (Late st Contact Info) Description 01/08/2023 Telephone [facility] ADULT DENTAL [address] [place] [address] Xavi Melara, LIEN [address] [place] [address] premed tx Social History Tobacco Use Types [...] Description 12/03/2024 10:30 AM EDT Office Visit [facility] MEDICINE [address] [place], [place] [phone] Maryam Bloom MD [address] [place], [place] [phone] documented as of this encounter Visit Diagnoses Not on filedocumented in this encounter Care Teams Fire Fighter [employer] Relationship Specialty Start Date End Date Maryam Bloom MD [address] [place], [place] [phone] PCP - General Family Medicine 05/12/19 documented as of this encounter
--- OUTSIDE RECORDS SUMMARY | 2024-11-24 10:24 | XMS_ITS | Clinical Summary ---
Author Organization [employer] Address 75 [facility] 7t [place] [address] Care Team Providers Care Packing Machine Feeder Name Role Phone Maryam Bloom MD Primary Care Provider + Allergies No known active allergies Medications Peak Flow Meter-Inh Assist Dev kitIndications: Mild intermittent asthma, unspecified whether complicated Use daily 1 kit 11/19/19 23 Active amoxicillin (Amoxil) 500 MG capsule Take 4 capsules of amoxicillin 500 mg 1 hour prior dental procedure 12 capsule 01/09/20 23 Active warfarin (Coumadin) 7.5 MG tabletIndicatio ns:Hx of mitral valve replacement with mechanical valve TAKE 1 - 1 + 1/2 TABLETS BY MOUTH EVERY DAY DIRECTED 50 tablet 5 02/11/20 24 Active desloratadine (Clarinex) 5 MG tablet TAKE 1 TABLET (5 MG) BY MOUTH ONCE PER DAY. 90 tablet 1 10/04/19 25 025 Active fluticasone-jennifer meterol (Advair HFA) 230-21 MCG/ACT inhaler TAKE 2 PUFFS BY MOUTH TWICE A DAY MORNING AND EVENING WITH SPACER 12 g 11 10/29/19 25 Active albuterol (Ventolin HFA) 108 (90 Base) MCG/ACT inhalerIndicati ons:Mild intermittent asthma without complication INHALE 2 PUFFS BY MOUTH EVERY 4 TO 6 HOURS NEEDED 18 g 3 10/29/19 25 Active Advair HFA 230-21 MCG/ACT inhaler TAKE 2 PUFFS BY MOUTH TWICE A DAY MORNING AND EVENING WITH SPACER 12 g 11 02/12/ 025 Discontinued Ventolin HFA 108 (90 Base) MCG/ACT inhalerIndicati ons:Mild intermittent asthma without complication TAKE 2 PUFFS BY MOUTH EVERY 4 TO 6 HOURS NEEDED 18 g 3 03/05/20 025 Discontinued Active Problems Problem Noted Date [...] life style modifications, diet and referral to retail asset protection specialist. Recommended to decrease soda and sugary [...] been stable with no CHF, followed by [facility] cardi[facility]. Keep INR between 2.5 and 3.5, will order Lovenox if INR is below 2.2. Assessment & Plan (06/03/2024 1:19 PM EDT): No evidence of CHF, refer to [facility]iology due for follow up. Assessment [...] Encounters Date Type Department Care Team Description 11/24/2024 Orders Only GENERIC EXTERNAL DATA DEPARTMENT Provider, Generic External Data 11/08/2024 Orders Only GENERIC EXTERNAL DATA DEPARTMENT Provider, Generic External Data 10/28/2024 Refill [facility] MEDICINE [address] [place] [address] Maryam Bloom MD Mild intermittent asthma without complication; Allergic rhinitis, unspecified seasonality, unspecified trigger 10/22/2024 Population Health Risk Score [facility] (C[facility] Department [address] [phone] Provider, Population Health Generic 10/20/2024 Orders Only GENERIC EXTERNAL DATA DEPARTMENT Provider, Generic External Data 10/06/2024 Orders Only GENERIC EXTERNAL DATA DEPARTMENT Provider, Generic External Data 10/04/2024 Orders Only [facility] MEDICINE [address] [place] [address] Maryam Bloom MD 10/04/2024 Telephone [facility] MEDICINE [address] [place] [address] Maryam Bloom MD Med Refill; Call Back Request 10/02/2024 Refill [facility] MEDICINE [address] [place] [address] Maryam Bloom MD Allergic rhinitis, unspecified seasonality, unspecified trigger 09/30/2024 Telephone [facility] OPTOMETRY [address] [place] [address] Marlin Rizvi, OD 09/22/2024 Orders Only GENERIC EXTERNAL DATA DEPARTMENT Provider, Generic External Data 09/10/2024 Telephone [facility] MEDICINE [address] [place] [address] Maryam Bloom MD November09/03/2024 Orders Only GENERIC EXTERNAL DATA DEPARTMENT Provider, [...] [facility] [address] [place], [place] [phone] Maryam Bloom MD [address] [place] [address] Health Maintenance Due Date Last Done Comments Dental Oral Exam 1983 Dental Prophylaxis 1983 Dental X-Ray: Full Mouth 1983 Family Planning (PISQ) 1998 Hepatitis B Vaccines (1 of 3 - 19+ 3-dose series) 2002 Dental X-Ray: Bitewings 12/12/2023 12/10/2022 COVID-19 Vaccine (4 - 2023-2 5 season) 2024 07/07/2021, 11/13/2020, 10/23/2020 SDOH [...] COAG CLINIC Routine 11/24/2024 9:36 AM EDT PROTHROMBIN TIME WHOLE BLD POC Routine 11/08/2024 9:33 AM EDT ~PT, ~INR - ANTI COAG CLINIC Routine 11/08/2024 9:33 AM EDT PROTHROMBIN TIME WHOLE BLD POC Routine 10/20/2024 [...] COAG CLINIC Routine 09/03/2024 8:36 AM EST LIPID PANEL WITH REFLEX TO DIRECT LDL Routine 08/03/2024 10:36 AM EST Hx of mitral valve replacement with mechanical valve BITEWING - SINGLE RADIOGRAPHIC IMAGE Routine 12/10/2022 [...] WHOLE BLD POC (11/24/2024 9:36 AM EDT) Only the most recent of6 resultswithin the time period is included. Protime 33.0(H) 11.1 - 13.5 sec [facility] 11/24/2024 9:36 AM EDT 11/24/2024 9:37 AM EDT us Generic External Data Provider LAB BLOOD ORDERAB LES Final Result [facility] [address] [place] [phone] * (ABNORMAL) ~PT, ~INR - ANTI COAG CLINIC (11/24/2024 9:36 AM EDT) Only the most recent of6 resultswithin the time period is included. Prothrombin Time INR 2.7(H) 0.9 - 1.1 [facility] Comment:METER #: [id number] TERNATIONAL NORMALIZED RATIO (INR) REFERENCE RANGES Reference [...] Provider LAB BLOOD ORDERAB LES Final Result [facility] [address] [place] [phone] * (ABNORMAL) Lipid Panel with Reflex to Direct LDL (08/03/2024 10:36 AM EST) Triglycerides 106 <150 mg/dL [facility] Comment:Desirable Triglyceri de: less than 150 mg/dLBorderline High Triglyceride 150-199 mg/dLHigh Triglyceride: 200-499 mg/dLVery High Triglyceride: greater than or equal to 5OO mg/dL Cholesterol 185 <200 mg/dL [facility] Comment:Desirable Cholestero l: less than 200 mg/dLBorderline High Cholesterol: 200-239 mg/dLHigh Cholesterol: greater than 239 mg/dL LDL Cholesterol Calculated 119(H) <100 mg/dL [facility] Comment:Desirable LDL: less than 100 mg/dLNear Optimal/Above Optimal LDL: 110- 129 mg/dLBorderline High LDL: 130-159 mg/dLHigh LDL: 160-189 mg/dLVery High LDL: greater than or equal to 190 mg/dL HDL Cholesterol 45 >40 mg/dL [facility] Comment:Desirable HDL: great er than 40 mg/dL Note: This HDL assay may give artificially low results in patients with liver disease. Blood 08/03/2024 10:3 6 AM EST 08/03/2024 1:12 PM EST Maryam Bloom MD LAB BLOOD ORDERABLES Fin al Result Performing Organization Address [facility] Co de Phone Number [facility] [address] [place] [address] [phone] * HEPATITIS C AB W/REFL TO HCV RNA, QN, PCR (03/05/2021 9:50 AM EDT) HEPATITIS C ANTIBODY NON-REACT [place] NON-REACT [place] [facility] INDEX 0.01 <1.00 [facility] Comment: ?? HCV antibody was non-reactive. There is no laboratory ?? evidence of HCV infection. ?? In most cases, no further action is required. However, if recent HCV exposure is suspected, a test for HCV RNA (test code 40314) is suggested. ?? For additional information please refer to http://education.[employer]/faq/XLT90y9 (This link is being provided for informational/ educational purposes only.) ?? 03/05/2021 9:50 AM EDT Maryam Bloom MD HISTORICAL/NON ORDERABLE LABS Final Result Performing Organization Address [facility] Co de Phone Number [facility] [address] * HIV 1/2 ANTIGEN/ANTIBODY,FOURTH GENERATION W/RFL (03/05/2021 9:50 AM EDT) HIV-1/2 ANTIGEN AND ANTIBODIES, 4TH GENERATION W/ REFLEX NON-REACT [place] NON-REACT [place] [facility] Comment: HIV-1 antigen and HIV-1/HIV-2 [...] ? For additional information please refer to http://education.[employer]/faq/CIJ755 (This link is being provided for informational/ educational purposes only.) ? The performance of this assay has not been clinically validated in patients less than 2 years old. ?? 03/05/2021 9:50 AM EDT Maryam Bloom MD LAB BLOOD ORDERABLES Fin al Result Performing Organization Address City/State/ZIP Co [place] Phone Number [facility] [address] from Last 3 Months or Most Recently Relevant to Health Maintenance Insurance [facility] STANDARD DENTAL-[facility] MEDICAID STAND ADULT Care Teams Packing Machine Feeder Relationship Specialty Start Date End Date Maryam Bloom MD [address] [place] [phone] PCP - General Family Medicine 05/12/19
--- OUTSIDE RECORDS SUMMARY | 2024-11-24 10:24 | XMS_ITS | Clinical Summary ---
Author Organization [address] [facility] Address [address] [place] [address] Phone Care Team Providers Care Luggage Repairer Name Role Phone Maryam Bloom MD Primary Care Provider Allergies No known active allergies Medications clotrimazole (LOTRIMIN) 1 % external solution Apply topically 2 (two) times a day. 30 mL 12/31/19 25 Active Encounters Date Type Department Care Team Description 11/04/2024 9:15 AM EDT Consult Orthopedic [facility] [address] [place] [phone] Lorenzo Weiner, DPM Dermatophytosis of nail (Primary Dx); Ingrowing nail from Last 3 Months Social History Tobacco Use Types Packs/Day Years Used Date Smoking Tobacco: Never Assessed Sex and Gender Information Value Date Recorded Sex Assigned at Not on file Legal Sex Male 2:05 PM EST Gender Identity Not on file Sexual Orientation Not on file Last Filed Vital Signs Vital Sign Reading Time Taken Comments Blood Pressure - - Pulse - - Temperature - - Respiratory Rate - - Oxygen Saturation - - Inhaled Oxygen Concentration - - Weight 127 kg (280 lb) 11/04/2024 9:59 AM EDT Height 182.9 cm (6') 11/04/2024 9:59 AM EDT Body Mass Index 37.97 11/04/2024 9:59 AM EDT Plan of Treatment Upcoming Encounters Date Type Department Care Team ([facility] st Contact Info) Description 01/06/2025 9:45 AM EDT Office Visit Orthopedic [facility] [address] [phone] Lorenzo Weiner, DPM [address] [address] Health Maintenance Due Date Last Done Comments Hepatitis B Vaccines (1 of 3 - 19+ 3-dose series) 2002 Cholesterol Screening (Lipid Panel) 07/10/2022 Hepatitis C Screening 07/10/2022 Social Influencers of Health Screening 07/10/2022 COVID-19 Vaccine (1 - 2023-2 5 season) 2024 Depression Screening 08/03/2025 08/03/2024 DTaP,Tdap,and Td Vaccines (2 - Td or Tdap) 03/19/2028 03/19/2018 HIV Screening Completed 03/05/2021 Influenza Vaccine Completed 08/03/2024, 06/03/2024 Pneumococcal Vaccine: Pediatrics (0 to 5 Years) and At-Risk Patients (6 to 64 Years) Completed 08/03/2024 HIB Vaccines Aged Out [...] age to complete this topic Meningococcal B Vaccine Aged Out No l onger eligible based on patient's age to complete this topic RSV Immunization Patients Under 20 months Aged Out No longer eligible b ased on patient's age to complete this topic Varicella Vaccines Aged Out No longer eligible based on patient's age to complete this topic Insurance [place] Care Teams Luggage Repairer Relationship Specialty Start Date End Date Maryam Bloom MD [address] [place] [phone] PCP - General Internal Medicine 07/14/24
--- OUTSIDE RECORDS SUMMARY | 2024-11-24 10:24 | XMS_ITS | Encounter Summary ---
Author Organization [employer] Address [address] 7t [place] [address] Care Team Providers Care Lead Software Engineer Name Role Phone Maryam Bloom MD Primary Care Provider + Encounter Details Date Type Department Care Team (Late st Contact Info) Description 12/09/2022 Telephone [facility] MEDICINE [address] [place], [place] [phone] Maryam Bloom MD [address] [place] [address] Social History Tobacco Use Types Packs/Day Years [...] this Friday. Will see DDS tomorrow in [facility]. Advised to take Lovenox that he has at home by RN ,dose not known at time of call. Will recheck INR on Friday12/13/22. Please update PCP with above and follow with Brittaney ORDAZ if indicated. documented in this encounter Plan of Treatment Upcoming Encounters Date Type Department Care Team (Late st Contact Info) Description 12/03/2024 10:30 AM EDT Office Visit [facility] MEDICINE [address] [place] [address] Maryam Bloom MD [address] [place] [address] documented as of this encounter Visit Diagnoses Not on filedocumented in this encounter Care Teams Lead Software Engineer Relationship Specialty Start Date End Date Maryam Bloom MD [address] [place] [address] PCP - General Family Medicine 05/12/19 documented as of this encounter
--- OUTSIDE RECORDS SUMMARY | 2024-11-24 10:24 | XMS_ITS | Encounter Summary ---
Author Organization [employer] Address [address] [facility] 7t [place] [address] Care Team Providers Care Marker Machine Attendant Name Role Phone Maryam Bloom MD Primary Care Provider + Encounter Details Date Type Department Care Team (Late st Contact Info) Description 09/12/2022 Orders Only [facility] CHC MED & PEDS [address] [place], [place] [phone] Cora Hamilton LPN Social History Tobacco Use [...] Description 12/03/2024 10:30 AM EDT Office Visit [facility] MEDICINE [address] [place] [address] Maryam Bloom MD [address] [place], [place] [phone] documented as of this encounter Visit Diagnoses Not on filedocumented in this encounter Care Teams Marker Machine Attendant Relationship Specialty Start Date End Date Maryam Bloom MD [address] [place], [place] [phone] PCP - General Family Medicine 05/12/19 documented as of this encounter
--- OUTSIDE RECORDS SUMMARY | 2024-11-24 10:24 | XMS_ITS | Encounter Summary ---
Author Organization [employer] Address [address] 7t [place] [address] Care Team Providers Care Bellhop Captain Name Role Phone Maryam Bloom MD Primary Care Provider + Reason for Visit * Reason Comments Med Refill Encounter Details Date Type Department Care Team (Late st Contact Info) Description 12/25/2023 Refill [facility] MEDICINE [address] [place], [place] [phone] Maryam Bloom MD 230 [place], [place] [phone] Allergic rhinitis, unspecified seasonality, unspecified trigger Social [...] Description 12/03/2024 10:30 AM EDT Office Visit [facility] MEDICINE [address] [place] [address] Maryam Bloom MD [address] [place] [phone] documented as of this encounter Visit Diagnoses Diagnosis Allergic rhinitis, unspecified seasonality, unspecified trigger documented in this encounter Care Teams Bellhop Captain Relationship Specialty Start Date End Date Maryam Bloom MD [address] [place] [phone] PCP - General Family Medicine 05/12/19 documented as of this encounter
== END 2024-11-24 09:43 | disposition home or self-care (01) ==
LOC: HO.ACS 09:27
PROVIDERS: PCP Internal Medicine; Visit Provider Internal Medicine Medical Oncology
DX: Z79.01 Long term (current) use of anticoagulants (principal)

== ENCOUNTER → 2024-11-24 09:27 | Outpatient (BNVA) | payer MEDICAID, SELFPAY | PROVIDERS: PCP Internal Medicine; Visit Provider Internal Medicine Medical Oncology | DX: Z95.2 Presence of prosthetic heart valve (principal); Z79.01 Long term (current) use of anticoagulants; Z51.81 Encounter for therapeutic drug level monitoring | CPT/HCPCS: 85610; 99211 ==

== ENCOUNTER 2024-12-03 11:14 | Outpatient (REF) | payer MEDICAID, SELFPAY ==
--- OUTSIDE RECORDS SUMMARY | 2024-12-03 12:11 | XMS_ITS | Clinical Summary ---
Author Organization [employer] Address [address] 7t [place] [address] Care Team Providers Care Production Engineer Track Name Role Phone Maryam Bloom MD Primary Care Provider + Allergies No known active allergies Medications Peak Flow Meter-Inh Assist Dev kitIndications:M ild intermittent asthma, unspecified whether complicated Use daily 1 kit 3 Active amoxicillin (Amoxil) 500 MG capsule Take 4 capsules of amoxicillin 500 mg 1 hour prior dental procedure 12 capsule 3 Active warfarin (Coumadin) 7.5 MG tabletIndication s:Hx of mitral valve replacement with mechanical valve TAKE 1 - 1 + 1/2 TABLETS BY MOUTH EVERY DAY DIRECTED 50 tablet 5 4 Active desloratadine (Clarinex) 5 MG tablet TAKE 1 TABLET (5 MG) BY MOUTH ONCE PER DAY. 90 tablet 1 5 04/02/20 25 Active fluticasone-salm eterol (Advair HFA) 230-21 MCG/ACT inhaler TAKE 2 PUFFS BY MOUTH TWICE A DAY MORNING AND EVENING WITH SPACER 12 g 11 5 Active albuterol (Ventolin HFA) 108 (90 Base) MCG/ACT inhalerIndicatio ns:Mild intermittent asthma without complication INHALE 2 PUFFS BY MOUTH EVERY 4 TO 6 HOURS NEEDED 18 g 3 5 Active nicotine polacrilex (Nicotine Mini) 4 MG lozenge Dissolve 1 lozenge (4 mg) in the mouth every 2 (two) hours if needed for smoking cessation. 100 lozenge 5 01/03/20 Active Blood Pressure Monitoring (Blood Pressure Cuff) misc Use daily as prescribed 1 each 5 Active Active Problems Problem Noted Date Diagnosed Date Elevated blood pressure reading 12/03/2024 Hypoxemia associated with sleep 08/03/2024 Assessment & Plan (08/03/2024 10:15 AM EST): Will refer to Pulmonology to rule out other ILD. He did not have the blood work today. Witnessed episode of apnea 06/03/2024 Assessment & Plan (06/03/2024 1:12 PM EDT): Will order sleep study. Ingrowing toenail 11/15/2022 Assessment & Plan (06/03/2024 12:39 PM EDT): Refer to Podiatry. Low vision, both eyes 11/15/2022 Sleep dysfunction with arousal disturbance 11/15 Lightheadedness 09/16/2018 Hx of mitral valve replacement with mechanical v alve 12/18/2016 Assessment & Plan (08/03/2024 10:06 AM EST): Pt has been stable with no CHF, followed by [facility] cardiology. Keep INR between 2.5 and 3.5, will order Lovenox if INR is below 2.2. Assessment & Plan (06/03/2024 1:19 PM EDT): No evidence of CHF, refer to [facility]iology due for follow up. [...] (12/30/2022 1:25 PM EDT): use cetirizine PRN Resolved Problems Problem Noted Date Diagnosed Date Resolved Date Class 2 obesity due to exces s calories without serious comorbidity with body mass index (BMI) of 35.0 to 35.9 in adult 06/03/2024 Assessment & Plan (06/03/2024 1:38 PM EDT): Discussed re weight reduction options including exercise, life style modifications, diet and referral to retail presentation specialist. Recommended to decrease soda and sugary beverage consumption, increase protein intake with meals (at least 1 portion of protein with each meal) to assist with satiety, increase dietary fiber Recommended at least 150 min/week of moderate intensity exercise. High liver transaminase level 12/30/2022 12/03/2024 Assessment & Plan (12/30/2022 1:25 PM EDT): repeat LFTs prior to next appointment Mild intermittent asthma 11/15/2022 Assessment & Plan (11/18/2022 3:57 PM EDT): Pt has acute asthma exacerbation/bronchospasm recommended use albuterol inhaler with aerochamber every 6 hours x2 days then PRN Continue Advair 230 BID Use Medrol pack with food and FU closely with coumadin clinic Counseled regarding abdominal pain, melena. Counseled to quit smoking He has nicotine gum at home. Weight loss 11/15/2022 12/03/2024 Asthmatic bronchitis 09/16/2018 025 Encounters Date Type Department Care Team Description 12/03/2024 10:30 AM EDT Office Visit [facility] MEDICINE [address] [place] [phone] Maryam Bloom MD Elevated blood pressure reading (Primary Dx); Moderate persistent asthma without complication; Opioid dependence on agonist therapy ([facility]); Exercise counseling; Dietary counseling; Obesity (BMI 30-39.9); Allergic rhinitis due to animal hair and dander 12/03/2024 Travel 11/30/2024 Telephone [facility] MEDICINE [address] [place] [address] Maryam Bloom MD Chart prep 11/24/2024 Patient Outreach [facility] MEDICINE [address] [place] [phone] Maryam Bloom MD Pre-visit Planning ((SDOH screening negative tobacco screening positive)) 11/24/2024 Orders Only [facility] DATA DEPARTMENT Provider, Generic External Data 11/08/2024 Orders Only GENERIC EXTERNAL DATA DEPARTMENT Provider, Generic External Data 10/28/2024 Refill [facility] MEDICINE [address] [place] [phone] Maryam Bloom MD Mild intermittent asthma without complication; Allergic rhinitis, unspecified seasonality, unspecified trigger 10/22/2024 Population Health Risk Score [facility] (C[facility]) Department [address] [place] [phone] Provider, Population Health Generic 10/20/2024 Orders Only GENERIC EXTERNAL DATA DEPARTMENT Provider, Generic External Data 10/06/2024 Orders Only GENERIC EXTERNAL DATA DEPARTMENT Provider, Generic External Data 10/04/2024 Orders Only [facility] MEDICINE [address] [place] [address] Maryam Bloom MD 10/04/2024 Telephone [facility] MEDICINE [address] [place] [address] Maryam Bloom MD Med Refill; Call Back Request 10/02/2024 Refill [facility] MEDICINE [address] [place] [address] Maryam Bloom MD Allergic rhinitis, unspecified seasonality, unspecified trigger 09/30/2024 Telephone [facility] OPTOMETRY [address] [place] [address] Jose Alfredoting Marlin, OD 09/22/2024 Orders Only GENERIC EXTERNAL DATA DEPARTMENT Provider, Generic External Data 09/10/2024 Telephone [facility] MEDICINE [address] [place] [address] Maryam Bloom MD November recall from Last 3 Months Immunizations Name Administration [...] Access Answer Date Recorded Internet Access Q1 Yes 11/24/2024 Internet Access Q2 I do not want or need it 11/09 Sex and Gender Information Value Date Recorded Sex Assigned at Male 06/10/2022 10:18 AM EDT Legal Sex Male 10:18 AM EDT Gender Identity Male 06/10/2022 10:18 AM EDT Sexual Orientation Straight 06/10/2022 10 :18 AM EDT Last Filed Vital Signs Vital Sign Reading Time Taken Comments Blood Pressure 140/85 12/03/2024 10:57 AM EDT Pulse 71 12/03/2024 10:36 AM EDT Temperature 36.1 ??C (96.9 ??F) 12/03/2024 10:36 AM E DT Respiratory Rate 20 12/03/2024 10:36 AM EDT Oxygen Saturation 99% 12/03/2024 10:36 AM EDT Inhaled Oxygen Concentration - - Weight 126 kg (277 lb 8 oz) 12/03/2024 10:36 AM EDT Height 185.4 cm (6' 1 ) 12/03/2024 10:36 AM EDT Body Mass Index 36.61 12/03/2024 10:36 AM EDT Plan of Treatment Health Maintenance Due Date Last Done Comments Dental Oral Exam 1983 Dental Prophylaxis 1983 Dental X-Ray: Full Mouth 1983 Family Planning (PISQ) 1998 Hepatitis B Vaccines (1 of 3 - 19+ 3-dose series) 2002 Dental X-Ray: Bitewings 12/12/2023 12/10/2022 COVID-19 Vaccine (2023-2 5 season) 2024 07/07/2021, 11/13/2020, 10/23/2020 Alcohol/Substance Use Screening 08/03/2025 08/03/2024 Depression Screening 08/03/2025 08/03/2024, 08/03/2024 SDOH Screening 11/24/2025 11/24/2024 Tobacco Screening 12/03/2025 12/03/2024 DTaP/Tdap/Td Vaccines (2 - T d or [...] [facility] Routine 09/22/2024 9:24 AM EST LIPID PANEL WITH REFLEX TO [...] 9:36 AM EDT) Only the most recent of5 resultswithin the time period is included. Protime 33.0(H) 11.1 - 13.5 sec [facility] 11/24/2024 9:36 AM EDT 11/24/2024 9:37 AM EDT us Generic External Data Provider LAB BLOOD ORDERAB LES Final Result Performing Organization Address [facility]/ZIP Co de Phone Number [facility] [address] [place] [phone] * (ABNORMAL) ~PT, ~INR - ANTI COAG CLINIC (11/24/2024 9:36 AM EDT) Only the most recent of5 resultswithin the time period is included. Prothrombin Time INR 2.7(H) 0.9 - 1.1 [facility] Comment:METER #: [id number] TERNATIONAL NORMALIZED RATIO (INR) REFERENCE RANGES Reference [...] 9:36 AM EDT 11/24/2024 9:37 AM EDT Generic External Data Provider LAB BLOOD ORDERAB LES Final Result Performing Organization Address [facility] Co de Phone Number [facility] [address] [place] [phone] * (ABNORMAL) Lipid Panel with Reflex to Direct LDL (08/03/2024 10:36 AM EST) Triglycerides 106 <150 mg/dL [facility] Comment:Desirable Triglyceri de: less than 150 mg/dLBorderline High Triglyceride 150-199 mg/dLHigh Triglyceride: 200-499 mg/dLVery High Triglyceride: greater than or equal to 5OO mg/dL Cholesterol 185 <200 mg/dL [facility] Comment:Desirable Cholestero l: less than 200 mg/dLBorderline High Cholesterol: 200-239 mg/dLHigh Cholesterol: greater than 239 mg/dL LDL Cholesterol Calculated 119(H) <100 mg/dL [facility] Comment:Desirable LDL: less than 100 mg/dLNear Optimal/Above Optimal LDL: 110- 129 mg/dLBorderline High LDL: 130-159 mg/dLHigh LDL: 160-189 mg/dLVery High LDL: greater than or equal to 190 mg/dL HDL Cholesterol 45 >40 mg/dL [facility] Comment:Desirable HDL: great er than 40 mg/dL Note: This HDL assay may give artificially low results in patients with liver disease. Blood 08/03/2024 10:3 6 AM EST 08/03/2024 1:12 PM EST Maryam Bloom MD LAB BLOOD ORDERABLES Fin al Result Performing Organization Address [facility] Co de Phone Number [facility] [address] [place] [phone] * HEPATITIS C AB W/REFL TO [...] a test for HCV RNA (test code 05425) is suggested. ?? For additional information please refer to http://education.Lucidworks/faq/ZPD16y5 (This link is being provided for informational/ educational purposes only.) ?? 03/05/2021 9:50 AM EDT us Maryam Bloom MD HISTORICAL/NON ORDERABLE LABS Final Result Performing Organization Address [facility] Co de Phone Number [facility] [address] * HIV 1/2 ANTIGEN/ANTIBODY,FOURTH GENERATION W/RFL [...] ? For additional information please refer to http://education.Lucidworks/faq/PJR653 (This link is being provided for informational/ educational purposes only.) ? The performance of this assay has not been clinically validated in patients less than 2 years old. ?? 03/05/2021 9:50 AM EDT Maryam Bloom MD LAB BLOOD ORDERABLES Fin al Result [facility] [address] from Last 3 Months or Most Recently Relevant to Health Maintenance Insurance [facility] STANDARD DENTAL-[facility] MEDICAID STAND ADULT Care Teams Production Engineer Track Relationship Specialty Start Date End Date Maryam Bloom MD [address] [place] [phone] PCP - General Family Medicine 05/12/19
--- OUTSIDE RECORDS SUMMARY | 2024-12-03 12:11 | XMS_ITS | Encounter Summary ---
Author Organization [employer] Address [address] [facility] 7t [place] [address] Care Team Providers Care Customer Resource Specialist Name Role Phone Maryam Bloom MD Primary Care Provider + Reason for Visit * Reason Onset Date Comments premed tx 01/08/2023 Encounter Details Date Type Department Care Team (Late st Contact Info) Description 01/08/2023 Telephone [facility] ADULT DENTAL [address] [place] [address] Xavi Melara, LIEN [address] [place] [address] premed tx Social History Tobacco Use Types [...] documented in this encounter Plan of Treatment Not on file documented as of this encounter Visit Diagnoses Not on filedocumented in this encounter Care Teams Customer Resource Specialist Relationship Specialty Start Date End Date Maryam Bloom MD [address] [place] [phone] PCP - General Family Medicine 05/12/19 documented as of this encounter
--- OUTSIDE RECORDS SUMMARY | 2024-12-03 12:11 | XMS_ITS | Encounter Summary ---
Author Organization [employer] Address [address] [facility] [address] 7t [place] [address] Care Team Providers Care Clinical Medical Transcriptionist Name Role Phone Maryam Bloom MD Primary Care Provider + Encounter Details Date Type Department Care Team (Latest Contact Info) Description 12/03/2024 Travel Social History Tobacco Use Types Packs/Day Years [...] as of this encounter Plan of Treatment Not on file documented as of this encounter Visit Diagnoses Not on filedocumented in this encounter Additional Health Concerns Assessment Noted Time PHQ-9 Depression Total Score: 0 08/03/20 9:59 AM EST documented as of this encounter Care Teams Clinical Medical Transcriptionist Relationship Specialty Start Date End Date Maryam Bloom MD [address] [place] [phone] PCP - General Family Medicine 05/12/19 documented as of this encounter
--- OUTSIDE RECORDS SUMMARY | 2024-12-03 12:11 | XMS_ITS | Clinical Summary ---
Author Organization [address] [facility] Address [address] [place] [address] Phone Care Team Providers Care A P Mechanic Name Role Phone Maryam Bloom MD Primary Care Provider [phone] Allergies No known active allergies Medications clotrimazole (LOTRIMIN) 1 % external solution Apply topically 2 (two) times a day. 30 mL 12/31/19 25 Active Encounters Date Type Department Care Team Description 11/04/2024 9:15 AM EDT Consult Orthopedic [facility] [address] [place] [phone] Lorenzo Weiner, DPM Dermatophytosis of nail (Primary [...] Upcoming Encounters Date Type Department Care Team ([facility] st Contact Info) Description 01/06/2025 9:45 AM EDT Office Visit Orthopedic Surgery [facility] [address] [phone] Lorenzo Weiner, DPM [address] [address] Health Maintenance Due Date Last Done Comments [...] to complete this topic Insurance [place]ICAID [place] Care Teams A P Mechanic Relationship Specialty Start Date End Date Maryam Bloom MD [address] [place] [phone] PCP - General Internal Medicine 07/14/24
--- OUTSIDE RECORDS SUMMARY | 2024-12-03 12:11 | XMS_ITS | Encounter Summary ---
Author Organization [employer] Address [address] 7t [place] [address] Care Team Providers Care Webfocus Developer Name Role Phone Maryam Bloom MD Primary Care Provider + Reason for Visit * Reason Comments Med Refill Encounter Details Date Type Department Care Team (Late st Contact Info) Description 12/25/2023 Refill [facility] MEDICINE [address] [place], [place] [phone] Maryam Bloom MD [address] [place], [place] [phone] Allergic rhinitis, unspecified seasonality, unspecified trigger Social [...] trigger documented in this encounter Care Teams Webfocus Developer Relationship Specialty Start Date End Date Maryam Bloom MD [address] [place] [phone] PCP - General Family Medicine 05/12/19 documented as of this encounter
--- OUTSIDE RECORDS SUMMARY | 2024-12-03 12:11 | XMS_ITS | Encounter Summary ---
Author Organization [employer] Address [address] 7[address] [place] [address] Care Team Providers Care Automatic Lathe Setter Name Role Phone Maryam Bloom MD Primary Care Provider + Encounter Details Date Type Department Care Team (Late st Contact Info) Description 12/09/2022 Telephone [facility] MEDICINE [address] [place], [place] [phone] Maryam Bloom MD [address] [place] [address] Social History Tobacco Use Types Packs/Day Years [...] this Friday. Will see DDS tomorrow in [facility]. Advised to take Lovenox that he has at home by RN ,dose not known at time of call. Will recheck INR on Friday12/13/22. Please update PCP with above and follow with Brittaney ORDAZ if indicated. documented in this encounter Plan of Treatment Not on file documented as of this encounter Visit Diagnoses Not on filedocumented in this encounter Care Teams Automatic Lathe Setter Relationship Specialty Start Date End Date Maryam Bloom MD [address] [place] [phone] PCP - General Family Medicine 05/12/19 documented as of this encounter
--- OUTSIDE RECORDS SUMMARY | 2024-12-03 12:11 | XMS_ITS | Encounter Summary ---
Author Organization [employer] Address [address] [facility] 7t [place] [address] Care Team Providers Care Install Technician Name Role Phone Maryam Bloom MD Primary Care Provider + Reason for Visit * Reason Comments Med Refill Encounter Details Date Type Department Care Team (Late st Contact Info) Description 07/19/2023 Refill [facility] MEDICINE [address] [place] [address] Maryam Bloom MD [address] [place], [place] [phone] Mild intermittent asthma without complication Social History [...] complication documented in this encounter Care Teams Install Technician Relationship Specialty Start Date End Date Maryam Bloom MD [address] [place] [phone] PCP - General Family Medicine 05/12/19 documented as of this encounter
--- OUTSIDE RECORDS SUMMARY | 2024-12-03 12:11 | XMS_ITS | Encounter Summary ---
Author Organization [employer] Address [address] [facility] [address] 7[address] [place] [address] Care Team Providers Care Tank Builder Name Role Phone Maryam Bloom MD Primary Care Provider + Encounter Details Date Type Department Care Team (Late st Contact Info) Description 09/12/2022 Orders Only [facility] [address] [place] [address] Cora Hamilton LPN Social History Tobacco Use [...] on filedocumented in this encounter Care Teams Tank Builder Relationship Specialty Start Date End Date Maryam Bloom MD [address] [place] [phone] PCP - General Family Medicine 05/12/19 documented as of this encounter
--- OUTSIDE RECORDS SUMMARY | 2024-12-03 12:11 | XMS_ITS | Encounter Summary ---
Author Organization [employer] Address [address] [facility] 7t [place] [address] Care Team Providers Care Ornamental Ironworking Supervisor Name Role Phone Maryam Bloom MD Primary Care Provider + Reason for Visit * Reason Onset Date Comments Coagulation Disorder 12/05/2022 Encounter Details Date Type Department Care Team (Late st Contact Info) Description 12/05/2022 Telephone [facility] MEDICINE [address] [place] [address] Maryam Bloom MD [address] [place], [place] [phone] Coagulation Disorder Social History Tobacco Use Types [...] 12/05/2022 2:58 PM EDT RN called pt [phone] in regards to below message however no answer, RN left VM requesting CB to red team nurses. TC returned to [phone] however no answer, RN left VM requesting CB to red team nurses. Pt to F/U PRN. * Telephone Encounter - Darlin Zavala - 12/05/2022 2:38 PM EDT Tc from pt Spouse requesting a call regarding message below. Please contact pt spouse at [phone] * Telephone Encounter - Tri Roman LPN [...] on filedocumented in this encounter Care Teams Ornamental Ironworking Supervisor Relationship Specialty Start Date End Date Maryam Bloom MD [address] [place] [phone] PCP - General Family Medicine 05/12/19 documented as of this encounter
--- OUTSIDE RECORDS SUMMARY | 2024-12-03 12:11 | XMS_ITS | Encounter Summary ---
Author Organization [employer] Address [address] [facility] [address] [facility] [address] [place] [address] Care Team Providers Care Electric Motor Repair Supervisor Name Role Phone Maryam Bloom MD Primary Care Provider + Reason for Visit * Reason Comments Asthma Encounter Details Date Type Department Care Team (Late st Contact Info) Description 12/03/2024 10:30 AM EDT Office Visit [facility] [address] [place] [address] Maryam Bloom MD [address] [place], [place] [phone] Elevated blood pressure reading (Primary Dx); Moderate persistent asthma without complication; Opioid dependence on agonist therapy ([facility]); Exercise counseling; Dietary counseling; Obesity (BMI 30-39.9); Allergic rhinitis due to animal hair and dander Social History Tobacco Use Types Packs/Day Years [...] AM EDT documented as of this encounter Last Filed Vital Signs Vital Sign Reading [...] Mass Index 36.61 12/03/2024 10:36 AM EDT documented in this encounter Plan of Treatment Not on file documented as of this encounter Visit Diagnoses Diagnosis Elevated blood pressure reading- Primary Elevated blood pressure reading without diagnosis of hypertension Moderate persistent asthma without complication Opioid dependence on agonist therapy ([facility]) Exercise counseling Dietary counseling Dietary surveillance and counseling Obesity (BMI 30-39.9) Allergic rhinitis due to animal hair and dander Allergic rhinitis due to animal (cat) (dog) hair and dander documented in this encounter Additional Health Concerns Assessment Noted Time PHQ-9 Depression Total Score: 0 08/03/20 24 9:59 AM EST documented as of this encounter Care Teams Electric Motor Repair Supervisor Relationship Specialty Start Date End Date Maryam Bloom MD [address] [place] [phone] PCP - General Family Medicine 05/12/19 documented as of this encounter
--- OUTSIDE RECORDS SUMMARY | 2024-12-03 12:11 | XMS_ITS | Encounter Summary ---
Author Organization [employer] Address [address] [facility] [address] 7[address] [place] [address] Care Team Providers Care Sewing Machine Repairer Helper Name Role Phone Maryam Bloom MD Primary Care Provider + Reason for Visit * Reason Onset Date Comments Chart prep 11/30/2024 Encounter Details Date Type Department Care Team (Late st Contact Info) Description 11/30/[address] [facility] [address] [place] [address] Maryam Bloom MD [address] [place], [place] [phone] Chart prep Social History Tobacco Use Types Packs/Day Years [...] Telephone Encounter - Ninfa Mukherjee [place] - 11/30/2024 10:41 AM EDT Chart Prep Labs: done Images: done Referrals: appointment pending Vaccines due: yes Screenings: not applicable Overdue care gaps: Not applicable documented in this encounter Plan of Treatment Not on file documented as of this encounter Visit Diagnoses Not on filedocumented in this encounter Additional Health Concerns Assessment Noted Time PHQ-9 Depression Total Score: 0 08/03/20 9:59 AM EST documented as of this encounter Care Teams Sewing Machine Repairer Helper Relationship Specialty Start Date End Date Maryam Bloom MD [address] [place] [address] PCP - General Family Medicine 05/12/19 documented as of this encounter
[2024-12-03 13:46] LABS: Alanine Aminotransferase 25 U/L (0-40); Albumin Level 4.1 g/dL (3.5-5.0); Alkaline Phosphatase 104 U/L (39-117); Anion Gap 8 (12-20); Aspartate Amino Transferase 27 U/L (5-37); Bilirubin Total 0.4 mg/dL (0.0-1.0); Blood Urea Nitrogen 15 mg/dL (9-16); Calcium 8.8 mg/dL (8.4-10.2); Carbon Dioxide 27 mmol/L (22-29); Chloride 108 mmol/L (96-108); Estimated Glomerular Filt Rate > 60; Glucose Random 102 mg/dL (60-115); Potassium 4.3 mmol/L (3.3-5.1); Sodium 139 mmol/L (135-145); Total Protein 6.7 g/dL (6.5-8.0)
[2024-12-03 14:13] LABS: Thyroid Stimulating Hormone 0.71 uIU/mL (0.32-4.0)
[2024-12-04 10:04] LABS: T3 Uptake 29 % (22-35)
== END 2024-12-03 11:15 | disposition home or self-care (01) ==
LOC: HO.HHCL 11:14
PROVIDERS: Visit Provider Nurse Practitioner Psychiatric/Mental Health
DX: F31.81 Bipolar II disorder (principal); Z79.899 Other long term (current) drug therapy
CPT/HCPCS: 36415; 80053; 80178; 84443; 84479

== ENCOUNTER 2024-12-16 09:17 | Outpatient (AMB) | payer MEDICAID, SELFPAY ==
--- NOTE | 2024-12-16 09:24 | MHC.OFFVISCO ---
Intake Intake Visit Reasons: Anticoagulation Allergies No Known Allergies [No Known Allergies*] Allergy (Verified 12/16/24 09:18) Medication List - Last Reconciled 12/16/24 by Haritha Chicas RN acetaminophen (Tylenol) 650 mg (2 x 325 mg) PO Q6H albuterol sulfate 90 mcg/actuation 2 puffs PO Q4-6H PRN amoxicillin 2,000 mg (4 x 500 mg) PO ONCE 1 day buprenorphine-naloxone 4-1 mg (Suboxone) 5 mg sublingual BID cetirizine 10 mg PO DAILY chlorhexidine gluconate 0.12% PO desloratadine (Clarinex) 5 mg PO DAILY fexofenadine 180 mg PO DAILY fluoxetine 20 mg PO QAM fluticasone propion-salmeterol 230-21 mcg/actuation (Advair HFA) 2 puffs inhalation fluticasone propionate 50 mcg/actuation 1 spray intranasal DAILY gabapentin 300 mg PO BID hydrocortisone 2.5% topical DAILY hydroxyzine pamoate 25 mg PO BEDTIME PRN ketoconazole 2% appl topical lamotrigine 200 mg PO lithium carbonate 0 mg PO warfarin 7.5 mg See Protocol PO DAILY Nursing Note INR: 3.4 in therapeutic range of 2.5-3.5 Medications and supplements reviewed No changes in health, diet, medications, or supplements, Denies any signs and symptoms of bleeding or bruising or clotting. Bleeding, bruising, clotting discussed Nutritional guidance given Dose: 7.5mg X 5 days and 11.25mg X 2 days F/U INR: 3 weeks Patient verbalizes understanding of instructions given Anti-Coag Initial Assessment Social Hx Patient Tobacco Use Status: Current everyday Tobacco user Tobacco use type: Cigarette alcohol intake: former Questionnaires HAS-BLED Does the patient had uncontrolled Hypertension?: No Does the patient have renal disease?: No Does the patient have liver disease?: No Does the patient have a history of stroke?: No Has the patient had major bleeding or predisposition to bleeding?: No Does the patient have labile INRs?: No Is the patient over 65 years of age?: No Is the patient on medications that gives them a predisposition to bleeding?: Yes Does the patient use alcohol?: No HAS-BLED Score: 1 CHADSVASC Age: <65 Gender: Male Does the patient have a history of CHF?: No Does the patient have a history of Hypertension?: No Does the patient have a history of Stroke/TIA/Thromboembolism?: Yes (DVT) Does the patient have a history of Vascular Disease (prior PR, PAD or aortic plaque)?: Yes (smoker) Does the patient have a history of Diabetes?: No CHADS VACS Score: 3 Akilah Prediction Score Rsk VTE Active Cancer: No Previous VTE, excluding superficial vein thrombosis: Yes Reduced mobility: No (DVT 2014) Already known Thrombophilic Condition: Yes With-in last month Trauma and/or Surgery: No Elderly 70 year or older: No Heart and/or Respiratory Failure: No Acute Myocardial infarction and/or Ischemic Stroke: No Acute Infection and/or Rheumatologic Disorder: No Obesity (BMI 30 or greater): Yes Ongoing Hormonal Treatment: No Score: 7 Akilah Score less than 4; Low Risk of VTE Akilah Score 4 or greater; High Risk of VTE Coding Level of Care Code Est Patient Level 1 Diagnoses Current use of anticoagulant therapy Z79.01 Results AMB INR Fingerstick AMB INR Fingerstick 3.4 Last Edit by Haritha Chicas RN on 12/16/24 09:31 interface delay Assessment & Plan Assessment & Plan (1) Current use of anticoagulant therapy: Code(s): Z79.01 - 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
[2024-12-16 09:30] LABS: Prothrombin Time Whole Bld POC 41.2 sec (11.1-13.5); ~PT, ~INR - Anti Coag Clinic 3.4 (0.9-1.1)
--- OUTSIDE RECORDS SUMMARY | 2024-12-16 09:51 | XMS_ITS | Encounter Summary ---
Author Organization [employer] Address [address] [facility] [address] 7[address] [place] [address] Care Team Providers Care Bowl Turner Name Role Phone Maryam Bloom MD Primary Care Provider + Reason for Visit * Reason Comments Med Refill Encounter Details Date Type Department Care Team ([facility] st Contact Info) Description 12/25/2023 Refill [facility] 230 [place] [address] Maryam Bloom MD 230 [place] [address] Allergic rhinitis, unspecified seasonality, unspecified trigger Social [...] trigger documented in this encounter Care Teams Bowl Turner Relationship Specialty Start Date End Date Maryam Bloom MD [address] [place] [phone] PCP - General Family Medicine 05/12/19 documented as of this encounter
--- OUTSIDE RECORDS SUMMARY | 2024-12-16 09:51 | XMS_ITS | Encounter Summary ---
Author Organization [employer] Address [address] 7[address] [place] [address] Care Team Providers Care Intelligence Chief Name Role Phone Maryam Bloom MD Primary Care Provider + Encounter Details Date Type Department Care Team (Late st Contact Info) Description 12/09/2022 Telephone [facility] [address] [place] [address] Maryam Bloom MD 230 [place] [address] Social History Tobacco Use Types Packs/Day Years [...] this Friday. Will see DDS tomorrow in [facility]. Advised to take Lovenox that he has at home by RN ,dose not known at time of call. Will recheck INR on Friday12/13/22. Please update PCP with above and follow with Brittaney ORDAZ if indicated. documented in this encounter Plan of Treatment Not on file documented as of this encounter Visit Diagnoses Not on filedocumented in this encounter Care Teams Intelligence Chief Relationship Specialty Start Date End Date Maryam Bloom MD [address] [place] [phone] PCP - General Family Medicine 05/12/19 documented as of this encounter
--- OUTSIDE RECORDS SUMMARY | 2024-12-16 09:51 | XMS_ITS | Clinical Summary ---
Author Organization [facility] Address 175 [place] [phone] Phone Care Team Providers Care Graphic Technician Name Role Phone Maryam Bloom MD Primary Care Provider Allergies No known active allergies Medications clotrimazole (LOTRIMIN) 1 % external solution Apply topically 2 (two) times a day. 30 mL 12/31/19 25 Active Encounters Date Type Department Care Team Description 11/04/2024 9:15 AM EDT Consult Orthopedic [facility] [address] [place] [phone] Lorenzo Weiner, DPM Dermatophytosis of nail (Primary [...] Upcoming Encounters Date Type Department Care Team ([facility] st Contact Info) Description 01/06/2025 9:45 AM EDT Office Visit Orthopedic Surgery [facility] [address] [phone] Lorenzo Weiner, DPM [address] [address] Health Maintenance Due Date Last Done Comments Hepatitis A Vaccines (1 of 2 - Risk 2-dose series) 2002 Hepatitis B Vaccines (1 of 3 [...] to complete this topic Insurance [place] Care Teams Graphic Technician Relationship Specialty Start Date End Date Maryam Bloom MD [address] [place] [phone] PCP - General Internal Medicine 07/14/24
--- OUTSIDE RECORDS SUMMARY | 2024-12-16 09:51 | XMS_ITS | Encounter Summary ---
Author Organization [employer] Address [address] 7[address] [place] [address] Care Team Providers Care Parachute Harness Rigger Name Role Phone Maryam Bloom MD Primary Care Provider + Encounter Details Date Type Department Care Team (Late st Contact Info) Description 12/16/2024 Orders Only GENERIC EXTERNAL DATA DEPARTMENT Provider, [...] on file documented as of this encounter Procedures Procedure Name Priority Date/Time Associated Diagnosis Comments PROTHROMBIN TIME WHOLE BLD POC Routine 12/16/2024 9:21 AM EDT ~PT, ~INR - ANTI COAG CLINIC Routine 12/16/2024 9:21 AM EDT documented in this encounter Results * (ABNORMAL) PROTHROMBIN TIME WHOLE BLD POC (12/16/2024 9:21 AM EDT) Protime 41.2(H) 11.1 - 13.5 sec [facility] 12/16/2024 9:21 AM EDT 12/16/2024 9:30 AM EDT us Generic External Data Provider LAB BLOOD ORDERAB LES Final Result [facility] [address] [place], [place] [phone] * (ABNORMAL) ~PT, ~INR - ANTI COAG CLINIC (12/16/2024 9:21 AM EDT) Prothrombin Time INR 3.4(H) 0.9 - 1.1 [facility] Comment:METER #: [id number] TERNATIONAL NORMALIZED RATIO (INR) REFERENCE RANGES Reference RangeFor patients not on anticoagulant therapy: 0.9 - 1.1INR ranges for oral anticoagulanttherapy:For prevention and treatment of venous thrombosis and pulmonary embolism: 2.0 - 3.0For acute myocardial infarction with aspirin therapy: 2.0 - 3.0For acute myocardial infarction without aspirin therapy: 3.0 - 4.0For patients with mechanical prosthetic heart valves: 2.5 - 3.5 12/16/2024 9:21 AM EDT 12/16/2024 9:30 AM EDT us Generic External Data Provider LAB BLOOD ORDERAB LES Final Result [facility] [address] [place] [address] [phone] documented in this encounter Visit Diagnoses Not on filedocumented in this encounter Additional Health Concerns Assessment Noted Time PHQ-9 Depression Total Score: 0 08/03/20 24 9:59 AM EST documented as of this encounter Care Teams Parachute Harness Rigger Relationship Specialty Start Date End Date Maryam Bloom MD [address] [place] [phone] PCP - General Family Medicine 05/12/19 documented as of this encounter
--- OUTSIDE RECORDS SUMMARY | 2024-12-16 09:51 | XMS_ITS | Clinical Summary ---
Author Organization [employer] Address [address] [facility] [address] [place] [address] Care Team Providers Care Pararescue Craftsman Name Role Phone Maryam Bloom MD Primary [...] for smoking cessation. 100 lozenge 5 01/03/20 25 Active Blood Pressure Monitoring (Blood Pressure Cuff) [facility] Use daily as prescribed 1 each 5 Active Active Problems Problem Noted Date Diagnosed Date Elevated blood pressure reading 12/03/2024 Assessment & Plan (12/03/2024 2:46 PM EDT): Unclear if related to smoking/? Chronic hypoxemia Counseled re low salt diet/increase moderate physical activity. Check home BP BIW and prn CP/PONCE/ORTIZ, follow-up with me in 3 months or earlier if BP is > 150/85 Counseled to quit smoking Hypoxemia associated with sleep 08/03/2024 Assessment & Plan (12/03/2024 2:45 PM EDT): Apparently with ILD, pulmonology notes not available we will follow-up. Reportedly put on overnight O2, follow-up with pulmonology Advised to quit smoking and vaping Assessment & Plan (08/03/2024 10:15 AM EST): [...] been stable with no CHF, followed by [facility] cardiology. Keep INR between 2.5 and 3.5, will order Lovenox if INR is below 2.2. Assessment & Plan (06/03/2024 1:19 PM EDT): No evidence of CHF, refer to [facility] due for follow up. Assessment [...] Moderate persistent asthma 11/27/2016 Assessment & Plan (12/03/2024 2:43 PM EDT): Controlled on Advair twice daily Continue allergy desensitization by aluminum boat inspector and use albuterol as needed Counseled to quit smoking and vaping Follow-up with foreign languages department chair Assessment & Plan (06/03/2024 1:15 PM EDT): [...] 3 months televisit. Obesity (BMI 30-39.9) 11/27/2016 Assessment & Plan (12/03/2024 2:47 PM EDT): Discussed re weight reduction options including exercise, life style modifications, diet. Recommended to decrease soda and sugary beverage consumption, increase protein intake with meals (at least 1 portion of protein with each meal) to assist with satiety, increase dietary fiber Recommended at least 150 min/week of moderate intensity exercise. Declined referral to dietitian today, follow-up in 3 months, may want to try GLP's or Topamax Opioid dependence on agonist therapy 11/27/2016 Assessment & Plan (12/03/2024 2:48 PM EDT): Doing well on Suboxone. Advised against using recreational substances or alcohol. Assessment & Plan (06/03/2024 1:18 PM EDT): He is doing well on Suboxone. Allergic rhinitis 11/27/2016 Assessment & Plan (12/03/2024 2:47 PM EDT): Improving on Clarinex and Flonase Follow-up with aluminum boat inspector for allergy desensitization Assessment & Plan (08/03/2024 10:23 AM EST): [...] life style modifications, diet and referral to online banking specialist. Recommended to decrease soda and sugary [...] Encounters Date Type Department Care Team Description 12/16/2024 Orders Only GENERIC EXTERNAL DATA DEPARTMENT Provider, Generic External Data 12/10/[address] [address] Zeina Schmid RN Paperwork/Forms 12/03/2024 10:30 AM EDT Office Visit [address] [address] Maryam Bloom MD Hypoxemia associated with sleep (Primary Dx); Elevated blood pressure reading; Moderate persistent asthma without complication; Opioid dependence on agonist therapy ([facility]); Allergic rhinitis due to animal hair and dander; Obesity (BMI 30-39.9); Exercise counseling; Dietary counseling 12/03/2024 Travel 11/30/[address] [address] Maryam Bloom MD Chart prep 11/24/2024 Patient Outreach [address] [address] Maryam Bloom MD Pre-visit Planning ((SDOH screening negative tobacco screening positive)) 11/24/2024 Orders Only GENERIC EXTERNAL DATA DEPARTMENT Provider, Generic External Data 11/08/2024 Orders Only GENERIC EXTERNAL DATA DEPARTMENT Provider, Generic External Data 10/28/[address] [address] Maryam Bloom MD Mild intermittent asthma without complication; Allergic rhinitis, unspecified seasonality, unspecified trigger 10/22/2024 Population Health Risk Score [facility] ([facility] Department [address] [phone] Provider, Population Health Generic 10/20/2024 Orders Only GENERIC EXTERNAL DATA DEPARTMENT Provider, Generic External Data 10/06/2024 Orders Only GENERIC EXTERNAL DATA DEPARTMENT Provider, Generic External Data 10/04/2024 Orders Only [facility] [address] [place] [address] Maryam Bloom MD 10/04/2024 Telephone [facility] [address] [place] [address] Maryam Bloom MD Med Refill; Call Back Request 10/02/2024 Refill [facility] [address] [place] [address] Maryam Bloom MD Allergic rhinitis, unspecified seasonality, unspecified trigger 09/30/2024 Telephone [facility] [address] [place], [place] [phone] Marlin Rizvi OD 09/22/2024 Orders Only GENERIC EXTERNAL DATA [...] COAG CLINIC Routine 12/16/2024 9:21 AM EDT PROTHROMBIN TIME WHOLE BLD POC Routine 11/24/2024 [...] WHOLE BLD POC (12/16/2024 9:21 AM EDT) Only the most recent of6 resultswithin the time period is included. Protime 41.2(H) 11.1 - 13.5 sec [facility] 12/16/2024 9:21 AM EDT 12/16/2024 9:30 AM EDT us Generic External Data Provider LAB BLOOD ORDERAB LES Final Result Performing Organization Address [facility]/ZIP Co de Phone Number [facility] [address] [place] [phone] * (ABNORMAL) ~PT, ~INR - ANTI COAG CLINIC (12/16/2024 9:21 AM EDT) Only the most recent of6 resultswithin the time period is included. Prothrombin Time INR 3.4(H) 0.9 - 1.1 [facility] Comment:METER #: [id number] TERNATIONAL NORMALIZED RATIO (INR) REFERENCE RANGES Reference [...] 9:21 AM EDT 12/16/2024 9:30 AM EDT Generic External Data Provider LAB BLOOD ORDERAB LES Final Result Performing Organization Address [facility] Co de Phone Number [facility] [address] [place] [phone] * (ABNORMAL) Lipid Panel with Reflex to Direct LDL (08/03/2024 10:36 AM EST) Triglycerides 106 <150 mg/dL [facility] Comment:Desirable Triglyceri de: less than 150 mg/dLBorderline High Triglyceride 150-199 mg/dLHigh Triglyceride: 200-499 mg/dLVery High Triglyceride: greater than or equal to 5OO mg/dL Cholesterol 185 <200 mg/dL [facility] Comment:Desirable Cholestero l: less than 200 mg/dLBorderline High Cholesterol: 200-239 mg/dLHigh Cholesterol: greater than 239 mg/dL LDL Cholesterol Calculated 119(H) <100 mg/dL [facility] Comment:Desirable LDL: less than 100 mg/dLNear Optimal/Above Optimal LDL: 110- 129 mg/dLBorderline High LDL: 130-159 mg/dLHigh LDL: 160-189 mg/dLVery High LDL: greater than or equal to 190 mg/dL HDL Cholesterol 45 >40 mg/dL [facility] Comment:Desirable HDL: great er than 40 mg/dL Note: This HDL assay may give artificially low results in patients with liver disease. Blood 08/03/2024 10:3 6 AM EST 08/03/2024 1:12 PM EST Maryam Bloom MD LAB BLOOD ORDERABLES Fin al Result Performing Organization Address [facility] Co de Phone Number [facility] [address] [place] [phone] * HEPATITIS C AB W/REFL TO HCV RNA, QN, PCR (03/05/2021 9:50 AM EDT) Pathologist [facility] HEPATITIS C ANTIBODY NON-REACT [place] NON-REACT [facility] INDEX 0.01 <1.00 [facility] Comment: ?? HCV antibody was non-reactive. There is no laboratory ?? evidence of HCV infection. ?? In most cases, no further action is required. However, if recent HCV exposure is suspected, a test for HCV RNA (test code 97808) is suggested. ?? For additional information please refer to http://education.BeckonCall/faq/RHR59r4 (This link is being provided for informational/ educational purposes only.) ?? 03/05/2021 9:50 AM EDT Maryam Bloom MD HISTORICAL/NON ORDERABLE LABS Final Result Performing Organization Address [facility] Co de Phone Number [facility] [address] * HIV 1/2 ANTIGEN/ANTIBODY,FOURTH GENERATION W/RFL (03/05/2021 9:50 AM EDT) HIV-1/2 ANTIGEN AND ANTIBODIES, 4TH GENERATION W/ REFLEX NON-REACT [place] NON-REACT [facility] Comment: HIV-1 antigen and HIV-1/HIV-2 [...] ? For additional information please refer to http://education.BeckonCall/faq/ZDO010 (This link is being provided for informational/ educational purposes only.) ? The performance of this assay has not been clinically validated in patients less than 2 years old. ?? 03/05/2021 9:50 AM EDT Maryam Bloom MD LAB BLOOD ORDERABLES Fin al Result [facility] [address] from Last 3 Months or Most Recently Relevant to Health Maintenance Insurance [facility] [place] Care Teams Pararescue Craftsman Relationship Specialty Start Date End Date Maryam Bloom MD [address] [place] [phone] PCP - General Family Medicine 05/12/19
--- OUTSIDE RECORDS SUMMARY | 2024-12-16 09:52 | XMS_ITS | Encounter Summary ---
Author Organization [employer] Address [address] [place] [address] Care Team Providers Care Wheel Grinder Name Role Phone Maryam Bloom MD Primary Care Provider + Encounter Details Date Type Department Care Team (Late st Contact Info) Description 09/12/2022 Orders Only [facility]S [address] [place] [address] Cora Hamilton LPN Social History Tobacco Use [...] on filedocumented in this encounter Care Teams Wheel Grinder Relationship Specialty Start Date End Date Maryam Bloom MD [address] [place] [phone] PCP - General Family Medicine 05/12/19 documented as of this encounter
--- OUTSIDE RECORDS SUMMARY | 2024-12-16 09:52 | XMS_ITS | Encounter Summary ---
Author Organization [employer] Address [address] [facility] [place] [address] Care Team Providers Care Gear Lapping Machine Operator Name Role Phone Maryam Bloom MD Primary Care Provider + Reason for Visit * Reason Comments Med Refill Encounter Details Date Type Department Care Team ([facility] st Contact Info) Description 07/19/2023 Refill [facility] [address] [place] [address] Maryam Bloom MD [address] [place] [address] Mild intermittent asthma without complication Social History [...] complication documented in this encounter Care Teams Gear Lapping Machine Operator Relationship Specialty Start Date End Date Maryam Bloom MD [address] [place] [phone] PCP - General Family Medicine 05/12/19 documented as of this encounter
--- OUTSIDE RECORDS SUMMARY | 2024-12-16 09:52 | XMS_ITS | Encounter Summary ---
Author Organization [employer] Address [address] [facility] 7t [place] [address] Care Team Providers Care Food Checker Name Role Phone Maryam Bloom MD Primary Care Provider + Reason for Visit * Reason Onset Date Comments Coagulation Disorder 12/05/2022 Encounter Details Date Type Department Care Team (Late st Contact Info) Description 12/05/2022 Telephone [facility] MEDICINE [address] [place] [address] Maryam Bloom MD [address] [place], [place] [phone] Coagulation Disorder Social History Tobacco Use Types [...] 12/05/2022 2:58 PM EDT RN called pt [phone] in regards to below message however no answer, RN left VM requesting CB to red team nurses. TC returned to [phone] however no answer, RN left VM requesting CB to red team nurses. Pt to F/U PRN. * Telephone Encounter - Darlin Zavala - 12/05/2022 2:38 PM EDT Tc from pt Spouse requesting a call regarding message below. Please contact pt spouse at [phone] * Telephone Encounter - Tri Roman LPN [...] on filedocumented in this encounter Care Teams Food Checker Relationship Specialty Start Date End Date Maryam lBoom MD [address] [place] [phone] PCP - General Family Medicine 05/12/19 documented as of this encounter
--- OUTSIDE RECORDS SUMMARY | 2024-12-16 09:52 | XMS_ITS | Encounter Summary ---
Author Organization [employer] Address 75 [facility] 7t [place] [address] Care Team Providers Care Mine Surveyor Name Role Phone Maryam Bloom MD Primary Care Provider + Reason for Visit * Reason Onset Date Comments premed tx 01/08/2023 Encounter Details Date Type Department Care Team (Late st Contact Info) Description 01/08/2023 Telephone [facility] ADULT DENTAL [address] [place] [address] Xavi Melara DDS 230 [place] [address] premed tx Social History Tobacco Use Types [...] Miscellaneous Notes * Telephone Encounter - Ladonna Rios - 01/08/2023 12:40 PM EDT Patient has a mechanical valve and 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 Can script be sent?DR documented in this encounter Plan of Treatment Not on file documented as of this encounter Visit Diagnoses Not on filedocumented in this encounter Care Teams Mine Surveyor Relationship Specialty Start Date End Date Maryam Bloom MD [address] [place] [phone] PCP - General Family Medicine 05/12/19 documented as of this encounter
== END 2024-12-16 09:39 | disposition home or self-care (01) ==
LOC: HO.ACS 09:17
PROVIDERS: PCP Internal Medicine; Visit Provider Internal Medicine Medical Oncology
DX: Z79.01 Long term (current) use of anticoagulants (principal)

== ENCOUNTER → 2024-12-16 09:17 | Outpatient (BNVA) | payer MEDICAID, SELFPAY | PROVIDERS: PCP Internal Medicine; Visit Provider Internal Medicine Medical Oncology | DX: Z95.2 Presence of prosthetic heart valve (principal); Z79.01 Long term (current) use of anticoagulants; Z51.81 Encounter for therapeutic drug level monitoring | CPT/HCPCS: 85610; 99211 ==

== ENCOUNTER → 2024-12-24 09:55 | Outpatient (REF) | payer MEDICAID, SELFPAY ==
--- NOTE | 2024-12-24 09:59 | CA_ITS ---
Transthoracic Echocardiogram Patient (Last, First, Middle): Samuel Seo, Gender: Male Date of : 1985 Age: 39 Procedure Date: 12/24/2024 Procedure Type: Transthoracic Echocardiogram Location: OP Height: 182. cm Weight: 127.01 kg BSA: 2.45 m2 Heart Rate: 83 bpm BP: 175 / 90 mmHg Tomato Grader: LILIANA Stovall MD: Jose Williamson MD Buck Swamper: Toro Adams MD Symptoms: Z95.2 - Presence of prosthetic heart valve Study Quality: Fair ECG Rhythm: Sinus Conclusions: - 1. Normal LV systolic function with LV EF of 60 65% 2. Mildly reduced RV systolic function 3. Mildly dilated left atrium 4. Increased gradient across mechanical mitral valve although stable and comparable to prior study 5. No gross pericardial effusion Findings Left Ventricle Normal left ventricular size, thickness, and systolic function. The visually estimated ejection fraction is between 60-65%. There is paradoxical septal motion consistent with post-operative status. Right Ventricle Mildly increased right ventricular cavity size. There is mildly decreased right ventricular systolic function. Atria The left atrium is mildly dilated. There is no evidence of interatrial shunt. The right atrium is likely dilated. Aortic Valve Normal aortic valve structure and function. There is no aortic valve stenosis. There is no aortic valve regurgitation. Mitral Valve A mechanical prosthetic mitral valve is present. The prosthetic mitral valve appears to be functioning normally. mean gradient across the mitral valve is 12 mm Hg, this is elevated although has been stable and comparable to the last study Pulmonic Valve The pulmonic valve was not well visualized. Tricuspid Valve Likely normal tricuspid valve structure and function. Tricuspid regurgitation envelope is inadequate for calculation of right ventricular systolic pressure. Great Vessels The pulmonary artery was not well visualized. There is no dilatation of the ascending aorta measuring 3.30 cm. There is no evidence of plaque in the aorta. Venous The inferior vena cava is normal in size and collapses greater than 50% with inspiration. Pericardium/Pleural There is no evidence of pericardial effusion. Prior Study Comparison No significant change compared to prior study dated: 01/30/2021. Measurements 2D Linear Measurements IVSd: 1.06 0.6-0.9/0.6-1.0 cm LVIDd: 4.63 3.9-5.3/4.2-5.9 cm LVIDd Index: 1.89 2.4-3.2/2.2-3.1 cm/m2 LVIDs: 3.07 2.0-3.6 cm LVPWd: 1.24 0.7-1.1 cm LA Diam: 3.80 2.7-3.8/3.0-4.0 cm LAIDs Index: 1.55 1.5-2.3 cm/m2 LV Mass: 242.90 67-162/88-224 g LV Mass Index: 99.14 43-95/49-115 g/m2 LVOT Diam: 2.00 3.0+(-)1.3 cm 2D Systolic Function EF 4C: 67.60 >55% EF 2C: 56.80 >55% EF BiP: 61.00 >55% Mitral Valve MV VTI: 0.53 MV Pk Jai: 2.43 MV Mn Jai: 1.67 MV Pk Grad: 24.00 MV Mn Grad: 13.00 MV Pk E: 1.71 MV PK A: 2.01 MV Decel Time: 346.00 E/A: 0.90 E'Lateral: 7.40 E'Medial: 5.66 E/E' Med: 30.20 E/E' Lat: 23.10 PHT: 101.00 MVA PHT: 2.18 MVA Continuity: 1.21 Decel [place]: 4.95 Aortic Valve AoV Pk Jai: 1.28 AoV Mn Jai: 0.90 AoV VTI: 0.25 AoV Pk Grad: 7.00 Aov Mn Grad: 4.00 TIFFANIE Cont.VTI: 2.63 LVOT LVOT Pk Jai: 1.07 LVOT Mn Jai: 0.75 LVOT VTI: 0.21 LVOT Pk Grad: 5.00 LVOT Mn Grad: 3.00 LVOT Diam: 2.00 LVOT Area: 3.14 Diastolic Function MV Pk E: 1.71 MV Pk A: 2.01 E/A: 0.90 E'Medial: 5.66 E/E' Med: 30.20 E' Laterial: 7.40 E/E' Lat: 23.10 Right Ventricle TAPSE (mm): 16.30 Tricuspid Valve RA Press: 3.00 Great Vessels Aorta Sinus of Valsalva: 3.90 2.0-3.5 cm Ao Asc: 3.30 2.1-3.4 cm Ao Arch: 2.90 Pulmonary Valve PV Pk Jai: 1.13 Peak PV Grad: 5.00 Updated in Other Vendor System with Status of Final Toro Adams MD electronically signed on 12/24/2024 4:40:49 PM with status of Final
--- OUTSIDE RECORDS SUMMARY | 2024-12-24 10:14 | XMS_ITS | Encounter Summary ---
Author Organization [employer] Address [address] [facility] [address] 7[address] [place] [address] Care Team Providers Care Floor Finisher Helper Name Role Phone Maryam Bloom MD Primary Care Provider + Reason for Visit * Reason Comments Med Refill Encounter Details Date Type Department Care Team ([facility] st Contact Info) Description 12/25/2023 Refill [facility] MEDICINE [address] [place] [address] Maryam Bloom MD 230 [place] [address] Allergic rhinitis, unspecified seasonality, unspecified trigger Social [...] trigger documented in this encounter Care Teams Floor Finisher Helper Relationship Specialty Start Date End Date Mrayam Bloom MD [address] [place] [phone] PCP - General Family Medicine 05/12/19 documented as of this encounter
--- OUTSIDE RECORDS SUMMARY | 2024-12-24 10:14 | XMS_ITS | Clinical Summary ---
Author Organization [address] [facility] Address [address] [place] [address] Phone Care Team Providers Care Carport Erector Name Role Phone Maryam Bloom MD Primary Care Provider [phone] Allergies No known active allergies Medications clotrimazole (LOTRIMIN) 1 % external solution Apply topically 2 (two) times a day. 30 mL 12/31/19 25 Active Encounters Date Type Department Care Team Description 11/04/2024 9:15 AM EDT Consult Orthopedic [facility] [address] [place] [phone] Lorenzo Weiner, DPM Dermatophytosis of nail (Primary [...] Upcoming Encounters Date Type Department Care Team ([facility] st Contact Info) Description 01/06/2025 9:45 AM EDT Office Visit Orthopedic Surgery [facility] [address] [phone] Lorenzo Weiner, DPM [address] [address] Health Maintenance Due Date Last Done Comments [...] to complete this topic Insurance MEDICAID - [place] Care Teams Carport Erector Relationship Specialty Start Date End Date Maryam Bloom MD [address] [place] [phone] PCP - General Internal Medicine 07/14/24
--- OUTSIDE RECORDS SUMMARY | 2024-12-24 10:15 | XMS_ITS | Encounter Summary ---
Author Organization [employer] Address 75 [facility] 7t [place] [address] Care Team Providers Care Loan Coordinator Name Role Phone Maryam Bloom MD Primary Care Provider + Reason for Visit * Reason Onset Date Comments Coagulation Disorder 12/05/2022 Encounter Details Date Type Department Care Team (Late st Contact Info) Description 12/05/2022 Telephone [facility] MEDICINE [address] [place] [address] Maryam Bloom MD 230 [place], [place] [phone] Coagulation Disorder Social History Tobacco Use Types [...] 12/05/2022 2:58 PM EDT RN called pt [phone] in regards to below message however no answer, RN left VM requesting CB to red team nurses. TC returned to [phone] however no answer, RN left VM requesting CB to red team nurses. Pt to F/U PRN. * Telephone Encounter - Darlin Zavala - 12/05/2022 2:38 PM EDT Tc from pt Spouse requesting a call regarding message below. Please contact pt spouse at [phone] * Telephone Encounter - Tri Roman LPN [...] on filedocumented in this encounter Care Teams Loan Coordinator Relationship Specialty Start Date End Date Maryam Bloom MD [address] [place] [phone] PCP - General Family Medicine 05/12/19 documented as of this encounter
--- OUTSIDE RECORDS SUMMARY | 2024-12-24 10:15 | XMS_ITS | Encounter Summary ---
Author Organization [employer] Address 75 [facility] 7t [place] [address] Care Team Providers Care Fruit Harvest Worker Name Role Phone Maryam Bloom MD Primary Care Provider + Reason for Visit * Reason Onset Date Comments premed tx 01/08/2023 Encounter Details Date Type Department Care Team (Late st Contact Info) Description 01/08/[address] [facility] ADULT DENTAL [address] [place] [address] Xavi Melara DDS [address] [place] [address] premed tx Social History Tobacco Use Types [...] on filedocumented in this encounter Care Teams Fruit Harvest Worker Relationship Specialty Start Date End Date Maryam Bloom MD [address] [place] [phone] PCP - General Family Medicine 05/12/19 documented as of this encounter
--- OUTSIDE RECORDS SUMMARY | 2024-12-24 10:15 | XMS_ITS | Encounter Summary ---
Author Organization [employer] Address [address] [facility] [address] 7t [place] [address] Care Team Providers Care Barrow Worker Helper Name Role Phone Maryam Bloom MD Primary Care Provider + Encounter Details Date Type Department Care Team (Late st Contact Info) Description 09/12/2022 Orders Only [facility] PEDS [address] [place] [address] Cora Hamilton LPN Social History Tobacco Use [...] on filedocumented in this encounter Care Teams Barrow Worker Helper Relationship Specialty Start Date End Date Maryam Bloom MD [address] [place] [phone] PCP - General Family Medicine 05/12/19 documented as of this encounter
--- OUTSIDE RECORDS SUMMARY | 2024-12-24 10:15 | XMS_ITS | Encounter Summary ---
Author Organization [employer] Address [address] [facility] [address] 7[address] [place] [address] Care Team Providers Care Income Tax Manager Name Role Phone Maryam Bloom MD Primary Care Provider + Encounter Details Date Type Department Care Team (Late st Contact Info) Description 12/09/2022 Telephone [facility] MEDICINE [address] [place] [address] Maryam Bloom MD [address] [place] [address] Social History Tobacco Use Types Packs/Day Years [...] Friday. Will see DDS tomorrow in [facility]. Advised to take Lovenox that he has at home by RN ,dose not known at time of call. Will recheck INR on Friday12/13/22. Please update PCP with above and follow with Brittaney ORDAZ if indicated. documented in this encounter Plan of Treatment Not on file documented as of this encounter Visit Diagnoses Not on filedocumented in this encounter Care Teams Income Tax Manager Relationship Specialty Start Date End Date Maryam Bloom MD [address] [place] [phone] PCP - General Family Medicine 05/12/19 documented as of this encounter
--- OUTSIDE RECORDS SUMMARY | 2024-12-24 10:15 | XMS_ITS | Encounter Summary ---
Author Organization [email or web address] Address [address] [facility] [address] [place] [address] Care Team Providers Care Automotive Service Advisor Name Role Phone Maryam Bloom MD Primary Care Provider + Reason for Visit * Reason Comments Med Refill Encounter Details Date Type Department Care Team ([facility] st Contact Info) Description 07/19/2023 Refill [facility] MEDICINE [address] [place] [address] Maryam Bloom MD 230 [place] [address] Mild intermittent asthma without complication Social History [...] complication documented in this encounter Care Teams Automotive Service Advisor Relationship Specialty Start Date End Date Maryam Bloom MD [address] [place] [phone] PCP - General Family Medicine 05/12/19 documented as of this encounter
== END ==
LOC: HO.CARD 09:55
PROVIDERS: PCP Internal Medicine; Visit Provider Internal Medicine
DX: Z95.2 Presence of prosthetic heart valve (principal)
CPT/HCPCS: 93306

== ENCOUNTER → 2024-12-24 09:59 | Outpatient (BNV) | payer MEDICAID, SELFPAY | PROVIDERS: PCP Internal Medicine; Visit Provider Internal Medicine Cardiovascular Disease | DX: Z95.2 Presence of prosthetic heart valve (principal) | CPT/HCPCS: 93306 ==

== ENCOUNTER 2025-01-10 09:14 | Outpatient (AMB) | payer MEDICAID, SELFPAY ==
[2025-01-10 09:26] LABS: Prothrombin Time Whole Bld POC 46.7 sec (11.1-13.5); ~PT, ~INR - Anti Coag Clinic 3.9 (0.9-1.1)
--- NOTE | 2025-01-10 09:38 | MHC.OFFVISCO ---
Intake Intake Visit Reasons: Anticoagulation Allergies No Known Allergies [No Known Allergies*] Allergy (Verified 01/10/25 09:15) Medication List - Last Reconciled 01/10/25 by Sophie Ellison RN acetaminophen (Tylenol) 650 mg (2 x 325 mg) PO Q6H albuterol sulfate 90 mcg/actuation 2 puffs PO Q4-6H PRN amoxicillin 2,000 mg (4 x 500 mg) PO ONCE 1 day buprenorphine-naloxone 2-0.5 mg (Suboxone) 1 film sublingual DAILY buprenorphine-naloxone 4-1 mg (Suboxone) 5 mg sublingual BID cetirizine 10 mg PO DAILY chlorhexidine gluconate 0.12% PO desloratadine (Clarinex) 5 mg PO DAILY fexofenadine 180 mg PO DAILY fluoxetine 20 mg PO QAM fluticasone propion-salmeterol 230-21 mcg/actuation (Advair HFA) 2 puffs inhalation fluticasone propionate 50 mcg/actuation 1 spray intranasal DAILY gabapentin 300 mg PO BID hydrocortisone 2.5% topical DAILY hydroxyzine pamoate 25 mg PO BEDTIME PRN ketoconazole 2% appl topical lamotrigine 200 mg PO lithium carbonate 0 mg PO nicotine (polacrilex) 4 mg PO Q2H PRN warfarin 7.5 mg See Protocol PO DAILY Nursing Note INR 3.9 out of therapeutic range Medications and supplements reviewed Patient status: busy with work, has had little to no greens or exercise- will resume both, smoking less may raise the INR also Medications or supplements: no changes Diet: good Denies any signs and symptoms of bleeding or clotting or unusual bruising Bleeding, bruising, clotting discussed Nutritional guidance given: resume weekly greens Dose: switch dose to 11.25mg Friday this week / 7.5mg x 5days and eat cooked greens today and weekly F/U INR Date: 2 weeks ?? Patient verbalizing understanding of instructions given. Anti-Coag Initial Assessment Social Hx Patient Tobacco Use Status: Current everyday Tobacco user Tobacco use type: Cigarette alcohol intake: former Coding Level of Care Code Est Patient Level 1 Diagnoses Current use of anticoagulant therapy Z79.01 Assessment & Plan Assessment & Plan (1) Current use of anticoagulant therapy: Code(s): Z79.01 - detention (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
--- OUTSIDE RECORDS SUMMARY | 2025-01-10 09:52 | XMS_ITS | Clinical Summary ---
Author Organization [facility] Address [address] [place] [address] Phone Care Team Providers Care Instructional Assistant Name Role Phone Maryam Bloom MD Primary Care Provider [phone] Allergies No known active allergies Medications clotrimazole (LOTRIMIN) 1 % external solution Apply topically 2 (two) times a day. 30 mL 12/31/19 25 Encounters Date Type Department Care Team Description 11/04/2024 9:15 AM EDT Consult Orthopedic Surgery [facility] [address] [phone] Lorenzo Weiner, DPM Dermatophytosis of nail (Primary [...] Upcoming Encounters Date Type Department Care Team ([facility] st Contact Info) Description 03/21/2025 9:45 AM EDT Office Visit Orthopedic Surgery [facility] [address] [phone] Lorenzo Weiner, DPM [address] [address] Health Maintenance Due Date Last Done Comments [...] to complete this topic Insurance MEDICAID - [place] Care Teams Instructional Assistant Relationship Specialty Start Date End Date Maryam Bloom MD [address] [place] [phone] PCP - General Internal Medicine 07/14/24
== END 2025-01-10 09:43 | disposition home or self-care (01) ==
LOC: HO.ACS 09:14
PROVIDERS: PCP Internal Medicine; Visit Provider Internal Medicine Medical Oncology
DX: Z79.01 Long term (current) use of anticoagulants (principal)

== ENCOUNTER → 2025-01-10 09:14 | Outpatient (BNVA) | payer MEDICAID, SELFPAY | PROVIDERS: PCP Internal Medicine; Visit Provider Internal Medicine Medical Oncology | DX: Z95.2 Presence of prosthetic heart valve (principal); Z51.81 Encounter for therapeutic drug level monitoring; Z79.01 Long term (current) use of anticoagulants | CPT/HCPCS: 85610; 99211 ==

== ENCOUNTER 2025-01-11 08:17 | Outpatient (AMB) | payer MEDICAID, SELFPAY ==
[2025-01-11 08:21] VITALS: BP 120/82; PULSE 83; BMI 37.3
--- NOTE | 2025-01-11 08:21 | A.OFFVIS_ITS ---
Vital Signs 01/11/25 08:21 Height 6 ft Weight 275 lb 2.19 oz BMI 37.3 BP 120/82 Blood Pressure Location Rt brachial Position Sitting Pulse 83 Pulse Source Monitor Intake Visit Reasons: r/s 12/30/24 4 mos followup echo Pattern Layout Worker Required: No Allergies No Known Allergies [No Known Allergies*] Allergy (Verified 01/11/25 08:23) Medication List - Last Reconciled 01/11/25 by PUMA Jennings acetaminophen (Tylenol) 650 mg (2 x 325 mg) PO Q6H albuterol sulfate 90 mcg/actuation 2 puffs PO Q4-6H PRN buprenorphine-naloxone 2-0.5 mg (Suboxone) 1 film sublingual DAILY buprenorphine-naloxone 4-1 mg (Suboxone) 5 mg sublingual BID cetirizine 10 mg PO DAILY chlorhexidine gluconate 0.12% PO desloratadine (Clarinex) 5 mg PO DAILY fluoxetine 20 mg PO QAM fluticasone propion-salmeterol 230-21 mcg/actuation (Advair HFA) 2 puffs inhalation fluticasone propionate 50 mcg/actuation 1 spray intranasal DAILY gabapentin 300 mg PO BID hydrocortisone 2.5% topical DAILY hydroxyzine pamoate 25 mg PO BEDTIME PRN ketoconazole 2% appl topical lamotrigine 200 mg PO lithium carbonate 0 mg PO nicotine (polacrilex) 4 mg PO Q2H PRN warfarin 7.5 mg See Protocol PO DAILY HPI HPI r/s 12/30/24 4 mos followup echo: Details: Samuel is a 39-year-old male presenting for cardiovascular follow-up after recent echocardiogram. 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 He reports newer mild intermittent bilateral leg edema, linked to dietary salt with inconsistency except for salt linkage. The patient has asthma, recently worsened by a cat allergy. Night time oxygen therapy has been intermittently skipped due to resulting dryness, with recommendations for humidification. Despite some high blood pressure readings, current diagnostics show normal values. The patient denies chest pain, palpitations, or lightheadedness during this evaluation. [facility]LY [facility] Medical History Smoking History of endocarditis Surgical History S/P MVR (mitral valve replacement) (~2014) Family History Father No problems noted. Mother No problems noted. Social History Alcohol intake: former Patient Tobacco Use Status: Current everyday Tobacco user Tobacco use type: Cigarette Cigarettes Per Day: 10 Years Smoked: started age 19, 12 cig a day, Review of Systems Const All systems reviewed & are unremarkable except as noted in HPI and below ENT Denies dizziness Card Denies chest pain, Denies chest pain at rest, Denies chest pain with activity, Denies rapid heart rate, Denies pedal edema, Denies edema, Denies leg edema, Denies lightheadedness, Denies palpitations, Denies dyspnea, Denies dyspnea on exertion and Denies orthopnea Resp Denies cough, Denies dyspnea and Denies dyspnea on exertion GI Denies hematochezia and Denies change in stool character Musc Denies abnormal gait, Denies limited range of motion, Denies muscle cramps, Denies muscle weakness, Denies numbness, Denies radiating pain into limb, Denies stiffness and Denies tingling Neuro Denies abnormal gait, Denies dizziness, Denies numbness and Denies tingling Endo Denies palpitations Physical Exam Vital Signs: Last Vital Signs Pulse 83 01/11/25 08:21 BP 120/82 01/11/25 08:21 BMI result Body Mass Index 37.3 Const General: cooperative, healthy appearing, comfortable and no acute distress Orientation/consciousness: patient oriented x3 Neck Neck: Yes normal visual inspection Resp Effort & Inspection: normal respiratory effort Auscultation: clear to auscultation bilaterally, no rales, no rhonchi and no wheezes Cardio Rate: regular rate Rhythm: regular rhythm Heart sounds: S1 normal heart sound present, S2 normal heart sound present, Clicking heart sound present (mechanical mitral valve), no gallops, no murmurs and no rubs Neuro General: patient oriented x3 Extrem General: Yes normal to inspection, No no pedal edema and No calf tenderness Psych Appearance: grossly normal Mental Status: mental status grossly normal Speech and movement: Normal speech and movement present Office Procedures EKG Details: Today, read by me, sinus rhythm with first-degree AV block, rate 83, QTC 455 milliseconds, NV interval 214 millisecond [id number], Complete Results Reviewed Results Reviewed: Echo 12/24/24 Conclusions: - 1. Normal LV systolic function with LV EF of 60 65% 2. Mildly reduced RV systolic function 3. Mildly dilated left atrium 4. Increased gradient across mechanical mitral valve although stable and comparable to prior study 5. No gross pericardial effusion Assessment & Plan Assessment & Plan (1) S/P MVR (mitral valve replacement): Onset Date: ~2014 Comment: [facility] Code(s): Z95.2 - Presence of prosthetic heart valve Category: Surgical Plan: Mechanical mitral valve replacement 2014. Echocardiogram 12/24/2024 shows EF 60- 65%, increased gradient across the mitral valve which is stable compared to prior study, mean gradient 12 mmHg. [place]aine mitral valve click noted on examination. He is on Coumadin for anticoagulation with INR goal 2.5-3.5. [place] [facility] [place] and denies any issues with bleeding. Endocarditis prophylaxis prior to dental work reviewed. Cardiology follow-up 1 year, sooner if needed. (2) History of endocarditis: Code(s): Z86.79 - Personal history of other diseases of the circulatory system Category: Medical Plan: History of infective endocarditis of mitral valve 2014. Also had embolic phenomena into the right leg at that time. He ultimately had mitral valve replacement. No longer using illicit drugs. (3) First degree heart block: Code(s): I44.0 - Atrioventricular block, first degree Category: Medical Plan: Chronic finding on EKG. No significant changes noted. EKG today showing sinus rhythm with first-degree AV block, NV interval 214 milliseconds, rate 83. (4) Current use of anticoagulant therapy: Code(s): Z79.01 - halfway (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 Plan: On Coumadin for mechanical mitral valve Plan The discussion covered the mitral valve replacement and anticoagulation management, ensuring stability of INR levels, and adherence to antibiotic prophylaxis prior to dental procedures. I emphasized the importance of maintaining consistent INR monitoring to prevent thromboembolic events on the valve. Addressed the patient?s asthma influenced by environmental allergies, recommending humidification tactics to aid oxygen therapy adherence. Discussions regarding the influence of dietary sodium on blood pressure were significant, reinforcing the need for home monitoring. Follow-up is suggested annually, or sooner, should cardiovascular symptoms emerge. Patient Instructions: - Continue regular INR monitoring every 2-3 weeks and adjust your Coumadin as needed. - Take antibiotics prior to any dental procedures due to your mechanical heart valve. - Use a humidifier when using oxygen therapy at night to help with dryness. - Monitor your blood pressure regularly at home and reduce dietary salt intake. - Report any new chest pains, palpitations, or symptoms to my office immediately. Patient was informed and verbally consented to the use of an ambient scribe for clinic note documentation during this visit. Visit time spent on chart review, interview, assessment, orders, documentation. Coding Level of Care Code Est Pt Level 4 (00804) Complex EM visit Add On G2211 Diagnoses S/P MVR (mitral valve replacement) Z95.2 History of endocarditis Z86.79 First degree heart block I44.0 Current use of anticoagulant therapy Z79.01 CPT Codes EKG - CPT: 16486-[id number], Complete ([id number]) Time Spent (min) 28
--- OUTSIDE RECORDS SUMMARY | 2025-01-11 08:25 | XMS_ITS | Clinical Summary ---
Author Organization 175 [facility] Address 175 [place] [address] Phone Care Team Providers Care Product Development Technician Name Role Phone Maryam Bloom MD Primary Care Provider Allergies No known active allergies Medications clotrimazole (LOTRIMIN) 1 % external solution Apply topically 2 (two) times a day. 30 mL 12/31/19 25 Encounters Date Type Department Care Team Description 11/04/2024 9:15 AM EDT Consult Orthopedic Surgery [facility] [address] [phone] Lorenzo Weiner, DPM Dermatophytosis of [...] Upcoming Encounters Date Type Department Care Team ([facility] st Contact Info) Description 03/21/2025 9:45 AM EDT Office Visit Orthopedic Surgery [facility] [address] [phone] Lorenzo Weiner, DPM [address] [address] Health Maintenance Due Date Last Done Comments [...] to complete this topic Insurance MEDICAID - [place] Care Teams Product Development Technician Relationship Specialty Start Date End Date Maryam Bloom MD [address] [place] [phone] PCP - General Internal Medicine 07/14/24
== END 2025-01-11 08:50 | disposition home or self-care (01) ==
PROVIDERS: PCP Internal Medicine; Visit Provider Nurse Practitioner Family
DX: Z95.2 Presence of prosthetic heart valve (principal); Z86.79 Personal history of other diseases of the circulatory system; I44.0 Atrioventricular block, first degree; Z79.01 Long term (current) use of anticoagulants
CPT/HCPCS: 93010; 99214

== ENCOUNTER → 2025-01-11 08:17 | Outpatient (BNVA) | payer MEDICAID, SELFPAY | PROVIDERS: PCP Internal Medicine; Visit Provider Nurse Practitioner Family | DX: I44.0 Atrioventricular block, first degree (principal); F17.210 Nicotine dependence, cigarettes, uncomplicated; Z95.2 Presence of prosthetic heart valve; Z86.79 Personal history of other diseases of the circulatory system; Z79.01 Long term (current) use of anticoagulants | CPT/HCPCS: 93005; 99212 ==

== ENCOUNTER 2025-01-28 10:00 | Outpatient (AMB) | payer MEDICAID, SELFPAY ==
[2025-01-28 10:13] LABS: ~PT, ~INR - Anti Coag Clinic 4.3 (0.9-1.1)
--- OUTSIDE RECORDS SUMMARY | 2025-01-28 10:16 | XMS_ITS | Clinical Summary ---
Author Organization [address] [facility] Address [address] [place] [address] Phone Care Team Providers Care Chief Strategy Officer Name Role Phone Maryam Bloom MD Primary Care Provider Allergies No known active allergies Medications clotrimazole (LOTRIMIN) 1 % external solution Apply topically 2 (two) times a day. 30 mL 12/31/19 25 Encounters Date Type Department Care Team Description 11/04/2024 9:15 AM EDT Consult Orthopedic Surgery [facility] [address] [phone] Lorenzo Weiner, DPM Dermatophytosis of [...] Upcoming Encounters Date Type Department Care Team ([facility] st Contact Info) Description 03/21/2025 9:45 AM EDT Office Visit Orthopedic Surgery [facility] [address] [phone] Lorenzo Weiner, DPM [address] [address] Health Maintenance Due Date Last Done Comments [...] to complete this topic Insurance MEDICAID - [place] Care Teams Chief Strategy Officer Relationship Specialty Start Date End Date Maryam Bloom MD [address] [place] [phone] PCP - General Internal Medicine 07/14/24
--- NOTE | 2025-01-28 10:20 | MHC.OFFVISCO ---
Intake Intake Visit Reasons: Anticoagulation Allergies No Known Allergies (No Known Allergies*) Allergy (Verified 01/28/25 10:08) Medication List - Last Reconciled 01/28/25 by Haritha Chicas RN acetaminophen (Tylenol) 650 mg (2 x 325 mg) PO Q6H albuterol sulfate 90 mcg/actuation 2 puffs PO Q4-6H PRN buprenorphine-naloxone 2-0.5 mg (Suboxone) 1 film sublingual DAILY buprenorphine-naloxone 4-1 mg (Suboxone) 5 mg sublingual BID cetirizine 10 mg PO DAILY chlorhexidine gluconate 0.12% PO desloratadine (Clarinex) 5 mg PO DAILY fluoxetine 20 mg PO QAM fluticasone propion-salmeterol 230-21 mcg/actuation (Advair HFA) 2 puffs inhalation fluticasone propionate 50 mcg/actuation 1 spray intranasal DAILY gabapentin 300 mg PO BID hydrocortisone 2.5% topical DAILY hydroxyzine pamoate 25 mg PO BEDTIME PRN ketoconazole 2% appl topical lamotrigine 200 mg PO lithium carbonate 0 mg PO nicotine (polacrilex) 4 mg PO Q2H PRN warfarin 7.5 mg See Protocol PO DAILY Nursing Note INR: 4.3 out of therapeutic range 2.5-3.5 Pt thinks he might have taken an extra 1/2 pill Medications and supplements reviewed Patient status: well Medications or supplements: no changes Diet: usual diet for pt Denies any signs and symptoms of bleeding or clotting or unusual bruising Bleeding, bruising, clotting discussed Nutritional guidance given: to have a serving of greens today. Pt states he will have spinach which is a powerful green so instructed to have 1/4-1/2 cup but not more than that as dose was also decreased. Dose: decrease today's dose to 3.75mg (7.5mg) then 7.5mg X 5 days and 11.25mg X 2 days (Mon & Thurs) F/U INR Date: 02/10/25?? Patient verbalizing understanding of instructions given. 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
== END 2025-01-28 10:41 | disposition home or self-care (01) ==
LOC: HO.ACS 10:00
PROVIDERS: PCP Internal Medicine; Visit Provider Internal Medicine Medical Oncology
DX: Z79.01 Long term (current) use of anticoagulants (principal)

== ENCOUNTER → 2025-01-28 10:00 | Outpatient (BNVA) | payer MEDICAID, SELFPAY | PROVIDERS: PCP Internal Medicine; Visit Provider Internal Medicine Medical Oncology | DX: Z95.2 Presence of prosthetic heart valve (principal); Z79.01 Long term (current) use of anticoagulants; Z51.81 Encounter for therapeutic drug level monitoring | CPT/HCPCS: 85610; 99211 ==

== ENCOUNTER 2025-02-10 10:15 | Outpatient (AMB) | payer MEDICAID, SELFPAY ==
--- NOTE | 2025-02-10 10:39 | MHC.OFFVISCO ---
Intake Intake Visit Reasons: Anticoagulation Allergies No Known Allergies (No Known Allergies*) Allergy (Verified 01/28/25 10:08) Nursing Note INR: 3.5 in therapeutic range Medications and supplements reviewed No changes in health, diet, medications, or supplements, Denies any signs and symptoms of bleeding or bruising or clotting. Bleeding, bruising, clotting discussed Nutritional guidance given Dose:11.25MG X 2 DAY/ 7.5MG X 5 DAYS F/U INR: 2 WEEKS Patient verbalizes understanding of instructions given Anti-Coag Initial Assessment Social Hx Patient Tobacco Use Status: Current everyday Tobacco user Tobacco use type: Cigarette alcohol intake: former Coding Level of Care Code Est Patient Level 1 Diagnoses Current use of anticoagulant therapy Z79.01 Results AMB INR Fingerstick AMB INR Fingerstick 3.5 Last Edit by Sophie Ellison RN on 02/10/25 10:32 manual entry Assessment & Plan Assessment & Plan (1) Current use of anticoagulant therapy: Code(s): 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
[2025-02-10 10:54] LABS: Prothrombin Time Whole Bld POC 42.4 sec (11.1-13.5); ~PT, ~INR - Anti Coag Clinic 3.5 (0.9-1.1)
== END 2025-02-10 10:41 | disposition home or self-care (01) ==
LOC: HO.ACS 10:15
PROVIDERS: PCP Internal Medicine; Visit Provider Internal Medicine Medical Oncology
DX: Z79.01 Long term (current) use of anticoagulants (principal)

== ENCOUNTER → 2025-02-10 10:15 | Outpatient (BNVA) | payer MEDICAID, SELFPAY | PROVIDERS: PCP Internal Medicine; Visit Provider Internal Medicine Medical Oncology | DX: Z79.01 Long term (current) use of anticoagulants (principal) | CPT/HCPCS: 85610; 99211 ==

== ENCOUNTER 2025-02-28 09:04 | Outpatient (AMB) | payer MEDICAID, SELFPAY ==
[2025-02-28 09:15] LABS: Prothrombin Time Whole Bld POC 29.2 sec (11.1-13.5); ~PT, ~INR - Anti Coag Clinic 2.4 (0.9-1.1)
--- NOTE | 2025-02-28 09:17 | MHC.OFFVISCO ---
Intake Intake Visit Reasons: Anticoagulation Allergies No Known Allergies (No Known Allergies*) Allergy (Verified 02/28/25 09:10) Medication List - Last Reconciled 02/28/25 by Sophie Ellison RN acetaminophen (Tylenol) 650 mg (2 x 325 mg) PO Q6H albuterol sulfate 90 mcg/actuation 2 puffs PO Q4-6H PRN buprenorphine-naloxone 2-0.5 mg (Suboxone) 1 film sublingual DAILY buprenorphine-naloxone 4-1 mg (Suboxone) 5 mg sublingual BID cetirizine 10 mg PO DAILY chlorhexidine gluconate 0.12% PO desloratadine (Clarinex) 5 mg PO DAILY fluoxetine 20 mg PO QAM fluticasone propion-salmeterol 230-21 mcg/actuation (Advair HFA) 2 puffs inhalation fluticasone propionate 50 mcg/actuation 1 spray intranasal DAILY gabapentin 300 mg PO BID hydrocortisone 2.5% topical DAILY hydroxyzine pamoate 25 mg PO BEDTIME PRN ketoconazole 2% appl topical lamotrigine 200 mg PO lithium carbonate 0 mg PO nicotine (polacrilex) 4 mg PO Q2H PRN warfarin 7.5 mg See Protocol PO DAILY Nursing Note INR: 2.4 almost therapeutic range Medications and supplements reviewed No changes in health, diet, medications, or supplements, Denies any signs and symptoms of bleeding or bruising or clotting. 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
--- OUTSIDE RECORDS SUMMARY | 2025-02-28 09:18 | XMS_ITS | Clinical Summary ---
Author Organization 175 [facility] Address [address] [place] [address] Phone Care Team Providers Care Coal Conveyor Operator Name Role Phone Maryam Bloom MD Primary Care Provider Allergies No known active allergies Social History Tobacco Use Types Packs/Day Years [...] Upcoming Encounters Date Type Department Care Team ([facility] Contact Info) Description 03/21/2025 9:45 AM EDT Office Visit Orthopedic Surgery [facility] [address] [phone] Lorenzo Weiner, DPM [address] [address] Health Maintenance Due Date Last Done Comments Hepatitis A Vaccines (1 of 2 - Risk 2-dose series) 2002 Hepatitis B Vaccines (1 of 3 - 19+ 3-dose series) 2002 Cholesterol Screening (Lipid Panel) 07/10/2022 Hepatitis C Screening 07/10/2022 Social Influencers of Health Screening 07/10/2022 COVID-19 Vaccine (1 - 2023-2 5 season) 2024 Depression Screening 08/11/2024 Influenza Vaccine (#1) 2025 , 06/03/2024 DTaP,Tdap,and Td Vaccines (2 - Td or Tdap) 03/19/2028 03/19/2018 HIV Screening Completed 03/05/2021 Pneumococcal Vaccine: Pediatrics (0 to 5 Years) and At-Risk Patients (6 to 49 Years) Completed 08/03/2024 HIB Vaccines Aged Out [...] topic Insurance MEDICAID - [place] Care Teams Coal Conveyor Operator Relationship Specialty Start Date End Date Maryam Bloom MD [address] [place] [phone] PCP - General Internal Medicine 07/14/24
--- OUTSIDE RECORDS SUMMARY | 2025-02-28 09:18 | XMS_ITS | Clinical Summary ---
Author Organization [facility] Address [address] [place] [phone] Phone Care Team Providers Care Packer And Carry Out Name Role Phone [place], [place] [facility] Primary Care Provider Unavailable Social History Tobacco Use Types Packs/Day Years Used Date Smoking Tobacco: Never Assessed Education Answer Date Recorded Are you interested in more education? Not on mulugeta e 12/07/2022 Are you concerned about learning? Not on file 12/07/2022 No 12/07/2022 No 12/07/2022 Digital Access Answer Date Recorded No 01/07/2023 No 01/07/2023 Reliable internet access at home? Not on file 01/07/2023 Device with a working camera? Not on file Sex and Gender Information Value Date Recorded Sex Assigned at Not on file Legal Sex Male 11:32 AM EST Gender Identity Not on file Sexual Orientation Not on file Plan of Treatment Health Maintenance Due Date Last Done Comments LIPID PANEL 1983 DEPRESSION SCREENING 1995 SMOKING Hx and SMOKELESS TOBACCO SCREENING 1996 HEPATITIS C SCREENING 2001 HIV ONE-TIME SCREENING (18-6 5 YEARS) 2001 COVID-19 VACCINE (2023-2 5 season) 2024 07/07/2021, 11/13/2020, 10/23/2020 Adult Td,Tdap Booster 03/19/2028 03/19/2018 HEPATITIS A VACCINES Aged Out No long er eligible based on patient's age to complete this topic HIB VACCINES Aged Out No longer eligi ble based on patient's age to complete this topic MENINGOCOCCAL VACCINES (ACWY) Aged Out No longer eligible based on patient's age to complete this topic MENINGOCOCCAL VACCINES (B) Aged Out N o longer eligible based on patient's age to complete this topic PNEUMOCOCCAL VACCINES (0-49 years) Aged Out No longer eligible b ased on patient's age to complete this topic Medical Devices Not on file Insurance C3 ACO [place] [address] [place] [address] C3 ACO [facility] C3 ACO [facility] C3 ACO Care Teams Packer And Carry Out Relationship Specialty Start Date End Date Jean Paul Lowery MD PCP - General 08/17/21 Additional Source Comments The information contained in this document represents components of the legal health record. It is not the complete legal health record.[facility]
--- OUTSIDE RECORDS SUMMARY | 2025-02-28 09:18 | XMS_ITS | Encounter Summary ---
Author Organization [employer] Address [address] [place] [address] Care Team Providers Care Materials Handling Coordinator Name Role Phone Maryam Bloom MD Primary Care Provider + Reason for Visit * Reason Comments Med Refill Encounter Details Date Type Department Care Team ([facility] st Contact Info) Description 12/25/2023 Refill [facility] [address] [place] [address] Maryam Bloom MD [address] [place] [address] Allergic rhinitis, unspecified seasonality, unspecified trigger Social [...] trigger documented in this encounter Care Teams Materials Handling Coordinator Relationship Specialty Start Date End Date Maryam Bloom MD [address] [place] [phone] PCP - General Family Medicine 05/12/19 documented as of this encounter
== END 2025-02-28 09:22 | disposition home or self-care (01) ==
LOC: HO.ACS 09:04
PROVIDERS: PCP Internal Medicine; Visit Provider Internal Medicine Medical Oncology
DX: Z79.01 Long term (current) use of anticoagulants (principal)

== ENCOUNTER → 2025-02-28 09:04 | Outpatient (BNVA) | payer MEDICAID, SELFPAY | PROVIDERS: PCP Internal Medicine; Visit Provider Internal Medicine Medical Oncology | DX: Z95.2 Presence of prosthetic heart valve (principal); Z79.01 Long term (current) use of anticoagulants; Z51.81 Encounter for therapeutic drug level monitoring | CPT/HCPCS: 85610; 99211 ==

== ENCOUNTER 2025-03-24 11:18 | Outpatient (AMB) | payer MEDICAID, SELFPAY ==
[2025-03-24 11:25] LABS: Prothrombin Time Whole Bld POC 35.6 sec (11.1-13.5); ~PT, ~INR - Anti Coag Clinic 3.0 (0.9-1.1)
--- NOTE | 2025-03-24 11:29 | MHC.OFFVISCO ---
Intake Intake Visit Reasons: Anticoagulation Allergies No Known Allergies (No Known Allergies*) Allergy (Verified 03/24/25 11:21) Medication List - Last Reconciled 03/24/25 by Haritha Chicas RN acetaminophen (Tylenol) 650 mg (2 x 325 mg) PO Q6H albuterol sulfate 90 mcg/actuation 2 puffs PO Q4-6H PRN buprenorphine-naloxone 2-0.5 mg (Suboxone) 1 film sublingual DAILY buprenorphine-naloxone 4-1 mg (Suboxone) 5 mg sublingual BID cetirizine 10 mg PO DAILY chlorhexidine gluconate 0.12% PO desloratadine (Clarinex) 5 mg PO DAILY fluoxetine 20 mg PO QAM fluticasone propion-salmeterol 230-21 mcg/actuation (Advair HFA) 2 puffs inhalation fluticasone propionate 50 mcg/actuation 1 spray intranasal DAILY gabapentin 300 mg PO BID hydrocortisone 2.5% topical DAILY hydroxyzine pamoate 25 mg PO BEDTIME PRN ketoconazole 2% appl topical lamotrigine 200 mg PO lithium carbonate 0 mg PO nicotine (polacrilex) 4 mg PO Q2H PRN warfarin 7.5 mg See Protocol PO DAILY Nursing Note INR: 3.0 in therapeutic range 2.5-3.5 Medications and supplements reviewed No changes in health, diet, medications, or supplements, Denies any signs and symptoms of bleeding or bruising or clotting. Bleeding, bruising, clotting discussed Nutritional guidance given Dose: 7.5mg X 5 days and 11.25mg X 2 days F/U INR: 2 weeks Patient verbalizes understanding of instructions given Anti-Coag Initial Assessment Social Hx Patient Tobacco Use Status: Current everyday Tobacco user Tobacco use type: Cigarette alcohol intake: former Coding Level of Care Code Est Patient Level 1 Diagnoses Current use of anticoagulant therapy Z79.01 Assessment & Plan Assessment & Plan (1) Current use of anticoagulant therapy: Code(s): Z79.01 - residential (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
--- OUTSIDE RECORDS SUMMARY | 2025-03-24 12:23 | XMS_ITS | Clinical Summary ---
Author Organization 175 [facility] Address [address] [place] [address] Phone Care Team Providers Care Foam Charger Name Role Phone Maryam Bloom MD Primary Care Provider Allergies No known active allergies Medications clotrimazole (LOTRIMIN) 1 % cream Apply topically 2 (two) times a day. 30 g 3 5 04/20/20 25 Active Encounters Date Type Department Care Team Description 03/21/2025 9:45 AM EDT Office Visit Orthopedic [facility] [address] [phone] Lorenzo Weiner, DPM Dermatophytosis of nail (Primary [...] Upcoming Encounters Date Type Department Care Team ([facility] st Contact Info) Description 06/22/2025 9:00 AM EST Office Visit Orthopedic [facility] [address] [phone] Lorenzo Weiner, DPM [address] [address] Health Maintenance Due Date Last Done Comments [...] topic Insurance MEDICA[place] - [place] Care Teams Foam Charger Relationship Specialty Start Date End Date Maryam Bloom MD [address] [place] [phone] PCP - General Internal Medicine 07/14/24
--- OUTSIDE RECORDS SUMMARY | 2025-03-24 12:23 | XMS_ITS | Encounter Summary ---
Author Organization [employer] Address [address] [place] [address] Care Team Providers Care Hall Clerk Name Role Phone Maryam Bloom MD Primary Care Provider + Reason for Visit * Reason Comments Med Refill Encounter Details Date Type Department Care Team ([facility] st Contact Info) Description 12/25/2023 Refill [facility] [address] [place] [address] Maryam Bloom MD [address] [place] [address] Allergic rhinitis, unspecified seasonality, unspecified trigger Social [...] trigger documented in this encounter Care Teams Hall Clerk Relationship Specialty Start Date End Date Maryam Bloom MD [address] [place] [phone] PCP - General Family Medicine 05/12/19 documented as of this encounter
--- OUTSIDE RECORDS SUMMARY | 2025-03-24 12:23 | XMS_ITS | Clinical Summary ---
Author Organization [facility] Address [address] [place] [phone] Phone Care Team Providers Care Analytics Manager Name Role Phone [place], [place] [facility] Primary Care Provider Unavailable Social History Tobacco [...] on file Insurance C3 ACO [place] [address] [place] [address] C3 ACO [facility] C3 ACO [facility] C3 ACO Care Teams Analytics Manager Relationship Specialty Start Date End Date Jean Paul Lowery MD PCP - General 08/17/21 Additional Source Comments The information contained in this document represents components of the legal health record. It is not the complete legal health record.[facility]
== END 2025-03-24 11:32 | disposition home or self-care (01) ==
LOC: HO.ACS 11:18
PROVIDERS: PCP Internal Medicine; Visit Provider Internal Medicine Medical Oncology
DX: Z79.01 Long term (current) use of anticoagulants (principal)

== ENCOUNTER → 2025-03-24 11:18 | Outpatient (BNVA) | payer MEDICAID, SELFPAY | PROVIDERS: PCP Internal Medicine; Visit Provider Internal Medicine Medical Oncology | DX: Z79.01 Long term (current) use of anticoagulants (principal) | CPT/HCPCS: 85610; 99211 ==

== ENCOUNTER 2025-04-18 09:18 | Outpatient (AMB) | payer MEDICAID, SELFPAY ==
[2025-04-18 09:24] LABS: Prothrombin Time Whole Bld POC 34.4 sec (11.1-13.5); ~PT, ~INR - Anti Coag Clinic 2.9 (0.9-1.1)
--- NOTE | 2025-04-18 09:25 | MHC.OFFVISCO ---
Intake Intake Visit Reasons: Anticoagulation Allergies No Known Allergies (No Known Allergies*) Allergy (Verified 04/18/25 09:20) Medication List - Last Reconciled 04/18/25 by Haritha Chicas RN acetaminophen (Tylenol) 650 mg (2 x 325 mg) PO Q6H albuterol sulfate 90 mcg/actuation 2 puffs PO Q4-6H PRN buprenorphine-naloxone 2-0.5 mg (Suboxone) 1 film sublingual DAILY buprenorphine-naloxone 4-1 mg (Suboxone) 5 mg sublingual BID cetirizine 10 mg PO DAILY chlorhexidine gluconate 0.12% PO desloratadine (Clarinex) 5 mg PO DAILY fluoxetine 20 mg PO QAM fluticasone propion-salmeterol 230-21 mcg/actuation (Advair HFA) 2 puffs inhalation fluticasone propionate 50 mcg/actuation 1 spray intranasal DAILY gabapentin 300 mg PO BID hydrocortisone 2.5% topical DAILY hydroxyzine pamoate 25 mg PO BEDTIME PRN ketoconazole 2% appl topical lamotrigine 200 mg PO lithium carbonate 0 mg PO nicotine (polacrilex) 4 mg PO Q2H PRN warfarin 7.5 mg See Protocol PO DAILY Nursing Note INR: 2.9 in therapeutic range of 2.5-3.5 Medications and supplements reviewed No changes in health, diet, medications, or supplements, Denies any signs and symptoms of bleeding or bruising or clotting. Bleeding, bruising, clotting discussed Nutritional guidance given Dose: 7.5mg X 5 days and 11.25mg X 2 days F/U INR: 2 weeks Patient verbalizes understanding of instructions given Anti-Coag Initial Assessment Social Hx Patient Tobacco Use Status: Current everyday Tobacco user Tobacco use type: Cigarette alcohol intake: former Coding Level of Care Code Est Patient Level 1 Diagnoses Current use of anticoagulant therapy Z79.01 Results AMB INR Fingerstick AMB INR Fingerstick 2.9 Last Edit by Haritha Chicas RN on 04/18/25 09:25 interface delay Assessment & Plan Assessment & Plan (1) Current use of anticoagulant therapy: Code(s): Z79.01 - longterm (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
--- OUTSIDE RECORDS SUMMARY | 2025-04-18 10:29 | XMS_ITS | Clinical Summary ---
Author Organization 175 [facility] Address 175 [place] [address] Phone Care Team Providers Care Straddle Truck Operator Name Role Phone Maryam Bloom MD Primary Care Provider [phone] Allergies No known active allergies Medications clotrimazole (LOTRIMIN) 1 % cream Apply topically 2 (two) times a day. 30 g 3 5 04/20/20 25 Active Encounters Date Type Department Care Team Description 03/21/2025 9:45 AM EDT Office Visit [facility] [address] [phone] Lorenzo Weiner, DPM Dermatophytosis of nail (Primary [...] Upcoming Encounters Date Type Department Care Team ([facility] st Contact Info) Description 06/22/2025 9:00 AM EST Office Visit [facility] [address] [phone] Lorenzo Weiner, DPM 175 [facility] [address] [place] [address] Health Maintenance Due Date Last Done Comments Hepatitis A Vaccines (1 of 2 - Risk 2-dose series) 2002 Hepatitis B Vaccines (1 of 3 - 19+ 3-dose series) 2002 Cholesterol Screening (Lipid Panel) 07/10/2022 Hepatitis C Screening 07/10/2022 Social Influencers of Health Screening 07/10/2022 Depression Screening 08/11/2024 COVID-19 Vaccine (1 - 2023-2 5 season) 2025 Influenza Vaccine (#1) 2025 , 06/03/2024 DTaP,Tdap,and [...] topic Insurance MEDICAID - [place] Care Teams Straddle Truck Operator Relationship Specialty Start Date End Date Maryam Bloom MD [address] [place] [phone] PCP - General Internal Medicine 07/14/24
--- OUTSIDE RECORDS SUMMARY | 2025-04-18 10:29 | XMS_ITS | Clinical Summary ---
Author Organization [facility] Address [address] [place] [phone] Phone Care Team Providers Care Gun Club Manager Name Role Phone [place], [facility] Primary Care Provider Unavailable Social History [...] HIV ONE-TIME SCREENING (18-6 5 YEARS) 2001 INFLUENZA VACCINE (#1) 2025 COVID-19 VACCINE (2024-2 6 season) 2025 07/07/2021, 11/13/2020, 10/23/2020 Adult Td,Tdap Booster 03/19/2028 [...] on file Insurance C3 ACO C3 ACO [facility] C3 ACO [facility] C3 ACO Care Teams Gun Club Manager Relationship Specialty Start Date End Date Jean Paul Lowery MD PCP - General 08/17/21 Additional Source Comments The information contained in this document represents components of the legal health record. It is not the complete legal health record.[facility]
== END 2025-04-18 09:29 | disposition home or self-care (01) ==
LOC: HO.ACS 09:18
PROVIDERS: PCP Internal Medicine; Visit Provider Internal Medicine Medical Oncology
DX: Z79.01 Long term (current) use of anticoagulants (principal)

== ENCOUNTER → 2025-04-18 09:18 | Outpatient (BNVA) | payer MEDICAID, SELFPAY | PROVIDERS: PCP Internal Medicine; Visit Provider Internal Medicine Medical Oncology | DX: Z95.2 Presence of prosthetic heart valve (principal); Z79.01 Long term (current) use of anticoagulants; Z51.81 Encounter for therapeutic drug level monitoring | CPT/HCPCS: 85610; 99211 ==

== ENCOUNTER 2025-05-02 09:16 | Outpatient (AMB) | payer MEDICAID, SELFPAY ==
[2025-05-02 09:23] LABS: Prothrombin Time Whole Bld POC 29.9 sec (11.1-13.5); ~PT, ~INR - Anti Coag Clinic 2.5 (0.9-1.1)
--- NOTE | 2025-05-02 09:24 | MHC.OFFVISCO ---
Intake Intake Visit Reasons: Anticoagulation Allergies No Known Allergies (No Known Allergies*) Allergy (Verified 05/02/25 09:18) Medication List - Last Reconciled 05/02/25 by Haritha Chicas RN acetaminophen (Tylenol) 650 mg (2 x 325 mg) PO Q6H albuterol sulfate 90 mcg/actuation 2 puffs PO Q4-6H PRN buprenorphine-naloxone 2-0.5 mg (Suboxone) 1 film sublingual DAILY buprenorphine-naloxone 4-1 mg (Suboxone) 5 mg sublingual BID cetirizine 10 mg PO DAILY chlorhexidine gluconate 0.12% PO desloratadine (Clarinex) 5 mg PO DAILY fluoxetine 20 mg PO QAM fluticasone propion-salmeterol 230-21 mcg/actuation (Advair HFA) 2 puffs inhalation fluticasone propionate 50 mcg/actuation 1 spray intranasal DAILY gabapentin 300 mg PO BID hydrocortisone 2.5% topical DAILY hydroxyzine pamoate 25 mg PO BEDTIME PRN ketoconazole 2% appl topical lamotrigine 200 mg PO lithium carbonate 0 mg PO nicotine (polacrilex) 4 mg PO Q2H PRN warfarin 7.5 mg See Protocol PO DAILY Nursing Note INR: 2.5 in therapeutic range of 2.5-3.5 Medications and supplements reviewed No changes in health, diet, medications, or supplements, Denies any signs and symptoms of bleeding or bruising or clotting. Bleeding, bruising, clotting discussed Nutritional guidance given Dose: 7.5mg X 5 days and 11.25mg X 2 days F/U INR: 2 weeks Patient verbalizes understanding of instructions given Anti-Coag Initial Assessment Social Hx Patient Tobacco Use Status: Current everyday Tobacco user Tobacco use type: Cigarette alcohol intake: former Coding Level of Care Code Est Patient Level 1 Diagnoses Current use of anticoagulant therapy Z79.01 Results AMB INR Fingerstick AMB INR Fingerstick 2.5 Last Edit by Haritha Chicas RN on 05/02/25 09:23 interface delay Assessment & Plan Assessment & Plan (1) Current use of anticoagulant therapy: Code(s): Z79.01 - FDC (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
--- OUTSIDE RECORDS SUMMARY | 2025-05-02 10:51 | XMS_ITS | Clinical Summary ---
Author Organization 175 [facility] Address 175 [place] [address] Phone Care Team Providers Care Screwdown Operator Name Role Phone Maryam Bloom MD Primary Care Provider Allergies No known active allergies Medications clotrimazole (LOTRIMIN) 1 % cream Apply topically 2 (two) times a day. 30 g 3 5 04/20/20 25 Encounters Date Type Department Care Team Description 03/21/2025 9:45 AM EDT Office Visit [facility] [address] [phone] Lorenzo Weiner, DPM Dermatophytosis of nail (Primary [...] Upcoming Encounters Date Type Department Care Team ([facility] st Contact Info) Description 06/22/2025 9:00 AM EST Office Visit [facility] [address] [phone] Lorenzo Weiner, DPM [address] [phone] Health Maintenance Due Date Last Done [...] topic Insurance MEDICA[place] - [place] Care Teams Screwdown Operator Relationship Specialty Start Date End Date Maryam Bloom MD [address] [place] [phone] PCP - General Internal Medicine 07/14/24
--- OUTSIDE RECORDS SUMMARY | 2025-05-02 10:51 | XMS_ITS | Encounter Summary ---
Author Organization [employer] Address [address] [place] [address] Care Team Providers Care Plaster Maker Name Role Phone Maryam Bloom MD Primary Care Provider + Encounter Details Date Type Department Care Team (Late st Contact Info) Description 09/12/[address] [facility] [address] [place] [address] Cora Hamilton LPN Social History Tobacco Use [...] on filedocumented in this encounter Care Teams Plaster Maker Relationship Specialty Start Date End Date Maryam Bloom MD [address] [place] [phone] PCP - General Family Medicine 05/12/19 documented as of this encounter
--- OUTSIDE RECORDS SUMMARY | 2025-05-02 10:51 | XMS_ITS | Encounter Summary ---
Author Organization [employer] Address [address] [place] [address] Care Team Providers Care Zinc Plater Name Role Phone Maryam Bloom MD Primary Care Provider + Reason for Visit * Reason Comments Med Refill Encounter Details Date Type Department Care Team ([facility] st Contact Info) Description 07/19/2023 Refill [facility] [address] [place] [address] Maryam Bloom MD 230 [place] [address] Mild intermittent asthma without complication Social History [...] complication documented in this encounter Care Teams Zinc Plater Relationship Specialty Start Date End Date Maryam Bloom MD [address] [place] [phone] PCP - General Family Medicine 05/12/19 documented as of this encounter
--- OUTSIDE RECORDS SUMMARY | 2025-05-02 10:51 | XMS_ITS | Clinical Summary ---
Author Organization [employer] Address [address] [facility] 7t [place] [address] Care Team Providers Care Elevator Examiner Name Role Phone Maryam Bloom MD Primary Care Provider + Allergies No known active allergies Medications Peak Flow Meter-Inh Assist Dev kitIndications:M ild intermittent asthma, unspecified whether complicated Use daily 1 kit 3 Active amoxicillin (Amoxil) 500 MG capsule Take 4 capsules of amoxicillin 500 mg 1 hour prior dental procedure 12 capsule 3 Active desloratadine (Clarinex) 5 MG tablet TAKE 1 TABLET (5 MG) BY MOUTH ONCE PER DAY. 90 tablet 1 5 Active fluticasone-salm eterol (Advair HFA) 230-21 MCG/ACT [...] needed for smoking cessation. 100 lozenge 5 Active Blood Pressure Monitoring (Blood Pressure Cuff) misc Use daily as prescribed 1 each 5 Active warfarin (Coumadin) 7.5 MG tabletIndication s:Hx of mitral valve replacement with mechanical valve TAKE 1 TO 1 AND 1/2 TABLETS BY MOUTH EVERY DAY DIRECTED 50 tablet 5 5 Active Active Problems Problem Noted Date [...] been stable with no CHF, followed by [facility] cardiology. Keep INR between 2.5 and 3.5, will order Lovenox if INR is below 2.2. Assessment & Plan (06/03/2024 1:19 PM EDT): No evidence of CHF, refer to [facility] due for follow up. Assessment [...] Advair twice daily Continue allergy desensitization by non destructive testing engineer and use albuterol as needed Counseled to quit smoking and vaping Follow-up with route salesman Assessment & Plan (06/03/2024 1:15 PM EDT): [...] Improving on Clarinex and Flonase Follow-up with non destructive testing engineer for allergy desensitization Assessment & Plan (08/03/2024 [...] life style modifications, diet and referral to aquarium specialist. Recommended to decrease soda and sugary [...] Encounters Date Type Department Care Team Description 05/02/2025 Orders Only GENERIC EXTERNAL DATA DEPARTMENT Provider, Generic External Data 04/18/2025 Orders Only GENERIC EXTERNAL DATA DEPARTMENT Provider, Generic External Data 03/24/2025 Orders Only GENERIC EXTERNAL DATA DEPARTMENT Provider, Generic External Data 02/28/2025 Orders Only GENERIC EXTERNAL DATA DEPARTMENT Provider, Generic External Data 02/24/2025 Refill [facility] [address] [place] [phone] Heaven Flower MD Hx of mitral valve replacement with mechanical valve 02/10/2025 Orders Only GENERIC EXTERNAL DATA DEPARTMENT Provider, Generic External Data from Last 3 Months Immunizations Immunization Administration Dates Next Due Influenza, seasonal, injectable, [...] 71 12/03/2024 10:36 AM EDT Temperature 36.1 C (96.9 F) 12/03/2024 10:36 AM EDT Respiratory Rate 20 12/03/2024 10:36 AM EDT [...] Prophylaxis 1983 Dental X-Ray: Full Mouth 1983 Disability Screening 1983 Family Planning (PISQ) 1998 HPV Vaccines (1 - Male 3-dos e series) 1998 Hepatitis B Vaccines (1 of 3 - 19+ 3-dose series) 2002 Dental X-Ray: Bitewings 12/12/2023 12/10/2022 COVID-19 Vaccine ( - 2024-2 6 season) 2025 07/07/2021, 11/13/2020, 10/23/2020 Influenza Vaccine (#1) 2025 , 06/03/2024 Alcohol/Substance Use Screening 08/03/2025 08/03/2024 Depression [...] Hepatitis C Screening Completed 03/05/2021 , 10/01/2019 Pneumococcal Vaccine: Pediatrics (0 to 5 Years) and At-Risk Patients (6 to 49) Years Completed 08/03/2024 HIB Vaccines Aged Out No [...] Comments PROTHROMBIN TIME WHOLE BLD POC Routine 05/02/2025 9:20 AM EDT ~PT, ~INR - ANTI COAG CLINIC Routine 05/02/2025 9:20 AM EDT PROTHROMBIN TIME WHOLE BLD POC Routine 04/18/2025 9:22 AM EDT ~PT, ~INR - ANTI COAG CLINIC Routine 04/18/2025 9:22 AM EDT PROTHROMBIN TIME WHOLE BLD POC Routine 03/24/2025 11:23 AM EDT ~PT, ~INR - ANTI COAG CLINIC Routine 03/24/2025 11:23 AM EDT AMB REFERRAL TO PODIATRY Routine 03/21/2025 Ingrowing toenail PROTHROMBIN TIME WHOLE BLD POC Routine 02/28/2025 9:14 AM EDT ~PT, ~INR - ANTI COAG CLINIC Routine 02/28/2025 9:14 AM EDT PROTHROMBIN TIME WHOLE BLD POC Routine 02/10/2025 10:30 AM EDT ~PT, ~INR - ANTI COAG CLINIC Routine 02/10/2025 10:30 AM EDT LIPID PANEL WITH REFLEX TO DIRECT LDL [...] * (ABNORMAL) PROTHROMBIN TIME WHOLE BLD POC (05/02/2025 9:20 AM EDT) Only the most recent of5 resultswithin the time period is included. Protime 29.9(H) 11.1 - 13.5 sec [facility] 05/02/2025 9:20 AM EDT 05/02/2025 9:22 AM EDT us Generic External Data Provider LAB BLOOD ORDERAB LES Final Result Performing Organization Address [facility] Co de Phone Number [facility] [address] [place] [phone] * (ABNORMAL) ~PT, ~INR - ANTI COAG CLINIC (05/02/2025 9:20 AM EDT) Only the most recent of5 resultswithin the time period is included. Prothrombin Time INR 2.5(H) 0.9 - 1.1 [facility] Comment:METER #: [id number] TERNATIONAL NORMALIZED RATIO (INR) REFERENCE RANGES Reference RangeFor patients not on anticoagulant therapy: 0.9 - 1.1INR ranges for oral anticoagulanttherapy:For prevention and treatment of venous thrombosis and pulmonary embolism: 2.0 - 3.0For acute myocardial infarction with aspirin therapy: 2.0 - 3.0For acute myocardial infarction without aspirin therapy: 3.0 - 4.0For patients with mechanical prosthetic heart valves: 2.5 - 3.5 05/02/2025 9:20 AM EDT 05/02/2025 9:22 AM EDT us Generic External Data Provider LAB BLOOD ORDERAB LES Final Result Performing Organization Address [facility] Co de Phone Number [facility] [address] [place] [phone] * Referral to Podiatry (03/21/2025) us Maryam Bloom MD OUTPATIENT REFERRAL ORDE VEDA Final Result * (ABNORMAL) Lipid Panel with Reflex to Direct LDL (08/03/2024 10:36 AM EST) Triglycerides 106 <150 mg/dL [facility] Comment:Desirable Triglyceri de: less than 150 mg/dLBorderline High Triglyceride 150-199 mg/dLHigh Triglyceride: 200-499 mg/dLVery High Triglyceride: greater than or equal to 5OO mg/dL Cholesterol 185 <200 mg/dL [facility] Comment:Desirable Cholestero l: less than 200 mg/dLBorderline High Cholesterol: 200-239 mg/dLHigh Cholesterol: greater than 239 mg/dL LDL Cholesterol Calculated 119(H) <100 mg/dL [facility] Comment:Desirable LDL: less than 100 mg/dLNear Optimal/Above Optimal LDL: 110- 129 mg/dLBorderline High LDL: 130-159 mg/dLHigh LDL: 160-189 mg/dLVery High LDL: greater than or equal to 190 mg/dL HDL Cholesterol 45 >40 mg/dL [facility] Comment:Desirable HDL: great er than 40 mg/dL Note: This HDL assay may give artificially low results in patients with liver disease. Blood 08/03/2024 10:3 6 AM EST 08/03/2024 1:12 PM EST Maryam Bloom MD LAB BLOOD ORDERABLES Fin al Result Performing Organization Address [facility] de Phone Number [facility] [address] [place] [phone] * HEPATITIS C AB W/REFL TO HCV RNA, QN, PCR (03/05/2021 9:50 AM EDT) HEPATITIS C ANTIBODY NON-REACT [facility]REACT [facility] INDEX 0.01 <1.00 [facility] Comment: HCV antibody was non-reactive. There is no laboratory evidence of HCV infection. In most cases, no further action is required. However, if recent HCV exposure is suspected, a test for HCV RNA (test code 29677) is suggested. For additional information please refer to http://education.DialMyApp.[employer]/faq/MFM33o1 (This link is being provided for informational/ educational purposes only.) 03/05/2021 9:50 AM EDT Maryam Bloom MD HISTORICAL/NON ORDERABLE LABS Final Result Performing Organization Address City/[facility] Co de Phone Number [facility] [address] * HIV 1/2 ANTIGEN/ANTIBODY,FOURTH GENERATION W/RFL (03/05/2021 9:50 AM EDT) HIV-1/2 ANTIGEN AND ANTIBODIES, 4TH GENERATION W/ REFLEX NON-REACT [facility] NON-REACT [facility] Comment: HIV-1 antigen and HIV-1/HIV-2 antibodies were not detected. There is no laboratory evidence of HIV infection. PLEASE NOTE: This information has been disclosed to you from records whose confidentiality may be protected by state law. If your state requires such protection, then the state law prohibits you from making any further disclosure of the information without the specific written consent of the person to whom it pertains, or as otherwise permitted by law. A general authorization for the release of medical or other information is NOT sufficient for this purpose. For additional information please refer to http://education.Thinkr/faq/YGL361 (This link is being provided for informational/ educational purposes only.) The performance of this assay has not been clinically validated in patients less than 2 years old. 03/05/2021 9:50 AM EDT Maryam Bloom MD LAB BLOOD ORDERABLES Fin al Result [facility] [address] from Last 3 Months or Most Recently Relevant to Health Maintenance Insurance [facility] [place] AD[place] Care Teams Elevator Examiner Relationship Specialty Start Date End Date Maryam Bloom MD [address] [place] [phone] PCP - General Family Medicine 05/12/19
--- OUTSIDE RECORDS SUMMARY | 2025-05-02 10:51 | XMS_ITS | Encounter Summary ---
Author Organization [employer] Address [address] [place] [address] Care Team Providers Care Box Machine Operator Name Role Phone Maryam Bloom MD Primary Care Provider + Encounter Details Date Type Department Care Team (Late st Contact Info) Description 05/02/2025 Orders Only GENERIC EXTERNAL DATA [...] COAG CLINIC Routine 05/02/2025 9:20 AM EDT documented in this encounter Results * (ABNORMAL) PROTHROMBIN TIME WHOLE BLD POC (05/02/2025 9:20 AM EDT) Protime 29.9(H) 11.1 - 13.5 sec [facility] 05/02/2025 9:20 AM EDT 05/02/2025 9:22 AM EDT us Generic External Data Provider LAB BLOOD ORDERAB LES Final Result [facility] [address] [place], [place] [phone] * (ABNORMAL) ~PT, ~INR - ANTI COAG CLINIC (05/02/2025 9:20 AM EDT) Prothrombin Time INR 2.5(H) 0.9 - 1.1 [facility] Comment:METER #: [id number] TERNATIONAL NORMALIZED RATIO (INR) REFERENCE RANGES Reference [...] Provider LAB BLOOD ORDERAB LES Final Result [facility] [address] [place] [phone] [phone] documented in this encounter Visit Diagnoses Not on filedocumented in this encounter Additional Health Concerns Assessment Noted Time PHQ-9 Depression Total Score: 0 08/03/20 9:59 AM EST documented as of this encounter Care Teams Box Machine Operator Relationship Specialty Start Date End Date Maryam Bloom MD [address] [place] [phone] PCP - General Family Medicine 05/12/19 documented as of this encounter
--- OUTSIDE RECORDS SUMMARY | 2025-05-02 10:51 | XMS_ITS | Encounter Summary ---
Author Organization [employer] Address [address] [place] [address] Care Team Providers Care General Handling Supervisor Name Role Phone Maryam Bloom MD Primary Care Provider + Reason for Visit * Reason Comments Med Refill Encounter Details Date Type Department Care Team ([facility] st Contact Info) Description 12/25/2023 Refill [facility] [address] [place] [address] Maryam Bloom MD [address] [place] [address] Allergic rhinitis, unspecified seasonality, unspecified trigger Social [...] trigger documented in this encounter Care Teams General Handling Supervisor Relationship Specialty Start Date End Date Maryam Bloom MD [address] [place] [phone] PCP - General Family Medicine 05/12/19 documented as of this encounter
--- OUTSIDE RECORDS SUMMARY | 2025-05-02 10:51 | XMS_ITS | Clinical Summary ---
Author Organization [facility] Address [address] [place] [phone] Phone Care Team Providers Care Social Sciences Chair Name Role Phone [place], [facility] Primary Care Provider Unavailable Social History Tobacco [...] on file Insurance C3 ACO C3 ACO [facility] C3 ACO [facility] C3 ACO Care Teams Social Sciences Chair Relationship Specialty Start Date End Date Jean Paul Lowery MD PCP - General 08/17/21 Additional Source Comments The information contained in this document represents components of the legal health record. It is not the complete legal health record.[facility]
--- OUTSIDE RECORDS SUMMARY | 2025-05-02 10:51 | XMS_ITS | Encounter Summary ---
Author Organization [employer] Address [address] [facility] 7 [place] [address] Care Team Providers Care Rail Layer Name Role Phone Maryam Bloom MD Primary Care Provider + Reason for Visit * Reason Onset Date Comments premed tx 01/08/2023 Encounter Details Date Type Department Care Team (Late st Contact Info) Description 01/08/2023 Telephone [facility] [address] [place] [address] Xavi Melara DDS [address] [place] [address] premed tx Social History Tobacco Use Types [...] on filedocumented in this encounter Care Teams Rail Layer Relationship Specialty Start Date End Date Maryam Bloom MD [address] [place] [phone] PCP - General Family Medicine 05/12/19 documented as of this encounter
== END 2025-05-02 09:27 | disposition home or self-care (01) ==
LOC: HO.ACS 09:16
PROVIDERS: PCP Internal Medicine; Visit Provider Internal Medicine Medical Oncology
DX: Z79.01 Long term (current) use of anticoagulants (principal)

== ENCOUNTER → 2025-05-02 09:16 | Outpatient (BNVA) | payer MEDICAID, SELFPAY | PROVIDERS: PCP Internal Medicine; Visit Provider Internal Medicine Medical Oncology | DX: Z95.2 Presence of prosthetic heart valve (principal); Z79.01 Long term (current) use of anticoagulants; Z51.81 Encounter for therapeutic drug level monitoring | CPT/HCPCS: 85610; 99211 ==

== ENCOUNTER 2025-05-18 08:57 | Outpatient (AMB) | payer MEDICAID, SELFPAY ==
[2025-05-18 09:09] VITALS: BP 132/86; PULSE 77; O2SAT 94; BMI 37.2
--- NOTE | 2025-05-18 09:09 | A.OFFVIS_ITS ---
Vital Signs 05/18/25 09:09 Height 6 ft Weight 274 lb BMI 37.2 BP 132/86 Blood Pressure Location Lt brachial Position Sitting Pulse 77 Pulse Source Pulse Oximeter Pulse Oximetry (%) 94 Oxygen Delivery Method Room Air Intake Visit Reasons: Asthma Allergies No Known Allergies (No Known Allergies*) Allergy (Verified 05/18/25 09:14) HPI HPI Asthma: Details: 39-year-old gentleman, active 10-15 pack-year smoker, with underlying history of mitral valve replacement with mechanical valve in 2014 for endocarditis, now followed for nocturnal hypoxemia, severe persistent asthma, and environmental allergies. After the last office visit he was started on Fasenra with significant improvement, but not complete control of his asthma symptoms, his allergy symptoms are now very well controlled. He continues to use nocturnal oxygen for nocturnal hypoxemia. He denies recent exacerbations. [facility] Medical History Smoking History of endocarditis Surgical History S/P MVR (mitral valve replacement) (~2014) Family History Father No problems noted. Mother No problems noted. Social History Alcohol intake: former Patient Tobacco Use Status: Current everyday Tobacco user Tobacco use type: Cigarette Cigarettes Per Day: 10 Years Smoked: started age 19, 12 cig a day, Review of Systems Const Denies daytime sleepiness, Denies excessive sweating, Denies fatigue, Denies fever(s), Denies lethargy, Denies malaise, Denies night sweats, Denies snoring and Denies weight loss Eyes Denies blurry vision and Denies itchy eyes ENT Denies nasal congestion, Denies post nasal drip, Denies sinus pain, Denies sinus pressure and Denies other ( Thrush) Card Denies chest pain, Denies pedal edema, Denies dyspnea, Denies orthopnea and Tano es paroxysmal nocturnal dyspnea Resp Denies cough, Denies hemoptysis, Denies excessive phlegm production, Denies dyspnea, Denies snoring and Denies wheezing GI Denies abdominal pain and Denies heartburn Musc Denies myalgias, Denies arthralgias and Denies joint swelling Skin/Breast Denies rash Neuro Denies memory loss and Denies seizure-like activity Psych Denies abnormal sleep pattern, Denies anxiety and Denies memory loss Endo Denies excessive sweating, Denies fatigue and Denies heat intolerance Santosh/Lymph Denies easy bruising Aller/Immun Denies itchy eyes, Denies seasonal rhinorrhea and Denies wheezing Physical Exam Vital Signs: Last Vital Signs Pulse 77 05/18/25 09:09 BP 132/86 05/18/25 09:09 Pulse Ox 94 05/18/25 09:09 Oxygen Delivery Method Room Air 05/18/25 09:09 BMI result Body Mass Index 37.2 Const General: no acute distress and alert Nutritional Appearance: obese Orientation/consciousness: Other orientation findings ( oriented) HEENT Head: Yes atraumatic Eyes General: appearance normal, both eyes and all related structures Sclerae: sclerae normal EOM: EOMs intact bilaterally Neck Neck: Yes supple Lymphatic: no lymphadenopathy noted Resp Effort & Inspection: normal respiratory effort and no use of accessory muscles Auscultation: clear to auscultation bilaterally Cardio Rate: regular rate Rhythm: regular rhythm Heart sounds: no gallops, no murmurs and no rubs Skin General skin exam: other ( warm) Extrem General: No clubbing, No cyanosis and No edema Assessment & Plan Assessment & Plan (1) Severe persistent asthma: Code(s): J45.50 - Severe persistent asthma, uncomplicated Category: Medical Plan: Significantly improved, but still suboptimal control on Fasenra, Advair, and albuterol MDI. Will add Spiriva. (2) Environmental allergies: Code(s): Z91.09 - Other allergy status, other than to drugs and biological substances Category: Medical Plan: Now with excellent control on Fasenra. Continue current regimen. (3) Nocturnal hypoxemia: Code(s): G47.34 - Idiopathic sleep related nonobstructive alveolar hypoventilation Category: Medical Plan: Well controlled on current oxygen therapy. Continue nocturnal supplemental oxygen. Medications: New tiotropium bromide 2.5 mcg/actuation (Spiriva Respimat) 2 puffs inhalation QAM 4 grams 6RF Coding Level of Care Code Est Pt Level 4 (64259) Complex EM visit Add On G2211 Diagnoses Severe persistent asthma J45.50 Environmental allergies Z91.09 Nocturnal hypoxemia G47.34
== END 2025-05-18 09:27 | disposition home or self-care (01) ==
PROVIDERS: PCP Internal Medicine; Visit Provider Internal Medicine Pulmonary Disease
DX: J45.50 Severe persistent asthma, uncomplicated (principal); Z91.09 Other allergy status, other than to drugs and biological substances; G47.34 Idiopathic sleep related nonobstructive alveolar hypoventilation
CPT/HCPCS: 99214

== ENCOUNTER → 2025-05-18 08:57 | Outpatient (BNVA) | payer MEDICAID, SELFPAY | PROVIDERS: PCP Internal Medicine; Visit Provider Internal Medicine Pulmonary Disease | DX: J45.50 Severe persistent asthma, uncomplicated (principal); G47.34 Idiopathic sleep related nonobstructive alveolar hypoventilation; Z91.09 Other allergy status, other than to drugs and biological substances | CPT/HCPCS: 99212 ==

== ENCOUNTER 2025-05-25 10:37 | Outpatient (AMB) | payer MEDICAID, SELFPAY ==
[2025-05-25 10:45] LABS: Prothrombin Time Whole Bld POC 39.9 sec (11.1-13.5); ~PT, ~INR - Anti Coag Clinic 3.3 (0.9-1.1)
--- NOTE | 2025-05-25 10:50 | MHC.OFFVISCO ---
Intake Intake Visit Reasons: Anticoagulation Allergies No Known Allergies (No Known Allergies*) Allergy (Verified 05/25/25 10:38) Medication List - Last Reconciled 05/25/25 by Melissa John RN acetaminophen (Tylenol) 650 mg (2 x 325 mg) PO Q6H albuterol sulfate 90 mcg/actuation 2 puffs PO Q4-6H PRN buprenorphine-naloxone 2-0.5 mg (Suboxone) 1 film sublingual DAILY buprenorphine-naloxone 4-1 mg (Suboxone) 5 mg sublingual BID cetirizine 10 mg PO DAILY chlorhexidine gluconate 0.12% PO desloratadine (Clarinex) 5 mg PO DAILY fluoxetine 20 mg PO QAM fluticasone propion-salmeterol 230-21 mcg/actuation (Advair HFA) 2 puffs inhalation fluticasone propionate 50 mcg/actuation 1 spray intranasal DAILY gabapentin 300 mg PO BID hydrocortisone 2.5% topical DAILY hydroxyzine pamoate 25 mg PO BEDTIME PRN ketoconazole 2% appl topical lamotrigine 200 mg PO lithium carbonate 0 mg PO nicotine (polacrilex) 4 mg PO Q2H PRN tiotropium bromide 2.5 mcg/actuation (Spiriva Respimat) 2 puffs inhalation QAM warfarin 7.5 mg See Protocol PO DAILY Nursing Note NO CP,SOB,DIET/MED CHANGES,FALLS OR SX OF BLEEDING. CONTINUE PRESENT DOSING AND FOLLOW UP IN 2 WEEKS GOOD UNDERSTANDING OF DOSING INSTR. Anti-Coag Initial Assessment Social Hx Patient Tobacco Use Status: Current everyday Tobacco user Tobacco use type: Cigarette alcohol intake: former Coding Level of Care Code Est Patient Level 1 Diagnoses Current use of anticoagulant therapy Z79.01 Assessment & Plan Assessment & Plan (1) Current use of anticoagulant therapy: Code(s): Z79.01 - manager long term care (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
--- OUTSIDE RECORDS SUMMARY | 2025-05-25 12:38 | XMS_ITS | Clinical Summary ---
Author Organization [facility] Address [address] [place] [address] Phone Care Team Providers Care Congressional District Aide Name Role Phone Maryam Bloom MD Primary Care Provider [phone] Allergies No known active allergies Encounters Date Type Department Care Team Description 03/21/2025 9:45 AM EDT Office Visit Orthopedic [facility] [address] [phone] Lorenzo Weiner DPM Dermatophytosis of nail (Primary Dx); Ingrowing [...] Care Team (Late st Contact Info) Description 06/22/2025 9:00 AM EST Office Visit Orthopedic [facility] [address] [phone] Lorenzo Weiner DPM [address] [phone] Health Maintenance Due Date Last Done Comments Hepatitis A Vaccines (1 of 2 - Risk 2-dose series) 2002 Hepatitis B Vaccines (1 of 3 - 19+ 3-dose series) 2002 HPV Vaccines (1 - 3-dose SCD M series) 2010 Cholesterol Screening (Lipid Panel) 07/10/2022 Hepatitis C Screening 07/10/2022 Social Influencers of Health Screening 07/10/2022 Depression Screening 08/11/2024 COVID-19 Vaccine (1 - 2023-2 5 season) 2025 Influenza Vaccine (#1) 2025 , 06/03/2024 DTaP,Tdap,and Td Vaccines (2 - Td or Tdap) 03/19/2028 03/19/2018 RSV Immunization Adult Patients (1 - 1-dose 75+ series) 2058 HIV Screening Completed 03/05/2021 Pneumococcal Vaccine: Pediatrics [...] topic Insurance MEDICAID - [place] Care Teams [place] Aide Relationship Specialty Start Date End Date Maryam Bloom MD [address] [place] [phone] PCP - General Internal Medicine 07/14/24
--- OUTSIDE RECORDS SUMMARY | 2025-05-25 12:38 | XMS_ITS | Encounter Summary ---
Author Organization [employer] Address [address] [facility] [address] 7[address] [place] [address] Care Team Providers Care Satellite Communications Engineer Name Role Phone Maryam Bloom MD Primary Care Provider + Reason for Visit * Reason Comments Med Refill Encounter Details Date Type Department Care Team ([facility] st Contact Info) Description 12/25/2023 Refill [facility] [address] [place] [address] Maryam Bloom MD [address] [place] [address] Allergic rhinitis, unspecified seasonality, unspecified trigger Social [...] trigger documented in this encounter Care Teams Satellite Communications Engineer Relationship Specialty Start Date End Date Maryam Bloom MD [address] [place] [phone] PCP - General Family Medicine 05/12/19 documented as of this encounter
--- OUTSIDE RECORDS SUMMARY | 2025-05-25 12:38 | XMS_ITS | Encounter Summary ---
Author Organization [employer] Address [address] [facility] [address] [place] [address] Care Team Providers Care Pump Attendant Name Role Phone Maryam Bloom MD Primary Care Provider + Encounter Details Date Type Department Care Team (Late st Contact Info) Description 09/12/2022 Orders Only [facility] [address] [place] [address] Cora Hamilton LPN Social History Tobacco Use [...] on filedocumented in this encounter Care Teams Pump Attendant Relationship Specialty Start Date End Date Maryam Bloom MD [address] [place] [address] PCP - General Family Medicine 05/12/19 documented as of this encounter
--- OUTSIDE RECORDS SUMMARY | 2025-05-25 12:38 | XMS_ITS | Encounter Summary ---
Author Organization [employer] Address 75 [facility] 7 [place] [address] Care Team Providers Care Soft Mud Molder Name Role Phone Maryam Bloom MD Primary Care Provider + Reason for Visit * Reason Onset Date Comments premed tx 01/08/2023 Encounter Details Date Type Department Care Team (Late st Contact Info) Description 01/08/2023 Telephone [facility] [address] [place] [address] Xavi Melara DDS [address] [place] [address] premed tx Social History Tobacco Use Types [...] on filedocumented in this encounter Care Teams Soft Mud Molder Relationship Specialty Start Date End Date Maryam Bloom MD [address] [place] [address] PCP - General Family Medicine 05/12/19 documented as of this encounter
--- OUTSIDE RECORDS SUMMARY | 2025-05-25 12:38 | XMS_ITS | Encounter Summary ---
Author Organization [employer] Address [address] [facility] [address] [place] [address] Care Team Providers Care Consulting Database Administrator Name Role Phone Maryam Bloom MD Primary Care Provider + Encounter Details Date Type Department Care Team (Late st Contact Info) Description 05/25/2025 Orders Only GENERIC EXTERNAL DATA DEPARTMENT Provider, [...] Comments PROTHROMBIN TIME WHOLE BLD POC Routine 05/25/2025 10:41 AM EDT ~PT, ~INR - ANTI COAG CLINIC Routine 05/25/2025 10:41 AM EDT documented in this encounter Results * (ABNORMAL) PROTHROMBIN TIME WHOLE BLD POC (05/25/2025 10:41 AM EDT) Protime 39.9(H) 11.1 - 13.5 sec [facility] 05/25/2025 10:4 1 AM EDT 05/25/2025 10:44 AM EDT us Generic External Data Provider LAB BLOOD ORDERAB LES Final Result [facility] [address] [place], [place] [phone] * (ABNORMAL) ~PT, ~INR - ANTI COAG CLINIC (05/25/2025 10:41 AM EDT) Prothrombin Time INR 3.3(H) 0.9 - 1.1 [facility] Comment:METER #: [id number] TERNATIONAL NORMALIZED RATIO (INR) REFERENCE RANGES Reference RangeFor patients not on anticoagulant therapy: 0.9 - 1.1INR ranges for oral anticoagulanttherapy:For prevention and treatment of venous thrombosis and pulmonary embolism: 2.0 - 3.0For acute myocardial infarction with aspirin therapy: 2.0 - 3.0For acute myocardial infarction without aspirin therapy: 3.0 - 4.0For patients with mechanical prosthetic heart valves: 2.5 - 3.5 05/25/2025 10:4 1 AM EDT 05/25/2025 10:44 AM EDT us Generic External Data Provider LAB BLOOD ORDERAB LES Final Result [facility] [address] [place] [phone] documented in this encounter Visit Diagnoses Not on filedocumented in this encounter Additional Health Concerns Assessment Noted Time PHQ-9 Depression Total Score: 0 08/03/20 24 9:59 AM EST documented as of this encounter Care Teams Consulting Database Administrator Relationship Specialty Start Date End Date Maryam Bloom MD [address] [place] [address] PCP - General Family Medicine 05/12/19 documented as of this encounter
--- OUTSIDE RECORDS SUMMARY | 2025-05-25 12:38 | XMS_ITS | Clinical Summary ---
Author Organization [employer] Address [address] [facility] 7t [place] [address] Care Team Providers Care Steam Bone Press Tender Name Role Phone Maryam Bloom MD Primary [...] been stable with no CHF, followed by [facility] cardiology. Keep INR between 2.5 and 3.5, will order Lovenox if INR is below 2.2. Assessment & Plan (06/03/2024 1:19 PM EDT): No evidence of CHF, refer to [facility] Cardiology due for follow up. 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 Advised against using recreational substances or alcohol. Assessment & Plan (06/03/2024 1:18 PM EDT): He is doing well on Suboxone. Allergic rhinitis 11/27/2016 Assessment & Plan (12/03/2024 2:47 PM EDT): Improving on Clarinex and Flonase Follow-up with supervisor air conditioning installer for allergy desensitization Assessment & Plan (08/03/2024 [...] life style modifications, diet and referral to senior capital markets specialist. Recommended to decrease soda and sugary [...] Encounters Date Type Department Care Team Description 05/25/2025 Orders Only GENERIC EXTERNAL DATA DEPARTMENT Provider, Generic External Data 05/13/2025 Telephone [facility] [address] [place] [address] Maryam Bloom MD oct recall 05/02/2025 Orders Only GENERIC EXTERNAL DATA DEPARTMENT Provider, Generic External Data 04/18/2025 Orders Only GENERIC EXTERNAL DATA DEPARTMENT Provider, Generic External Data 03/24/2025 Orders Only GENERIC EXTERNAL DATA DEPARTMENT Provider, Generic External Data 02/28/2025 Orders Only GENERIC EXTERNAL DATA DEPARTMENT Provider, Generic External Data 02/24/2025 Refill [facility] [address] [place] [address] Heaven Flower MD Hx of mitral valve replacement with mechanical valve from Last 3 Months Immunizations Immunization Administration [...] Bitewings 12/12/2023 12/10/2022 COVID-19 Vaccine (4 - 2024-2 6 season) 2025 07/07/2021, 11/13/2020, [...] COAG CLINIC Routine 05/25/2025 10:41 AM EDT PROTHROMBIN TIME WHOLE BLD POC Routine 05/02/2025 [...] COAG CLINIC Routine 02/28/2025 9:14 AM EDT LIPID PANEL WITH REFLEX TO [...] WHOLE BLD POC (05/25/2025 10:41 AM EDT) Only the most recent of5 resultswithin the time period is included. Protime 39.9(H) 11.1 - 13.5 sec [facility] 05/25/2025 10:4 1 AM EDT 05/25/2025 10:44 AM EDT us Generic External Data Provider LAB BLOOD ORDERAB LES Final Result Performing Organization Address [facility]/ZIP Co de Phone Number [facility] [address] [place] [phone] * (ABNORMAL) ~PT, ~INR - ANTI COAG CLINIC (05/25/2025 10:41 AM EDT) Only the most recent of5 resultswithin the time period is included. Pathologist [facility] Prothrombin Time INR 3.3(H) 0.9 - 1.1 [facility] Comment:METER #: [id number] TERNATIONAL NORMALIZED RATIO (INR) REFERENCE RANGES Reference [...] ORDERAB LES Final Result Performing Organization Address City/[facility]/ZIP Co de Phone Number [facility] [address] [place] [phone] * Referral to Podiatry (03/21/2025) us Maryam Bloom MD OUTPATIENT REFERRAL ORDPankaj MCCOLLUM Final Result * (ABNORMAL) Lipid Panel with Reflex to Direct LDL (08/03/2024 10:36 AM EST) Pathologist [facility] Triglycerides 106 <150 mg/dL [facility] Comment:Desirable Triglyceri de: less than 150 mg/dLBorderline High Triglyceride 150-199 mg/dLHigh Triglyceride: 200-499 mg/dLVery High Triglyceride: greater than or equal to 5OO mg/dL Cholesterol 185 <200 mg/dL [facility] Comment:Desirable Cholestero l: less than 200 mg/dLBorderline High Cholesterol: 200-239 mg/dLHigh Cholesterol: greater than 239 mg/dL LDL Cholesterol Calculated 119(H) <100 mg/dL [facility] Comment:Desirable LDL: less than 100 [...] MD LAB BLOOD ORDERABLES Fin al Result [facility] [address] [place] [phone] * HEPATITIS C AB W/REFL TO HCV RNA, QN, PCR (03/05/2021 9:50 AM EDT) HEPATITIS C ANTIBODY NON-REACT [facility] NON-REACT [facility] INDEX 0.01 <1.00 [facility] Comment: HCV antibody was non-reactive. There is no laboratory evidence of HCV infection. In most cases, no further action is required. However, if recent HCV exposure is suspected, a test for HCV RNA (test code 18002) is suggested. For additional information please refer to http://education.[employer]/faq/DCH33q6 (This link is being provided for informational/ educational purposes only.) 03/05/2021 9:50 AM EDT Maryam Bloom MD HISTORICAL/NON ORDERABLE LABS Final Result Performing Organization Address [facility] Phone Number [facility] [address] * HIV 1/2 ANTIGEN/ANTIBODY,FOURTH GENERATION W/RFL [...] purpose. For additional information please refer to http://education.[employer]KSTGR/faq/IJD247 (This link is being provided for informational/ educational purposes only.) The performance of this assay has not been clinically validated in patients less than 2 years old. 03/05/2021 9:50 AM EDT Maryam Bloom MD LAB BLOOD ORDERABLES Fin al Result Performing Organization Address [facility] Phone Number [facility] [address] from Last 3 Months or Most Recently Relevant to Health Maintenance Insurance [facility] STAND ADULT Care Teams Steam Bone Press Tender Relationship Specialty Start Date End Date Maryam Bloom MD [address] [place] [phone] PCP - General Family Medicine 05/12/19
--- OUTSIDE RECORDS SUMMARY | 2025-05-25 12:38 | XMS_ITS | Encounter Summary ---
Author Organization [employer] Address [address] [facility] [address] [place] [address] Care Team Providers Care Core Placer Name Role Phone Maryam Bloom MD Primary Care Provider + Reason for Visit * Reason Comments Med Refill Encounter Details Date Type Department Care Team ([facility] st Contact Info) Description 07/19/2023 Refill [facility] [address] [place] [address] Maryam Bloom MD [address] [place] [address] Mild intermittent asthma without complication Social History [...] complication documented in this encounter Care Teams Core Placer Relationship Specialty Start Date End Date Maryam Bloom MD [address] [place] [address] PCP - General Family Medicine 05/12/19 documented as of this encounter
--- OUTSIDE RECORDS SUMMARY | 2025-05-25 12:38 | XMS_ITS | Clinical Summary ---
Author Organization [facility] Address [address] [place] [phone] Phone Care Team Providers Care Home Stereo Equipment Installer Name Role Phone [place] Primary Care Provider Unavailable Social History [...] on file Insurance C3 ACO C3 ACO [facility] C3 ACO [facility] C3 ACO Care Teams Home Stereo Equipment Installer Relationship Specialty Start Date End Date Jean Paul Lowery MD PCP - General 08/17/21 Additional Source Comments The information contained in this document represents components of the legal health record. It is not the complete legal health record.[facility]
== END 2025-05-25 10:53 | disposition home or self-care (01) ==
LOC: HO.ACS 10:37
PROVIDERS: PCP Internal Medicine; Visit Provider Internal Medicine Medical Oncology
DX: Z79.01 Long term (current) use of anticoagulants (principal)

== ENCOUNTER → 2025-05-25 10:37 | Outpatient (BNVA) | payer MEDICAID, SELFPAY | PROVIDERS: PCP Internal Medicine; Visit Provider Internal Medicine Medical Oncology | DX: Z95.2 Presence of prosthetic heart valve (principal); Z79.01 Long term (current) use of anticoagulants; Z51.81 Encounter for therapeutic drug level monitoring | CPT/HCPCS: 85610; 99211 ==

== ENCOUNTER 2025-06-08 10:26 | Outpatient (AMB) | payer MEDICAID, SELFPAY ==
[2025-06-08 10:34] LABS: Prothrombin Time Whole Bld POC 35.1 sec (11.1-13.5); ~PT, ~INR - Anti Coag Clinic 2.9 (0.9-1.1)
--- NOTE | 2025-06-08 10:43 | MHC.OFFVISCO ---
Intake Intake Visit Reasons: Anticoagulation Allergies No Known Allergies (No Known Allergies*) Allergy (Verified 06/08/25 10:29) Medication List - Last Reconciled 06/08/25 by Melissa John RN acetaminophen (Tylenol) 650 mg (2 x 325 mg) PO Q6H albuterol sulfate 90 mcg/actuation 2 puffs PO Q4-6H PRN buprenorphine-naloxone 2-0.5 mg (Suboxone) 1 film sublingual DAILY buprenorphine-naloxone 4-1 mg (Suboxone) 5 mg sublingual BID cetirizine 10 mg PO DAILY chlorhexidine gluconate 0.12% PO desloratadine (Clarinex) 5 mg PO DAILY fluoxetine 20 mg PO QAM fluticasone propion-salmeterol 230-21 mcg/actuation (Advair HFA) 2 puffs inhalation fluticasone propionate 50 mcg/actuation 1 spray intranasal DAILY gabapentin 300 mg PO BID hydrocortisone 2.5% topical DAILY hydroxyzine pamoate 25 mg PO BEDTIME PRN ketoconazole 2% appl topical lamotrigine 200 mg PO lithium carbonate 0 mg PO nicotine (polacrilex) 4 mg PO Q2H PRN tiotropium bromide 2.5 mcg/actuation (Spiriva Respimat) 2 puffs inhalation QAM warfarin 7.5 mg See Protocol PO DAILY Nursing Note NO CP,SOB,DIET/MED CHANGES,FALLS OR SX OF BLEEDING. CONTINUE PRESENT DOSE AND FOLLOW-UP IN 2 WEEKS GOOD UNDERSTANDING OF DOSING INSTR. Anti-Coag Initial Assessment Social Hx Patient Tobacco Use Status: Current everyday Tobacco user Tobacco use type: Cigarette alcohol intake: former Coding Level of Care Code Est Patient Level 1 Diagnoses Current use of anticoagulant therapy Z79.01 Assessment & Plan Assessment & Plan (1) Current use of anticoagulant therapy: Code(s): Z79.01 - bed bug exterminator (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
--- OUTSIDE RECORDS SUMMARY | 2025-06-08 12:57 | XMS_ITS | Encounter Summary ---
Author Organization [employer] Address [address] [facility] [address] [place] [address] Care Team Providers Care Health Information Provider Name Role Phone Maryam Bloom MD Primary Care Provider + Encounter Details Date Type Department Care Team (Late st Contact Info) Description 09/12/2022 Orders Only [facility] [address] [place] [address] Cora Hamilton LPN Social History Tobacco Use [...] filedocumented in this encounter Care Teams Health Information Provider Relationship Specialty Start Date End Date Maryam Bloom MD [address] [place] [phone] PCP - General Family Medicine 05/12/19 documented as of this encounter
--- OUTSIDE RECORDS SUMMARY | 2025-06-08 12:57 | XMS_ITS | Encounter Summary ---
Author Organization [employer] Address [address] [facility] [address] [place] [address] Care Team Providers Care Weather Teacher Name Role Phone Maryam Bloom MD Primary Care Provider + Reason for Visit * Reason Comments Med Refill Encounter Details Date Type Department Care Team ([facility] st Contact Info) Description 07/19/2023 Refill [facility] [address] [place] [address] Maryam Bloom MD [address] [place] [address] Mild intermittent asthma without complication Social History [...] complication documented in this encounter Care Teams Weather Teacher Relationship Specialty Start Date End Date Maryam Bloom MD [address] [place] [phone] PCP - General Family Medicine 05/12/19 documented as of this encounter
--- OUTSIDE RECORDS SUMMARY | 2025-06-08 12:57 | XMS_ITS | Encounter Summary ---
Author Organization [employer] Address [address] [facility] [address] 7t [place] [address] Care Team Providers Care Language Path Name Role Phone Maryam Bloom MD Primary Care Provider + Encounter Details Date Type Department Care Team (Late st Contact Info) Description 06/08/2025 Orders Only GENERIC EXTERNAL DATA DEPARTMENT Provider, [...] Answer Date Recorded Internet Access Q1 Yes 06/05/2025 Internet Access Q2 Not on file 06/05/2025 Sex and Gender Information Value Date Recorded [...] Comments PROTHROMBIN TIME WHOLE BLD POC Routine 06/08/2025 10:32 AM EDT ~PT, ~INR - ANTI COAG CLINIC Routine 06/08/2025 10:32 AM EDT documented in this encounter Results * (ABNORMAL) PROTHROMBIN TIME WHOLE BLD POC (06/08/2025 10:32 AM EDT) Protime 35.1(H) 11.1 - 13.5 sec [facility] 06/08/2025 10:3 2 AM EDT 06/08/2025 10:34 AM EDT us Generic External Data Provider LAB BLOOD ORDERAB LES Final Result Performing Organization Address City/State/[facility] Co de Phone Number [facility] [address] [place] [phone] * (ABNORMAL) ~PT, ~INR - ANTI COAG CLINIC (06/08/2025 10:32 AM EDT) Prothrombin Time INR 2.9(H) 0.9 - 1.1 [facility] Comment:METER #: [id number] TERNATIONAL NORMALIZED RATIO (INR) REFERENCE RANGES Reference RangeFor patients not on anticoagulant therapy: 0.9 - 1.1INR ranges for oral anticoagulanttherapy:For prevention and treatment of venous thrombosis and pulmonary embolism: 2.0 - 3.0For acute myocardial infarction with aspirin therapy: 2.0 - 3.0For acute myocardial infarction without aspirin therapy: 3.0 - 4.0For patients with mechanical prosthetic heart valves: 2.5 - 3.5 06/08/2025 10:3 2 AM EDT 06/08/2025 10:34 AM EDT us Generic External Data Provider LAB BLOOD ORDERAB LES Final Result [facility] [address] [place] [phone] documented in this encounter Visit Diagnoses Not on filedocumented in this encounter Additional Health Concerns Assessment Noted Time PHQ-9 Depression Total Score: 0 08/03/20 24 9:59 AM EST documented as of this encounter Care Teams Language Path Relationship Specialty Start Date End Date Maryam Bloom MD [address] [place] [phone] PCP - General Family Medicine 05/12/19 documented as of this encounter
--- OUTSIDE RECORDS SUMMARY | 2025-06-08 12:57 | XMS_ITS | Clinical Summary ---
Author Organization [employer] Address 75 [facility] 7t [place] [address] Care Team Providers Care Gas Prover Name Role Phone Maryam Bloom MD Primary Care Provider + Allergies No known active allergies Medications Peak Flow Meter-Inh Assist Dev kitIndications: Mild intermittent asthma, unspecified whether complicated Use daily 1 kit 11/19/19 23 Active amoxicillin (Amoxil) 500 MG capsule Take 4 capsules of amoxicillin 500 mg 1 hour prior dental procedure 12 capsule 01/09/20 23 Active desloratadine (Clarinex) 5 MG tablet TAKE 1 TABLET (5 MG) BY MOUTH ONCE PER DAY. 90 tablet 1 10/04/19 25 Active fluticasone-jennifer meterol (Advair HFA) 230-21 MCG/ACT inhaler TAKE 2 PUFFS BY MOUTH TWICE A DAY MORNING AND EVENING WITH SPACER 12 g 11 10/29/19 25 Active nicotine polacrilex (Nicotine Mini) 4 MG lozenge Dissolve 1 lozenge (4 mg) in the mouth every 2 (two) hours if needed for smoking cessation. 100 lozenge 12/04/19 25 Active Blood Pressure Monitoring (Blood Pressure Cuff) misc Use daily as prescribed 1 each 12/04/19 25 Active warfarin (Coumadin) 7.5 MG tabletIndicatio ns:Hx of mitral valve replacement with mechanical valve TAKE 1 TO 1 AND 1/2 TABLETS BY MOUTH EVERY DAY DIRECTED 50 tablet 5 02/25/20 25 Active Ventolin HFA 108 (90 Base) MCG/ACT inhalerIndicati ons:Mild intermittent asthma without complication TAKE 2 PUFFS BY MOUTH EVERY 4 TO 6 HOURS NEEDED 18 g 3 06/06/20 25 Active albuterol (Ventolin HFA) 108 (90 Base) MCG/ACT inhalerIndicati ons:Mild intermittent asthma without complication INHALE 2 PUFFS BY MOUTH EVERY 4 TO 6 HOURS NEEDED 18 g 3 10/29/19 25 025 Discontinued Active Problems Problem Noted Date [...] stable with no CHF, [facility] by [facility]. Keep INR between 2.5 and 3.5, will order Lovenox if INR is below 2.2. Assessment & Plan (06/03/2024 1:19 PM EDT): No evidence of CHF, refer to [facility] Cardiology due for follow up. [...] Advair twice daily Continue allergy desensitization by pre planning advisor and use albuterol as needed Counseled to quit smoking and vaping Follow-up with head of product Assessment & Plan (06/03/2024 1:15 PM EDT): [...] Improving on Clarinex and Flonase Follow-up with pre planning advisor for allergy desensitization Assessment & Plan (08/03/2024 [...] life style modifications, diet and referral to equal opportunity specialist. Recommended to decrease soda and sugary [...] Encounters Date Type Department Care Team Description 06/08/2025 Orders Only GENERIC EXTERNAL DATA DEPARTMENT Provider, Generic External Data 06/05/2025 Refill [facility] [address] [place] [address] Maryam Bloom MD Mild intermittent asthma without complication 05/25/2025 Orders Only GENERIC EXTERNAL DATA DEPARTMENT Provider, Generic External Data 05/13/2025 Telephone [facility] [address] [place] [address] Maryam Bloom MD oct recall 05/02/2025 Orders [...] COAG CLINIC Routine 06/08/2025 10:32 AM EDT PROTHROMBIN TIME WHOLE BLD POC Routine 05/25/2025 [...] REFERRAL TO PODIATRY Routine 03/21/2025 Ingrowing toenail LIPID PANEL WITH REFLEX TO DIRECT LDL [...] WHOLE BLD POC (06/08/2025 10:32 AM EDT) Only the most recent of5 resultswithin the time period is included. Protime 35.1(H) 11.1 - 13.5 sec [facility] 06/08/2025 10:3 2 AM EDT 06/08/2025 10:34 AM EDT us Generic External Data Provider LAB BLOOD ORDERAB LES Final Result Performing Organization Address City/[facility]/ZIP Co de Phone Number [facility] [address] [place] [phone] * (ABNORMAL) ~PT, ~INR - ANTI COAG CLINIC (06/08/2025 10:32 AM EDT) Only the most recent of5 resultswithin the time period is included. Prothrombin Time INR 2.9(H) 0.9 - 1.1 [facility] Comment:METER #: [id number] TERNATIONAL NORMALIZED RATIO (INR) REFERENCE RANGES Reference [...] ORDERAB LES Final Result Performing Organization Address City/[facility]/ZIP Co de Phone Number [facility] [address] [place] [phone] * Referral to Podiatry (03/21/2025) us Maryam Bloom MD OUTPATIENT REFERRAL ORDPankaj MCCOLLUM Final Result * (ABNORMAL) Lipid Panel with Reflex to Direct LDL (08/03/2024 10:36 AM EST) Triglycerides 106 <150 mg/dL [facility] Comment:Desirable Triglyceri de: less than [...] 190 mg/dL HDL Cholesterol 45 >40 mg/dL [facility] Comment:Desirable HDL: great er than 40 mg/dL Note: This HDL assay may give artificially low results in patients with liver disease. Blood 08/03/2024 10:3 6 AM EST 08/03/2024 1:12 PM EST us Maryam Bloom MD LAB BLOOD ORDERABLES Fin al Result [facility] [address] [place] [phone] * HEPATITIS C AB W/REFL TO [...] a test for HCV RNA (test code 10563) is suggested. For additional information please refer to http://education.WellRight.Veritract/faq/FVF14w0 (This link is being provided for informational/ educational purposes only.) 03/05/2021 9:50 AM EDT us Maryam Bloom MD HISTORICAL/NON ORDERABLE LABS Final Result Performing Organization Address [facility] de Phone Number [facility] [address] * HIV 1/2 ANTIGEN/ANTIBODY,FOURTH GENERATION W/RFL (03/05/2021 9:50 AM EDT) HIV-1/2 ANTIGEN AND ANTIBODIES, 4TH GENERATION W/ REFLEX NON-REACT STANISLAW NON-REACT STANISLAW [facility] Comment: HIV-1 antigen [...] purpose. For additional information please refer to http://education.WellRight.Veritract/faq/WGV216 (This link is being provided for informational/ educational purposes only.) The performance of this assay has not been clinically validated in patients less than 2 years old. 03/05/2021 9:50 AM EDT us Maryam Bloom MD LAB BLOOD ORDERABLES Fin al Result Performing Organization Address [facility] de Phone Number [facility] [address] from Last 3 Months or Most Recently Relevant to Health Maintenance Insurance [facility] STANDARD DENTAL-[facility] MEDICAID STAND ADULT Care Teams Gas Prover Relationship Specialty Start Date End Date Maryam Bloom MD [address] [place] [address] PCP - General Family Medicine 05/12/19
--- OUTSIDE RECORDS SUMMARY | 2025-06-08 12:57 | XMS_ITS | Encounter Summary ---
Author Organization [employer] Address [address] [address] 7t [place] [address] Care Team Providers Care Seaman Officer Name Role Phone Maryam Bloom MD Primary Care Provider + Reason for Visit * Reason Comments Med Refill Encounter Details Date Type Department Care Team ([facility] st Contact Info) Description 06/05/2025 Refill [facility] [address] [place] [address] Maryam Bloom MD [address] [place] [address] Mild intermittent asthma without complication Social History [...] asthma without complication documented in this encounter Additional Health Concerns Assessment Noted Time PHQ-9 Depression Total Score: 0 08/03/20 24 9:59 AM EST documented as of this encounter Care Teams Seaman Officer Relationship Specialty Start Date End Date Maryam Bloom MD [address] [place] [phone] PCP - General Family Medicine 05/12/19 documented as of this encounter
--- OUTSIDE RECORDS SUMMARY | 2025-06-08 12:57 | XMS_ITS | Encounter Summary ---
Author Organization [employer] Address 75 [facility] 7 [place] [address] Care Team Providers Care Pattern Chart Writer Name Role Phone Maryam Bloom MD Primary Care Provider + Reason for Visit * Reason Onset Date Comments premed tx 01/08/2023 Encounter Details Date Type Department Care Team (Late st Contact Info) Description 01/08/2023 Telephone [facility] [address] [place] [address] Xavi Melara DDS [address] [place] [address] premed tx Social History Tobacco Use Types [...] on filedocumented in this encounter Care Teams Pattern Chart Writer Relationship Specialty Start Date End Date Maryam Bloom MD [address] [place] [phone] PCP - General Family Medicine 05/12/19 documented as of this encounter
--- OUTSIDE RECORDS SUMMARY | 2025-06-08 12:57 | XMS_ITS | Encounter Summary ---
Author Organization [employer] Address [address] [facility] [address] 7t [place] [address] Care Team Providers Care Log Cut Off Sawyer Name Role Phone Maryam Bloom MD Primary Care Provider + Reason for Visit * Reason Comments Med Refill Encounter Details Date Type Department Care Team ([facility] st Contact Info) Description 12/25/2023 Refill [facility] [address] [place] [address] Maryam Bloom MD [address] [place] [address] Allergic rhinitis, unspecified seasonality, unspecified trigger Social [...] trigger documented in this encounter Care Teams Log Cut Off Sawyer Relationship Specialty Start Date End Date Maryam Bloom MD [address] [place] [phone] PCP - General Family Medicine 05/12/19 documented as of this encounter
--- OUTSIDE RECORDS SUMMARY | 2025-06-08 12:57 | XMS_ITS | Clinical Summary ---
Author Organization [address] [facility] Address [address] [place] [address] Phone Care Team Providers Care Respiratory Services Manager Name Role Phone Maryam Bloom MD Primary Care Provider [phone] Allergies No known active allergies Encounters Date Type Department Care Team Description 03/21/2025 9:45 AM EDT Office Visit [facility] [address] [phone] Lorenzo Weiner DPM Dermatophytosis of [...] Upcoming Encounters Date Type Department Care Team ([facility] st Contact Info) Description 06/22/2025 9:00 AM EST Office Visit [facility] [address] [phone] Lorenzo Weiner DPM [address] [place] [phone] Health Maintenance Due Date Last Done Comments [...] complete this topic Insurance [place] Member Subscriber Plan / Payer (Ef fective 2024-Present) Name:SAMUEL SEO Relation to Subscriber:Self Name:Samuel Seo Jr Payer ID:[id number] Group ID:Not on file Type:Not on file Address: [facility] [employer] ATTN:CLAIMS [address] [place] [address] Care Teams Respiratory Services Manager Relationship Specialty Start Date End Date Maryam Bloom MD [address] [place] [phone] PCP - General Internal Medicine 07/14/24
--- OUTSIDE RECORDS SUMMARY | 2025-06-08 12:57 | XMS_ITS | Clinical Summary ---
Author Organization [facility] Address [address] [place] [phone] Phone Care Team Providers Care Emergency Management Program Specialist Name Role Phone [place] Primary Care Provider Unavailable Social History Tobacco [...] on file Insurance C3 ACO C3 ACO [facility] C3 ACO [facility] C3 ACO Care Teams Emergency Management Program Specialist Relationship Specialty Start Date End Date Jean Paul Lowery MD PCP - General 08/17/21 Additional Source Comments The information contained in this document represents components of the legal health record. It is not the complete legal health record.[facility]
== END 2025-06-08 10:45 | disposition home or self-care (01) ==
LOC: HO.ACS 10:26
PROVIDERS: PCP Internal Medicine; Visit Provider Internal Medicine Medical Oncology
DX: Z79.01 Long term (current) use of anticoagulants (principal)

== ENCOUNTER → 2025-06-08 10:26 | Outpatient (BNVA) | payer MEDICAID, SELFPAY | PROVIDERS: PCP Internal Medicine; Visit Provider Internal Medicine Medical Oncology | DX: Z95.2 Presence of prosthetic heart valve (principal); Z79.01 Long term (current) use of anticoagulants; Z51.81 Encounter for therapeutic drug level monitoring | CPT/HCPCS: 85610; 99211 ==

== ENCOUNTER 2025-07-01 09:05 | Outpatient (AMB) | payer MEDICAID, SELFPAY ==
[2025-07-01 09:11] LABS: Prothrombin Time Whole Bld POC 31.3 sec (11.1-13.5); ~PT, ~INR - Anti Coag Clinic 2.6 (0.9-1.1)
--- NOTE | 2025-07-01 09:23 | MHC.OFFVISCO ---
Intake Intake Visit Reasons: Anticoagulation Allergies No Known Allergies (No Known Allergies*) Allergy (Verified 07/01/25 09:05) Medication List - Last Reconciled 07/01/25 by Melissa John RN acetaminophen (Tylenol) 650 mg (2 x 325 mg) PO Q6H albuterol sulfate 90 mcg/actuation 2 puffs PO Q4-6H PRN buprenorphine-naloxone 2-0.5 mg (Suboxone) 1 film sublingual DAILY buprenorphine-naloxone 4-1 mg (Suboxone) 5 mg sublingual BID cetirizine 10 mg PO DAILY chlorhexidine gluconate 0.12% PO desloratadine (Clarinex) 5 mg PO DAILY fluoxetine 20 mg PO QAM fluticasone propion-salmeterol 230-21 mcg/actuation (Advair HFA) 2 puffs inhalation fluticasone propionate 50 mcg/actuation 1 spray intranasal DAILY gabapentin 300 mg PO BID hydrocortisone 2.5% topical DAILY hydroxyzine pamoate 25 mg PO BEDTIME PRN ketoconazole 2% appl topical lamotrigine 200 mg PO lithium carbonate 0 mg PO nicotine (polacrilex) 4 mg PO Q2H PRN tiotropium bromide 2.5 mcg/actuation (Spiriva Respimat) 2 puffs inhalation QAM warfarin 7.5 mg See Protocol PO DAILY Nursing Note NO CP,SOB,DIET/MED CHANGE OR SX OF BLEEDING. CONTINUE PRESENT DOSE AND FOLLOW-UP IN 2 WEEKS GOOD UNDERSTANDING OF DOSING INSTR. Anti-Coag Initial Assessment Social Hx Patient Tobacco Use Status: Current everyday Tobacco user Tobacco use type: Cigarette alcohol intake: former Coding Level of Care Code Est Patient Level 1 Diagnoses Current use of anticoagulant therapy Z79.01 Assessment & Plan Assessment & Plan (1) Current use of anticoagulant therapy: Code(s): Z79.01 - nursing home (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
--- OUTSIDE RECORDS SUMMARY | 2025-07-01 09:23 | XMS_ITS | Clinical Summary ---
Author Organization [employer] Address 75 [facility] 7t [place] [address] Care Team Providers Care Panel Monitor Name Role Phone Maryam Bloom MD Primary [...] been stable with no CHF, followed by [facility] cardiology. Keep INR between 2.5 and 3.5, will order Lovenox if INR is below 2.2. Assessment & Plan (06/03/2024 1:19 PM EDT): No evidence of CHF, refer to [facility] Cardiology due for follow up. Assessment & [...] Advair twice daily Continue allergy desensitization by time signal wirer and use albuterol as needed Counseled to quit smoking and vaping Follow-up with noxious weeds and pest inspector Assessment & Plan (06/03/2024 1:15 PM EDT): [...] Improving on Clarinex and Flonase Follow-up with time signal wirer for allergy desensitization Assessment & Plan (08/03/2024 [...] life style modifications, diet and referral to corrosion control specialist. Recommended to decrease soda and sugary [...] Encounters Date Type Department Care Team Description 07/01/2025 Orders Only GENERIC EXTERNAL DATA DEPARTMENT Provider, Generic External Data 06/29/2025 Patient Outreach [facility] MEDICINE [address] [place] [phone] Maryam Bloom MD Pre-visit Planning (SDOH screening completed on 11/24/2024) 06/08/2025 Telephone [facility] [address] [place] [phone] Maryam Bloom MD appointment needed 06/08/2025 Orders Only GENERIC EXTERNAL DATA DEPARTMENT Provider, Generic External Data 06/05/2025 Refill [facility] [address] [place] [address] Maryam Bloom MD Mild intermittent asthma without complication 05/25/2025 Orders Only GENERIC EXTERNAL DATA DEPARTMENT Provider, Generic External Data 05/13/2025 Telephone [facility] [address] [place] [phone] Maryam Bloom MD oct recall 05/02/2025 Orders [...] 12/03/2024 10:36 AM EDT Plan of Treatment Upcoming Encounters Date Type Department Care Team (Late st Contact Info) Description 07/13/2025 11:00 AM EST Office Visit [facility] [address] [place] [address] Maryam Bloom MD [address] [place], [place] [phone] Health Maintenance Due Date Last Done Comments Dental Oral Exam 1983 Dental Prophylaxis 1983 Disability Screening 1983 Family Planning (PISQ) [...] Screening 11/24/2025 11/24/2024 Tobacco Screening 12/03/2025 12/03/2024 Dental X-Ray: Full Mouth 05/14/2027 05/13/2024 DTaP/Tdap/Td Vaccines (2 - T d or [...] Comments PROTHROMBIN TIME WHOLE BLD POC Routine 07/01/2025 9:08 AM EST ~PT, ~INR - ANTI COAG CLINIC Routine 07/01/2025 9:08 AM EST PROTHROMBIN TIME WHOLE BLD POC Routine 06/08/2025 [...] COAG CLINIC Routine 04/18/2025 9:22 AM EDT LIPID PANEL WITH REFLEX TO [...] * (ABNORMAL) PROTHROMBIN TIME WHOLE BLD POC (07/01/2025 9:08 AM EST) Only the most recent of5 resultswithin the time period is included. Protime 31.3(H) 11.1 - 13.5 sec [facility] 07/01/2025 9:08 AM EST 07/01/2025 9:10 AM EST us Generic External Data Provider LAB BLOOD ORDERAB LES Final Result [facility] [address] [place] [phone] * (ABNORMAL) ~PT, ~INR - ANTI COAG CLINIC (07/01/2025 9:08 AM EST) Only the most recent of5 resultswithin the time period is included. Prothrombin Time INR 2.6(H) 0.9 - 1.1 [facility] Comment:METER #: [id number] TERNATIONAL NORMALIZED RATIO (INR) REFERENCE RANGES Reference RangeFor patients not on anticoagulant therapy: 0.9 - 1.1INR ranges for oral anticoagulanttherapy:For prevention and treatment of venous thrombosis and pulmonary embolism: 2.0 - 3.0For acute myocardial infarction with aspirin therapy: 2.0 - 3.0For acute myocardial infarction without aspirin therapy: 3.0 - 4.0For patients with mechanical prosthetic heart valves: 2.5 - 3.5 07/01/2025 9:08 AM EST 07/01/2025 9:10 AM EST us Generic External Data Provider LAB BLOOD ORDERAB LES Final Result Performing Organization Address [facility] Co de Phone Number [facility] [address] [place] [phone] * (ABNORMAL) Lipid Panel with Reflex to Direct LDL (08/03/2024 10:36 AM EST) Triglycerides 106 <150 mg/dL [facility] Comment:Desirable Triglyceri de: less than 150 mg/dLBorderline High Triglyceride 150-199 mg/dLHigh Triglyceride: 200-499 mg/dLVery High Triglyceride: greater than or equal to 5OO mg/dL Cholesterol 185 <200 mg/dL [facility] Comment:Desirable Cholestero l: less than 200 mg/dLBorderline High Cholesterol: 200-239 mg/dLHigh Cholesterol: greater than 239 mg/dL LDL Cholesterol Calculated 119(H) <100 mg/dL [facility] Comment:Desirable LDL: less than 100 mg/dLNear Optimal/Above Optimal LDL: 110- 129 mg/dLBorderline High LDL: 130-159 mg/dLHigh LDL: 160-189 mg/dLVery High LDL: greater than or equal to 190 mg/dL HDL Cholesterol 45 >40 mg/dL [facility] Comment:Desirable HDL: great er than 40 mg/dL Note: This HDL assay may give artificially low results in patients with liver disease. Blood 08/03/2024 10:3 6 AM EST 08/03/2024 1:12 PM EST us Maryam Bloom MD LAB BLOOD ORDERABLES Fin al Result Performing Organization Address [facility] Co de Phone Number [facility] [address] [place] [phone] * HEPATITIS C AB W/REFL TO HCV RNA, QN, PCR (03/05/2021 9:50 AM EDT) HEPATITIS C ANTIBODY NON-REACT STANISLAW NON-REACT STANISLAW [facility] INDEX 0.01 <1.00 [facility] Comment: HCV antibody was non-reactive. There is no laboratory evidence of HCV infection. In most cases, no further action is required. However, if recent HCV exposure is suspected, a test for HCV RNA (test code 49658) is suggested. For additional information please refer to http://Bilbus.BlisMedia/faq/ROH98c5 (This link is being provided for informational/ educational purposes only.) 03/05/2021 9:50 AM EDT Maryam Bloom MD HISTORICAL/NON ORDERABLE LABS Final Result Performing Organization Address City/State/[facility] Co de Phone Number [facility] [address] * HIV 1/2 ANTIGEN/ANTIBODY,FOURTH GENERATION W/RFL (03/05/2021 9:50 AM EDT) HIV-1/2 ANTIGEN AND ANTIBODIES, 4TH GENERATION W/ REFLEX NON-REACT STANISLAW NON-REACT STANISLAW [facility] Comment: HIV-1 antigen and HIV-1/HIV-2 [...] purpose. For additional information please refer to http://Bilbus.[employer].Siamab [employer]rapeutics/faq/LVJ484 (This link is being provided for informational/ educational purposes only.) The performance of this assay has not been clinically validated in patients less than 2 years old. 03/05/2021 9:50 AM EDT us Maryam Bloom MD LAB BLOOD ORDERABLES Fin al Result [facility] [address] from Last 3 Months or Most Recently Relevant to Health Maintenance Insurance [facility] STANDARD DENTAL-[facility] MEDICAID STAND ADULT Care Teams Panel Monitor Relationship Specialty Start Date End Date Maryam Bloom MD [address] [place] [phone] PCP - General Family Medicine 05/12/19
--- OUTSIDE RECORDS SUMMARY | 2025-07-01 09:23 | XMS_ITS | Encounter Summary ---
Author Organization [employer] Address [address] [facility] [address] 7t [place] [address] Care Team Providers Care Almond Sorter Name Role Phone Maryam Bloom MD Primary Care Provider + Reason for Visit * Reason Comments Med Refill Encounter Details Date Type Department Care Team ([facility] st Contact Info) Description 12/25/2023 Refill [facility] [address] [place] [address] Maryam Bloom MD [address] [place] [address] Allergic rhinitis, unspecified seasonality, unspecified trigger Social [...] Description 07/13/2025 11:00 AM EST Office Visit [facility] [address] [place] [phone] Mayram Bloom MD [address] [place] [phone] documented as of this encounter Visit Diagnoses Diagnosis Allergic rhinitis, unspecified seasonality, unspecified trigger documented in this encounter Care Teams Almond Sorter Relationship Specialty Start Date End Date Maryam Bloom MD [address] [place] [phone] PCP - General Family Medicine 05/12/19 documented as of this encounter
--- OUTSIDE RECORDS SUMMARY | 2025-07-01 09:23 | XMS_ITS | Encounter Summary ---
Author Organization [employer] Address [address] [facility] [address] 7[address] [place] [address] Care Team Providers Care General Surgery Physician Assistant Name Role Phone Maryam Bloom MD Primary Care Provider + Reason for Visit * Reason Comments Med Refill Encounter Details Date Type Department Care Team ([facility] st Contact Info) Description 07/19/2023 Refill [facility] MED[facility]INE [address] [place] [address] Maryam Bloom MD [address] [place] [address] Mild intermittent asthma without complication Social History [...] Description 07/13/2025 11:00 AM EST Office Visit [facility] MED[facility] [address] [place] [phone] Maryam Bloom MD [address] [place] [phone] documented as of this encounter Visit Diagnoses Diagnosis Mild intermittent asthma without complication documented in this encounter Care Teams General Surgery Physician Assistant Relationship Specialty Start Date End Date Maryam Bloom MD [address] [place] [phone] PCP - General Family Medicine 05/12/19 documented as of this encounter
--- OUTSIDE RECORDS SUMMARY | 2025-07-01 09:23 | XMS_ITS | Encounter Summary ---
Author Organization [employer] Address [address] [facility] 7[address] [place] [address] Care Team Providers Care Drafter Electromechanical Name Role Phone Maryam Bloom MD Primary Care Provider + Encounter Details Date Type Department Care Team (Late st Contact Info) Description 09/12/2022 Orders Only [facility] [address] [place] [address] Cora Hamilton LPN Social History Tobacco Use [...] Description 07/13/2025 11:00 AM EST Office Visit [facility] [address] [place] [address] Maryam Bloom MD [address] [place] [address] documented as of this encounter Visit Diagnoses Not on filedocumented in this encounter Care Teams Drafter Electromechanical Relationship Specialty Start Date End Date Maryam Bloom MD [address] [place] [id number] PCP - General Family Medicine 05/12/19 documented as of this encounter
--- OUTSIDE RECORDS SUMMARY | 2025-07-01 09:23 | XMS_ITS | Encounter Summary ---
Author Organization [employer] Address [address] [facility] [address] [address] [place] [address] Care Team Providers Care Php Software Engineer Name Role Phone Maryam Bloom MD Primary Care Provider + Encounter Details Date Type Department Care Team (Late st Contact Info) Description 07/01/2025 Orders Only GENERIC EXTERNAL DATA [...] Description 07/13/2025 11:00 AM EST Office Visit [facility] [address] [place] [address] Maryam Bloom MD [address] [place] [address] documented as of this encounter Procedures Procedure Name Priority Date/Time Associated Diagnosis Comments PROTHROMBIN TIME WHOLE BLD POC Routine 07/01/2025 9:08 AM EST ~PT, ~INR - ANTI COAG CLINIC Routine 07/01/2025 9:08 AM EST documented in this encounter Results * (ABNORMAL) PROTHROMBIN TIME WHOLE BLD POC (07/01/2025 9:08 AM EST) [facility] Protime 31.3(H) 11.1 - 13.5 sec [facility] 07/01/2025 9:08 AM EST 07/01/2025 9:10 AM EST us Generic External Data Provider LAB BLOOD ORDERAB LES Final Result [facility] [address] [place] [address] [phone] * (ABNORMAL) ~PT, ~INR - ANTI COAG CLINIC (07/01/2025 9:08 AM EST) Prothrombin Time INR 2.6(H) 0.9 - 1.1 [facility] Comment:METER #: [id number] TERNATIONAL NORMALIZED RATIO (INR) REFERENCE RANGES Reference [...] Provider LAB BLOOD ORDERAB LES Final Result [facility] [address] [place] [address] [phone] documented in this encounter Visit Diagnoses Not on filedocumented in this encounter Additional Health Concerns Assessment Noted Time PHQ-9 Depression Total Score: 0 08/03/20 24 9:59 AM EST documented as of this encounter Care Teams Php Software Engineer Relationship Specialty Start Date End Date Maryam Bloom MD [address] [place] [phone] PCP - General Family Medicine 05/12/19 documented as of this encounter
--- OUTSIDE RECORDS SUMMARY | 2025-07-01 09:23 | XMS_ITS | Encounter Summary ---
Author Organization [employer] Address [address] [facility] 7 [place] [address] Care Team Providers Care Video Rental Clerk Name Role Phone Maryam Bloom MD Primary Care Provider + Reason for Visit * Reason Onset Date Comments premed tx 01/08/2023 Encounter Details Date Type Department Care Team (Late st Contact Info) Description 01/08/2023 Telephone [facility] [address] [place] [address] Xavi Melara DDS [address] [place] [address] premed tx Social History Tobacco Use Types [...] Miscellaneous Notes * Telephone Encounter - Ladonna Sagar - 01/08/2023 12:40 PM EDT Patient has a mechanical valve and 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 Can script be sent?DR documented in this encounter Plan of Treatment Upcoming Encounters Date Type Department Care Team (Late st Contact Info) Description 07/13/2025 11:00 AM EST Office Visit [facility] [address] [place] [address] Maryam Bloom MD [address] [place], [place] [phone] documented as of this encounter Visit Diagnoses Not on filedocumented in this encounter Care Teams Video Rental Clerk Relationship Specialty Start Date End Date Maryam Bloom MD [address] [place], [place] [phone] PCP - General Family Medicine 05/12/19 documented as of this encounter
--- OUTSIDE RECORDS SUMMARY | 2025-07-01 09:23 | XMS_ITS | Clinical Summary ---
Author Organization [address] [facility] Address [address] [place] [address] Phone Care Team Providers Care Metal Cabinet Finisher Name Role Phone Maryam Bloom MD Primary Care Provider [phone] Allergies No known active allergies Social History [...] Upcoming Encounters Date Type Department Care Team ([facility] Contact Info) Description 07/19/2025 10:00 AM EST Office Visit Orthopedic Surgery [facility] [address] [phone] Lorenzo Weiner, DPM [address] [phone] Health Maintenance Due Date Last Done Comments Hepatitis A Vaccines (1 of 2 - Risk 2-dose series) 2002 Hepatitis B Vaccines (1 of 3 - 19+ 3-dose series) 2002 HPV Vaccines (1 - 3-dose SCD M series) 2010 Cholesterol Screening (Lipid Panel) 07/10/2022 Hepatitis C Screening 07/10/2022 Social Influencers of Health Screening 07/10/2022 Depression Screening 08/11/2024 COVID-19 Vaccine (1 - 2024-2 6 season) 2025 Influenza Vaccine (#1) 2025 , [...] topic Insurance MEDICAID - [place] Care Teams Metal Cabinet Finisher Relationship Specialty Start Date End Date Maryam Bloom MD [address] [phone] PCP - General Internal Medicine 07/14/24
--- OUTSIDE RECORDS SUMMARY | 2025-07-01 09:23 | XMS_ITS | Encounter Summary ---
Author Organization [employer] Address 75 [facility] 7 [place] [address] Care Team Providers Care Hydroelectric Production Technician Name Role Phone Maryam Bloom MD Primary Care Provider + Reason for Visit * Reason Comments Pre-visit Planning SDOH screening compl eted on 11/24/2024 Encounter Details Date Type Department Care Team (Late st Contact Info) Description 06/29/2025 Patient Outreach [facility] [address] [place] [address] Maryam Bloom MD [address] [place], [place] [phone] Pre-visit Planning (SDOH screening completed on 11/24/2024) Social History Tobacco Use Types Packs/Day Years [...] as of this encounter Progress Notes * Jodi Murray - 06/29/2025 9:55 AM EST CC Jodi. Placed outbound call to patient to complete pre-visit planning. No answer at this time. Patient name and were not confirmed. CC left voicemail requesting return call. Direct contact information provided. documented in this encounter Plan of Treatment Upcoming Encounters Date Type Department Care Team (Late st Contact Info) Description 07/13/2025 11:00 AM EST Office Visit [facility] [address] [place] [address] Maryam Bloom MD [address] [place] [address] documented as of this encounter Visit Diagnoses Not on filedocumented in this encounter Additional Health Concerns Assessment Noted Time PHQ-9 Depression Total Score: 0 08/03/20 9:59 AM EST documented as of this encounter Care Teams Hydroelectric Production Technician Relationship Specialty Start Date End Date Maryam Bloom MD [address] [place] [address] PCP - General Family Medicine 05/12/19 documented as of this encounter
== END 2025-07-01 09:24 | disposition home or self-care (01) ==
LOC: HO.ACS 09:05
PROVIDERS: PCP Internal Medicine; Visit Provider Internal Medicine Medical Oncology
DX: Z79.01 Long term (current) use of anticoagulants (principal)

== ENCOUNTER → 2025-07-01 09:05 | Outpatient (BNVA) | payer MEDICAID, SELFPAY | PROVIDERS: PCP Internal Medicine; Visit Provider Internal Medicine Medical Oncology | DX: Z95.2 Presence of prosthetic heart valve (principal); Z51.81 Encounter for therapeutic drug level monitoring; Z79.01 Long term (current) use of anticoagulants | CPT/HCPCS: 85610; 99211 ==

== ENCOUNTER 2025-07-21 09:19 | Outpatient (AMB) | payer MEDICAID, SELFPAY ==
[2025-07-21 09:25] LABS: Prothrombin Time Whole Bld POC 38.4 sec (11.1-13.5); ~PT, ~INR - Anti Coag Clinic 3.2 (0.9-1.1)
--- NOTE | 2025-07-21 09:27 | MHC.OFFVISCO ---
Intake Intake Visit Reasons: Anticoagulation Allergies No Known Allergies (No Known Allergies*) Allergy (Verified 07/21/25 09:20) Medication List - Last Reconciled 07/21/25 by Haritha Chicas RN acetaminophen (Tylenol) 650 mg (2 x 325 mg) PO Q6H albuterol sulfate 90 mcg/actuation 2 puffs PO Q4-6H PRN buprenorphine-naloxone 2-0.5 mg (Suboxone) 1 film sublingual DAILY buprenorphine-naloxone 4-1 mg (Suboxone) 5 mg sublingual BID cetirizine 10 mg PO DAILY chlorhexidine gluconate 0.12% PO desloratadine (Clarinex) 5 mg PO DAILY fluoxetine 20 mg PO QAM fluticasone propion-salmeterol 230-21 mcg/actuation (Advair HFA) 2 puffs inhalation fluticasone propionate 50 mcg/actuation 1 spray intranasal DAILY gabapentin 300 mg PO BID hydrocortisone 2.5% topical DAILY hydroxyzine pamoate 25 mg PO BEDTIME PRN ketoconazole 2% appl topical lamotrigine 200 mg PO lithium carbonate 0 mg PO nicotine (polacrilex) 4 mg PO Q2H PRN tiotropium bromide 2.5 mcg/actuation (Spiriva Respimat) 2 puffs inhalation QAM warfarin 7.5 mg See Protocol PO DAILY Nursing Note INR: 3.2 in therapeutic range of 2.5-3.5 Medications and supplements reviewed No changes in health, diet, medications, or supplements, Denies any signs and symptoms of bleeding or bruising or clotting. Bleeding, bruising, clotting discussed Nutritional guidance given Dose: 7.5mg X 5 days and 11.25mg X 2 days (Fri & ) F/U INR: 08/01/25 Patient verbalizes understanding of instructions given Anti-Coag Initial Assessment Social Hx Patient Tobacco Use Status: Current everyday Tobacco user Tobacco use type: Cigarette alcohol intake: former Coding Level of Care Code Est Patient Level 1 Diagnoses Current use of anticoagulant therapy Z79.01 Results AMB INR Fingerstick AMB INR Fingerstick 3.2 Last Edit by Haritha Chicas RN on 07/21/25 09:25 interface delay Assessment & Plan Assessment & Plan (1) Current use of anticoagulant therapy: Code(s): Z79.01 - 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
== END 2025-07-21 09:34 | disposition home or self-care (01) ==
LOC: HO.ACS 09:19
PROVIDERS: PCP Internal Medicine; Visit Provider Internal Medicine Medical Oncology
DX: Z79.01 Long term (current) use of anticoagulants (principal)

== ENCOUNTER → 2025-07-21 09:19 | Outpatient (BNVA) | payer MEDICAID, SELFPAY | PROVIDERS: PCP Internal Medicine; Visit Provider Internal Medicine Medical Oncology | DX: Z95.2 Presence of prosthetic heart valve (principal); Z51.81 Encounter for therapeutic drug level monitoring; Z79.01 Long term (current) use of anticoagulants | CPT/HCPCS: 85610; 99211 ==